=== PATIENT | female | born 1990 | race Caucasian/White ===

== ENCOUNTER 2020-05-28 15:25 | Outpatient (REF) | payer OTHER, SELFPAY | END 2020-05-28 15:26 | disposition home or self-care (01) | LOC: HO.LAB 15:25 | PROVIDERS: Visit Provider Internal Medicine | DX: Z20.828 Contact with and (suspected) exposure to other viral communicable diseases (principal) | CPT/HCPCS: C9803; U0003 ==

== ENCOUNTER 2020-06-25 13:08 | Outpatient (REF) | payer OTHER, SELFPAY | END 2020-06-25 13:09 | disposition home or self-care (01) | LOC: HO.LAB 13:08 | PROVIDERS: Visit Provider Internal Medicine | DX: Z20.822 Contact with and (suspected) exposure to COVID-19 (principal) | CPT/HCPCS: 36415; C9803; U0003 ==

== ENCOUNTER 2020-07-29 14:27 | Outpatient (REF) | payer OTHER, SELFPAY ==
--- NOTE | ~2020-07-29 | XR_ITS ---
EXAMINATION: XR THORACIC SPINE XR LUMBAR SPINE CLINICAL INFORMATION: Lower abdominal pain. COMPARISON: None TECHNIQUE: AP and lateral views of the thoracic spine. AP, lateral, and coned-down views of the lumbar spine. FINDINGS: THORACIC SPINE: Normal vertebral body alignment. The thoracic kyphosis is maintained. No acute fracture or subluxation. No loss of vertebral body or intervertebral disc height. No lytic or blastic osseous lesion. The visualized lungs are clear. LUMBAR SPINE: Normal vertebral body alignment. The lumbar lordosis is maintained. No acute fracture or subluxation. No loss of vertebral body or intervertebral disc height. No lytic or blastic osseous lesion. No abnormal soft tissue calcification. XR/XR thoracic spine 2V IMPRESSION: Thoracic spine: Unremarkable examination. Lumbar spine: Unremarkable examination.
--- NOTE | ~2020-07-29 | XR_ITS ---
EXAMINATION: XR ABDOMEN WITH DECUBITUS VIEWS CLINICAL INDICATION: Lower abdominal pain. COMPARISON: Abdominal ultrasound dated 06/17/2018 and abdominal radiograph dated 05/28/2018. TECHNIQUE: AP upright and supine views of the abdomen. FINDINGS: Nonobstructive bowel gas pattern. Minimal stool burden. No intra-abdominal free air. No abnormal soft tissue calcification. No acute osseous abnormality. XR/XR abdomen w decubitus IMPRESSION: Unremarkable examination.
--- NOTE | ~2020-07-29 | XR_ITS ---
EXAMINATION: XR THORACIC SPINE XR LUMBAR SPINE CLINICAL INFORMATION: Lower abdominal pain. COMPARISON: None TECHNIQUE: AP and lateral views of the thoracic spine. AP, lateral, and coned-down views of the lumbar spine. FINDINGS: THORACIC SPINE: Normal vertebral body alignment. The thoracic kyphosis is maintained. No acute fracture or subluxation. No loss of vertebral body or intervertebral disc height. No lytic or blastic osseous lesion. The visualized lungs are clear. LUMBAR SPINE: Normal vertebral body alignment. The lumbar lordosis is maintained. No acute fracture or subluxation. No loss of vertebral body or intervertebral disc height. No lytic or blastic osseous lesion. No abnormal soft tissue calcification. XR/XR lumbar spine 2-3V IMPRESSION: Thoracic spine: Unremarkable examination. Lumbar spine: Unremarkable examination.
== END 2020-07-29 14:28 | disposition home or self-care (01) ==
LOC: HO.XRAY 14:27
PROVIDERS: PCP Physician Assistant; Visit Provider Nurse Practitioner
DX: R10.30 Lower abdominal pain, unspecified (principal); K59.04 Chronic idiopathic constipation; K75.81 Nonalcoholic steatohepatitis (NASH); K64.9 Unspecified hemorrhoids; E66.01 Morbid (severe) obesity due to excess calories; Z88.8 Allergy status to other drugs, medicaments and biological substances
CPT/HCPCS: 72070; 72100; 74021

== ENCOUNTER → 2020-08-11 09:11 | Outpatient (BNVA) | payer OTHER, SELFPAY | PROVIDERS: PCP Physician Assistant; Visit Provider Nurse Practitioner ==

== ENCOUNTER 2020-08-23 15:12 | Outpatient (REF) | payer OTHER, SELFPAY ==
[2020-08-23 15:42] LABS: Hemoglobin 12.8 g/dl (12.0-16.0); Mean Corpuscular Hemoglobin 29.1 pg (27.0-33.0); Mean Corpuscular Volume 90.9 fL (80-98); Mean Platelet Volume 10.8 fL (9.4-12.3); Platelet Count 247 X10*3/uL (160-400); Red Cell Distribution Width 13.3 % (11.0-16.0); White Blood Count 6.2 X10*3/uL (4.8-10.8)
[2020-08-23 16:19] LABS: Alanine Aminotransferase 41 U/L (0-31); Albumin Level 4.2 g/dL (3.5-5.0); Alkaline Phosphatase 86 U/L (39-117); Anion Gap 12 (12-20); Aspartate Amino Transferase 35 U/L (5-31); Bilirubin Total 0.5 mg/dL (0.0-1.0); Blood Urea Nitrogen 16 mg/dL (9-16); Calcium 8.8 mg/dL (8.4-10.2); Carbon Dioxide 28 mmol/L (22-29); Chloride 105 mmol/L (96-108); Cholesterol 162 mg/dL; Estimated Glomerular Filt Rate > 60; Glucose Fasting 80 mg/dL (60-99); HDL Cholesterol 41 mg/dL; LDL Cholesterol Calculated 102 mg/dl; Potassium 4.3 mmol/L (3.3-5.1); Sodium 141 mmol/L (135-145); Total Protein 7.8 g/dL (6.5-8.0); Triglycerides 97 mg/dL
[2020-08-23 16:39] LABS: TSH reflex Free T4 1.33 uIU/mL (0.32-4.0)
[2020-08-23 18:31] LABS: Glucose Urine UA NEG (NEG); Leukocyte Esterase Urine NEG (NEG); Nitrite Urine NEG (NEG); PH 6.5 (5.0-8.0); Specific Gravity - Urine 1.025 (1.005-1.025); Urine Blood NEG (NEG); Urine Ketones NEG (NEG); Urine Protein NEG (NEG-TRACE)
[2020-08-23 18:35] LABS: Appearance Urine CLEAR; Color Urine YELLOW
== END 2020-08-23 15:13 | disposition home or self-care (01) ==
LOC: HO.LAB 15:12
PROVIDERS: Absent Provider Nurse Practitioner; PCP Physician Assistant; Visit Provider Physician Assistant
DX: I10 Essential (primary) hypertension (principal); B36.9 Superficial mycosis, unspecified; R10.30 Lower abdominal pain, unspecified; Z13.1 Encounter for screening for diabetes mellitus; Z13.220 Encounter for screening for lipoid disorders; Z13.29 Encounter for screening for other suspected endocrine disorder
CPT/HCPCS: 36415; 80053; 80061; 81003; 84443; 85027

== ENCOUNTER 2020-08-26 09:06 | Outpatient (REF) | payer OTHER, SELFPAY ==
--- NOTE | ~2020-08-26 | CT_ITS ---
EXAMINATION: CT ABDOMEN AND PELVIS WITH CONTRAST CLINICAL INFORMATION: Lower abdominal pain, unspecified COMPARISON: Prior CTs of the abdomen and pelvis, most recently 08/21/2017 TECHNIQUE: Multidetector volumetric images were obtained from the superior aspect of the liver through the pubic symphysis following administration 85 mL of Omnipaque 350 intravenous contrast. Sagittal and coronal reformatted images were obtained on the technologist's workstation. Oral contrast: Yes This CT examination was performed using dose optimization techniques as appropriate, variously including the following: *Automated exposure control *Adjustment of mA and/or kV according to patient size (this includes techniques or standardized protocols for targeted exams where dose is matched to indication/reason for exam; i.e. extremities or head) *Use of iterative reconstruction technique DLP: 686 mGy-cm FINDINGS: LUNG BASES: The visualized lung bases are unremarkable. LIVER, GALLBLADDER, AND BILIARY TREE: The liver is normal in size, shape, and attenuation. No focal hepatic lesion or biliary ductal dilatation is present. The gallbladder is unremarkable with no evidence of radiopaque gallstones, gallbladder wall thickening, or obvious pericholecystic inflammatory changes. PANCREAS: Unremarkable. SPLEEN: At the upper limits of normal for size, 13.7 cm in the coronal plane. Just inferior to the tip of the spleen there is a homogeneously attenuating 1.6 cm structure most compatible with a splenule. ADRENAL GLANDS: Unremarkable. KIDNEYS AND URETERS: The kidneys are normal in size, shape, and attenuation. No hydronephrosis, hydroureter, or calculi seen. No perinephric stranding. BLADDER: Normal partially distended bladder contour. GASTROINTESTINAL TRACT: The small and large bowel are unremarkable. The appendix is unremarkable. ABDOMINAL WALL: No significant hernia is appreciated. LYMPH NODES: Normal. VASCULAR: Unremarkable. PELVIC VISCERA: The uterus and adnexa are unremarkable. Incidental note of a tampon within the vagina. OSSEOUS STRUCTURES: Unremarkable. CT/CT abdomen pelvis w con IMPRESSION: The spleen is at the upper limits of normal for size, otherwise essentially no abnormality of the abdomen or pelvis is identified.
[2020-08-26] MEDS: Barium Sulfate Oral (Mocha) 450 ML ORAL.SUSP 900 ML PO (12:10)
== END 2020-08-26 09:07 | disposition home or self-care (01) ==
LOC: HO.CT 09:06
PROVIDERS: PCP Physician Assistant; Visit Provider Nurse Practitioner
DX: R10.30 Lower abdominal pain, unspecified (principal)
CPT/HCPCS: 74177; Q9967

== ENCOUNTER 2020-08-31 21:48 | Emergency (ER) | payer OTHER, SELFPAY ==
--- NOTE | ~2020-08-31 | XR_ITS ---
EXAMINATION: LUMBOSACRAL SPINE 3 VIEWS CLINICAL INFORMATION: Low back pain. COMPARISON: 07/29/2020. TECHNIQUE: AP, lateral, spot lateral views of the lumbosacral spine are provided. FINDINGS: There are no fractures. The lumbar vertebrae are in normal alignment. Disc heights and vertebral body heights are well-preserved. XR/XR lumbar spine 2-3V IMPRESSION: Unremarkable lumbosacral spine series.
[2020-08-31 21:56] VITALS: BP 144/92; PULSE 92; RESP 15; TEMP 36.8; O2SAT 97; BMI 45.7
--- NOTE | 2020-08-31 23:32 | ED_ITS ---
HPI - General Adult General Chief complaint: Back Pain/Injury Stated complaint: BACK PAIN Time Seen by Provider: 08/31/20 23:18 Source: patient Mode of arrival: ambulatory Limitations: no limitations History of Present Illness HPI narrative: Patient presents to ED for left-sided back pain radiating down left leg with tingling in the left lower extremity. Patient denies any recent trauma. Patient states no flank pain, chills fever, chills, nausea, dysuria, hematuria, or vomiting Related Data Home Medications Medication Instructions Recorded Confirmed ibuprofen 600 mg tablet 600 mg PO Q6H PRN 07/29/20 methocarbamol 750 mg tablet mg PO 07/29/20 prednisone 20 mg tablet 20 mg PO BID 07/29/20 tramadol 50 mg tablet mg PO 07/29/20 verapamil 40 mg tablet 40 mg PO BID 07/29/20 Previous Rx's Medication Instructions Recorded amoxicillin 500 mg capsule 500 mg PO Q8H 5 Days #15 cap 07/12/20 clotrimazole-betamethasone 1 1 appl TOPICAL BID 15 Days #45 g 07/12/20 %-0.05 % topical cream prednisone 10 mg tablet 10 mg PO DAILY 5 Days #5 tab 07/12/20 cyclobenzaprine 10 mg PO TID PRN #15 tab 09/01/20 naproxen 500 mg PO BID PRN #20 tab 09/01/20 Allergies Allergy/AdvReac Type Severity Reaction Status Date / Time dexamethasone [DEXAMETHASONE] Allergy Unknown ANXIETY Verified 08/11/20 09:12 Unkonwn steroid shot Allergy Unknown Unknown Uncoded 07/14/20 07:20 Review of Systems Review of Systems: Yes all other systems are reviewed and are negative Constitutional: Constitutional: Reports as per HPI and Reports no additional constitutional complaints Eyes: Eyes: Reports as per HPI and Reports no additional eye complaints ENT: Reports system reviewed and no additional complaints, except as docume nted Cardiovascular: Cardiovascular: Reports as per HPI and Reports no additional cardiovascular complaints Respiratory: Respiratory: Reports as per HPI and Reports no additional respiratory complaints Gastrointestinal: Gastrointestinal: Reports as per HPI and Reports no additional gastrointestinal complaints Genitourinary: Genitourinary: Reports no additional female genitourinary complaints and Reports as per HPI Musculoskeletal: Musculoskeletal: Reports no additional musculoskeletal complaints, Reports as per HPI and Reports back pain Neurologic: Reports system reviewed and no additional complaints, except as documented and Reports as per HPI Psychiatric: Psychiatric: Reports no additional psychiatric complaints and Reports as per HPI [facility] Past Medical History Surgical History History of carpal tunnel surgery (~04/2020) Hx of section Family History Family History Father Unknown family medical history Maternal Uncle Blocked artery Family/Other Colon cancer Social History Social History (Updated 08/31/20 @ 21:59 by Jeaneth Chin) Alcohol intake: never Smoking Status: Never smoker Smoked in Last 30 Days: No Use of substances other than those prescribed or required for medical reasons: No Any prior treatment program specific to substance use: No Advance Directives: No Advance Directives Information Provided: No Physical Exam Vital Signs: Vital Signs: Last Vital Signs Temp 98.3 F 08/31/20 21:56 Pulse 92 08/31/20 21:56 Resp 15 08/31/20 21:56 BP 144/92 H 08/31/20 21:56 Pulse Ox 97 08/31/20 21:56 Body Mass Index 45.7 Const: General: cooperative, healthy appearing, comfortable, no acute distress, well developed, alert, awake and Physically active; No lethargic Orientation/consciousness: No lethargic HENMT: Head: Yes normal to inspection, Yes No palpable skull fracture present, Yes normocephalic, Yes atraumatic, No Layne's sign, No contusion, No cranial bruits, No hematoma, No laceration, No occipital foramen tenderness, No palpable skull fracture, No raccoon eyes, No scalp lesion, No scalp tenderness, No Tempo ral artery tenderness present and No periorbital ecchymosis Eyes: General: appearance normal, both eyes and all related structures Neck: Neck: Yes normal visual inspection, Yes full ROM, Yes no ly mphadenopathy, Yes no meningeal signs, Yes trachea midline, Yes supple and No tender Chest: Chest palpation & inspection: normal inspection of the chest and normal palpation of entire chest wall Resp: Effort & Inspection: normal respiratory effort and able to speak in complete sentences Auscultation: clear to auscultation bilaterally Cardio: Jugular venous distension: no JVD Heart sounds: S1 normal heart sound present and S2 normal heart sound present GI: Inspection: Yes normal to inspection and No abdominal wall ecchymosis Palpation (GI): Soft to palpation, not firm, nontender, no guarding and not rigid : General: No CVA tenderness and Yes no CVA tenderness Back/Spine/Pelvis: Back: no CVA tenderness, No CVA tenderness and back tenderness (Left lumbar spine and muscular tenderness) Skin: General skin exam: no rashes or lesions noted and elasticity normal Neuro: General: patient oriented x3, no meningeal signs and CN's II-XI intact bilaterally Cranial nerves: Yes CN's II-XII intact bilaterally Extrem: General: Yes normal to inspection and Yes full ROM Psych: Appearance: grossly normal, well kempt and not disheveled Course Course Course Narrative: History physical exam indicates sciatica. Review lumbar x-ray and give patient pain meds Reevaluation(s) Reevaluation #1: X-ray negative for any fractures. Diagnosis sciatica. Medical Decision Making MDM Narrative Medical decision making narrative: Sciatica Discharge Plan Discharge Clinical Impression: Sciatica Patient Disposition: Home, Self-Care Instructions: Sciatica (ED) Additional Instructions: Return to the ED immediately for worsening back pain, nausea, vomiting, fever, chills, dysuria, hematuria, flank pain, or any other concerning symptoms. Prescriptions: New naproxen 500 mg tablet 500 mg PO BID PRN (Reason: pain) Qty: 20 RF: 0 cyclobenzaprine 10 mg tablet 10 mg PO TID PRN (Reason: pain) Qty: 15 RF: 0 No Action clotrimazole-betamethasone 1-0.05 % cream 1 appl topical BID 15 Days Qty: 45 RF: 0 amoxicillin 500 mg capsule 500 mg PO Q8H 5 Days Qty: 15 RF: 0 prednisone 10 mg tablet 10 mg PO DAILY 5 Days Qty: 5 RF: 0 Referrals: Abdifatah Whitt PA-C [Primary Care Provider] - 2 days (Sciatica) Stand Alone Forms: Work/School Release Interventions: ED Discharge Assessment Last Done: 09/01/20 00:41 Discharge Date/Time: 09/01/20 00:43 Print Language: [place]ian
[2020-08-31] MEDS: Ketorolac Tromethamine 30 MG/ML VIAL IM (23:53)
== END 2020-09-01 00:43 | disposition home or self-care (01) ==
PROVIDERS: Emergency Provider Internal Medicine; PCP Physician Assistant
DX: M54.42 Lumbago with sciatica, left side (principal)
CPT/HCPCS: 72100; 96372; 99284; J1885

== ENCOUNTER → 2020-09-10 08:11 | Outpatient (BNVA) | payer OTHER, SELFPAY | PROVIDERS: PCP Physician Assistant; Visit Provider Nurse Practitioner ==

== ENCOUNTER 2020-09-20 00:11 | Emergency (ER) | payer OTHER, SELFPAY ==
[2020-09-20 00:41] VITALS: BP 136/77; PULSE 88; RESP 16; TEMP 37.1; O2SAT 100; BMI 47.5
[2020-09-20 01:19] LABS: Glucose Urine UA NEG (NEG); Leukocyte Esterase Urine NEG (NEG); Nitrite Urine NEG (NEG); Specific Gravity - Urine >= 1.030 (1.005-1.025); Urine Blood TRACE (NEG); Urine Ketones NEG (NEG); Urine Protein NEG (NEG-TRACE)
[2020-09-20 01:20] LABS: Appearance Urine CLEAR; Color Urine YELLOW
[2020-09-20 01:21] LABS: UPreg QC Valid YES; Urine Pregnancy NEGATIVE (NEGATIVE)
[2020-09-20 01:26] LABS: Bacteria Urine TRACE /LPF; Mucus Urine 2+ /LPF; RBC Urine 0-2 /HPF (0); Squamous Epithelial Cell Urine 3+ /LPF
--- NOTE | 2020-09-20 01:51 | ED.BACK ---
HPI - Back Pain/Injury General Chief Complaint: Back Pain/Injury Stated Complaint: Sciatica pain Time Seen by Provider: 09/20/20 01:49 Source: patient Mode of arrival: ambulatory History of Present Illness HPI Narrative: 29F p/w back and b/l lower extremity pain and swelling but denies fevers, chills, perineal numbness, bowel/bladder dysfunction, or history of IVDA. Patient states she has back pain at baseline, but says it has become much worse. Related Data Home Medications Medication Instructions Recorded Confirmed ibuprofen 600 mg tablet 600 mg PO Q6H PRN 07/29/20 methocarbamol 750 mg tablet mg PO 07/29/20 Previous Rx's Medication Instructions Recorded cyclobenzaprine 10 mg PO TID PRN #15 tab 09/01/20 Allergies Allergy/AdvReac Type Severity Reaction Status Date / Time dexamethasone [DEXAMETHASONE] Allergy Unknown ANXIETY Verified 09/21/20 14:12 Review of Systems Review of Systems: Pertinent positives and negatives as per HPI and 10 point ROS is otherwise negative. [facility] Past Medical History Source: nursing notes reviewed Surgical History History of carpal tunnel surgery (~04/2020) Hx of section Family History Family History Father Unknown family medical history Maternal Uncle Blocked artery Family/Other Colon cancer Maternal Uncle Blocked artery Mother No problems noted. Maternal Grandmother Stroke S/P triple vessel bypass Social History Social History (Updated 09/21/20 @ 14:14 by Julianna Calvo) Household Members: Children Alcohol intake: current Alcohol intake frequency: holidays/special occasions only Smoking Status: Never smoker Physical Exam Vital Signs: Vital Signs: Last Vital Signs Temp 98.7 F 09/20/20 00:41 Pulse 88 09/20/20 00:41 Resp 16 09/20/20 00:41 BP 136/77 09/20/20 00:41 Pulse Ox 100 09/20/20 00:41 Body Mass Index 47.5 VITAL SIGNS: Reviewed. GENERAL: Well developed, well nourished, in no acute distress. HEAD: Normocephalic/atraumatic, EYES: PERRLA, EOMI NOSE: Nares patent bilateral OROPHARYNX: no oral lesions noted, posterior pharynx clear NECK: Supple, no adenopathy LUNGS: Normal breath sounds. No adventitious sounds or accessory muscle use. SpO2<100> CARDIOVASCULAR: Regular rate and rhythm without noted murmurs ABDOMEN: Soft, non-tender, non-distended with bowel sounds. BACK: Paraspinal back spasm, straight leg test negative NEUROLOGIC: Alert and oriented x 4. Strength and sensation to light touch were grossly intact x 4. Course Course Course Narrative: 29-year-old female with history and clinical presentation consistent with chronic back pain and review of investigations negative for UTI. Patient was provided with combination analgesics with good resolution of pain on re-evaluation. She was discharged in stable condition with instructions to follow up with primary care provider. MDM - Back Pain/Injury Lab Data Labs: Lab Results 09/20/20 09/20/20 Range/Units 01:09 01:09 Urine Color YELLOW Urine Appearance CLEAR Urine pH 6.0 (5.0-8.0) Ur Specific [place] >= 1.030 H (1.005-1.025) Urine Protein NEG (NEG-TRACE) MG/DL Urine Glucose (UA) NEG (NEG) MG/DL Urine Ketones NEG (NEG) MG/DL Urine Blood TRACE (NEG) Urine Nitrite NEG (NEG) Ur Leukocyte Esterase NEG (NEG) Urine RBC 0-2 (0) /HPF Urine WBC 1-4 (0-4) /HPF Ur Squamous Epith Cells 3+ /LPF Urine Bacteria TRACE /LPF Urine Mucus 2+ /LPF Urine Test NEGATIVE (NEGATIVE) Discharge Plan Discharge Clinical Impression: Low back pain Patient Disposition: Home, Self-Care Instructions: Sciatica (ED), Back Pain (ED), Lower Back Exercises (ED) Additional Instructions: 1. Tylenol 1000 mg, orally, every 6 hours as needed for pain control. Do not exceed 4000 mg within 24 hours.(this is a brief course that should not adversely affect your underlying fatty liver) 2. Recommend lidocaine patch, you have a prescription currently, apply to area of maximal tenderness as directed on the prescription. 3. Follow up with the Sports Medicine referral that you were provided by [facility]. Do not hesitate to return to the emergency department for any acute worsening of your symptoms. Prescriptions: No Action cyclobenzaprine 10 mg tablet 10 mg PO TID PRN (Reason: pain) Qty: 15 RF: 0 methocarbamol 750 mg tablet PO RF: 0 ibuprofen 600 mg tablet 600 mg PO Q6H PRN (Reason: moderate pain) RF: 0 Referrals: Abdifatah Whitt PA-C [Primary Care Provider] - 2 days (Re-evaluation left lower back pain with sciatica) Interventions: ED Discharge Assessment Last Done: 09/20/20 03:35 Discharge Date/Time: 09/20/20 03:37
[2020-09-20] MEDS: Lidocaine 4 % Patch ADH..PATCH 1 PATCH TRANSDERMA (02:13)
[2020-09-20] MEDS: Acetaminophen 325 MG TABLET 975 MG PO (02:14)
--- NOTE | 2020-09-20 02:33 | PC.NURSE ---
Pt medicated with tylenol and lidocaine patch per AUG. Pt refusing toradol at this time.
== END 2020-09-20 03:37 | disposition home or self-care (01) ==
PROVIDERS: Emergency Provider Student in an Organized Health Care Education/Training Program; PCP Physician Assistant
DX: M54.42 Lumbago with sciatica, left side (principal); M54.41 Lumbago with sciatica, right side
CPT/HCPCS: 81001; 81025; 96372; 99284

== ENCOUNTER 2020-10-26 08:59 | Outpatient (REF) | payer OTHER, SELFPAY ==
[2020-10-26 10:55] LABS: INTERNATIONAL NORM RATIO 1.1 (0.9-1.1); Prothrombin Time 12.9 SEC (10.8-13.0)
[2020-10-26 10:59] LABS: D Dimer < 200 NG/ML
[2020-10-26 11:42] LABS: HCG Quantitative < 2 mIU/mL; Thyroid Stimulating Hormone 2.51 uIU/mL (0.32-4.0)
[2020-10-27 11:24] LABS: BV Int Neg Control Negative (Negative); BV Int Pos Control Positive (Positive)
[2020-10-27 12:06] LABS: CT PCR NOT DETECTED (Not Detect.); NG PCR NOT DETECTED (Not Detect.)
== END 2020-10-26 09:00 | disposition home or self-care (01) ==
LOC: HO.LAB 08:59
PROVIDERS: Nurse Practitioner; PCP Physician Assistant; Visit Provider Advanced Practice Midwife
DX: Z01.419 Encounter for gynecological examination (general) (routine) without abnormal findings (principal); R10.2 Pelvic and perineal pain; N89.8 Other specified noninflammatory disorders of vagina; N92.6 Irregular menstruation, unspecified; R60.0 Localized edema; R20.0 Anesthesia of skin; Z88.8 Allergy status to other drugs, medicaments and biological substances; Z20.2 Contact with and (suspected) exposure to infections with a predominantly sexual mode of transmission
CPT/HCPCS: 36415; 81025; 84443; 84702; 85379; 85610; 87480; 87491; 87510; 87591; 87660; 88142

== ENCOUNTER 2020-10-27 09:28 | Outpatient (REF) | payer OTHER, SELFPAY | END 2020-10-27 09:29 | disposition home or self-care (01) | LOC: HO.US 09:28 | PROVIDERS: Visit Provider Advanced Practice Midwife | DX: Z13.89 Encounter for screening for other disorder (principal) ==

== ENCOUNTER 2020-11-14 17:54 | Emergency (ER) | payer OTHER, SELFPAY ==
--- NOTE | ~2020-11-14 | US_ITS ---
EXAMINATION: US PELVIC AND TRANSVAGINAL CLINICAL INFORMATION: Bilateral pain. History of cysts. COMPARISON: Abdomen CT 08/26/2020. Pelvic ultrasound 03/28/2018. TECHNIQUE: Transabdominal and transvaginal evaluation. FINDINGS: LMP: 3 months ago. Retroverted uterus measuring 12.1 x 4.9 x 5.9 cm. No focal uterine lesions. Endometrial thickness 0.7 cm. Right ovary measures 2.9 x 1.6 x 1.9 cm, volume 4.6 mL. Right ovary appears unremarkable. Normal vascular flow to the right ovary. Left ovary measures 5.6 x 3.5 x 4.7 cm, volume 48.2 mL. There is a 3.8 x 2.5 x 3.9 cm mildly complex cyst, with low-grade internal echoes, and possible septation. Normal vascular flow. No significant free fluid. US/US pelvic and transvaginal IMPRESSION: Mildly complex left ovarian 3.9 cm cyst. Recommend follow up ultrasound in 6-8 weeks.
[2020-11-14 20:29] VITALS: BP 134/98; PULSE 78; RESP 16; TEMP 36.6; O2SAT 100; BMI 44.2
[2020-11-14 21:15] LABS: MANUAL DIFF FLAG NO
[2020-11-14 21:17] LABS: Basophils Percent Auto 0.5 % (0-2); Eosinophils Absolute Auto 0.1 X10*3/uL (0.0-0.4); Eosinophils Percent Auto 1.4 % (0-4); Hematocrit 40.7 % (37-47); Hemoglobin 13.1 g/dl (12.0-16.0); Imm Gran Abs Auto 0.02 X10*3/uL (0.00-0.03); Imm Gran Pct Auto 0.2 % (0.0-0.4); Lymphocytes Absolute Auto 2.7 X10*3/uL (1.2-4.9); Lymphocytes Percent Auto 30.2 % (20-40); Mean Corpuscular HGB Conc 32.2 g/dl (31.0-35.0); Mean Corpuscular Hemoglobin 29.4 pg (27.0-33.0); Mean Corpuscular Volume 91.3 fL (80-98); Mean Platelet Volume 10.4 fL (9.4-12.3); Monocytes Absolute Auto 0.5 X10*3/uL (0.1-1.2); Monocytes Percent Auto 6.1 % (2-11); Neutrophils Absolute Auto 5.4 X10*3/uL (2.0-8.3); Neutrophils Percent Auto 61.6 % (45-73); Platelet Count 234 X10*3/uL (160-400); Red Blood Count 4.46 X10*6/uL (4.20-5.50); Red Cell Distribution Width 13.4 % (11.0-16.0); White Blood Count 8.8 X10*3/uL (4.8-10.8)
[2020-11-14 21:23] LABS: Glucose Urine UA NEG (NEG); Leukocyte Esterase Urine NEG (NEG); Nitrite Urine NEG (NEG); Specific Gravity - Urine >= 1.030 (1.005-1.025); Urine Blood NEG (NEG); Urine Ketones NEG (NEG); Urine Protein NEG (NEG-TRACE)
[2020-11-14 21:25] LABS: Appearance Urine CLEAR; Color Urine YELLOW
[2020-11-14 21:33] VITALS: BP 136/98; PULSE 83; RESP 18; O2SAT 99
[2020-11-14 21:42] LABS: Anion Gap 11 (12-20); Blood Urea Nitrogen 19 mg/dL (9-16); Calcium 9.4 mg/dL (8.4-10.2); Carbon Dioxide 30 mmol/L (22-29); Chloride 103 mmol/L (96-108); Creatinine Clr Calc Pharmacy 111.8; Estimated Glomerular Filt Rate > 60; Glucose Random 98 mg/dL (60-115); Potassium 4.1 mmol/L (3.3-5.1); Sodium 140 mmol/L (135-145)
[2020-11-14 21:50] LABS: HCG Quantitative < 2 mIU/mL
[2020-11-14 22:00] VITALS: BP 136/88; PULSE 72; RESP 16; TEMP 37.1; O2SAT 99
--- NOTE | 2020-11-14 22:08 | ED.ABDPAIN ---
HPI - Abdominal Pain General Chief Complaint: Abdominal Pain Stated Complaint: lower left side pain Time Seen by Provider: 11/14/20 21:25 Source: patient Mode of arrival: ambulatory Limitations: no limitations History of Present Illness HPI narrative: Patient comes emergency room complaining of bilateral lower quadrant pain for a week. Patient states it is constant, nonradiating. Patient states that she has not had her menstrual period for 3 months, she is usually regular. Patient states she has been previously diagnosed with polycystic ovarian syndrome. Patient denies vaginal discharge, no dysuria, no fever chills, no flank pain. Related Data Home Medications Medication Instructions Recorded Confirmed ibuprofen 600 mg tablet 600 mg PO Q6H PRN 07/29/20 10/11/20 methocarbamol 750 mg tablet mg PO 07/29/20 10/11/20 Previous Rx's Medication Instructions Recorded cyclobenzaprine 10 mg PO TID PRN #15 tab 09/01/20 Allergies Allergy/AdvReac Type Severity Reaction Status Date / Time dexamethasone [DEXAMETHASONE] Allergy Unknown ANXIETY Verified 11/14/20 20:37 Review of Systems Review of Systems Constitutional : No Weight loss, No Fever, No Chills, No Night Sweats, No Fatigue, No Malaise ENT/Mouth : No Hearing loss, No Ear Pain, No Nasal Congestion, No Sinus Pain, No Hoarseness, No sore throat, No Rhinorrhea, No Swallowing Difficulty Eyes: No Eye Pain, No Swelling, No Redness, No Foreign Body, No Discharge, No Vision Changes Cardiovascular : No Chest Pain, No SOB, No Dyspnea on Exertion, No Orthopnea, No Edema, No Palpitations Respiratory : No Cough, No Sputum, No Wheezing, No Smoke Exposure, No Dyspnea Gastrointestinal : No Nausea, No Vomiting, No Diarrhea, No Constipation, bilateral lower quadrant pain and suprapubic discomfort, No Hematochezia, No Melena Genitourinary : no irregular bleeding, No Dysuria, No Urinary Frequency, No Hematuria, No Urinary Incontinence, No Urgency, No Flank Pain, No Urinary Flow Changes, No Hesitancy Musculoskeletal : No joint pain, No Myalgias, No Joint Swelling Skin : No Skin Lesions, No rash Neuro : No Weakness, No Numbness, No Paresthesias, No Loss of Consciousness, No Dizziness, No Headache Psych : No Anxiety/Panic, No Depression, No SI/HI/AH/VH, No Social Issues, Heme/Lymph: No Bruising, No Bleeding,No Lymphadenopathy Endocrine : No Polyuria, No Polydipsia, No Temperature Intolerance Physical Exam Vital Signs: Vital Signs: Last Vital Signs Temp 98.7 F 11/14/20 22:00 Pulse 79 11/14/20 23:33 Resp 18 11/14/20 23:33 BP 124/83 11/14/20 23:33 Pulse Ox 99 11/14/20 23:33 Body Mass Index 44.2 Appearance: Alert. Oriented X3. No acute distress. Eyes: Pupils equal, round and reactive to light. ENT: Pharynx normal. Neck: Normal inspection. Neck supple. No lymph nodes noted. No crepitus CVS: Normal heart rate and rhythm. Pulses normal. Normal S1 and S2 Respiratory: No respiratory distress. Breath sounds normal. No Wheezing. No rales Abdomen: Soft, mild tenderness to palpation over the bilateral lower quadrants. No rigidity. No distention. No guarding, no rebound. Skin: Skin warm and dry. Normal skin color. Normal skin turgor. Extremities: No lower extremity edema. No lower extremity edema. No Lacerations. No Rash Neuro: Oriented X 3. No motor deficit. No sensory deficit. Moving all extermities. No slurred speech. Course Course Course Narrative: I discussed the labs and ultrasound with the patient. Patient does have a 4 cm left ovarian cyst, discussed with the patient that she will need a follow-up ultrasound in 6-8 weeks, and is to be discussed with her OBGYN. At this time, patient declines pain medication, states that she is doing well, only hurts when she moves, states she has good pain relief with Tylenol. MDM - Abdominal Pain Lab Data Result diagrams: 11/14/20 21:07 11/14/20 21:07 Labs: Lab Results 11/14/20 11/14/20 11/14/20 Range/Units 21:07 21:07 21:07 WBC 8.8 (4.8-10.8) X10*3/uL RBC 4.46 (4.20-5.50) X10*6/uL Hgb 13.1 (12.0-16.0) g/dl Hct 40.7 (37-47) % MCV 91.3 (80-98) fL MCH 29.4 (27.0-33.0) pg MCHC 32.2 (31.0-35.0) g/dl RDW 13.4 (11.0-16.0) % Plt Count 234 (160-400) X10*3/uL MPV 10.4 (9.4-12.3) fL Immature Gran % (Auto) 0.2 (0.0-0.4) % Neut % (Auto) 61.6 (45-73) % Lymph % (Auto) 30.2 (20-40) % [place] % (Auto) 6.1 (2-11) % Eos % (Auto) 1.4 (0-4) % Baso % (Auto) 0.5 (0-2) % Lymph # (Auto) 2.7 (1.2-4.9) X10*3/uL [place] # (Auto) 0.5 (0.1-1.2) X10*3/uL Eos # (Auto) 0.1 (0.0-0.4) X10*3/uL Baso # (Auto) 0.0 (0.0-0.2) X10*3/uL Abs Immat Gran (auto) 0.02 (0.00-0.03) X10*3/uL Absolute Neuts (auto) 5.4 (2.0-8.3) X10*3/uL Absolute Nucleated RBC 0.000 (0.0-0.012) X10*3/uL Nucleated RBC % (auto) 0.0 (0.0-0.2) /100WBC Sodium 140 (135-145) mmol/L Potassium 4.1 (3.3-5.1) mmol/L Chloride 103 (96-108) mmol/L Carbon Dioxide 30 H (22-29) mmol/L Anion Gap 11 L (12-20) BUN 19 H (9-16) mg/dL Creatinine 0.90 (0.5-1.4) mg/dL Estim Creat Clear Calc 111.8 Estimated GFR > 60 Random Glucose 98 (60-115) mg/dL Calcium 9.4 D (8.4-10.2) mg/dL Beta HCG, Quant < 2 mIU/mL Urine Color YELLOW Urine Appearance CLEAR Urine pH 6.0 (5.0-8.0) Ur Specific [place] >= 1.030 H (1.005-1.025) Urine Protein NEG (NEG-TRACE) MG/DL Urine Glucose (UA) NEG (NEG) MG/DL Urine Ketones NEG (NEG) MG/DL Urine Blood NEG (NEG) Urine Nitrite NEG (NEG) Ur Leukocyte Esterase NEG (NEG) Imaging Data US - abdomen: Radiologist's impression: FINDINGS: LMP: 3 months ago. Retroverted uterus measuring 12.1 x 4.9 x 5.9 cm. No focal uterine lesions. Endometrial thickness 0.7 cm. Right ovary measures 2.9 x 1.6 x 1.9 cm, volume 4.6 mL. Right ovary appears unremarkable. Normal vascular flow to the right ovary. Left ovary measures 5.6 x 3.5 x 4.7 cm, volume 48.2 mL. There is a 3.8 x 2.5 x 3.9 cm mildly complex cyst, with low-grade internal echoes, and possible septation. Normal vascular flow. No significant free fluid. US/US pelvic and transvaginal IMPRESSION: Mildly complex left ovarian 3.9 cm cyst. Recommend follow up ultrasound in 6-8 weeks. Discharge Plan Discharge Clinical Impression: Ovarian cyst Qualifiers: Laterality: left Qualified Code(s): N83.202 - Unspecified ovarian cyst, left side Patient Disposition: Home, Self-Care Instructions: Ovarian Cyst (ED) Additional Instructions: Please follow-up with your primary care physician tomorrow. If you have any worsening or new symptoms, please return to the emergency room or call 911 Prescriptions: No Action cyclobenzaprine 10 mg tablet 10 mg PO TID PRN (Reason: pain) Qty: 15 RF: 0 methocarbamol 750 mg tablet PO RF: 0 ibuprofen 600 mg tablet 600 mg PO Q6H PRN (Reason: moderate pain) RF: 0 PMFSH Past Medical History Medical History Asthma PCOS (polycystic ovarian syndrome) Surgical History History of carpal tunnel surgery (~04/2020) Hx of section Family History Family History Father Unknown family medical history Maternal Uncle Blocked artery Family/Other Colon cancer Maternal Uncle Blocked artery Mother No problems noted. Maternal Grandmother Stroke S/P triple vessel bypass Social History Social History Household Members: Children Alcohol intake: current Alcohol intake frequency: holidays/special occasions only Advance Directives: No Advance Directives Information Provided: No Patient : No
[2020-11-14 23:33] VITALS: BP 124/83; PULSE 79; RESP 18; O2SAT 99
== END 2020-11-15 01:00 | disposition home or self-care (01) ==
PROVIDERS: Emergency Provider Emergency Medicine; PCP Physician Assistant
DX: N83.202 Unspecified ovarian cyst, left side (principal); R10.30 Lower abdominal pain, unspecified
CPT/HCPCS: 36415; 76830; 76856; 80048; 81003; 84702; 85025; 99284

== ENCOUNTER 2020-11-24 13:00 | Outpatient (RCR) | payer OTHER, SELFPAY ==
--- NOTE | 2020-10-27 09:10 | MHC.PT.EP ---
[facility] [place] Office [place] Office [place] Office [address] [place] [address] [phone] F: [phone] F: [phone] F: [phone] F: [phone] Physical Therapy Plan of Care Date of Evaluation: Date of Surgery: NA Diagnosis: low back pain Assessment: The patient arrived reporting low back pain that progressed to severe radiculopathy. She now has numbness in her left foot. Her symptoms are consistent with a lumbar disc derangement. At this time she is denying saddle paresthesia, or loss of bowel or bladder function. No drop foot reported. Pt had reduced normal reflexes at L3-4, and diminished on S1-2 on the left side. Decreased myotomal strength at L3-4 and S1-2. Pt has poor sitting and standing posture, poor body awareness. Pt will be educated on improving standing/sitting posture to find neutral spine. I will monitor distal neurological symptoms as we progress. No clear directional preference was noted with a Rosalie assessment. She reports new onset of pelvic pain and new onset WILDER. I will continue to monitor this symptoms, but the patient may benefit from an internal pelvic assessment to assess PFM function. She is a good candidate for skilled PT. Frequency and Duration: The patient will be seen 1x/week x 4 weeks Short Term Goals: 1.Pt to able to demonstrate proper sitting posture with the use of a lumbar roll to decrease aggravating factors. 2.Pt to be able to demonstrate proper posture for common leisure activities such as crocheting and phone/tablet use. 3.For the patient to demonstrate proper upright sitting posture with use of the lumbar roll to improve compliance and carryover. Usp Goals: 1.The patient to demonstrate proper lifting mechanics for household chore activities to show improved functional mobility. 2.The patient to report no leg or hip pain in order to show centralization of pain and reduction of lumbar derangement 3. Pt to be able to demonstrate self management of lumbar pain by demonstration of HEP. 2. Pt to reduce # of episodes of WILDER during the day by 50% to help improve quality of life and reduce pad usage. 3. Pt to be independent with her final HEP for PFM in order to help maintain gains made in therapy. Treatment Plan: Modalities to reduce pain, spasms and effusion. Manual therapy to restore motion and function. Therapeutic exercise to improve strength and flexibility. Neuromuscular re-education for posture and balance. Therapeutic activities to return to functional activities of daily living. Electronically signed by: Bryanna Rico PT DPT Please sign and return to therapist. Thank you for your referral.
== END 2020-12-27 10:00 | disposition home or self-care (01) ==
LOC: HO.PT 13:00
PROVIDERS: PCP Physician Assistant; Visit Provider Internal Medicine
DX: M54.5 Low back pain (principal)
CPT/HCPCS: 97110; 97112; 97162

== ENCOUNTER 2020-11-24 21:36 | Emergency (ER) | payer OTHER, SELFPAY ==
--- NOTE | ~2020-11-24 | US_ITS ---
EXAMINATION: US PELVIS CLINICAL INFORMATION: Left lower quadrant pain. COMPARISON: CT abdomen/pelvis dated 08/26/2020 TECHNIQUE: Ultrasound of the pelvis is performed using both transabdominal and transvaginal transducers along with Doppler. Transvaginal imaging is performed due to inadequate visualization transabdominally. FINDINGS: Uterus: The uterus is anteverted and measures 12.5 x 4.2 x 6.3 cm. Cervix is unremarkable. The double wall endometrial thickness is 12 mm. The uterus is smooth in contour and has normal myometrial echogenicity. No visible fibroid. Adnexa: Both ovaries are visualized. There is normal color flow to the adnexa. There is no ovarian torsion. There is no pelvic ascites or fluid collection. Right ovary measures 3.0 x 1.5 x 1.6 cm. Left ovary measures 4.9 x 3.1 x 3.6 cm. There is a 2.9 cm partially collapsed hemorrhagic cyst within the left ovary. US/US pelvic complete IMPRESSION: There is a 2.9 cm partially collapsed hemorrhagic cyst within the left ovary. Exam otherwise unremarkable.
--- NOTE | ~2020-11-24 | US_ITS ---
EXAMINATION: US PELVIS CLINICAL INFORMATION: Left lower quadrant pain. COMPARISON: CT abdomen/pelvis dated 08/26/2020 TECHNIQUE: Ultrasound of the pelvis is performed using both transabdominal and transvaginal transducers along with Doppler. Transvaginal imaging is performed due to inadequate visualization transabdominally. FINDINGS: Uterus: The uterus is anteverted and measures 12.5 x 4.2 x 6.3 cm. Cervix is unremarkable. The double wall endometrial thickness is 12 mm. The uterus is smooth in contour and has normal myometrial echogenicity. No visible fibroid. Adnexa: Both ovaries are visualized. There is normal color flow to the adnexa. There is no ovarian torsion. There is no pelvic ascites or fluid collection. Right ovary measures 3.0 x 1.5 x 1.6 cm. Left ovary measures 4.9 x 3.1 x 3.6 cm. There is a 2.9 cm partially collapsed hemorrhagic cyst within the left ovary. US/US pelvic ovarian doppler IMPRESSION: There is a 2.9 cm partially collapsed hemorrhagic cyst within the left ovary. Exam otherwise unremarkable.
[2020-11-24 21:53] VITALS: BP 127/80; PULSE 92; RESP 18; TEMP 36.2; O2SAT 98; BMI 44.2
[2020-11-24 22:14] LABS: Glucose Urine UA NEG (NEG); Leukocyte Esterase Urine NEG (NEG); Nitrite Urine NEG (NEG); Specific Gravity - Urine >= 1.030 (1.005-1.025); Urine Blood 1+ (NEG); Urine Ketones NEG (NEG); Urine Protein NEG (NEG-TRACE)
[2020-11-24 22:23] LABS: Appearance Urine CLEAR; Color Urine YELLOW
[2020-11-24 22:31] LABS: Bacteria Urine 1+ /LPF; Mucus Urine 1+ /LPF; Squamous Epithelial Cell Urine 1+ /LPF
--- NOTE | 2020-11-25 01:08 | PC.NURSE ---
Lab notified of pending test. Per lab, lab no longer has urine to add test onto.
--- NOTE | 2020-11-25 01:19 | PC.NURSE ---
at bedside for eval.
[2020-11-25 01:20] VITALS: BP 123/77; PULSE 77; RESP 16
[2020-11-25 01:25] LABS: MANUAL DIFF FLAG NO
[2020-11-25 01:26] LABS: Basophils Percent Auto 0.3 % (0-2); Eosinophils Absolute Auto 0.1 X10*3/uL (0.0-0.4); Eosinophils Percent Auto 1.3 % (0-4); Hematocrit 40.5 % (37-47); Hemoglobin 13.1 g/dl (12.0-16.0); Imm Gran Abs Auto 0.02 X10*3/uL (0.00-0.03); Imm Gran Pct Auto 0.2 % (0.0-0.4); Lymphocytes Absolute Auto 2.7 X10*3/uL (1.2-4.9); Lymphocytes Percent Auto 30.4 % (20-40); Mean Corpuscular HGB Conc 32.3 g/dl (31.0-35.0); Mean Corpuscular Hemoglobin 29.4 pg (27.0-33.0); Mean Platelet Volume 10.9 fL (9.4-12.3); Monocytes Absolute Auto 0.5 X10*3/uL (0.1-1.2); Monocytes Percent Auto 5.9 % (2-11); Neutrophils Absolute Auto 5.6 X10*3/uL (2.0-8.3); Neutrophils Percent Auto 61.9 % (45-73); Platelet Count 251 X10*3/uL (160-400); Red Blood Count 4.45 X10*6/uL (4.20-5.50); Red Cell Distribution Width 13.2 % (11.0-16.0)
--- NOTE | 2020-11-25 01:34 | ED.ABDPAIN ---
HPI - Abdominal Pain General Chief Complaint: Abdominal Pain Stated Complaint: pelvic pain Time Seen by Provider: 11/25/20 00:43 Source: patient Mode of arrival: ambulatory History of Present Illness HPI narrative: This is a 30-year-old female with history of 4 cm complex, left-sided, ovarian cyst who presents with complaints of not having a period for over 2 months but a known history of PCOS and then states that she has been having a couple of days diarrhea without associated fever, chills but notes some mild nausea. She denies any urinary pain/burning/frequency and states that today she had some spotting which prompted her to place a tampon but then on removal this evening patient states that she developed severe burning and noted ?a lot of clots?. Since the removal of the tampon patient states that she is having intense pain on the left lower abdomen which radiates into the back in the ribs. Related Data Home Medications Medication Instructions Recorded Confirmed ibuprofen 600 mg tablet 600 mg PO Q6H PRN 07/29/20 10/11/20 methocarbamol 750 mg tablet mg PO 07/29/20 10/11/20 Previous Rx's Medication Instructions Recorded cyclobenzaprine 10 mg PO TID PRN #15 tab 09/01/20 Allergies Allergy/AdvReac Type Severity Reaction Status Date / Time dexamethasone [DEXAMETHASONE] Allergy Unknown ANXIETY Verified 11/24/20 21:53 Review of Systems Review of Systems Pertinent positives and negatives as stated in HPI and 10 point review of systems is otherwise negative. Physical Exam Vital Signs: Vital Signs: Last Vital Signs Temp 97.1 F 11/24/20 21:53 Pulse 75 11/25/20 02:42 Resp 16 11/25/20 02:42 BP 137/92 H 11/25/20 02:42 Pulse Ox 98 11/24/20 21:53 Body Mass Index 44.2 VITAL SIGNS: Reviewed. GENERAL: Well developed, well nourished, in no acute distress. HEAD: Normocephalic/atraumatic EYES: PERRLA, EOMI OROPHARYNX: no oral lesions noted, posterior pharynx clear NECK: Supple, no adenopathy LUNGS: Normal breath sounds. No adventitious sounds or accessory muscle use. SpO2<98> CARDIOVASCULAR: Regular rate and rhythm without noted murmurs ABDOMEN: Obese, Soft, tenderness noted throughout but maximal at left lower quadrant without rebound, non-distended with bowel sounds. SKIN: Inspection of the skin reveals no rashes NEUROLOGIC: Alert and oriented x 4. Course Course Course Narrative: 30-year-old female with history and clinical presentation consistent with onset of menses with associated pain and menstrual associated symptoms, but will rule out ectopic/torsion. Will also evaluate for possible, but less likely, diverticulitis/renal colic. Review of all investigations negative for acute findings. Patient provided with combination analgesics and discharged home in stable condition with instructions to follow-up with her primary care provider. MDM - Abdominal Pain Lab Data Result diagrams: 11/25/20 01:18 11/25/20 01:18 Labs: Lab Results 11/24/20 11/25/20 11/25/20 Range/Units 22:03 01:18 01:18 WBC 9.0 (4.8-10.8) X10*3/uL RBC 4.45 (4.20-5.50) X10*6/uL Hgb 13.1 (12.0-16.0) g/dl Hct 40.5 (37-47) % MCV 91.0 (80-98) fL MCH 29.4 (27.0-33.0) pg MCHC 32.3 (31.0-35.0) g/dl RDW 13.2 (11.0-16.0) % Plt Count 251 (160-400) X10*3/uL MPV 10.9 (9.4-12.3) fL Immature Gran % (Auto) 0.2 (0.0-0.4) % Neut % (Auto) 61.9 (45-73) % Lymph % (Auto) 30.4 (20-40) % [place] % (Auto) 5.9 (2-11) % Eos % (Auto) 1.3 (0-4) % Baso % (Auto) 0.3 (0-2) % Lymph # (Auto) 2.7 (1.2-4.9) X10*3/uL [place] # (Auto) 0.5 (0.1-1.2) X10*3/uL Eos # (Auto) 0.1 (0.0-0.4) X10*3/uL Baso # (Auto) 0.0 (0.0-0.2) X10*3/uL Abs Immat Gran (auto) 0.02 (0.00-0.03) X10*3/uL Absolute Neuts (auto) 5.6 (2.0-8.3) X10*3/uL Absolute Nucleated RBC 0.000 (0.0-0.012) X10*3/uL Nucleated RBC % (auto) 0.0 (0.0-0.2) /100WBC Sodium 140 (135-145) mmol/L Potassium 4.0 (3.3-5.1) mmol/L Chloride 103 (96-108) mmol/L Carbon Dioxide 29 (22-29) mmol/L Anion Gap 12 (12-20) BUN 17 H (9-16) mg/dL Creatinine 0.87 (0.5-1.4) mg/dL Estim Creat Clear Calc 115.6 Estimated GFR > 60 Random Glucose 98 (60-115) mg/dL Calcium 9.0 (8.4-10.2) mg/dL Total Bilirubin 0.2 (0.0-1.0) mg/dL AST 45 H (5-31) U/L ALT 55 H (0-31) U/L Alkaline Phosphatase 102 (39-117) U/L Total Protein 7.9 (6.5-8.0) g/dL Albumin 4.3 (3.5-5.0) g/dL Beta HCG, Quant < 2 mIU/mL Urine Color YELLOW Urine Appearance CLEAR Urine pH 6.0 (5.0-8.0) Ur Specific [place] >= 1.030 H (1.005-1.025) Urine Protein NEG (NEG-TRACE) MG/DL Urine Glucose (UA) NEG (NEG) MG/DL Urine Ketones NEG (NEG) MG/DL Urine Blood 1+ H (NEG) Urine Nitrite NEG (NEG) Ur Leukocyte Esterase NEG (NEG) Urine RBC 1-4 (0) /HPF Urine WBC 1-4 (0-4) /HPF Ur Squamous Epith Cells 1+ /LPF Urine Bacteria 1+ /LPF Urine Mucus 1+ /LPF Discharge Plan Discharge Clinical Impression: Painful menstrual periods Patient Disposition: Home, Self-Care Instructions: Premenstrual Syndrome (ED) Additional Instructions: 1. Tylenol 1000 mg, orally, every 6 hours as needed for pain control. Do not exceed 4000 mg within 24 hours. 2. Ibuprofen 400 mg, orally with milk or food, every 6 hours as needed for pain control. Recommend taking this together with the Tylenol for added symptom relief. 3. Consider using at heating pad for additional symptom relief. 4. Follow-up with your primary care provider in the next 2-3 days for re-evaluation. Return to the ER for worsening symptoms. Prescriptions: No Action cyclobenzaprine 10 mg tablet 10 mg PO TID PRN (Reason: pain) Qty: 15 RF: 0 methocarbamol 750 mg tablet PO RF: 0 ibuprofen 600 mg tablet 600 mg PO Q6H PRN (Reason: moderate pain) RF: 0 Referrals: Abdifatah Whitt PA-C [Primary Care Provider] - 2 days PMF Past Medical History Source: nursing notes reviewed Medical History Asthma PCOS (polycystic ovarian syndrome) Surgical History History of carpal tunnel surgery (~04/2020) Hx of section Family History Family History Father Unknown family medical history Maternal Uncle Blocked artery Family/Other Colon cancer Maternal Uncle Blocked artery Mother No problems noted. Maternal Grandmother Stroke S/P triple vessel bypass Social History Social History Household Members: Children Alcohol intake: current Alcohol intake frequency: holidays/special occasions only Advance Directives: No Patient : No
--- NOTE | 2020-11-25 01:35 | PC.NURSE ---
IV established, labs obtained. Pt aware of plan to await labs and possibly U/S due to hx of ovarian cyst. Continue to monitor.
[2020-11-25 01:56] LABS: Alanine Aminotransferase 55 U/L (0-31); Albumin Level 4.3 g/dL (3.5-5.0); Alkaline Phosphatase 102 U/L (39-117); Anion Gap 12 (12-20); Aspartate Amino Transferase 45 U/L (5-31); Bilirubin Total 0.2 mg/dL (0.0-1.0); Blood Urea Nitrogen 17 mg/dL (9-16); Carbon Dioxide 29 mmol/L (22-29); Chloride 103 mmol/L (96-108); Creatinine Clr Calc Pharmacy 115.6; Estimated Glomerular Filt Rate > 60; Glucose Random 98 mg/dL (60-115); Sodium 140 mmol/L (135-145); Total Protein 7.9 g/dL (6.5-8.0)
[2020-11-25 02:02] LABS: HCG Quantitative < 2 mIU/mL
[2020-11-25] MEDS: Ketorolac Tromethamine 15 MG/ML VIAL IVPUSH (02:41)
[2020-11-25 02:42] VITALS: BP 137/92; PULSE 75; RESP 16
[2020-11-25] MEDS: Acetaminophen 325 MG TABLET 975 MG PO (02:42)
--- NOTE | 2020-11-25 02:44 | PC.NURSE ---
Medicated per MAR. VSS. Continue to monitor.
== END 2020-11-25 03:08 | disposition home or self-care (01) ==
PROVIDERS: Emergency Provider Student in an Organized Health Care Education/Training Program; PCP Physician Assistant
DX: N94.6 Dysmenorrhea, unspecified (principal); E28.2 Polycystic ovarian syndrome
CPT/HCPCS: 36415; 76856; 80053; 81001; 84702; 85025; 93975; 96374; 99284; J1885

== ENCOUNTER → 2020-11-29 15:29 | Outpatient (BNVA) | payer OTHER, SELFPAY | PROVIDERS: PCP Physician Assistant; Visit Provider Advanced Practice Midwife ==

== ENCOUNTER 2020-12-24 15:42 | Emergency (ER) | payer OTHER, SELFPAY ==
--- NOTE | ~2020-12-24 | MR_ITS ---
EXAMINATION: MR LUMBAR SPINE WITHOUT CONTRAST CLINICAL INFORMATION: Urinary incontinence of back pain. Question cauda equina. COMPARISON: None TECHNIQUE: MRI of the lumbar spine was obtained using routine sequences without contrast. FINDINGS: The lumbar vertebral bodies maintain normal heights. There is mild retrolisthesis of L4 on L5. Mild to moderate disc height loss is seen at L5-S1. No marrow edema is seen. The distal spinal cord appears normal. The conus medullaris terminates normally at the L1 level. The visualized paraspinal muscles and intra-abdominal and pelvic contents are within normal limits. SPINAL LEVELS: L1-L2: No posterior disc abnormality. No spinal canal or neural foraminal stenosis. L2-L3: No posterior disc abnormality. No spinal canal or neural foraminal stenosis. L3-L4: No posterior disc abnormality. Mild facet arthropathy. No spinal canal or neural foraminal stenosis. L4-L5: Disc bulging with broad-based central protrusion causing asymmetric narrowing of the left subarticular zone with mild compression of the traversing left L5 nerve root. Mild spinal canal stenosis. Mild facet arthropathy. Left-sided posteriorly directed synovial facet cyst is present. No foraminal nerve root compression. L5-S1: Disc bulging with central protrusion and annular fissuring causing narrowing of the subarticular zones without definite traversing nerve root compression. Mild facet arthropathy. Mild narrowing of the left neural foramen. MR/MR lumbar spine wo con IMPRESSION: At L4-L5 there is central protrusion causing narrowing of the left subarticular zone with mild compression of the traversing left L5 nerve root. At L5-S1 there is central protrusion with narrowing of the subarticular zones without traversing nerve root compression. No spinal canal stenosis is seen.
[2020-12-24 16:13] VITALS: BP 108/72; PULSE 91; RESP 18; TEMP 36.8; O2SAT 98; BMI 46.0
--- NOTE | 2020-12-24 17:45 | ED.BACK ---
HPI - Back Pain/Injury General Chief Complaint: Back Pain/Injury Stated Complaint: back pain Time Seen by Provider: 12/24/20 16:51 Source: patient Mode of arrival: ambulatory Limitations: no limitations History of Present Illness HPI Narrative: Patient with chronic back pain been told she has sciatica getting worse lately head CT scan the past which was negative today she woke up and noticed that she wet her bed without aware of it since then she has been holding her urine no incontinence no incontinence of stool no increased pain no leg weakness. Related Data Home Medications Medication Instructions Recorded Confirmed ibuprofen 600 mg tablet 600 mg PO Q6H PRN 07/29/20 12/24/20 Allergies Allergy/AdvReac Type Severity Reaction Status Date / Time dexamethasone [DEXAMETHASONE] Allergy Unknown ANXIETY Verified 12/24/20 16:13 Review of Systems Review of Systems: Yes all other systems are reviewed and are negative PMF Past Medical History Medical History Asthma PCOS (polycystic ovarian syndrome) Surgical History History of carpal tunnel surgery (~04/2020) Hx of section Family History Family History Father Unknown family medical history Maternal Uncle Blocked artery Family/Other Colon cancer Maternal Uncle Blocked artery Mother No problems noted. Maternal Grandmother Stroke S/P triple vessel bypass Social History Social History Household Members: Children Housing: House Alcohol intake: never Patient Tobacco Use Status: Never used Tobacco Use of substances other than those prescribed or required for medical reasons: No Advance Directives: No Advance Directives Information Provided: No Patient : No service: No Current occupational status: employed Physical Exam Vital Signs: Vital Signs: Last Vital Signs Temp 98.3 F 12/24/20 16:13 Pulse 91 12/24/20 16:13 Resp 18 12/24/20 16:13 BP 108/72 12/24/20 16:13 Pulse Ox 98 12/24/20 16:13 Body Mass Index 46.0 Appearance: Alert. Oriented X3. No acute distress. Eyes: PERRLA, No Nystagmus ENT: Pharynx normal. Oral Mucosa moist Neck: Normal inspection. Neck supple. CVS: Normal heart rate and rhythm. Pulses normal. Respiratory: No respiratory distress. Equal air entry bilateral, Abdomen: Soft and nontender. Bowel sounds are present, no mass palpable, no CVA tenderness Skin: Skin warm and dry. Normal skin color. Normal skin turgor. Extremities: No lower extremity edema. No calf tenderness SLR bilaterally negative Back: No focal vertebral tenderness sector sensations intact rectal tone normal Neuro: Oriented X 3. No motor deficit. No sensory deficit. Normal reflexes MDM - Back Pain/Injury MDM Narrative Medical decision making narrative: Patient with back pain with episode of incontinence sacral sensations intact, no other signs of cauda equina syndrome etiology not clear why she had incontinence will get MRI to rule out cauda equina MRI negative for cardiac and a syndrome showed impingement of L5 on the left side. Patient advised to follow with Neurosurgery Differential Diagnosis Differential diagnosis: Likely lumbar radiculopathy Imaging Data MRI l spine: Radiologist's impression: [address] [id number] Resonance ReportSigned Patient: Rufina RodriguezMR#: [id number]: 1990Acct:[id number]/Sex: 30 / FADM Date: 12/24/20Loc: [email or web address] Dr: Ordering Physician: Manny Randolph MD Date of Service: 12/24/20 Procedure(s): MR lumbar spine wo con Accession Number(s): [id number] cc: Manny Randolph MD~ EXAMINATION: MR LUMBAR SPINE WITHOUT CONTRAST CLINICAL INFORMATION: Urinary incontinence of back pain. Question cauda equina. COMPARISON: None TECHNIQUE: MRI of the lumbar spine was obtained using routine sequences without contrast. FINDINGS: The lumbar vertebral bodies maintain normal heights. There is mild retrolisthesis of L4 on L5. Mild to moderate disc height loss is seen at L5-S1. No marrow edema is seen. The distal spinal cord appears normal. The conus medullaris terminates normally at the L1 level. The visualized paraspinal muscles and intra-abdominal and pelvic contents are within normal limits. SPINAL LEVELS: L1-L2: No posterior disc abnormality. No spinal canal or neural foraminal stenosis. L2-L3: No posterior disc abnormality. No spinal canal or neural foraminal stenosis. L3-L4: No posterior disc abnormality. Mild facet arthropathy. No spinal canal or neural foraminal stenosis. L4-L5: Disc bulging with broad-based central protrusion causing asymmetric narrowing of the left subarticular zone with mild compression of the traversing left L5 nerve root. Mild spinal canal stenosis. Mild facet arthropathy. Left-sided posteriorly directed synovial facet cyst is present. No foraminal nerve root compression. L5-S1: Disc bulging with central protrusion and annular fissuring causing narrowing of the subarticular zones without definite traversing nerve root compression. Mild facet arthropathy. Mild narrowing of the left neural foramen. MR/MR lumbar spine wo con IMPRESSION: At L4-L5 there is central protrusion causing narrowing of the left subarticular zone with mild compression of the traversing left L5 nerve root. At L5-S1 there is central protrusion with narrowing of the subarticular zones without traversing nerve root compression. No spinal canal stenosis is seen. Dictated By:JANES MCCRACKEN MDSigned By:<Electronically signed by JANES MCCRACKEN MD in [place]> Discharge Plan Discharge Clinical Impression: Lumbar radiculopathy Patient Disposition: Home, Self-Care Instructions: Lumbar Disc Herniation (ED), Low Back Strain (ED) Additional Instructions: Follow-up with neurosurgery you has small left-sided L4-L5 disc herniation follow up with Neurosurgeon Prescriptions: No Action ibuprofen 600 mg tablet 600 mg PO Q6H PRN (Reason: moderate pain) RF: 0 Referrals: Rodrigo Dugan MD [Physician] - 2 weeks Interventions: ED Discharge Assessment Last Done: 12/24/20 19:31 Discharge Date/Time: 12/24/20 19:31
== END 2020-12-24 19:31 | disposition home or self-care (01) ==
PROVIDERS: Emergency Provider Internal Medicine; PCP Physician Assistant
DX: M54.16 Radiculopathy, lumbar region (principal)
CPT/HCPCS: 72148; 99284

== ENCOUNTER 2021-01-09 18:43 | Emergency (ER) | payer OTHER, SELFPAY ==
--- NOTE | ~2021-01-09 | US_ITS ---
EXAMINATION: US PELVIS CLINICAL INFORMATION: Pelvic pain COMPARISON: 11/25/2020 TECHNIQUE: Transabdominal ultrasound of the pelvis is performed utilizing grayscale and color Doppler technique with spectral analysis. FINDINGS: Uterus: The uterus is anteverted and measures 14.0 x 4.4 x 6.6 cm. The double wall endometrial thickness is 8 mm. The uterus is smooth in contour and has normal myometrial echogenicity. No visible fibroid. Adnexa: Both ovaries are visualized. There is normal color flow to the adnexa. There is no ovarian torsion. There is no pelvic ascites or fluid collection. Right ovary measures 4.4 x 2.4 x 2.8 cm. There is a 2.4 cm follicle within the right ovary. Left ovary measures 3.4 x 1.6 x 2.3 cm. Small pelvic free fluid is normal in a female of reproductive age. US/US pelvic complete IMPRESSION: Unremarkable pelvic ultrasound.
--- NOTE | ~2021-01-09 | XR_ITS ---
EXAMINATION: XR FOOT, LEFT CLINICAL INFORMATION: MTP of great toe, injury 1.5 weeks ago COMPARISON: 11/29/2018 TECHNIQUE: AP, lateral, and oblique views of the left foot. FINDINGS: Soft tissue swelling at the foot. No acute fracture or malalignment. Bipartite medial hallux sesamoid. Bone mineralization is normal. No erosions. Small enthesopathic spur is present at the Achilles tendon insertion on the calcaneus. XR/XR foot LT min 3V IMPRESSION: No acute osseous abnormalities at the left foot.
[2021-01-09 18:49] VITALS: BP 135/87; PULSE 91; RESP 18; TEMP 36.9; O2SAT 98; BMI 44.2
[2021-01-09 22:01] VITALS: BP 121/58; PULSE 69; RESP 18; O2SAT 100
[2021-01-09 22:09] LABS: MANUAL DIFF FLAG NO
[2021-01-09 22:10] LABS: Basophils Percent Auto 0.4 % (0-2); Eosinophils Absolute Auto 0.1 X10*3/uL (0.0-0.4); Eosinophils Percent Auto 1.1 % (0-4); Hematocrit 39.3 % (37-47); Hemoglobin 12.6 g/dl (12.0-16.0); Imm Gran Abs Auto 0.02 X10*3/uL (0.00-0.03); Imm Gran Pct Auto 0.3 % (0.0-0.4); Lymphocytes Absolute Auto 2.5 X10*3/uL (1.2-4.9); Lymphocytes Percent Auto 35.8 % (20-40); Mean Corpuscular HGB Conc 32.1 g/dl (31.0-35.0); Mean Corpuscular Volume 90.6 fL (80-98); Mean Platelet Volume 10.8 fL (9.4-12.3); Monocytes Absolute Auto 0.4 X10*3/uL (0.1-1.2); Monocytes Percent Auto 6.3 % (2-11); Neutrophils Absolute Auto 3.9 X10*3/uL (2.0-8.3); Neutrophils Percent Auto 56.1 % (45-73); Platelet Count 221 X10*3/uL (160-400); Red Blood Count 4.34 X10*6/uL (4.20-5.50); Red Cell Distribution Width 13.2 % (11.0-16.0)
[2021-01-09 22:11] LABS: Glucose Urine UA NEG (NEG); Leukocyte Esterase Urine NEG (NEG); Nitrite Urine NEG (NEG); PH 5.5 (5.0-8.0); Specific Gravity - Urine >= 1.030 (1.005-1.025); Urine Blood NEG (NEG); Urine Ketones NEG (NEG); Urine Protein NEG (NEG-TRACE)
--- NOTE | 2021-01-09 22:19 | ED.GENADULT ---
HPI - General Adult General Chief complaint: General Medical Stated complaint: foot injury - cyst on ovaries Time Seen by Provider: 01/09/21 22:13 Source: patient Mode of arrival: ambulatory History of Present Illness HPI narrative: 30-year-old female with history of PCOS and herniated disc presents with complaints of injury to the left great toe 1.5 weeks ago and states she is still having pain with noted swelling at the joint and states that she is also having lower abdominal/suprapubic pain that is been ongoing for a couple of days. She denies any associated fever, chills, nausea, vomiting, inability to pass gas or have bowel movement. Related Data Home Medications Medication Instructions Recorded Confirmed ibuprofen 600 mg tablet 600 mg PO Q6H PRN 07/29/20 12/24/20 Allergies Allergy/AdvReac Type Severity Reaction Status Date / Time dexamethasone [DEXAMETHASONE] AdvReac Unknown ANXIETY Verified 01/09/21 18:53 Review of Systems Review of Systems: Pertinent positives and negatives as stated in HPI and 10 point review of systems is otherwise negative. [facility] Past Medical History Source: nursing notes reviewed Medical History Asthma PCOS (polycystic ovarian syndrome) Surgical History History of carpal tunnel surgery (~04/2020) Hx of section Family History Family History Father Unknown family medical history Maternal Uncle Blocked artery Family/Other Colon cancer Maternal Uncle Blocked artery Mother No problems noted. Maternal Grandmother Stroke S/P triple vessel bypass Social History Social History Household Members: Children Housing: House Alcohol intake: never Patient Tobacco Use Status: Never used Tobacco Advance Directives: No Advance Directives Information Provided: No Patient : Yes (Unknown) service: No Current occupational status: employed Physical Exam Vital Signs: Vital Signs: Last Vital Signs Temp 98.5 F 01/09/21 18:49 Pulse 69 01/09/21 22:01 Resp 18 01/09/21 22:01 BP 121/58 L 01/09/21 22:01 Pulse Ox 100 01/09/21 22:01 Body Mass Index 44.2 VITAL SIGNS: Reviewed. GENERAL: Well developed, well nourished, in no acute distress. HEAD: Normocephalic/atraumatic EYES: PERRLA, EOMI OROPHARYNX: no oral lesions noted, posterior pharynx clear LUNGS: Normal breath sounds. No adventitious sounds or accessory muscle use. SpO2<100> CARDIOVASCULAR: Regular rate and rhythm without noted murmurs, no JVD or lower extremity edema. ABDOMEN: Soft, tenderness set lower abdomen/pelvis/suprapubic without rebound non-distended with bowel sounds. LEFT FOOT: Good capillary refill at the great toe, sensation present, palpable DP/PT, mild erythema noted over MTP without induration SKIN: Inspection of the skin reveals no rashes NEUROLOGIC: Alert and oriented x 4. Course Course Course Narrative: 30-year-old female with history and clinical presentation suggestive of possible UTI, renal colic, ovarian cyst. Review of all investigations without acute findings, patient informed of all investigative results and instructed to follow up with the primary care provider. Patient has presumptive ?hammertoe?. Medical Decision Making Lab Data Result diagrams: 01/09/21 22:00 01/09/21 22:00 Labs: Lab Results 01/09/21 01/09/21 01/09/21 Range/Units 22:00 22:00 22:00 WBC 7.0 (4.8-10.8) X10*3/uL RBC 4.34 (4.20-5.50) X10*6/uL Hgb 12.6 (12.0-16.0) g/dl Hct 39.3 (37-47) % MCV 90.6 (80-98) fL MCH 29.0 (27.0-33.0) pg MCHC 32.1 (31.0-35.0) g/dl RDW 13.2 (11.0-16.0) % Plt Count 221 (160-400) X10*3/uL MPV 10.8 (9.4-12.3) fL Immature Gran % (Auto) 0.3 (0.0-0.4) % Neut % (Auto) 56.1 (45-73) % Lymph % (Auto) 35.8 (20-40) % [place] % (Auto) 6.3 (2-11) % Eos % (Auto) 1.1 (0-4) % Baso % (Auto) 0.4 (0-2) % Lymph # (Auto) 2.5 (1.2-4.9) X10*3/uL [place] # (Auto) 0.4 (0.1-1.2) X10*3/uL Eos # (Auto) 0.1 (0.0-0.4) X10*3/uL Baso # (Auto) 0.0 (0.0-0.2) X10*3/uL Abs Immat Gran (auto) 0.02 (0.00-0.03) X10*3/uL Absolute Neuts (auto) 3.9 (2.0-8.3) X10*3/uL Absolute Nucleated RBC 0.000 (0.0-0.012) X10*3/uL Nucleated RBC % (auto) 0.0 (0.0-0.2) /100WBC Sodium 141 (135-145) mmol/L Potassium 3.9 (3.3-5.1) mmol/L Chloride 105 (96-108) mmol/L Carbon Dioxide 25 (22-29) mmol/L Anion Gap 15 (12-20) BUN 13 (9-16) mg/dL Creatinine 0.86 (0.5-1.4) mg/dL Estim Creat Clear Calc 117.0 Estimated GFR > 60 Random Glucose 88 (60-115) mg/dL Calcium 9.1 (8.4-10.2) mg/dL Total Bilirubin 0.5 (0.0-1.0) mg/dL AST 41 H (5-31) U/L ALT 57 H (0-31) U/L Alkaline Phosphatase 84 (39-117) U/L Total Protein 7.7 (6.5-8.0) g/dL Albumin 4.2 (3.5-5.0) g/dL Urine Color YELLOW Urine Appearance CLEAR Urine pH 5.5 (5.0-8.0) Ur Specific [place] >= 1.030 H (1.005-1.025) Urine Protein NEG (NEG-TRACE) MG/DL Urine Glucose (UA) NEG (NEG) MG/DL Urine Ketones NEG (NEG) MG/DL Urine Blood NEG (NEG) Urine Nitrite NEG (NEG) Ur Leukocyte Esterase NEG (NEG) Urine Test (NEGATIVE) 01/09/21 Range/Units 22:00 WBC (4.8-10.8) X10*3/uL RBC (4.20-5.50) X10*6/uL Hgb (12.0-16.0) g/dl Hct (37-47) % MCV (80-98) fL MCH (27.0-33.0) pg MCHC (31.0-35.0) g/dl RDW (11.0-16.0) % Plt Count (160-400) X10*3/uL MPV (9.4-12.3) fL Immature Gran % (Auto) (0.0-0.4) % Neut % (Auto) (45-73) % Lymph % (Auto) (20-40) % [place] % (Auto) (2-11) % Eos % (Auto) (0-4) % Baso % (Auto) (0-2) % Lymph # (Auto) (1.2-4.9) X10*3/uL [place] # (Auto) (0.1-1.2) X10*3/uL Eos # (Auto) (0.0-0.4) X10*3/uL Baso # (Auto) (0.0-0.2) X10*3/uL Abs Immat Gran (auto) (0.00-0.03) X10*3/uL Absolute Neuts (auto) (2.0-8.3) X10*3/uL Absolute Nucleated RBC (0.0-0.012) X10*3/uL Nucleated RBC % (auto) (0.0-0.2) /100WBC Sodium (135-145) mmol/L Potassium (3.3-5.1) mmol/L Chloride (96-108) mmol/L Carbon Dioxide (22-29) mmol/L Anion Gap (12-20) BUN (9-16) mg/dL Creatinine (0.5-1.4) mg/dL Estim Creat Clear Calc Estimated GFR Random Glucose (60-115) mg/dL Calcium (8.4-10.2) mg/dL Total Bilirubin (0.0-1.0) mg/dL AST (5-31) U/L ALT (0-31) U/L Alkaline Phosphatase (39-117) U/L Total Protein (6.5-8.0) g/dL Albumin (3.5-5.0) g/dL Urine Color Urine Appearance Urine pH (5.0-8.0) Ur Specific [place] (1.005-1.025) Urine Protein (NEG-TRACE) MG/DL Urine Glucose (UA) (NEG) MG/DL Urine Ketones (NEG) MG/DL Urine Blood (NEG) Urine Nitrite (NEG) Ur Leukocyte Esterase (NEG) Urine Test NEGATIVE (NEGATIVE) Discharge Plan Discharge Clinical Impression: Ovarian cyst, Bunion of great toe of left foot Patient Disposition: Home, Self-Care Instructions: Ovarian Cyst (ED), Bunion (ED) Additional Instructions: 1. Resume all home medications as prescribed. 2. Recommend [id number] Tylenol/ibuprofen as needed for discomfort follow-up with your primary care provider in the next 2-3 days for re-evaluation and further outpatient management. 3. Recommend using shoes with sufficient room in the ?toe box area? to allow the left great toe joint to recover. Return to the ER for acute worsening of symptoms. Prescriptions: No Action ibuprofen 600 mg tablet 600 mg PO Q6H PRN (Reason: moderate pain) RF: 0 Referrals: Abdifatah Whitt PA-C [Primary Care Provider] - 2 days (Re-evaluation for patient of ovarian cyst and left great toe bunion)
[2021-01-09 22:21] LABS: Appearance Urine CLEAR; Color Urine YELLOW; UPreg QC Valid YES; Urine Pregnancy NEGATIVE (NEGATIVE)
[2021-01-09 22:39] LABS: Alanine Aminotransferase 57 U/L (0-31); Albumin Level 4.2 g/dL (3.5-5.0); Alkaline Phosphatase 84 U/L (39-117); Anion Gap 15 (12-20); Aspartate Amino Transferase 41 U/L (5-31); Bilirubin Total 0.5 mg/dL (0.0-1.0); Blood Urea Nitrogen 13 mg/dL (9-16); Calcium 9.1 mg/dL (8.4-10.2); Carbon Dioxide 25 mmol/L (22-29); Chloride 105 mmol/L (96-108); Estimated Glomerular Filt Rate > 60; Glucose Random 88 mg/dL (60-115); Potassium 3.9 mmol/L (3.3-5.1); Sodium 141 mmol/L (135-145); Total Protein 7.7 g/dL (6.5-8.0)
== END 2021-01-10 00:28 | disposition home or self-care (01) ==
PROVIDERS: Emergency Provider Student in an Organized Health Care Education/Training Program; PCP Physician Assistant
DX: M79.675 Pain in left toe(s) (principal); N83.202 Unspecified ovarian cyst, left side; N83.201 Unspecified ovarian cyst, right side; M21.612 Bunion of left foot; Z79.899 Other long term (current) drug therapy
CPT/HCPCS: 36415; 73630; 76856; 80053; 81003; 81025; 85025; 99284

== ENCOUNTER 2021-01-19 08:33 | Outpatient (REF) | payer OTHER, SELFPAY ==
[2021-01-19 14:28] LABS: CT PCR NOT DETECTED (Not Detect.); NG PCR NOT DETECTED (Not Detect.)
[2021-01-20 09:26] LABS: BV Int Neg Control Negative (Negative); BV Int Pos Control Positive (Positive)
== END 2021-01-19 08:34 | disposition home or self-care (01) ==
LOC: HO.LAB 08:33
PROVIDERS: PCP Physician Assistant; Visit Provider Advanced Practice Midwife
DX: R10.2 Pelvic and perineal pain (principal); N83.201 Unspecified ovarian cyst, right side; N94.10 Unspecified dyspareunia; Z20.2 Contact with and (suspected) exposure to infections with a predominantly sexual mode of transmission
CPT/HCPCS: 81003; 81025; 87480; 87491; 87510; 87591; 87660; 99212

== ENCOUNTER 2021-03-05 10:25 | Outpatient (REF) | payer OTHER, SELFPAY ==
[2021-03-05 11:25] LABS: Appearance Urine CLEAR; Color Urine YELLOW; Glucose Urine UA NEG (NEG); Leukocyte Esterase Urine NEG (NEG); Nitrite Urine NEG (NEG); Specific Gravity - Urine 1.025 (1.005-1.025); Urine Blood NEG (NEG); Urine Ketones NEG (NEG); Urine Protein NEG (NEG-TRACE)
[2021-03-05 11:26] LABS: Hematocrit 40.6 % (37-47); Hemoglobin 13.1 g/dl (12.0-16.0); Mean Corpuscular HGB Conc 32.3 g/dl (31.0-35.0); Mean Corpuscular Hemoglobin 29.4 pg (27.0-33.0); Mean Corpuscular Volume 91.2 fL (80-98); Mean Platelet Volume 11.7 fL (9.4-12.3); Platelet Count 249 X10*3/uL (160-400); Red Blood Count 4.45 X10*6/uL (4.20-5.50); Red Cell Distribution Width 13.6 % (11.0-16.0); White Blood Count 8.2 X10*3/uL (4.8-10.8)
[2021-03-05 11:33] LABS: INTERNATIONAL NORM RATIO 1.1 (0.9-1.1); Prothrombin Time 12.5 SEC (9.9-13.0)
[2021-03-05 11:49] LABS: Anion Gap 12 (12-20); Blood Urea Nitrogen 15 mg/dL (9-16); Calcium 9.2 mg/dL (8.4-10.2); Carbon Dioxide 24 mmol/L (22-29); Chloride 106 mmol/L (96-108); Estimated Glomerular Filt Rate > 60; Glucose Random 98 mg/dL (60-115); Potassium 4.3 mmol/L (3.3-5.1); Sodium 138 mmol/L (135-145)
[2021-03-05 11:56] LABS: HCG Quantitative < 2 mIU/mL
== END 2021-03-05 10:26 | disposition home or self-care (01) ==
LOC: HO.LAB 10:25
PROVIDERS: PCP Physician Assistant; Visit Provider Nurse Practitioner Family
DX: Z01.818 Encounter for other preprocedural examination (principal); I10 Essential (primary) hypertension
CPT/HCPCS: 36415; 80048; 81003; 84702; 85027; 85610

== ENCOUNTER 2021-05-04 23:35 | Emergency (ER) | payer OTHER, SELFPAY ==
--- NOTE | ~2021-05-04 | US_ITS ---
EXAMINATION: US OBSTETRICAL ULTRASOUND CLINICAL INFORMATION: Left pelvic pain, , history of ovarian cysts COMPARISON: None from this . LMP: 03/11/2021. Gestational age by maternal dates is 7 weeks 6 days. Estimated date of delivery by maternal dates is 12/16/2021. TECHNIQUE: Sonographic evaluation of the pelvis was performed transabdominally. FINDINGS: There is a single intrauterine gestational sac with visible yolk sac, embryo/fetus, and cardiac activity. There is no significant subchorionic hemorrhage or hematoma. HR: 106 beats per minute. CRL (crown rump length): 0.4 cm (6 weeks 1 day +/- 4 days). DAVID (estimated date of delivery): 12/28/2021 +/- 4 days. The uterus measures 14.9 x 5.0 x 7.5 cm. MATERNAL ADNEXA: The right maternal ovary measures 2.9 x 1.5 x 1.9 cm and appears unremarkable. The left maternal ovary measures 4.3 x 2.1 x 2.6 cm. There is a left ovarian cyst measuring up to 2.3 cm, favored to represent a corpus luteal cyst. There is no significant maternal adnexal mass. No maternal pelvic ascites. US/US OB <= 14 weeks fetus IMPRESSION: 1. Single intrauterine gestation with ultrasound gestational age of 6 weeks 1 day +/- 4 days. 2. Estimated date of delivery is 12/28/2021 +/- 4 days. 3. No maternal adnexal mass or pelvic ascites.
[2021-05-04 23:44] VITALS: BP 135/86; PULSE 98; RESP 18; TEMP 36.9; O2SAT 100; BMI 41.4
--- NOTE | 2021-05-05 00:09 | ED_ITS ---
HPI - Abdominal Pain General Chief Complaint: Abdominal Pain Stated Complaint: lower side pain Time Seen by Provider: 05/04/21 23:59 Source: patient Mode of arrival: ambulatory History of Present Illness HPI narrative: 30-year-old female LMP 03/17 presents with left lower pelvic pain that started yesterday not associated with fever, chills, nausea, vomiting, diarrhea and denies any urinary pain/burning set frequency. Patient is concerned because she is noted to have ovarian cyst as well as she has large amount a concern for possible ectopic Related Data Home Medications Medication Instructions Recorded Confirmed ibuprofen 600 mg tablet 600 mg PO Q6H PRN 07/29/20 03/04/21 Allergies Allergy/AdvReac Type Severity Reaction Status Date / Time dexamethasone [DEXAMETHASONE] AdvReac Unknown ANXIETY Verified 05/04/21 23:43 Review of Systems Review of Systems Pertinent positives and negatives as stated in HPI 10 point review of systems otherwise negative. Physical Exam Vital Signs: Vital Signs: Last Vital Signs Temp 98.4 F 05/04/21 23:44 Pulse 83 05/05/21 00:18 Resp 16 05/05/21 00:18 BP 116/72 05/05/21 00:18 Pulse Ox 100 05/05/21 00:18 Body Mass Index 41.4 VITAL SIGNS: Reviewed. GENERAL: Well developed, well nourished, in no acute distress. HEAD: Normocephalic/atraumatic EYES: PERRLA, EOMI OROPHARYNX: no oral lesions noted, posterior pharynx clear NECK: Supple, no adenopathy LUNGS: Normal breath sounds. No adventitious sounds or accessory muscle use. SpO2<100> CARDIOVASCULAR: Regular rate and rhythm without noted murmurs ABDOMEN: Soft, non-tender, non-distended with bowel sounds. SKIN: Inspection of the skin reveals no rashes NEUROLOGIC: Alert and oriented x 4. Course Course Course Narrative: 30-year-old female with history and clinical presentation of likely will rule out torsion, ectopic, ruptured cyst. On review of all evaluation there is no evidence to suggest torsion, ectopic, IUP at 6.1 weeks. All results and findings discussed with patient at bedside she was discharged home in stable condition with instructions to use Tylenol. MDM - Abdominal Pain Lab Data Result diagrams: 05/05/21 00:17 05/05/21 00:17 Labs: Lab Results 1105/05/21 05/05/21 Range/Units 00:17 00:17 00:17 WBC 10.9 H (4.8-10.8) X10*3/uL RBC 4.26 (4.20-5.50) X10*6/uL Hgb 12.6 (12.0-16.0) g/dl Hct 39.3 (37.0-47.0) % MCV 92.3 (80.0-98.0) fL MCH 29.6 (27.0-33.0) pg MCHC 32.1 (31.0-35.0) g/dl RDW 14.0 (11.0-16.0) % Plt Count 227 (160-400) X10*3/uL MPV 10.9 (9.4-12.3) fL Immature Gran % (Auto) 0.4 (0.0-0.4) % Neut % (Auto) 67.4 (45-73) % Lymph % (Auto) 25.0 (20-40) % [place] % (Auto) 5.3 (2-11) % Eos % (Auto) 1.4 (0-4) % Baso % (Auto) 0.5 (0-2) % Lymph # (Auto) 2.7 (1.2-4.9) X10*3/uL [place] # (Auto) 0.6 (0.1-1.2) X10*3/uL Eos # (Auto) 0.2 (0.0-0.4) X10*3/uL Baso # (Auto) 0.1 (0.0-0.2) X10*3/uL Abs Immat Gran (auto) 0.04 H (0.00-0.03) X10*3/uL Absolute Neuts (auto) 7.4 (2.0-8.3) x10*3/uL Absolute Nucleated RBC 0.000 (0.0-0.012) X10*3/uL Nucleated RBC % (auto) 0.0 (0.0-0.2) /100WBC Sodium 138 (135-145) mmol/L Potassium 3.9 (3.3-5.1) mmol/L Chloride 104 (96-108) mmol/L Carbon Dioxide 25 (22-29) mmol/L Anion Gap 13 (12-20) BUN 14 (9-16) mg/dL Creatinine 0.81 (0.5-1.4) mg/dL Estim Creat Clear Calc 128.4 Estimated GFR > 60 Random Glucose 92 (60-115) mg/dL Calcium 8.9 (8.4-10.2) mg/dL Beta HCG, Quant 67424 mIU/mL Urine Color YELLOW Urine Appearance HAZY Urine pH 6.0 (5.0-8.0) Ur Specific [place] >= 1.030 H (1.005-1.025) Urine Protein NEG (NEG-TRACE) MG/DL Urine Glucose (UA) NEG (NEG) MG/DL Urine Ketones NEG (NEG) MG/DL Urine Blood NEG (NEG) Urine Nitrite NEG (NEG) Ur Leukocyte Esterase NEG (NEG) Urine RBC 0-2 (0) /HPF Urine WBC 0 (0-4) /HPF Ur Squamous Epith Cells 3+ /LPF Urine Bacteria NONE /LPF Urine Mucus 2+ /LPF Discharge Plan Discharge Clinical Impression: Pelvic pain, Patient Disposition: Home, Self-Care Instructions: (ED) Additional Instructions: 1. Tylenol 1000 mg, orally, every 6 hours as needed for pain control. Do not exceed 4000 mg within 24 hours. 2. Establish care within [facility] at your earliest convenience. 3. Increase her fluid hydration especially with water. And consider using a stool softener. Return to the ER for acute worsening of symptoms. Prescriptions: No Action ibuprofen 600 mg tablet 600 mg PO Q6H PRN (Reason: moderate pain) RF: 0 Referrals: Abdifatah Whitt PA-C [Primary Care Provider] - 2 days [facility] Past Medical History Source: nursing notes reviewed Medical History Asthma Bunion of great toe of left foot PCOS (polycystic ovarian syndrome) Pre-op evaluation Surgical History History of carpal tunnel surgery (~04/2020) Hx of section Family History Family History Father Unknown family medical history Maternal Uncle Blocked artery Family/Other Colon cancer Maternal Uncle Blocked artery Mother No problems noted. Maternal Grandmother Stroke S/P triple vessel bypass Social History Social History Household Members: Children Housing: House Alcohol intake: current Alcohol intake frequency: holidays/special occasions only Patient Tobacco Use Status: Never used Tobacco e-Cigarette/Vaping Use: Never Used Second Hand Smoke Exposure: No Use of substances other than those prescribed or required for medical reasons: No Any prior treatment program specific to substance use: No Advance Directives: No Advance Directives Information Provided: Yes Patient : Yes service: No Current occupational status: employed
[2021-05-05 00:18] VITALS: BP 116/72; PULSE 83; RESP 16; O2SAT 100
[2021-05-05 00:23] LABS: MANUAL DIFF FLAG NO
[2021-05-05 00:28] LABS: Basophils Absolute Auto 0.1 X10*3/uL (0.0-0.2); Basophils Percent Auto 0.5 % (0-2); Eosinophils Absolute Auto 0.2 X10*3/uL (0.0-0.4); Eosinophils Percent Auto 1.4 % (0-4); Hematocrit 39.3 % (37.0-47.0); Hemoglobin 12.6 g/dl (12.0-16.0); Imm Gran Abs Auto 0.04 X10*3/uL (0.00-0.03); Imm Gran Pct Auto 0.4 % (0.0-0.4); Lymphocytes Absolute Auto 2.7 X10*3/uL (1.2-4.9); Mean Corpuscular HGB Conc 32.1 g/dl (31.0-35.0); Mean Corpuscular Hemoglobin 29.6 pg (27.0-33.0); Mean Corpuscular Volume 92.3 fL (80.0-98.0); Mean Platelet Volume 10.9 fL (9.4-12.3); Monocytes Absolute Auto 0.6 X10*3/uL (0.1-1.2); Monocytes Percent Auto 5.3 % (2-11); Neutrophils Absolute Auto 7.4 x10*3/uL (2.0-8.3); Neutrophils Percent Auto 67.4 % (45-73); Platelet Count 227 X10*3/uL (160-400); Red Blood Count 4.26 X10*6/uL (4.20-5.50); White Blood Count 10.9 X10*3/uL (4.8-10.8)
[2021-05-05 00:30] LABS: Appearance Urine HAZY; Color Urine YELLOW; Glucose Urine UA NEG (NEG); Leukocyte Esterase Urine NEG (NEG); Nitrite Urine NEG (NEG); Specific Gravity - Urine >= 1.030 (1.005-1.025); Urine Blood NEG (NEG); Urine Ketones NEG (NEG); Urine Protein NEG (NEG-TRACE)
[2021-05-05 00:36] LABS: Mucus Urine 2+ /LPF; RBC Urine 0-2 /HPF (0); Squamous Epithelial Cell Urine 3+ /LPF; WBC Urine 0 /HPF (0-4)
[2021-05-05 00:42] LABS: Anion Gap 13 (12-20); Blood Urea Nitrogen 14 mg/dL (9-16); Calcium 8.9 mg/dL (8.4-10.2); Carbon Dioxide 25 mmol/L (22-29); Chloride 104 mmol/L (96-108); Creatinine Clr Calc Pharmacy 128.4; Estimated Glomerular Filt Rate > 60; Glucose Random 92 mg/dL (60-115); Potassium 3.9 mmol/L (3.3-5.1); Sodium 138 mmol/L (135-145)
[2021-05-05 01:18] LABS: HCG Quantitative 26645 mIU/mL
== END 2021-05-05 02:56 | disposition home or self-care (01) ==
PROVIDERS: Emergency Provider Student in an Organized Health Care Education/Training Program; PCP Physician Assistant
DX: O26.91 Pregnancy related conditions, unspecified, first trimester (principal); R10.32 Left lower quadrant pain; Z3A.01 Less than 8 weeks gestation of pregnancy; Z79.899 Other long term (current) drug therapy
CPT/HCPCS: 36415; 76801; 80048; 81001; 84702; 85025; 99284

== ENCOUNTER → 2021-05-19 11:55 | Outpatient (BNVA) | payer OTHER, SELFPAY | PROVIDERS: PCP Physician Assistant; Visit Provider Advanced Practice Midwife | DX: Z34.91 Encounter for supervision of normal pregnancy, unspecified, first trimester (principal); Z3A.01 Less than 8 weeks gestation of pregnancy | CPT/HCPCS: 99212 ==

== ENCOUNTER 2021-08-31 11:42 | Outpatient (REF) | payer OTHER, SELFPAY ==
[2021-08-31 12:29] LABS: Influenza A PCR POSITIVE (Negative); Influenza B PCR NEGATIVE (Negative); Resp Syncy Virus RNA Qual PCR NEGATIVE (Negative); SARS COV2 PCR INHOUSE NEGATIVE (Negative)
== END 2021-08-31 11:43 | disposition home or self-care (01) ==
LOC: HO.LAB 11:42
PROVIDERS: PCP Physician Assistant; Visit Provider Nurse Practitioner Family
DX: Z20.822 Contact with and (suspected) exposure to COVID-19 (principal); R52 Pain, unspecified
CPT/HCPCS: 0241U

== ENCOUNTER 2022-06-06 09:23 | Outpatient (REF) | payer OTHER, SELFPAY ==
--- NOTE | ~2022-06-06 | XR_ITS ---
EXAMINATION: XR SHOULDER, RIGHT CLINICAL INFORMATION: Pain COMPARISON: Previous x-ray from 2019 TECHNIQUE: Three views of the right shoulder. FINDINGS: The bones and soft tissues are normal. No fracture. Glenohumeral and acromioclavicular alignment is anatomic with normal joint space. No abnormal soft tissue calcifications. XR/XR shoulder RT 1V IMPRESSION: Normal right shoulder.
--- NOTE | ~2022-06-06 | XR_ITS ---
EXAMINATION: XR CERVICAL SPINE CLINICAL INFORMATION: Radiculopathy COMPARISON: None TECHNIQUE: 3 views of the cervical spine were obtained. FINDINGS: There are no prevertebral soft tissue or bony abnormalities demonstrated. No compression fractures or subluxations are identified. Alignment is maintained at the atlanto-axial articulation. The disc spaces are preserved. No endplate changes are seen. The prevertebral soft tissues are normal. The foramina are patent. XR/XR cervical spine 3V IMPRESSION: Unremarkable examination.
[2022-06-06 10:22] LABS: Hematocrit 38.8 % (37.0-47.0); Hemoglobin 11.6 g/dl (12.0-16.0); Mean Corpuscular HGB Conc 29.9 g/dl (31.0-35.0); Mean Corpuscular Hemoglobin 23.9 pg (27.0-33.0); Mean Corpuscular Volume 79.8 fL (80.0-98.0); Mean Platelet Volume 10.9 fL (9.4-12.3); Platelet Count 275 X10*3/uL (160-400); Red Blood Count 4.86 X10*6/uL (4.20-5.50); Red Cell Distribution Width 18.2 % (11.0-16.0); White Blood Count 6.6 X10*3/uL (4.8-10.8)
[2022-06-06 11:05] LABS: Creatinine Urine 227.84 mg/dL; Microalbum/Creatinine Ratio Ur 7.4 ug/mg cr
[2022-06-06 11:31] LABS: Alanine Aminotransferase 59 U/L (0-31); Albumin Level 4.2 g/dL (3.5-5.0); Alkaline Phosphatase 112 U/L (39-117); Anion Gap 11 (12-20); Aspartate Amino Transferase 42 U/L (5-31); Bilirubin Total 0.3 mg/dL (0.0-1.0); Blood Urea Nitrogen 11 mg/dL (9-16); Calcium 8.8 mg/dL (8.4-10.2); Carbon Dioxide 27 mmol/L (22-29); Chloride 107 mmol/L (96-108); Cholesterol 144 mg/dL; Estimated Glomerular Filt Rate > 60; Glucose Fasting 97 mg/dL (60-99); HDL Cholesterol 40 mg/dL; LDL Cholesterol Calculated 86 mg/dl; Potassium 4.3 mmol/L (3.3-5.1); Sodium 141 mmol/L (135-145); TSH reflex Free T4 1.45 uIU/mL (0.32-4.0); Total Protein 7.7 g/dL (6.5-8.0); Triglycerides 90 mg/dL
== END 2022-06-06 09:24 | disposition home or self-care (01) ==
LOC: HO.LAB 09:23
PROVIDERS: PCP Physician Assistant; Visit Provider Physician Assistant
DX: M54.12 Radiculopathy, cervical region (principal); G89.29 Other chronic pain; M25.511 Pain in right shoulder
CPT/HCPCS: 36415; 72040; 73020; 80053; 80061; 82043; 84443; 85027

== ENCOUNTER 2022-08-16 09:44 | Outpatient (REF) | payer OTHER, SELFPAY ==
--- NOTE | ~2022-08-16 | MR_ITS ---
EXAMINATION: MR CERVICAL SPINE WITHOUT CONTRAST CLINICAL INFORMATION: Radiculopathy, cervical region. COMPARISON: None available. TECHNIQUE: MRI of the cervical spine was performed using routine sequences without contrast. FINDINGS: The cervical vertebral bodies maintain normal heights and alignment. Disc heights are preserved. No bone marrow edema is seen. The cervical cord signal appears normal. The imaged intracranial contents and extraspinal soft tissues appear normal. SPINAL LEVELS: C2-C3: No posterior disc abnormality. No spinal canal or neural foraminal stenosis. C3-C4: No posterior disc abnormality. Mild uncovertebral hypertrophy. No spinal canal or neural foraminal stenosis. C4-C5: Small central protrusion with mild uncovertebral hypertrophy. No spinal canal or neural foraminal stenosis. C5-C6: Disc bulging with uncovertebral hypertrophy. No spinal canal or neural foraminal stenosis. C6-C7: No posterior disc abnormality. No spinal canal or neural foraminal stenosis. C7-T1: No posterior disc abnormality. No spinal canal or neural foraminal stenosis. MR/MR cervical spine wo con IMPRESSION: Mild spondylotic changes without significant narrowing of the spinal canal or neural foramina. No bone marrow edema or cord signal abnormality.
--- NOTE | ~2022-08-16 | MR_ITS ---
EXAMINATION: MR LUMBAR SPINE WITHOUT AND WITH CONTRAST CLINICAL INFORMATION: Right-sided low back pain and hip pain. Groin pain. History of prior disc surgery. COMPARISON: MRI dated 12/24/2020. TECHNIQUE: Multiplanar, multisequence imaging was obtained. Intravenous contrast: Gadavist 10 mL. FINDINGS: VERTEBRAL BODIES AND PARASPINAL STRUCTURES: The marrow signal is homogeneous. Mildly reduced intradiscal signal evident at the L4-L5 and L5-S1 levels. There is a stable mild retrosubluxation at L4-L5 with post laminectomy changes on the left side. No compression fractures identified. The paraspinal soft tissues are unremarkable. CONUS MEDULLARIS AND CAUDA EQUINE: The distal cord, conus tip, and cauda equina nerve roots are normal. No pathologic intradural enhancement identified. SPINAL LEVELS: L1-L2, L2-L3, and L3-L4: No disc pathology, central canal stenosis, or foraminal narrowing. L4-L5: Retrosubluxation and residual mild disc bulge with left-sided post laminectomy changes. Enhancing annular scar present with diffuse enhancement in the left lateral epidural space around the left L5 nerve root, indicative for epidural scar and fibrosis. Postoperative disc contacts the left L5 nerve root in the subarticular zone. No significant central canal stenosis. Stable hypertrophic facet arthropathy encroaching upon the right subarticular zone, as on prior imaging. Patent foramina. L5-S1: Disc degeneration and shallow right paracentral disc protrusion, slightly decreased in size compared to prior imaging with an annular tear. [id number] facet arthropathy without central canal stenosis. Mild right foraminal narrowing. MR/MR lumbar spine wo/w con IMPRESSION: 1. Postoperative changes at the L4-L5 level with enhancing epidural fibrosis laterally on the left side within the spinal canal around the left L5 nerve root. Residual mild disc bulge contacting the left L5 nerve root with a mild retrosubluxation. Stable facet arthropathy encroaching upon the right subarticular zone. 2. Slight decrease in size of a shallow right paracentral disc protrusion at the L5-S1 level with an underlying annular tear. [id number] facet arthropathy.
== END 2022-08-16 09:45 | disposition home or self-care (01) ==
LOC: HO.MRI 09:44
PROVIDERS: PCP Physician Assistant; Visit Provider Nurse Practitioner Family
DX: M51.27 Other intervertebral disc displacement, lumbosacral region (principal); G89.29 Other chronic pain; M54.12 Radiculopathy, cervical region; M25.511 Pain in right shoulder
CPT/HCPCS: 72141; 72158; A9585

== ENCOUNTER 2022-10-27 09:22 | Outpatient (REF) | payer OTHER, SELFPAY ==
--- NOTE | ~2022-10-27 | XR_ITS ---
EXAMINATION: XR WRIST, RIGHT CLINICAL INFORMATION: Right anterior wrist pain. No known injury. COMPARISON: None available. TECHNIQUE: PA, lateral, and oblique views of the right wrist. FINDINGS: Alignment is anatomic with normal joint spaces. No displaced fracture or dislocation. No erosions or abnormal soft tissue calcifications. XR/XR wrist RT 2V IMPRESSION: No acute abnormality.
[2022-10-27 10:31] LABS: Hematocrit 42.3 % (37.0-47.0); Mean Corpuscular HGB Conc 30.7 g/dl (31.0-35.0); Mean Corpuscular Hemoglobin 26.3 pg (27.0-33.0); Mean Corpuscular Volume 85.5 fL (80.0-98.0); Mean Platelet Volume 11.4 fL (9.4-12.3); Platelet Count 287 X10*3/uL (160-400); Red Blood Count 4.95 X10*6/uL (4.20-5.50); White Blood Count 8.4 X10*3/uL (4.8-10.8)
[2022-10-27 11:14] LABS: Creatinine Urine 224.55 mg/dL; Microalbum/Creatinine Ratio Ur 4.4 ug/mg cr
[2022-10-27 11:19] LABS: Alanine Aminotransferase 91 U/L (0-31); Albumin Level 4.4 g/dL (3.5-5.0); Alkaline Phosphatase 134 U/L (39-117); Anion Gap 13 (12-20); Aspartate Amino Transferase 51 U/L (5-31); Bilirubin Total 0.4 mg/dL (0.0-1.0); Blood Urea Nitrogen 13 mg/dL (9-16); Calcium 9.6 mg/dL (8.4-10.2); Carbon Dioxide 28 mmol/L (22-29); Chloride 105 mmol/L (96-108); Estimated Glomerular Filt Rate > 60; Glucose Fasting 107 mg/dL (60-99); Iron 42 mcg/dL (30-160); Percent Iron Saturation 12 % (15-50); Potassium 4.6 mmol/L (3.3-5.1); Sodium 141 mmol/L (135-145); Total Iron Binding Capacity 357 mcg/dL (228-428); Total Protein 8.1 g/dL (6.5-8.0); Unsaturated Iron Binding 315 ug/dL
== END 2022-10-27 09:23 | disposition home or self-care (01) ==
LOC: HO.LAB 09:22
PROVIDERS: PCP Physician Assistant; Visit Provider Physician Assistant
DX: M25.531 Pain in right wrist (principal); I10 Essential (primary) hypertension; D50.9 Iron deficiency anemia, unspecified; R71.8 Other abnormality of red blood cells
CPT/HCPCS: 36415; 73100; 80053; 82043; 83540; 85027

== ENCOUNTER 2022-10-30 09:01 | Outpatient (REF) | payer OTHER, SELFPAY ==
--- NOTE | ~2022-10-30 | XR_ITS ---
EXAMINATION: XR SACROILIAC JOINTS CLINICAL INFORMATION: Pain in the right hip COMPARISON: None available. TECHNIQUE: 3 views of the sacroiliac joints FINDINGS: Bones and soft tissues are normal. No fracture. Alignment is anatomic. Sacroiliac joint spaces are well-maintained without erosions or surrounding sclerosis. XR/XR sacroiliac joint min 3V IMPRESSION: Normal sacroiliac joints.
--- NOTE | ~2022-10-30 | XR_ITS ---
EXAMINATION: XR HIP, RIGHT CLINICAL INFORMATION: Pain in the right hip COMPARISON: None available. TECHNIQUE: Two views of the right hip. FINDINGS: Bones and soft tissues are normal. No fracture. Alignment is anatomic. Hip joint space is maintained. XR/XR hip RT min 2V IMPRESSION: Normal right hip.
== END 2022-10-30 09:02 | disposition home or self-care (01) ==
LOC: HO.XRAY 09:01
PROVIDERS: PCP Physician Assistant; Visit Provider Nurse Practitioner Family
DX: M25.551 Pain in right hip (principal); M79.604 Pain in right leg; M46.1 Sacroiliitis, not elsewhere classified; M53.3 Sacrococcygeal disorders, not elsewhere classified; M54.16 Radiculopathy, lumbar region; M96.1 Postlaminectomy syndrome, not elsewhere classified; M54.50 Low back pain, unspecified; M62.830 Muscle spasm of back
CPT/HCPCS: 72202; 73502; 99202

== ENCOUNTER 2022-11-17 09:21 | Outpatient (REF) | payer OTHER, SELFPAY ==
--- NOTE | ~2022-11-17 | US_ITS ---
EXAMINATION: US ABDOMEN LIMITED CLINICAL INFORMATION: Abnormal levels of other serum enzymes. COMPARISON: CT abdomen and pelvis 08/26/2020. TECHNIQUE: Real-time imaging of the right upper quadrant abdominal viscera. FINDINGS: PANCREAS: Normal. LIVER: Liver is mildly enlarged measuring 18.7 cm in span. The liver contour is normal. There is diffuse increased liver parenchymal echogenicity, consistent with infiltrative hepatocellular disease. No focal hepatic lesion. There is no intrahepatic biliary duct dilatation seen. GALLBLADDER: Surgically absent. COMMON BILE DUCT: Normal in caliber measuring 0.4 cm in diameter. RIGHT KIDNEY: Normal. No hydronephrosis. No renal calculi or focal parenchymal lesions. The kidney measures 10.1 cm in maximum dimension. FREE FLUID: None. US/US abdomen limited IMPRESSION: Hepatomegaly. Increased hepatic echogenicity which can be seen in the setting of hepatic steatosis or underlying liver disease.
== END 2022-11-17 09:22 | disposition home or self-care (01) ==
LOC: HO.US 09:21
PROVIDERS: PCP Physician Assistant; Visit Provider Physician Assistant
DX: R74.8 Abnormal levels of other serum enzymes (principal)
CPT/HCPCS: 76705

== ENCOUNTER 2022-11-29 08:45 | Outpatient (REF) | payer OTHER, SELFPAY ==
--- NOTE | 2022-11-29 08:47 | EMG_ITS ---
Please see scanned EMG / Nerve Conduction Report. MTDD
== END 2022-11-29 08:46 | disposition home or self-care (01) ==
LOC: HO.NEURO 08:45
PROVIDERS: PCP Physician Assistant; Visit Provider Physician Assistant
DX: R20.2 Paresthesia of skin (principal)
CPT/HCPCS: 95885; 95910

== ENCOUNTER 2022-12-15 14:54 | Outpatient (REF) | payer OTHER, SELFPAY ==
[2022-12-18 13:14] LABS: Alpha Fetoprotein 3.3 ng/mL
[2022-12-18 19:03] LABS: Ceruloplasmin 28 mg/dL (18-53)
[2022-12-19 11:08] LABS: Mitochondrial Antibodies NEGATIVE (NEGATIVE)
[2022-12-19 15:43] LABS: Anti Nuclear Antibody Screen NEGATIVE (NEGATIVE)
[2022-12-20 22:39] LABS: Smooth Muscle Antibody <20 U (<20)
== END 2022-12-15 14:55 | disposition home or self-care (01) ==
LOC: HO.LAB 14:54
PROVIDERS: PCP Physician Assistant; Visit Provider Nurse Practitioner
DX: Z11.4 Encounter for screening for human immunodeficiency virus [HIV] (principal); R74.01 Elevation of levels of liver transaminase levels
CPT/HCPCS: 36415; 82105; 82390; 82728; 82977; 84443; 86015; 86038; 86255; 86256; 86704; 86706; 86709; 86803; 87340; 87389; 99212

== ENCOUNTER 2022-12-15 14:54 | Outpatient (AMB) | payer OTHER, SELFPAY ==
--- NOTE | 2022-12-15 14:58 | MHC.OFFVIS ---
Intake Vital Signs 12/15/22 15:00 Height 5 ft 3 in Weight 114 lb 6 oz BMI 20.3 BP 123/62 Blood Pressure Location Lt brachial Position Sitting Pulse 89 Intake Visit Reasons: Fatty Liver / Follow Up Rachael Intake Note: Rufina presents today for a follow up appointment. CC: Pt complains of worsening pain in the upper abdomen. 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 She continues to have severe back pain that is quite debilitating she can not even lift her child which is unusual.? She has presented to the ER several times and had a CT scan, lab work, an x-ray she that have been unrevealing for the source of her pain. She been able to get in to see her primary care provider despite her urgent problems the soonest appointment was from October.? The ER as provided pain medications but no resolution despite trying to give her prednisone and Toradol. She also has new symptom of leg swelling and her toes turning blue frequently.? Given her young age I think it would be smart to rule out some sort of a DVT although this could also be nerve root compression not seen on traditional imaging studies that really would need to be uncovered by MRI.? Differential diagnosis is also very wide in terms of soft tissue disorders.? She has a long family history of severe back problems genetically in her mother and her aunt that were not uncovered until we had MRIs so this is a concern in her mind. I will try help her since she is having some which trouble accessing by at least ordered a D-dimer PT INR in ultrasound of her extremities.? I feel comfortable stepping somewhat outside the GI round because I have asked experience in primary care and orthopedic medicine.? However, I really can not direct myself enough to order the MRI as it would take quite a lot to get approved given the circumstances.? She I have also advised her to get COVID test since blue toes can be an atypical sign of COVID-19.? She is agreeable to these things. She has continues to try to access care through her primary and other specialists and we agree on a 3 month follow-up for her GI problems.? Surprisingly, her GI problems are resolved and she has been moving her bowels well since this other problem has manifested.? I will call her if there is any abnormality in the tests I have ordered in I continue to encourage her the be persistent in accessing care.? I did corrections counselor her that is been tops with COVID as we are all very busy and overwhelmed and certainly has slow down the process for most folks. He is agreeable to this and will call me if she has any worsening symptoms she thinks I can help with. ? ? ? Orders:?Orders: ? D Dimer Today ? ? ? Prothrombin Time I NR Today ? ? ? US arterial duplex LE BI Today ? ? (2) Bilateral leg numbness: ?Code(s): R20.0 - Anesthesia of skin ?Category:?Medical ? ? ? Orders:?Orders: ? D Dimer Today ? ? ? Prothrombin Time I NR Today ? ? ? US arterial duplex LE BI Today ? ? LABS: Laboratory Tests 10/26/20 03/05/21 10:05 10:40 PT 12.5 INR 1.1 D-Dimer < 200 ULTRASOUND OF THE BILATERAL LOWER EXTREMITIES TODAY'S VISIT PATIENT HAS BEEN LOST TO FOLLOW-UP SINCE 2020. She tells me that when her PCP did her labs she had elevated liver function tests, and he did an US and told me that my liver was inflamed, so she was sent to me. She has had a cholecystectomy since I last saw her. This has resolved her CIC and she does not have diarrhea. She denies any significant wt gain, she is not diabetic and she does not drink frequent ETOH. The only other health problem is neck and back problems. I will get a new liver work up, and a CT to better see the liver since US can be unreliable/flex o writer operator dependent. Return office visit after the ultrasound [facility] Medical History Asthma Bunion of great toe of left foot PCOS (polycystic ovarian syndrome) Pre-op evaluation Surgical History History of back surgery History of carpal tunnel surgery (~04/2020) History of tubal ligation Hx of section Hx of cholecystectomy Family History Father Unknown family medical history Maternal Uncle Blocked artery Family/Other Colon cancer Maternal Uncle Blocked artery Mother No problems noted. Maternal Grandmother Stroke S/P triple vessel bypass Social History Household Members: Children Housing: House Alcohol intake: former Patient Tobacco Use Status: Never used Tobacco e-Cigarette/Vaping Use: Never Used Second Hand Smoke Exposure: No service: No Current occupational status: unemployed Cognitive needs: No Hearing needs: No Vision needs: Yes Review of Systems Const Denies fatigue, Denies fever(s), Denies night sweats, Denies poor appetite and Denies weight loss Eyes Details: glasses Reports requires corrective lenses ENT Reports Normal hearing present, Denies dental pain, Denies dysphagia, Denies hearing loss, Denies mouth pain, Denies odynophagia, Denies throat swelling, Denies tongue swelling and Reports other (Dentition adequate) Card Reports no additional complaints Resp Reports no additional complaints GI Denies abdominal pain, Denies melena, Denies bloating, Denies hematochezia, Denies constipation, Denies GI cramping, Denies dysphagia, Denies excessive flatus, Denies early satiety, Denies heartburn, Denies diarrhea, Denies nausea, Denies odynophagia, Denies vomiting and Denies hematemesis Skin/Breast Denies pruritus, Denies lesions, Denies rash and Denies jaundice Neuro Reports Normal hearing present and Denies Abnormal speech present Endo Denies fatigue Aller/Immun Denies throat swelling and Denies tongue swelling Physical Exam Vital Signs: Last Vital Signs Pulse 89 12/15/22 15:00 BP 123/62 12/15/22 15:00 BMI result Body Mass Index 20.3 Const General: cooperative, no acute distress, well developed and well groomed Nutritional Appearance: average body habitus and well nourished Orientation/consciousness: oriented to person, oriented to place and oriented to time Limitations: No language barrier HEENT Head: Yes normocephalic and Yes atraumatic Eyes General: appearance normal, both eyes and all related structures Pupils: Equal, round and reactive pupils present Neck Neck: Yes normal visual inspection and Yes no lymphadenopathy Thyroid: Thyroid normal Resp Effort & Inspection: normal respiratory effort and able to speak in complete sentences Auscultation: clear to auscultation bilaterally Cardio Rate: regular rate Rhythm: regular rhythm Heart sounds: Normal, physiologic split S2 sound present Peripheral pulses: radial pulses present and posterior tibial pulses present GI Inspection: No distended, Yes Abdominal panniculus present, Yes obesity and Yes striae Palpation (GI): Soft to palpation, nontender, no guarding, not rigid and No hepatosplenomegaly present Percussion: Yes normal to percussion Auscultation: normal bowel sounds Rectal Exam - Female: deferred Abdomen image: 1. surgical scars 2. 3. 4. Skin General skin exam: no rashes or lesions noted, turgor normal, skin not dry, no jaundice, No spider nevi and no striae Rashes: no rashes Nails: normal Neuro General: oriented to person, oriented to place and oriented to time Cranial nerves: Yes Equal, round and reactive pupils present and Yes Normal hearing present Speech: No Abnormal speech present Extrem General: Yes normal to inspection, No clubbing, No cyanosis and No edema Psych Appearance: grossly normal and well kempt Mental Status: mental status grossly normal Speech and movement: Normal speech and movement present Affect: normal affect Attitude: cooperative Thought process: Normal thought process present and not confabulating Thought content: Normal thought content present Insight: Limited insight present (Psych) Judgement: Limited judgement present (Psych) Assessment & Plan Assessment & Plan (1) Transaminitis: Code(s): R74.01 - Elevation of levels of liver transaminase levels Plan: PATIENT HAS BEEN LOST TO FOLLOW-UP SINCE 2020. She tells me that when her PCP did her labs she had elevated liver function tests, and he did an US and told me that my liver was inflamed, so she was sent to me. She has had a cholecystectomy since I last saw her. This has resolved her CIC and she does not have diarrhea. She denies any significant wt gain, she is not diabetic and she does not drink frequent ETOH. The only other health problem is neck and back problems. I will get a new liver work up, and a CT to better see the liver since US can be unreliable/flex o writer operator dependent. Return office visit after the ultrasound. Orders: Orders Alpha Fetoprotein 12/15/22 R74.01 - Elevation of levels of liver transaminase levels Ceruloplasmin 12/15/22 R74.01 - Elevation of levels of liver transaminase levels Ferritin 12/15/22 R74.01 - Elevation of levels of liver transaminase levels Gamma Glutamyl Transpeptidase 12/15/22 R74.01 - Elevation of levels of liver transaminase levels TSH reflex Free T4 12/15/22 R74.01 - Elevation of levels of liver transaminase levels CT abdomen wo/w IV con 12/15/22 R74.01 - Elevation of levels of liver transaminase levels MARSHAL Reflex Titer and Pattern 12/15/22 R74.01 - Elevation of levels of liver transaminase levels Mitochondrial Antibody 12/15/22 R74.01 - Elevation of levels of liver transaminase levels Smooth Muscle Antibody 12/15/22 R74.01 - Elevation of levels of liver transaminase levels Hepatitis A,B,C Profile 12/15/22 R74.01 - Elevation of levels of liver transaminase levels HIV Ab/Ag 12/15/22 R74.01 - Elevation of levels of liver transaminase levels Medications: New famotidine (Pepcid) 40 mg PO BEDTIME 30 tabs 6RF R10.13 - Epigastric pain Coding Level of Care Code Est Pt Level 3 (02095) Diagnoses Transaminitis R74.01
[2022-12-15 15:00] VITALS: BP 123/62; PULSE 89; BMI 20.3
== END 2022-12-15 15:56 | disposition home or self-care (01) ==
PROVIDERS: PCP Physician Assistant; Visit Provider Nurse Practitioner
DX: R74.01 Elevation of levels of liver transaminase levels (principal)
CPT/HCPCS: 99213; 99214

== ENCOUNTER 2023-01-10 12:54 | Outpatient (AMB) | payer OTHER, SELFPAY ==
--- NOTE | 2023-01-10 13:29 | A.SPINEOV_ITS ---
Intake Intake Visit Reasons: second opinion Intake Note: Miss Rodriguez is here today for a second opinion. MRI done @ [facility] [place] and [facility]. Allergies dexamethasone [DEXAMETHASONE] Adverse Reaction (Unknown, Verified 12/15/22 15:02) ANXIETY Assessment & Plan Assessment & Plan (1) Sacroiliac joint pain: Code(s): M53.3 - Sacrococcygeal disorders, not elsewhere classified (2) Cervical radiculitis: Code(s): M54.12 - Radiculopathy, cervical region Plan Dear colleague Today I saw for a 2nd opinion your patient Elza Delgado HPI: This 32-year-old female had a previous left L4-5 diskectomy done for left lumbar radiculopathy from which he recovered well. Approximately 3 years ago she developed severe right pain around the SI joint after of her daughter. A repeat MRI of the lumbar spine showed no significant abnormalities of the lumbar spine. She visited pain management who diagnosed her would right SI joint pathology. She is waiting for a follow-up with them. Second complaint is right-sided neck pain with numbness down her arm and shoulder blade. These symptoms particular come when she is lifting an object. PMH: Hypertension, asthma, 3 C sections, cholecystectomy, tubal ligation, carpal tunnel release Social history: Nonsmoker Medications: From upper male, cyclobenzaprine, Tylenol and ibuprofen Allergies: Decadron Physical Exam: Pleasant female. This pain on palpation over the right SI joint. Beto and Pineda are positive. Straight leg raise negative. Radiological Studies: MRI done at [facility] in August 2022 and a more recent MRI done at [facility] showed mild disc bulges at L4-5 and L5-S1 without nerve compression. There is no central canal stenosis. An MRI of the cervical spine is basically normal. Impression/Plan: The patient persistent right sided back/hip symptoms are most likely related to sacroiliitis. There is no lumbar pathology on the MRI. I have no explanation for her new her right arm symptoms. The MRI of the cervical spine shows no surgical pathology. I advised her to contact pain management for further treatment of the SI joint. Thank you for allowing me to participate in your patients care. total time spent was 30 minutes in counseling ,coordination of plan, personal review of imaging, surgical decision making and subsequent plan Jose Alfredo Youssef MD, PhD Spine Fellowship Trained Neurosurgeon Director, [facility] Coding Level of Care Code New Pt Level 3 (13771) Diagnoses Sacroiliac joint pain M53.3 Cervical radiculitis M54.12
== END 2023-01-10 14:35 | disposition home or self-care (01) ==
PROVIDERS: PCP Physician Assistant; Visit Provider Neurological Surgery
DX: M53.3 Sacrococcygeal disorders, not elsewhere classified (principal); M54.12 Radiculopathy, cervical region
CPT/HCPCS: 99203

== ENCOUNTER → 2023-01-10 12:54 | Outpatient (BNVA) | payer OTHER, SELFPAY | PROVIDERS: PCP Physician Assistant; Visit Provider Neurological Surgery | DX: M53.3 Sacrococcygeal disorders, not elsewhere classified (principal); M54.12 Radiculopathy, cervical region | CPT/HCPCS: 99202 ==

== ENCOUNTER 2023-01-15 11:14 | Outpatient (AMB) | payer OTHER, SELFPAY ==
--- NOTE | 2023-01-15 11:20 | MHC.OFFVIS ---
Intake Vital Signs 01/15/23 11:24 Height 5 ft 3 in Weight 254 lb 6 oz BMI 45.1 BP 144/88 H Blood Pressure Location Lt brachial Position Sitting Pulse 78 Pulse Source Pulse Oximeter Pulse Oximetry (%) 98 Oxygen Delivery Method Room Air Intake Visit Reasons: (SIJ & Hip) Xray Results from 10/30/22 / Follow Up Intake Note: Pain today 11/18 Rn Dialysis Required: No Accompanied by: Self / Same As Patient Allergies dexamethasone [DEXAMETHASONE] Adverse Reaction (Unknown, Verified 01/15/23 11:24) ANXIETY HPI HPI Comments History of Present Illness Details Patient presents today for follow up and review hip and SIJ xray results. She was seen [place] [facility] with review of August and more recent lumbar spine MRI results and was deemed non surgical. Update MRI and hip/SIJ xrays are noted below. Patient endorses bilateral buttocks pain radiating into her lateral hips and at times into right groin. Right side is worse than left. She is intersted to proceed with diagnostic right sacroiliac joint injections for potential correction interventional treatments. Denies any recent cough, cold, infection, fever or other significant changes in medical history since last office visit. Patient denies any bladder or bowel incontinence or saddle anesthesia. PRIOR: Patient is a pleasant 31-year-old female is a history of herniated disc, spinal stenosis, left L4/L5 partial lumbar decompression and chronic low back pain presents today for initial consultation for back pain with radiation to right lower extremity and right hip pain. Patient reports pain started in 2020, 1 month after delivering her 3rd child through and since then it has been progressively getting worse and being constant. Pain is described as constant throbbing, shooting, stabbing, sharp, pinching, tugging, pulling, hot burning, tingling, sore, tiring, killing, radiating, piercing, and tight. She notes that left lumbar decompression completely alleviated her severe left leg pain in 2020. More recently, she is experiencing a right-sided radiculopathy with significant right leg pain and right hip pain. She has difficulty raising her right leg due to weakness and pain with associated numbness and tingling. Patient also has localized tenderness in the projection of the right sacroiliac joint. Patient reports numbness in her RLE while sitting with her legs crossed. Reports back pain has been refractory to physical therapy in the past and due to significant pain at this time, she is not able to pursue PT walking or prolonged standing increases her pain and back pain will radiate to the lateral right buttock and into right groin. She is unable to take steroids as she has a poor reaction to them, reports significant anxiety and psychosis his dexamethasone. Patient has asthma and has been tolerating Advair Diskus well. Patient is willing to trial therapeutic cortisone injections to relieve her right lower leg pain with pre-medication. Pain has been affecting her daily functioning, activities, sleep, mood, and social interactions. Tylenol and cyclobenzaprine have been minimally effective. Lumbar spine MRI 08/16/22 reviewed and is noted below. Right hip xray is pending. Denies fever, abdominal pain, bladder or bowel incontinence or saddle anesthesia. [facility] Medical History Asthma Bunion of great toe of left foot PCOS (polycystic ovarian syndrome) Pre-op evaluation Surgical History History of back surgery History of carpal tunnel surgery (~04/2020) History of tubal ligation Hx of section Hx of cholecystectomy Family History Father Unknown family medical history Maternal Uncle Blocked artery Family/Other Colon cancer Maternal Uncle Blocked artery Mother No problems noted. Maternal Grandmother Stroke S/P triple vessel bypass Social History Household Members: Children Housing: House Alcohol intake: former Patient Tobacco Use Status: Never used Tobacco e-Cigarette/Vaping Use: Never Used Second Hand Smoke Exposure: No service: No Current occupational status: unemployed Cognitive needs: No Hearing needs: No Vision needs: Yes Review of Systems Const All systems reviewed & are unremarkable except as noted in HPI and below Physical Exam General: Appears afebrile. Alert and oriented. Mood and affect appropriate. Follows and participates in conversation appropriately. Respiratory effort is unlabored. Able to transition from sit to stand unassisted. Ambulates with bilaterally normal heel strike and toe off. Back/Spine/Pelvis Other: Lumbar extension and flexion reproduce lower back pain. Can flex forward to 70-80 degrees and extend to 5-10 degrees before experiencing lumbar pain. Demonstrates 5/5 strength of quadriceps bilaterally as well as flexion/dorsiflexion of bilateral feet against resistance. 2+ pedal pulses bilaterally. Seated straight leg rise with dorsiflexion negative bilaterally. +1 right +2 left patellar and +1 achilles reflexes bilaterally. Facet loading test positive bilaterally. Stanton sign positive bilaterally. Duy?s, Ga[place]len, Pelvic compression and Stinchfield tests are positive bilaterally, right>left. No groin pain with I/E hip rotations. Valsalva maneuver negative. Cervical Spine: normal cervical lordosis, cervical ROM normal and No Cervical spine tenderness Thoracic/Lumbar Spine: thoracic and lumbar spine normal to inspection, Thoracic/lumbar spine scar(s), pain with thoraco-lumbar ROM, paraspinal muscle tenderness, No thoracic spinal tenderness and lumbar spinal tenderness Sacroiliac joints: bilaterally tender to palpation Results Reviewed Results Reviewed: MR LUMBAR SPINE WITHOUT AND WITH CONTRAST 08/16/22 IMPRESSION: 1. Postoperative changes at the L4-L5 level with enhancing epidural fibrosis laterally on the left side within the spinal canal around the left L5 nerve root. Residual mild disc bulge contacting the left L5 nerve root with a mild retrosubluxation. Stable facet arthropathy encroaching upon the right subarticular zone. 2. Slight decrease in size of a shallow right paracentral disc protrusion at the L5-S1 level with an underlying annular tear. [id number] facet arthropathy. [facility] Lumbar spine MRI 12/02/22 XR SACROILIAC JOINTS 10/30/22 FINDINGS: Bones and soft tissues are normal. No fracture. Alignment is anatomic. Sacroiliac joint spaces are well-maintained without erosions or surrounding sclerosis. IMPRESSION: Normal sacroiliac joints. XR HIP, RIGHT 10/30/22 FINDINGS: Bones and soft tissues are normal. No fracture. Alignment is anatomic. Hip joint space is maintained. IMPRESSION: Normal right hip. Assessment & Plan Assessment & Plan (1) Muscle spasm of back: Code(s): M62.830 - Muscle spasm of back (2) Sacroiliac joint pain: Code(s): M53.3 - Sacrococcygeal disorders, not elsewhere classified (3) Sacroiliitis: Code(s): M46.1 - Sacroiliitis, not elsewhere classified (4) Low back pain: Code(s): M54.5 - Low back pain Qualifiers: Chronicity: unspecified Back pain laterality: unspecified Sciatica presence: without sciatica Qualified Code(s): M54.5 - Low back pain Plan Hip and SIJ xray imaging results reviewed with patient. She continues to present with sacoiliitis pathology, right side worse than left. We will proceed with Diagnostic Right SIJ injection with local and fluoroscopy. If positive response, patient will have options for therapeutic SIJ injections, SIJ fusion or neuromodulation with Curonix PNS trial if interested. Expectations, risks and benefits were reviewed. Patient is aware she will be contacted to schedule this procedure. All questions were answered and patient is in agreement of plan. Follow-up after injection and sooner as needed. Coding Level of Care Code Est Pt Level 4 (15075) Diagnoses Muscle spasm of back M62.830 Sacroiliac joint pain M53.3 Sacroiliitis M46.1 Low back pain M54.5 Chronicity: unspecified Back pain laterality: unspecified Sciatica presence: without sciatica
[2023-01-15 11:24] VITALS: BP 144/88; PULSE 78; O2SAT 98; BMI 45.1
== END 2023-01-15 11:38 | disposition home or self-care (01) ==
PROVIDERS: PCP Physician Assistant; Visit Provider Nurse Practitioner Family
DX: M62.830 Muscle spasm of back (principal); M53.3 Sacrococcygeal disorders, not elsewhere classified; M46.1 Sacroiliitis, not elsewhere classified; M54.50 Low back pain, unspecified
CPT/HCPCS: 99214

== ENCOUNTER → 2023-01-15 11:14 | Outpatient (BNVA) | payer OTHER, SELFPAY | PROVIDERS: PCP Physician Assistant; Visit Provider Nurse Practitioner Family | DX: M62.830 Muscle spasm of back (principal); M53.3 Sacrococcygeal disorders, not elsewhere classified; M46.1 Sacroiliitis, not elsewhere classified; M54.50 Low back pain, unspecified | CPT/HCPCS: 99212 ==

== ENCOUNTER 2023-01-17 08:17 | Outpatient (REF) | payer OTHER, SELFPAY ==
--- NOTE | ~2023-01-17 | CT_ITS ---
EXAMINATION: CT ABDOMEN WITHOUT AND WITH CONTRAST CLINICAL INFORMATION: Elevation of liver transaminases COMPARISON: Ultrasound from the same day earlier and CT scan from August 2020 TECHNIQUE: Contiguous axial thin section helical images of the abdomen were performed before and after the administration of 85 mL of Omnipaque 350 intravenous contrast. The data set was reformatted in the coronal and sagittal planes and reviewed on an independent workstation. This CT examination was performed using dose optimization techniques as appropriate, variously including the following: *Automated exposure control *Adjustment of mA and/or kV according to patient size (this includes techniques or standardized protocols for targeted exams where dose is matched to indication/reason for exam; i.e. extremities or head) *Use of iterative reconstruction technique DLP: 1221 mGy-cm FINDINGS: LUNG BASES: Unremarkable LIVER, GALLBLADDER, AND BILIARY TREE: Liver is of low attenuation due to hepatic steatosis and enlarged. There is no intrahepatic masses or ductal dilatation seen. Gallbladder is surgically absent. PANCREAS: Unremarkable SPLEEN: Enlarged, measured 14.3 cm. There is 2.8 cm splenules are present ADRENAL GLANDS AND KIDNEYS: Adrenal glands are normal. Kidneys revealed normal attenuation no evidence of hydroureteronephrosis, masses, nephrolithiasis. BOWEL LOOPS: Unremarkable. Normal appendix present. LYMPH NODES: There is no mesenteric lymphadenopathy. VASCULAR: Unremarkable. BONES: Normal CT/CT abdomen wo/w IV con IMPRESSION: Hepatosplenomegaly. Hepatic steatosis. Fleischner guidelines were followed.
[2023-01-17] MEDS: iohexoL 350 MG/ML 100 ML INFUS..BTL IV (09:01)
== END 2023-01-17 08:18 | disposition home or self-care (01) ==
LOC: HO.CT 08:17
PROVIDERS: PCP Physician Assistant; Visit Provider Nurse Practitioner
DX: R74.01 Elevation of levels of liver transaminase levels (principal)
CPT/HCPCS: 74170; Q9967

== ENCOUNTER 2023-01-22 09:49 | Outpatient (AMB) | payer OTHER, SELFPAY ==
[2023-01-22 09:53] VITALS: BP 128/76; PULSE 89; O2SAT 97; BMI 44.9
--- NOTE | 2023-01-22 09:53 | MHC.PC.OV ---
Vital Signs 01/22/23 09:53 Height 5 ft 3 in Weight 253 lb 6 oz BMI 44.9 BP 128/76 Blood Pressure Location Lt brachial Position Sitting Pulse 89 Pulse Source Pulse Oximeter Pulse Oximetry (%) 97 Oxygen Delivery Method Room Air Intake Visit Reasons: 6 month follow up Allergies dexamethasone [DEXAMETHASONE] Adverse Reaction (Unknown, Verified 01/22/23 10:04) ANXIETY Medication List - Last Reconciled 01/22/23 by Abdifatah Whitt PA-C acetaminophen mg PO cyclobenzaprine 5 mg PO BID 30 days famotidine (Pepcid) 40 mg PO BEDTIME fluticasone propion-salmeterol 500-50 mcg/dose (Advair Diskus) 1 ea inhalation BID ibuprofen 600 mg PO QID verapamil 40 mg PO BID 30 days Tobacco use date assessed: 12/06/22 HPI 6 month follow up HPI Details Patient is a 32-year-old female here today for follow-up visit.? Patient has a past medical history significant for post laminectomy syndrome chronic low back pain, hypertension(gestational), asthma, obesity .. Hypertension:? Continues on verapmail 40 mg with good effect.? Blood pressure at home and today in office stable.? She otherwise denies any chest discomfort, headaches, vision issues. . Chronic pain complaints--> has right upper extremity pain namely in the wrist and hand.? Does report neuropathic type sensations and pain in her upper right extremity.? Of note cervical spine MRI does show C4-C5 disc issue. Has done physical therapy which she reports is helpful for reducing her upper extremity pain. ? Did have EMG of the right upper extremity without any carpal or cubital tunnel neuropathy. She has seen neurosurgeon though does not surgical candidate at this time. She has followed up with [facility] and will be getting an SI joint injection ? Would likely benefit from formal physical therapy. Also has a chronic history of lower back pain.? She has been having worsening right hip pain radiating into the right groin.? Most recent MRI done at [facility] showing spinal stenosis at the level L4-L5.? X-rays of right hip and sacroiliac joints without any abnormal findings.? Again has seen [facility] and will be getting a diagnostic SI ingestion Currently using cyclobenzaprine and Tylenol for her pain relief. ? [facility] Medical History Asthma Bunion of great toe of left foot PCOS (polycystic ovarian syndrome) Pre-op evaluation Surgical History History of back surgery History of carpal tunnel surgery (~04/2020) History of tubal ligation Hx of section Hx of cholecystectomy Family History Father Unknown family medical history Maternal Uncle Blocked artery Family/Other Colon cancer Maternal Uncle Blocked artery Mother No problems noted. Maternal Grandmother Stroke S/P triple vessel bypass Social History Household Members: Children Housing: House Alcohol intake: former Patient Tobacco Use Status: Never used Tobacco e-Cigarette/Vaping Use: Never Used Second Hand Smoke Exposure: No service: No Current occupational status: unemployed Cognitive needs: No Hearing needs: No Vision needs: Yes Questionnaire PHQ-9 Over the last 2 weeks, how often have you been bothered by any of the following problems? 1. Little interest or pleasure in doing things: not at all 2. Feeling down, depressed, or hopeless: not at all 3. Trouble falling or staying asleep, or sleeping too much: not at all 4. Feeling tired or having little energy: not at all 5. Poor appetite or overeating: not at all 6. Feeling bad about yourself - or that you are a failure or have let yourself or your family down: not at all 7. Trouble concentrating on things, such as reading the newspaper or watching television: not at all 8. Moving or speaking so slowly that other people could have noticed. Or the opposite - being so fidgety or restless that you have been moving around a lot more than usual: not at all 9. Thoughts that you would be better off or of hurting yourself in some way: not at all Total score: 0 Depression Screening Interpretation: Negative 92269 - PHQ-9 Billing: Yes Source: Developed by Drs. Mike Gu, Adry Bansal, Bret Phipps and colleagues, with an educational kana from [employer]. Thrive Questionnaire Date Thrive assessed: 07/24/22 I am a: Patient What is your living situation today?: I have a steady place to live Within the past 12 months, did the food you bought not last and you didn't have the money to get more?: Never true Within the past 12 months, did you worry whether your food would run out before you got money to buy more?: Never true Currently or been in a relationship where the following occur: no concerns reported AUDIT C Alcohol Use Questionnaire (AUDIT-C) 1. How often do you have a drink containing alcohol?: Never 3. How often do you have six or more drinks on one occasion?: Never Total Score: 0 LAURA-7 AMB Questionnaire LAURA-7 Date LAURA - 7 assessed: 07/24/22 Feeling nervous, anxious, or on edge: 0 = Not at all Not being able to stop or control worryin = Not at all Worrying too much about different things: 0 = Not at all Trouble relaxin = Not at all Being so restless that it is hard to sit still: 0 = Not at all Becoming easily annoyed or irritable: 0 = Not at all Feeling afraid as if something awful might happen: 0 = Not at all Total LAURA-7 score (0-4 normal; 5-9 mild; 10-14 moderate; 15-21 severe): 0 Source: Developed by Drs. Mike Gu, Adry Bansal, Bret Phipps and colleagues, with an educational kana from [employer]. LAURA-7 Assessment Billing LAURA-7 Assessment Tool: LAURA-7 Assessment 95612 Review of Systems Const Denies headache(s) Eyes Denies loss of vision ENT Denies vertigo, Denies dizziness, Denies headache(s) and Denies sore throat Card Denies chest pain, Denies leg edema and Denies lightheadedness Resp Denies cough, Denies hemoptysis and Denies wheezing GI Denies abdominal pain, Denies melena, Denies constipation, Denies diarrhea and Denies vomiting Denies urinary frequency, Denies dysuria and Denies urinary urgency Musc Reports back pain, Denies arthralgias, Denies joint swelling, Denies numbness and Reports tingling Neuro Denies Abnormal speech present, Denies behavioral changes, Denies vertigo, Denies dizziness, Denies headache(s), Denies loss of vision, Denies memory loss, Denies numbness and Reports tingling Psych Denies anxiety, Denies behavioral changes, Denies depression, Denies memory loss and Denies panic attacks Nick/Lymph Denies easy bleeding and Denies easy bruising Aller/Immun Denies wheezing Physical exam (Primary Care) Vital Signs: Last Vital Signs Pulse 89 01/22/23 09:53 BP 128/76 01/22/23 09:53 Pulse Ox 97 01/22/23 09:53 Oxygen Delivery Method Room Air 01/22/23 09:53 BMI result Body Mass Index 44.9 BMI Assessment/Plan discussion: High Tobacco/Smoking Status: Tobacco use Status Tobacco use date assessed 12/06/22 01/22/23 10:00 Patient Tobacco Use Status Never used Tobacco 01/22/23 10:00 e-Cigarette/Vaping Use Never Used 01/22/23 10:00 PHQ-9: PHQ-9 Score PHQ-9: Total score 0 01/22/23 10:08 Depression Screening Interpretation: Negative Thrive Assessment: Date of Thrive Assessment Date Thrive assessed 07/24/22 01/22/23 10:00 Currently or been in a relationship where the following occur: no concerns reported Const General: healthy appearing, no acute distress, alert and awake Nutritional Appearance: well nourished Orientation/consciousness: oriented to person, oriented to place and oriented to time HENMT Ears: TM's normal bilaterally General nose exam: Normal nasal mucous membranes and turbinates present Eyes Conjunctivae: conjunctivae normal Sclerae: sclerae normal Pupils: Equal, round and reactive pupils present Neck Neck: Yes no lymphadenopathy and Yes no JVD Thyroid: Thyroid normal Carotids: no bruits Resp Effort & Inspection: normal respiratory effort and not tachypneic Auscultation: no crackles, no rales, no rhonchi and no wheezes Cardio Rate: regular rate Rhythm: regular rhythm Heart sounds: no murmurs and normal S1 and S2 GI Palpation (GI): Soft to palpation, nontender, no hepatomegaly and no splenomegaly Auscultation: normal bowel sounds Skin General skin exam: no rashes or lesions noted and dry skin Neuro General: oriented to person, oriented to place and oriented to time Cranial nerves: Yes Equal, round and reactive pupils present Speech: No Abnormal speech present Gait exam (Neuro): Normal gait present Motor exam (neuro): no tremor noted Extrem Right upper extremity: full ROM Left upper extremity: full ROM Right lower extremity: full ROM; no edema Left lower extremity: full ROM; no edema Psych Mental Status: mental status grossly normal Speech and movement: Normal speech and movement present Affect: normal affect Attitude: cooperative Thought process: Normal thought process present Assessment and Plan Assessment & Plan (1) Sacroiliitis: Code(s): M46.1 - Sacroiliitis, not elsewhere classified Plan: Patient now followed by [facility]. She will be getting a diagnostic SI injection as she has signs symptoms consistent with SI joint dysfunction. Continues with use of cyclobenzaprine and Tylenol for pain. (2) HTN (hypertension): Code(s): I10 - Essential (primary) hypertension Qualifiers: Hypertension type: primary hypertension Qualified Code(s): I10 - Essential (primary) hypertension Plan: Physical therapy as well patient's blood pressure acceptable today in office. Will continue her current dose of her abdomen. Goal blood pressures to remain below 140/90 (3) Obese: Code(s): E66.9 - Obesity, unspecified Qualifiers: Body mass index: BMI 40.0-44.9 Obesity classification: adult class 3 (BMI >= 40) Obesity type: due to excess calories Serious obesity comorbidity presence: with serious comorbidity Qualified Code(s): E66.01 - Morbid (severe) obesity due to excess calories; Z68.41 - Body mass index [BMI] 40.0-44.9, adult; Z68.41 - Body mass index [BMI] 40.0-44.9, adult Plan: Patient does understand her BMI is over 40 will work on being more physically active to reduce her weight Coding Level of Care Code Est Pt Level 4 (16295) Diagnoses Sacroiliitis M46.1 HTN (hypertension) I10 Hypertension type: primary hypertension Obese E66.01; Z68.41; Z68.41 Body mass index: BMI 40.0-44.9 Obesity classification: adult class 3 (BMI >= 40) Obesity type: due to excess calories Serious obesity comorbidity presence: with serious comorbidity Additional Codes LAURA-7 Assessment Billing - LAURA-7 Assessment Tool: LAURA-7 Assessment [id number] ([id number])
== END 2023-01-22 10:25 | disposition home or self-care (01) ==
PROVIDERS: PCP Physician Assistant; Visit Provider Physician Assistant
DX: M46.1 Sacroiliitis, not elsewhere classified (principal); I10 Essential (primary) hypertension; E66.01 Morbid (severe) obesity due to excess calories; Z68.41 Body mass index [BMI] 40.0-44.9, adult
CPT/HCPCS: 99214

== ENCOUNTER 2023-02-13 06:12 | Outpatient (REF) | payer OTHER, SELFPAY ==
--- NOTE | ~2023-02-13 | FL_ITS ---
EXAMINATION: XR FLUOROSCOPY WITH IMAGES CLINICAL INFORMATION: Sacroiliitis COMPARISON: None available. TECHNIQUE: Fluoroscopy Supervised By: Dr. Nain Lopez. Fluoroscopy Time: 0.1 minutes. Cumulative Dose: 8.06 mGy. DAP: 0.140 mGycm2. Images: 1. FINDINGS: Single image demonstrating contrast injection in the region of the left sacroiliac joint. FL/FL guidance in treatment room IMPRESSION: Fluoroscopy for SI joint injection.
== END 2023-02-13 06:13 | disposition home or self-care (01) ==
LOC: CF 06:12
PROVIDERS: Visit Provider Anesthesiology
DX: M46.1 Sacroiliitis, not elsewhere classified (principal); M53.3 Sacrococcygeal disorders, not elsewhere classified
CPT/HCPCS: 27096

== ENCOUNTER 2023-02-13 14:52 | Outpatient (AMB) | payer OTHER, SELFPAY ==
--- NOTE | 2023-02-13 15:00 | A.OFFVIS_ITS ---
Intake Vital Signs 02/13/23 15:01 02/13/23 15:31 Height 5 ft 3 in Weight 253 lb BMI 44.8 BP 128/88 122/64 Blood Pressure Location Rt brachial Rt brachial Position Sitting Sitting Respiration 18 18 Pulse 85 80 Pulse Source Pulse Oximeter Pulse Oximeter Pulse Oximetry (%) 96 97 Oxygen Delivery Method Room Air Room Air Comment pre-op post-op Intake Visit Reasons: R DX SIJ INJ/LOCAL Allergies dexamethasone [DEXAMETHASONE] Adverse Reaction (Unknown, Verified 02/13/23 15:00) ANXIETY PFSH Medical History Asthma Bunion of great toe of left foot PCOS (polycystic ovarian syndrome) Pre-op evaluation Surgical History History of back surgery History of carpal tunnel surgery (~04/2020) History of tubal ligation Hx of section Hx of cholecystectomy Family History Father Unknown family medical history Maternal Uncle Blocked artery Family/Other Colon cancer Maternal Uncle Blocked artery Mother No problems noted. Maternal Grandmother Stroke S/P triple vessel bypass Social History Household Members: Children Housing: House Alcohol intake: former Patient Tobacco Use Status: Never used Tobacco e-Cigarette/Vaping Use: Never Used Second Hand Smoke Exposure: No service: No Current occupational status: unemployed Cognitive needs: No Hearing needs: No Vision needs: Yes Physical Exam Vital Signs: Last Vital Signs Pulse 80 02/13/23 15:31 Resp 18 02/13/23 15:31 BP 122/64 02/13/23 15:31 Pulse Ox 97 02/13/23 15:31 Oxygen Delivery Method Room Air 02/13/23 15:31 BMI result Body Mass Index 44.8 Results Reviewed Results Reviewed: 02/13/23 15:01 Lidocaine HCl 2 % MPF [Xylocaine 2 % MPF] 5 ml .ROUTE .STK-MED ONE Assessment & Plan Assessment & Plan (1) Sacroiliitis: Code(s): M46.1 - Sacroiliitis, not elsewhere classified (2) Sacroiliac joint pain: Code(s): M53.3 - Sacrococcygeal disorders, not elsewhere classified Plan Right sacroiliac joint injection Informed consent was explained thoroughly to the patient.? All questions about benefits and risks for the procedure were answered. Patient came to the operating room and was positioned prone on the operating table with the pillow under her pelvis. ?[employer] [place] [employer] monitors were applied and patient was sedated. ? Time out was performed delineating name and of the patient, site and side of the procedure, nature of the procedure and potential patient?s risks. The lower back of the patient and upper buttocks was prepped with ChloraPrep prepped and draped with sterile utility drapes.? C-arm was brought over the operating field and square picture of patient's pelvis was demonstrated on the screen.? For the right joint tilting C-arm contralateral to the site of the joint the posterior joint silhouette was delineated on the screen. Skin projection of the joint was chosen as a target of the injection and it was injected ?slightly medial to the location of the joint with 25 gauge needle using local lidocaine 2% without epinephrine. After that 22 gauge 3 and 1/2 inch needle was driven to the joint silhouette in tunnel vision fashion.? When needle entered the joint capsule injection of the contrast was performed demonstrating intra-articular spread of the contrast.? After that 4 cc. of ropivacaine 0.5% was injected into the joint. Upon completion of the injections the needle was removed and sterile dressing was applied.? Upon completion of the injection patient was awaken taken outside of the operating room to the recovery room where recovered uneventfully.? Orders: Orders FL guidance in treatment room 02/13/23 M46.1 - Sacroiliitis, not elsewhere classified Coding Level of Care Code Procedure Only Diagnoses Sacroiliitis M46.1 Sacroiliac joint pain M53.3
[2023-02-13 15:01] VITALS: BP 128/88; PULSE 85; RESP 18; O2SAT 96; BMI 44.8
[2023-02-13 15:31] VITALS: BP 122/64; PULSE 80; RESP 18; O2SAT 97
== END 2023-02-13 15:26 | disposition home or self-care (01) ==
LOC: HO.PMCPRC 14:52
PROVIDERS: PCP Physician Assistant; Visit Provider Anesthesiology
DX: M46.1 Sacroiliitis, not elsewhere classified (principal); M53.3 Sacrococcygeal disorders, not elsewhere classified
CPT/HCPCS: 27096

== ENCOUNTER 2023-02-15 10:27 | Outpatient (AMB) | payer OTHER, SELFPAY ==
--- NOTE | 2023-02-15 10:33 | MHC.OFFVIS ---
Intake Vital Signs 02/15/23 10:50 Height 5 ft 3 in Weight 253 lb BMI 44.8 BP 163/95 H Blood Pressure Location Rt radial Position Sitting Pulse 93 Pulse Source Pulse Oximeter Pulse Oximetry (%) 98 Oxygen Delivery Method Room Air Intake Visit Reasons: R DX SIJ INJ/LOCAL Intake Note: Pain today 12/18. Court Abstractor Required: No Allergies dexamethasone [DEXAMETHASONE] Adverse Reaction (Unknown, Verified 02/15/23 10:50) ANXIETY HPI HPI Comments History of Present Illness Details Patient presents to assess response to diagnostic right sacroiliac joint injection on 02/13/[address] Lopez. Patient reports 70% pain relief for 4-5 hours after procedure during which time she noted significant improvement in her mobility, movements, walking, functioning and caring for children. Patient reports she had itching in the projection of injections for about 3 hours reviewed she to Benadryl is good relief. Patient allergic to dexamethasone and is not interested in therapeutic injection as next step. She would like to undergo sacroiliac joint RFA procedure for longer-term pain relief. We also discussed neuromodulation with Curonix PNS trial which patient also declined.Denies any recent cough, cold, infection, fever or other significant changes in medical history since last office visit. Patient denies any bladder or bowel incontinence or saddle anesthesia. Past Procedures: 02/13/23: Diagnostic Right SIJ injection -70% pain relief for 4-5 hours PRIOR: Patient presents today for follow up and review hip and SIJ xray results. She was seen by [facility] with review of August and more recent lumbar spine MRI results and was deemed non surgical. Update MRI and hip/SIJ xrays are noted below. Patient endorses bilateral buttocks pain radiating into her lateral hips and at times into right groin. Right side is worse than left. She is intersted to proceed with diagnostic right sacroiliac joint injections for potential group home interventional treatments. Denies any recent cough, cold, infection, fever or other significant changes in medical history since last office visit. Patient denies any bladder or bowel incontinence or saddle anesthesia. PRIOR: Patient is a pleasant 31-year-old female is a history of herniated disc, spinal stenosis, left L4/L5 partial lumbar decompression and chronic low back pain presents today for initial consultation for back pain with radiation to right lower extremity and right hip pain. Patient reports pain started in 2020, 1 month after delivering her 3rd child through and since then it has been progressively getting worse and being constant. Pain is described as constant throbbing, shooting, stabbing, sharp, pinching, tugging, pulling, hot burning, tingling, sore, tiring, killing, radiating, piercing, and tight. She notes that left lumbar decompression completely alleviated her severe left leg pain in 2020. More recently, she is experiencing a right-sided radiculopathy with significant right leg pain and right hip pain. She has difficulty raising her right leg due to weakness and pain with associated numbness and tingling. Patient also has localized tenderness in the projection of the right sacroiliac joint. Patient reports numbness in her RLE while sitting with her legs crossed. Reports back pain has been refractory to physical therapy in the past and due to significant pain at this time, she is not able to pursue PT walking or prolonged standing increases her pain and back pain will radiate to the lateral right buttock and into right groin. She is unable to take steroids as she has a poor reaction to them, reports significant anxiety and psychosis his dexamethasone. Patient has asthma and has been tolerating Advair Diskus well. Patient is willing to trial therapeutic cortisone injections to relieve her right lower leg pain with pre-medication. Pain has been affecting her daily functioning, activities, sleep, mood, and social interactions. Tylenol and cyclobenzaprine have been minimally effective. Lumbar spine MRI 08/16/22 reviewed and is noted below. Right hip xray is pending. Denies fever, abdominal pain, bladder or bowel incontinence or saddle anesthesia. [facility] Medical History Pre-op evaluation Bunion of great toe of left foot Asthma PCOS (polycystic ovarian syndrome) Surgical History Hx of cholecystectomy History of tubal ligation History of back surgery History of carpal tunnel surgery (~04/2020) Hx of section Family History Father Unknown family medical history Maternal Uncle Blocked artery Family/Other Colon cancer Maternal Uncle Blocked artery Mother No problems noted. Maternal Grandmother Stroke S/P triple vessel bypass Social History Household Members: Children Housing: House Alcohol intake: former Patient Tobacco Use Status: Never used Tobacco e-Cigarette/Vaping Use: Never Used Second Hand Smoke Exposure: No service: No Current occupational status: unemployed Cognitive needs: No Hearing needs: No Vision needs: Yes Review of Systems Const All systems reviewed & are unremarkable except as noted in HPI and below Physical Exam Vital Signs: Last Vital Signs Pulse 93 02/15/23 10:50 BP 163/95 H 02/15/23 10:50 Pulse Ox 98 02/15/23 10:50 Oxygen Delivery Method Room Air 02/15/23 10:50 BMI result Body Mass Index 44.8 General: Appears afebrile. Alert and oriented. Mood and affect appropriate. Follows and participates in conversation appropriately. Respiratory effort is unlabored. Able to transition from sit to stand unassisted. Ambulates with bilaterally normal heel strike and toe off. Back/Spine/Pelvis Other: Lumbar extension and flexion reproduce mild lower back pain. Cervical Spine: cervical ROM normal and No Cervical spine tenderness Thoracic/Lumbar Spine: thoracic and lumbar spine normal to inspection, pain with thoraco-lumbar ROM, paraspinal muscle tenderness, No thoracic spinal tenderness and lumbar spinal tenderness Pelvis: buttock tenderness on the right Sacroiliac joints: bilaterally tender to palpation Results Reviewed Results Reviewed: MR LUMBAR SPINE WITHOUT AND WITH CONTRAST 08/16/22 IMPRESSION: 1. Postoperative changes at the L4-L5 level with enhancing epidural fibrosis laterally on the left side within the spinal canal around the left L5 nerve root. Residual mild disc bulge contacting the left L5 nerve root with a mild retrosubluxation. Stable facet arthropathy encroaching upon the right subarticular zone. 2. Slight decrease in size of a shallow right paracentral disc protrusion at the L5-S1 level with an underlying annular tear. [id number] facet arthropathy. [facility] Lumbar spine MRI 12/02/22 XR SACROILIAC JOINTS 10/30/22 FINDINGS: Bones and soft tissues are normal. No fracture. Alignment is anatomic. Sacroiliac joint spaces are well-maintained without erosions or surrounding sclerosis. IMPRESSION: Normal sacroiliac joints. XR HIP, RIGHT 10/30/22 FINDINGS: Bones and soft tissues are normal. No fracture. Alignment is anatomic. Hip joint space is maintained. IMPRESSION: Normal right hip. Assessment & Plan Assessment & Plan (1) Muscle spasm of back: Code(s): M62.830 - Muscle spasm of back (2) Sacroiliac joint pain: Code(s): M53.3 - Sacrococcygeal disorders, not elsewhere classified (3) Sacroiliitis: Code(s): M46.1 - Sacroiliitis, not elsewhere classified (4) Lumbar degenerative disc disease: Code(s): M51.36 - Other intervertebral disc degeneration, lumbar region Plan Patient is status post diagnostic right sacroiliac joint injection with 70% pain relief for up to 5 hours with improvement in her general daily activities, functioning, movements and mobility. Patient will be scheduled for a repeat diagnostic right SIJ injection with local and fluoroscopy in order to establish a reproducible response to the treatment for potential right sided SIJ RFA procedure. Patient is not interested in Curonix PNS trial and is not a candidate for therapeutic injection due to dexamethasone allergy. Expectations, risks and benefits were reviewed. Patient is aware she will be contacted to schedule this procedure. All questions were answered and patient is in agreement of plan. Follow-up after injection and sooner as needed. Coding Level of Care Code Est Pt Level 4 (03333) Diagnoses Muscle spasm of back M62.830 Sacroiliac joint pain M53.3 Sacroiliitis M46.1 Lumbar degenerative disc disease M51.36
[2023-02-15 10:50] VITALS: BP 163/95; PULSE 93; O2SAT 98; BMI 44.8
== END 2023-02-15 11:51 | disposition home or self-care (01) ==
PROVIDERS: PCP Physician Assistant; Visit Provider Nurse Practitioner Family
DX: M62.830 Muscle spasm of back (principal); M53.3 Sacrococcygeal disorders, not elsewhere classified; M46.1 Sacroiliitis, not elsewhere classified; M51.36 Other intervertebral disc degeneration, lumbar region
CPT/HCPCS: 99214

== ENCOUNTER → 2023-02-15 10:27 | Outpatient (BNVA) | payer OTHER, SELFPAY | PROVIDERS: PCP Physician Assistant; Visit Provider Nurse Practitioner Family | DX: M51.36 Other intervertebral disc degeneration, lumbar region (principal); M46.1 Sacroiliitis, not elsewhere classified; M53.3 Sacrococcygeal disorders, not elsewhere classified; M62.830 Muscle spasm of back | CPT/HCPCS: 99212 ==

== ENCOUNTER 2023-03-01 13:06 | Outpatient (AMB) | payer OTHER, SELFPAY ==
--- NOTE | 2023-03-01 13:07 | MHC.OFFVIS ---
Intake Vital Signs 03/01/23 13:25 Height 5 ft 3 in Weight 253 lb BMI 44.8 Intake Visit Reasons: Locking Ankle/Hip Pain Intake Note: Rufina is a 32 year old female who presents today with complaints of left ankle locking and pain. This has been ongoing since about october. She reports that she had taken a fall on the hip and has had problems with the ankle ever since. She was seeing pain mgmt for her right hip and SI joint, she was given a diagnostic injection with them. This injection didnt help and she is booked for another injection on sunday. She was told to see an ortho doc as they think that she may have artritic changes. Allergies dexamethasone [DEXAMETHASONE] Adverse Reaction (Unknown, Verified 03/06/23 13:57) ANXIETY HPI Locking Ankle/Hip Pain HPI Details Rufina is a 32 year old woman who presents with complaints of left ankle pain & locking, onset ~4 months ago. She complains of painful locking of her left ankle with activity, which started after a fall onto her hip in October. She follows with Pain Management for right hip pain & SI joint pain, and has received multiple injections with varying relief. She was referred here with concerns that she may have some hip OA. Her hip pain is posterior and lateral. Occasional groin pain. This is a 32 yo with multiple pain complaints. She describes left ankle pain that is intermittant and no associated with trauma. It is mostly laterally and she feels a popping sensation when she is in an awkward plantarflexed position. [facility] Medical History Pre-op evaluation Bunion of great toe of left foot Asthma PCOS (polycystic ovarian syndrome) Surgical History Hx of cholecystectomy History of tubal ligation History of back surgery History of carpal tunnel surgery (~04/2020) Hx of section Family History Father Unknown family medical history Maternal Uncle Blocked artery Family/Other Colon cancer Maternal Uncle Blocked artery Mother No problems noted. Maternal Grandmother Stroke S/P triple vessel bypass Social History Household Members: Children Housing: House Alcohol intake: former Patient Tobacco Use Status: Never used Tobacco e-Cigarette/Vaping Use: Never Used Second Hand Smoke Exposure: No service: No Current occupational status: unemployed Cognitive needs: No Hearing needs: No Vision needs: Yes Physical Exam Vital Signs: BMI result Body Mass Index 44.8 Extrem Other: Greater trochanteric hip TTP R>L. No groin pain with ROM Left ankle with no appreciable abnormality. No pain with resisted eversion. No TTP. No STS Results Reviewed Results Reviewed: I personally reviewed relevant radiographs. nl right hip Assessment & Plan Assessment & Plan (1) Low back pain: Code(s): M54.5 - Low back pain Qualifiers: Chronicity: unspecified Back pain laterality: unspecified Sciatica presence: without sciatica Qualified Code(s): M54.5 - Low back pain (2) Left ankle pain: Code(s): M25.572 - Pain in left ankle and joints of left foot Plan: Recommend PT and a compression sleeve. She will contact me if she wants to proceed forward with PT. (3) Lumbar degenerative disc disease: Code(s): M51.36 - Other intervertebral disc degeneration, lumbar region Plan: Is seeing pain management and I recommend she discuss her hip and back with them. Coding Level of Care Code Est Pt Level 4 (79484) Diagnoses Low back pain without sciatica, unspecified back pain laterality, unspecified chronicity M54.5 Chronicity: unspecified Back pain laterality: unspecified Sciatica presence: without sciatica Left ankle pain M25.572 Lumbar degenerative disc disease M51.36
[2023-03-01 13:25] VITALS: BMI 44.8
== END 2023-03-01 13:51 | disposition home or self-care (01) ==
PROVIDERS: PCP Physician Assistant; Visit Provider Orthopaedic Surgery
DX: M54.50 Low back pain, unspecified (principal); M25.572 Pain in left ankle and joints of left foot; M51.36 Other intervertebral disc degeneration, lumbar region
CPT/HCPCS: 99203

== ENCOUNTER → 2023-03-01 13:06 | Outpatient (BNVA) | payer OTHER, SELFPAY | PROVIDERS: PCP Physician Assistant; Visit Provider Orthopaedic Surgery ==

== ENCOUNTER 2023-03-06 06:09 | Outpatient (REF) | payer OTHER, SELFPAY ==
--- NOTE | ~2023-03-06 | FL_ITS ---
EXAMINATION: XR FLUOROSCOPY WITH IMAGES CLINICAL INFORMATION: Pain in right hip. COMPARISON: None available. TECHNIQUE: Fluoroscopy Supervised By: Dr. Nain Lopez. Fluoroscopy Time: 0.2 minutes. Cumulative Dose: 10.2 mGy. DAP: 2.51 Gycm2. Images: 2. FINDINGS: Images demonstrate needle placement and contrast injection of the right hip joint FL/FL guidance in treatment room IMPRESSION: Fluoroscopy guidance for pain management procedure
== END 2023-03-06 06:10 | disposition home or self-care (01) ==
LOC: CF 06:09
PROVIDERS: Visit Provider Anesthesiology
DX: M25.551 Pain in right hip (principal)
CPT/HCPCS: 20610

== ENCOUNTER 2023-03-06 13:45 | Outpatient (AMB) | payer OTHER, SELFPAY ==
[2023-03-06 13:56] VITALS: BP 140/98; PULSE 91; RESP 19; O2SAT 97; BMI 44.8
--- NOTE | 2023-03-06 13:56 | MHC.OFFVIS ---
Intake Vital Signs 03/06/23 13:56 03/06/23 14:55 Height 5 ft 3 in 5 ft 3 in Weight 253 lb 253 lb BMI 44.8 44.8 BP 140/98 H 130/70 Blood Pressure Location Lt brachial Lt brachial Position Sitting Sitting Respiration 19 19 Pulse 91 87 Pulse Source Pulse Oximeter Pulse Oximeter Pulse Oximetry (%) 97 97 Oxygen Delivery Method Room Air Room Air Comment pre-op post-op Intake Visit Reasons: R DX INTRA-ARTIC HIP INJ *ATIVAN PRE Allergies dexamethasone [DEXAMETHASONE] Adverse Reaction (Unknown, Verified 03/06/23 13:57) ANXIETY [facility] Medical History (Updated 03/06/23 @ 15:13 by Nain Lopez MD) Right hip pain Pre-op evaluation Bunion of great toe of left foot Asthma PCOS (polycystic ovarian syndrome) Surgical History Hx of cholecystectomy History of tubal ligation History of back surgery History of carpal tunnel surgery (~04/2020) Hx of section Family History Father Unknown family medical history Maternal Uncle Blocked artery Family/Other Colon cancer Maternal Uncle Blocked artery Mother No problems noted. Maternal Grandmother Stroke S/P triple vessel bypass Social History Household Members: Children Housing: House Alcohol intake: former Patient Tobacco Use Status: Never used Tobacco e-Cigarette/Vaping Use: Never Used Second Hand Smoke Exposure: No service: No Current occupational status: unemployed Cognitive needs: No Hearing needs: No Vision needs: Yes Physical Exam Vital Signs: Last Vital Signs Pulse 87 03/06/23 14:55 Resp 19 03/06/23 14:55 BP 130/70 03/06/23 14:55 Pulse Ox 97 03/06/23 14:55 Oxygen Delivery Method Room Air 03/06/23 14:55 BMI result Body Mass Index 44.8 Results Reviewed Results Reviewed: 03/06/23 13:53 LORazepam [Ativan] 1 mg .ROUTE .STK-MED ONE Assessment & Plan Assessment & Plan (1) Right hip pain: Code(s): M25.551 - Pain in right hip (2) Right hip pain: Code(s): M25.551 - Pain in right hip Plan: Right hip diagnostic injection Informed consent was explained to the patient. All questions were explained and answered. The patient was taken inside of the operating room where she was positioned left lateral decubitus on operating table.. Time-out was performed delineating patient's name and date of , correct site, side, the nature of the procedure, patient's allergy, preoperative antibiotic if needed, need for VT prophylaxis.. All operating room staff was participating in OR time-out procedure. Right hip area of the patient was prepped with ChloraPrep and draped with sterile towels. C-arm was brought over the operating field and picture of left and right lateral views of the bilateral hip joints were delineated on the screen. The smaller joint silhouette was chosen as the target. Projection of the right trochanter to the skin was chosen as the initial needle insertion point. After that the skin and subcutaneous tissues was anesthetized with 2% lidocaine 2.5 mL. 22 gauge 5 in long needle was inserted through the skin and started to advance to the joint space under intermittent lateral and anterior posterior views. When needle entered the capsule of the joint small amount of the contrast was injected delineating intra-articular space. After that treatment solution containing 5 cc of ropivacaine 0.5% injected into the joint. After that the needle was removed and sterile dressing was applied. The patient tolerated procedure well. Coding Level of Care Code Procedure Only Diagnoses Right hip pain M25.551
[2023-03-06 14:55] VITALS: BP 130/70; PULSE 87; RESP 19; O2SAT 97; BMI 44.8
== END 2023-03-06 14:37 | disposition home or self-care (01) ==
LOC: HO.PMCPRC 13:46
PROVIDERS: PCP Physician Assistant; Visit Provider Anesthesiology
DX: M25.551 Pain in right hip (principal)
CPT/HCPCS: 20610; 77002

== ENCOUNTER 2023-03-08 09:48 | Outpatient (REF) | payer OTHER, SELFPAY ==
[2023-03-08 14:14] LABS: Appearance Urine Clear; Color Urine Yellow; Glucose Urine UA Negative (Negative); Leukocyte Esterase Urine Trace (Negative); Nitrite Urine Negative (Negative); PH 5.5 (5.0-9.0); Specific Gravity - Urine 1.025 (1.005-1.025); UMIC TRIGGER UACC YES; Urine Blood Negative (Negative); Urine Ketones Negative (Negative); Urine Protein Negative (Neg-Trace)
[2023-03-08 14:20] LABS: Bacteria Urine None Seen (None Seen); Hyaline Casts Urine 0-2 /LPF (0-2); RBC Urine 0-2 /HPF (0-2); WBC Urine 0-5 /HPF (0-5)
== END 2023-03-08 09:49 | disposition home or self-care (01) ==
LOC: HO.LAB 09:48
PROVIDERS: PCP Physician Assistant; Visit Provider Nurse Practitioner
DX: M25.551 Pain in right hip (principal); M51.36 Other intervertebral disc degeneration, lumbar region; M53.3 Sacrococcygeal disorders, not elsewhere classified; R74.01 Elevation of levels of liver transaminase levels; K75.81 Nonalcoholic steatohepatitis (NASH); R10.9 Unspecified abdominal pain; E66.01 Morbid (severe) obesity due to excess calories
CPT/HCPCS: 81001; 99212

== ENCOUNTER 2023-03-08 09:48 | Outpatient (AMB) | payer OTHER, SELFPAY ==
--- NOTE | 2023-03-08 10:00 | MHC.OFFVIS ---
Intake Vital Signs 03/08/23 10:16 Height 5 ft 3 in Weight 257 lb 15.053 oz BMI 45.7 BP 136/76 Blood Pressure Location Rt brachial Position Sitting Pulse 87 Intake Visit Reasons: results from CT scan Intake Note: Rufina presents today for a follow up of CT scan. CC: Pt complains of constant right flank. She states she went to [facility] about 3 weeks ago d/t waking up with right flank pain and vomiting. She describes pain as sharp and with radiation to her back. She also c/o nausea and acid reflux. Senior Wealth Advisor Required: No Allergies dexamethasone [DEXAMETHASONE] Adverse Reaction (Unknown, Verified 03/08/23 13:43) ANXIETY HPI results from CT scan HPI Details Assessment & Plan (1) Transaminitis: Code(s): R74.01 - Elevation of levels of liver transaminase levels Plan: PATIENT HAS BEEN LOST TO FOLLOW-UP SINCE 2020. She tells me that when her PCP did her labs she had elevated liver function tests, and he did an US and told me that my liver was inflamed, so she was sent to me. She has had a cholecystectomy since I last saw her. This has resolved her CIC and she does not have diarrhea. She denies any significant wt gain, she is not diabetic and she does not drink frequent ETOH. The only other health problem is neck and back problems. I will get a new liver work up, and a CT to better see the liver since US can be unreliable/silk screen operator dependent. Return office visit after the ultrasound. Orders: Orders Alpha Fetoprotein 12/15/22 R74.01 - Elevation of levels of live r transaminase lev els Ceruloplasmin 12/15/22 R74.01 - Elevation of levels of live r transaminase lev els Ferritin 12/15/22 R74.01 - Elevation of levels of live r transaminase lev els Gamma Glutamyl Tra nspeptidase 12/15/22 R74.01 - Elevation of levels of live r transaminase lev els TSH reflex Free T4 12/15/22 R74.01 - Elevation of levels of live r transaminase lev els CT abdomen wo/w IV con 12/15/22 R74.01 - Elevation of levels of live r transaminase lev els MARSHAL Reflex Titer a nd Pattern 12/15/22 R74.01 - Elevation of levels of live r transaminase lev els Mitochondrial Anti body 12/15/22 R74.01 - Elevation of levels of live r transaminase lev els Smooth Muscle Anti body 12/15/22 R74.01 - Elevation of levels of live r transaminase lev els Hepatitis A,B,C Pr ofile 12/15/22 R74.01 - Elevation of levels of live r transaminase lev els HIV Ab/Ag 12/15/22 R74.01 - Elevation of levels of live r transaminase lev els Medications: New famotidine (Pepcid ) 40 mg PO BEDTIME 3 0 tabs 6RF R10.13 - Epigastri c pain LABS Laboratory Tests 10/27/22 10/27/22 12/15/22 09:39 09:39 15:47 Estimated GFR > 60 Ferritin Total Bilirubin 0.4 GGT 86 H AST 51 H ALT 91 H Alkaline Phosphata se 134 H Ceruloplasmin Alpha Fetoprotein TSH MARSHAL Screen Anti-Mitochondrial Ab Anti-Smooth Muscle Ab Hepatitis A IgM Ab Hep Bs Antigen Hep Bs Antibody Hep B Core Total A b Hepatitis C Ab (EI A) HIV 1&2 Ab/P24 Ag 4thGn 12/15/22 15:47 Estimated GFR Ferritin 23 Total Bilirubin GGT AST ALT Alkaline Phosphata se Ceruloplasmin 28 Alpha Fetoprotein 3.3 TSH 2.08 MARSHAL Screen NEGATIVE Anti-Mitochondrial Ab NEGATIVE Anti-Smooth Muscle Ab <20 Hepatitis A IgM Ab Nonreactive Hep Bs Antigen Negative Hep Bs Antibody NONREACTIVE Hep B Core Total A b Nonreactive Hepatitis C Ab (EI A) Nonreactive HIV 1&2 Ab/P24 Ag 4thGn Nonreactive rf CT ABD AND PELVIS 01/18/23 FINDINGS: LUNG BASES: Unremarkable LIVER, GALLBLADDER, AND BILIARY TREE: Liver is of low attenuation due to hepatic steatosis and enlarged. There is no intrahepatic masses or ductal dilatation seen. Gallbladder is surgically absent. PANCREAS: Unremarkable SPLEEN: Enlarged, measured 14.3 cm. There is 2.8 cm splenules are present ADRENAL GLANDS AND KIDNEYS: Adrenal glands are normal. Kidneys revealed normal attenuation no evidence of hydroureteronephrosis, masses, nephrolithiasis. BOWEL LOOPS: Unremarkable. Normal appendix present. LYMPH NODES: There is no mesenteric lymphadenopathy. VASCULAR: Unremarkable. BONES: Normal CT/CT abdomen wo/w IV con IMPRESSION: Hepatosplenomegaly. Hepatic steatosis. TODAY'S VISIT We review the results and discuss the tx for WATTS. She says I am waiting to get my pain controlled before I try to get into wt mgmt. She was seen at [facility] for right flank pain. They said it was a pulled muscle. The pain persists at a lower level now, worse with laying on the right side and throbbing. She is worried about renal stones. No r/t eating or moving her bowels. She agrees with me that this does not sound like a GI problem but I will do an initial workup out a courtesy because she says she has difficulty getting appointments with her primary care provider. I will get a repeat UA since there were some red blood cells in the urine and a renal ultrasound other than that if the pain persists she will need to follow-up with her primary care provider. I will call her if there are any abnormalities in these 2 tests. ROV 6 mos. PFSH Medical History Right hip pain Pre-op evaluation Bunion of great toe of left foot Asthma PCOS (polycystic ovarian syndrome) Surgical History Hx of cholecystectomy History of tubal ligation History of back surgery History of carpal tunnel surgery (~04/2020) Hx of section Family History Father Unknown family medical history Maternal Uncle Blocked artery Family/Other Colon cancer Maternal Uncle Blocked artery Mother No problems noted. Maternal Grandmother Stroke S/P triple vessel bypass Social History Household Members: Children Housing: House Alcohol intake: former Patient Tobacco Use Status: Never used Tobacco e-Cigarette/Vaping Use: Never Used Second Hand Smoke Exposure: No service: No Current occupational status: unemployed Cognitive needs: No Hearing needs: No Vision needs: Yes Review of Systems Const Denies fatigue, Denies fever(s), Denies night sweats, Denies poor appetite and Denies weight loss ENT Reports Normal hearing present, Denies dental pain, Denies dysphagia, Denies hearing loss, Denies mouth pain, Denies odynophagia, Denies throat swelling, Denies tongue swelling and Reports other (Dentition adequate) Card Reports no additional complaints Resp Reports no additional complaints GI Denies abdominal pain, Denies melena, Denies bloating, Denies hematochezia, Denies constipation, Denies GI cramping, Denies dysphagia, Denies excessive flatus, Denies early satiety, Denies heartburn, Denies diarrhea, Denies nausea, Denies odynophagia, Denies vomiting and Denies hematemesis Reports flank pain Musc Reports back pain Skin/Breast Denies pruritus, Denies lesions, Denies rash and Denies jaundice Neuro Reports Normal hearing present and Denies Abnormal speech present Endo Denies fatigue Aller/Immun Denies throat swelling and Denies tongue swelling Physical Exam Vital Signs: Last Vital Signs Pulse 87 03/08/23 10:16 BP 136/76 03/08/23 10:16 BMI result Body Mass Index 45.7 Const General: cooperative, no acute distress, well developed and well groomed Nutritional Appearance: well nourished and obese morbidly obese Orientation/consciousness: oriented to person, oriented to place and oriented to time Limitations: No language barrier HEENT Head: Yes normocephalic and Yes atraumatic Eyes General: appearance normal, both eyes and all related structures Pupils: Equal, round and reactive pupils present Neck Neck: Yes normal visual inspection and Yes no lymphadenopathy Thyroid: Thyroid normal Resp Effort & Inspection: normal respiratory effort and able to speak in complete sentences Auscultation: clear to auscultation bilaterally Cardio Rate: regular rate Rhythm: regular rhythm Heart sounds: Normal, physiologic split S2 sound present Peripheral pulses: radial pulses present and posterior tibial pulses present GI Inspection: No distended, Yes Abdominal panniculus present and Yes obesity Palpation (GI): Soft to palpation, nontender, no guarding, not rigid and No hepatosplenomegaly present Percussion: Yes normal to percussion Auscultation: normal bowel sounds Rectal Exam - Female: deferred Skin General skin exam: no rashes or lesions noted, turgor normal, skin not dry, no jaundice, No spider nevi and no striae Rashes: no rashes Nails: normal Neuro General: oriented to person, oriented to place and oriented to time Cranial nerves: Yes Equal, round and reactive pupils present and Yes Normal hearing present Speech: No Abnormal speech present Extrem General: Yes normal to inspection, No clubbing, No cyanosis and No edema Psych Appearance: grossly normal and well kempt Mental Status: mental status grossly normal Speech and movement: Normal speech and movement present Affect: normal affect Attitude: cooperative Thought process: Normal thought process present and not confabulating Thought content: Normal thought content present Insight: Limited insight present (Psych) Judgement: Limited judgement present (Psych) Assessment & Plan Assessment & Plan (1) WATTS (nonalcoholic steatohepatitis): Comment: BASELINE LABS 10/27/22 0 Estimated GFR > 60 Total Bilirubin 0.4 GGT 86 H AST 51 H ALT 91 H Alkaline Phosphatase 134 H Ferritin 23 Ceruloplasmin 28 Alpha Fetoprotein 3.3 TSH 2.08 MARSHAL Screen NEGATIVE Anti-Mitochondrial Ab NEGATIVE Anti-Smooth Muscle Ab <20 Hepatitis A IgM Ab Nonreactive Hep Bs Antigen Negative Hep Bs Antibody NONREACTIVE Hep B Core Total Ab Nonreactive Hepatitis C Ab (EIA) Nonreactive HIV 1&2 Ab/P24 Ag 4thGn Nonreactive CURRENT LABS CT ABD AND PELVIS 01/18/23 LIVER, GALLBLADDER, AND BILIARY TREE: Liver is of low attenuation due to hepatic steatosis and enlarged. There is no intrahepatic masses or ductal dilatation seen. Gallbladder is surgically absent. PANCREAS: Unremarkable SPLEEN: Enlarged, measured 14.3 cm. There is 2.8 cm splenules are present CT/CT abdomen wo/w IV con IMPRESSION: Hepatosplenomegaly. Hepatic steatosis Code(s): K75.81 - Nonalcoholic steatohepatitis (WATTS) Plan: We review the results and discuss the tx for WATTS. She says I am waiting to get my pain controlled before I try to get into wt mgmt. She was seen at [facility] for right flank pain. They said it was a pulled muscle. The pain persists at a lower level now, worse with laying on the right side and throbbing. She is worried about renal stones. No r/t eating or moving her bowels. She agrees with me that this does not sound like a GI problem but I will do an initial workup out a courtesy because she says she has difficulty getting appointments with her primary care provider. I will get a repeat UA since there were some red blood cells in the urine and a renal ultrasound other than that if the pain persists she will need to follow-up with her primary care provider. I will call her if there are any abnormalities in these 2 tests. ROV 6 mos. (2) Morbid obesity: Code(s): E66.01 - Morbid (severe) obesity due to excess calories (3) Right flank pain: Code(s): R10.9 - Unspecified abdominal pain Orders: Orders UA CC w/rflx Micro + Cult Today R10.9 - Unspecified abdominal pain US renal BI Today R10.9 - Unspecified abdominal pain Coding Level of Care Code Est Pt Level 4 (39417) Diagnoses WATTS (nonalcoholic steatohepatitis) K75.81 Morbid obesity E66.01 Right flank pain R10.9
[2023-03-08 10:16] VITALS: BP 136/76; PULSE 87; BMI 45.7
== END 2023-03-08 10:45 | disposition home or self-care (01) ==
PROVIDERS: PCP Physician Assistant; Visit Provider Nurse Practitioner
DX: K75.81 Nonalcoholic steatohepatitis (NASH) (principal); E66.01 Morbid (severe) obesity due to excess calories; R10.9 Unspecified abdominal pain
CPT/HCPCS: 99214

== ENCOUNTER 2023-03-08 13:36 | Outpatient (AMB) | payer OTHER, SELFPAY ==
--- NOTE | 2023-03-08 13:37 | A.OFFVIS_ITS ---
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 Lopez. Patient reports 100% pain relief for 36 hours after procedure during which time she noted significant improvement in her mobility, movements, walking, functioning, and sleep. She has residual pain in her inferior right buttocks but still ongoing right hip pain relief. Patient allergic to dexamethasone and is not interested in therapeutic injection as next step. She is interested to undergo course of formal physical therapy prior to considering sacroiliac joint RFA vs Curonix PNS trial. Denies any recent cough, cold, infection, fever or other significant changes in medical history since last office visit. Patient denies any bladder or bowel incontinence or saddle anesthesia. Past Procedures: 03/06/23: Diagnostic Right Hip Intra-Art icular Injection-100% pain relief for 1.5 days 02/13/23: Diagnostic Right SIJ injection -70% pain relief for 4-5 hours PRIOR: Patient presents today for follow up and review hip and SIJ xray results. She was seen by [facility] with review of August and more recent lumbar spine MRI results and was deemed non surgical. Update MRI and hip/SIJ xrays are noted below. Patient endorses bilateral buttocks pain radiating into her lateral hips and at times into right groin. Right side is worse than left. 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 Denies any recent cough, cold, infection, fever or other significant changes in medical history since last office visit. Patient denies any bladder or bowel incontinence or saddle anesthesia. PRIOR: Patient is a pleasant 31-year-old female is a history of herniated disc, spinal stenosis, left L4/L5 partial lumbar decompression and chronic low back pain presents today for initial consultation for back pain with radiation to right lower extremity and right hip pain. Patient reports pain started in 2020, 1 month after delivering her 3rd child through and since then it has been progressively getting worse and being constant. Pain is described as constant throbbing, shooting, stabbing, sharp, pinching, tugging, pulling, hot burning, tingling, sore, tiring, killing, radiating, piercing, and tight. She notes that left lumbar decompression completely alleviated her severe left leg pain in 2020. More recently, she is experiencing a right-sided radiculopathy with significant right leg pain and right hip pain. She has difficulty raising her right leg due to weakness and pain with associated numbness and tingling. Patient also has localized tenderness in the projection of the right sacroiliac joint. Patient reports numbness in her RLE while sitting with her legs crossed. Reports back pain has been refractory to physical therapy in the past and due to significant pain at this time, she is not able to pursue PT walking or prolonged standing increases her pain and back pain will radiate to the lateral right buttock and into right groin. She is unable to take steroids as she has a poor reaction to them, reports significant anxiety and psychosis his dexamethasone. Patient has asthma and has been tolerating Advair Diskus well. Patient is willing to trial therapeutic cortisone injections to relieve her right lower leg pain with pre-medication. Pain has been affecting her daily functioning, activities, sleep, mood, and social interactions. Tylenol and cyclobenzaprine have been minimally effective. Lumbar spine MRI 08/16/22 reviewed and is noted below. Right hip xray is pending. Denies fever, abdominal pain, bladder or bowel incontinence or saddle anesthesia. [facility] Medical History Right hip pain Pre-op evaluation Bunion of great toe of left foot Asthma PCOS (polycystic ovarian syndrome) Surgical History Hx of cholecystectomy History of tubal ligation History of back surgery History of carpal tunnel surgery (~04/2020) Hx of section Family History Father Unknown family medical history Maternal Uncle Blocked artery Family/Other Colon cancer Maternal Uncle Blocked artery Mother No problems noted. Maternal Grandmother Stroke S/P triple vessel bypass Social History Household Members: Children Housing: House Alcohol intake: former Patient Tobacco Use Status: Never used Tobacco e-Cigarette/Vaping Use: Never Used Second Hand Smoke Exposure: No service: No Current occupational status: unemployed Cognitive needs: No Hearing needs: No Vision needs: Yes Review of Systems Const All systems reviewed & are unremarkable except as noted in HPI and below Physical Exam Vital Signs: Last Vital Signs Pulse 93 03/08/23 13:45 BP 139/84 03/08/23 13:45 Pulse Ox 98 03/08/23 13:45 Oxygen Delivery Method Room Air 03/08/23 13:45 BMI result Body Mass Index 45.7 General: Appears afebrile. Alert and oriented. Mood and affect appropriate. Follows and participates in conversation appropriately. Respiratory effort is unlabored. Able to transition from sit to stand unassisted. Ambulates with bilaterally normal heel strike and toe off. Back/Spine/Pelvis Other: Lumbar extension and flexion reproduce mild lower back pain. No groin pain with I/E hip rotations. Mild TTP in projections of GTB, right>left. Cervical Spine: cervical ROM normal and No Cervical spine tenderness Thoracic/Lumbar Spine: thoracic and lumbar spine normal to inspection, Lasegue's sign negative, straight leg raise negative bilaterally, pain with thoraco- lumbar ROM, paraspinal muscle tenderness, No thoracic spinal tenderness and lumbar spinal tenderness Pelvis: buttock tenderness on the right Sacroiliac joints: bilaterally (+Patricks's test reproduces low back and lateral hip pain) tender to palpation Results Reviewed Results Reviewed: MR LUMBAR SPINE WITHOUT AND WITH CONTRAST 08/16/22 IMPRESSION: 1. Postoperative changes at the L4-L5 level with enhancing epidural fibrosis laterally on the left side within the spinal canal around the left L5 nerve root. Residual mild disc bulge contacting the left L5 nerve root with a mild retrosubluxation. Stable facet arthropathy encroaching upon the right subarticular zone. 2. Slight decrease in size of a shallow right paracentral disc protrusion at the L5-S1 level with an underlying annular tear. [id number] facet arthropathy. [facility] Lumbar spine MRI 12/02/22 XR SACROILIAC JOINTS 10/30/22 FINDINGS: Bones and soft tissues are normal. No fracture. Alignment is anatomic. Sacroiliac joint spaces are well-maintained without erosions or surrounding sclerosis. IMPRESSION: Normal sacroiliac joints. XR HIP, RIGHT 10/30/22 FINDINGS: Bones and soft tissues are normal. No fracture. Alignment is anatomic. Hip joint space is maintained. IMPRESSION: Normal right hip. Assessment & Plan Assessment & Plan (1) Right hip pain: Code(s): M25.551 - Pain in right hip (2) Lumbar degenerative disc disease: Code(s): M51.36 - Other intervertebral disc degeneration, lumbar region (3) Sacroiliac joint pain: Code(s): M53.3 - Sacrococcygeal disorders, not elsewhere classified Plan Patient will proceed with course of formal physical therapy for right hip, SIJ and low back pain for stabilization, stretching, strengthening and progressing to a home program. Script provided today. Follow-up in 2-3 months to see response to physical therapy, if no response to physical therapy will consider further interventional strategy. Orders: Orders 2 PT Evaluation and Treatment 03/08/23 M25.551 - Pain in right hip, M51.36 - Other intervertebral disc degeneration, lumbar region, M53.3 - Sacrococcygeal disorders, not elsewhere classified Coding Level of Care Code Est Pt Level 3 (19358) Diagnoses Right hip pain M25.551 Lumbar degenerative disc disease M51.36 Sacroiliac joint pain M53.3
[2023-03-08 13:45] VITALS: BP 139/84; PULSE 93; O2SAT 98; BMI 45.7
== END 2023-03-08 14:38 | disposition home or self-care (01) ==
PROVIDERS: PCP Physician Assistant; Visit Provider Nurse Practitioner Family
DX: M25.551 Pain in right hip (principal); M51.36 Other intervertebral disc degeneration, lumbar region; M53.3 Sacrococcygeal disorders, not elsewhere classified
CPT/HCPCS: 99213

== ENCOUNTER 2023-03-16 14:24 | Outpatient (REF) | payer OTHER, SELFPAY | END 2023-03-16 14:25 | disposition home or self-care (01) | LOC: HO.US 14:24 | PROVIDERS: PCP Physician Assistant; Visit Provider Nurse Practitioner | DX: R10.9 Unspecified abdominal pain (principal) | CPT/HCPCS: 76775 ==

== ENCOUNTER 2023-03-22 15:00 | Outpatient (RCR) | payer OTHER, SELFPAY ==
--- NOTE | 2023-01-04 12:01 | MHC.PT.EP ---
[facility] [place] Office [place] Office [place] [facility] [address] [place] [address] [phone] F: [phone] F: [phone] F: [phone] F: [phone] Physical Therapy Plan of Care Date of Evaluation: Date of Surgery: N/A Diagnosis: Radiculopathy, cervical Assessment: Pt is a pleasant 32yo F who presents to PT with cervical radiculopathy. She presents to PT with current impairments in pain, radicular symptoms, soft tissue restrictions, decreased UE strength, and impaired posture. She is limited functionally by lifting objects, turning her head, lifting/playing with children, writing, R arm movements, and prolonged sitting. She is an excellent candidate for skilled PT in order to address current impairments to maximize function and manage symptoms. She is recommended to be seen 2x/week for 4 weeks and will be reassessed at that time. Frequency and Duration: The patient will be seen 2x/week for 4 weeks Short Term Goals: Pt will be I with HEP to promote self management of symptoms Pt will demonstrate improvements in postural awareness noted throughout the day Fdc Goals: Pt will demonstrate full ROM all planes throughout cervical spine Pt will perform overhead ADLs with minimal to no compensation Pt will demonstrate improvements in function as evidenced by statistically significant improvement in Neck Pain Disability Index Questionnaire Treatment Plan: Modalities to reduce pain, spasms and effusion. Manual therapy to restore motion and function. Therapeutic exercise to improve strength and flexibility. Neuromuscular re-education for posture and balance. Therapeutic activities to return to functional activities of daily living. Electronically signed by: Suzette Wong, PT, DPT Please sign and return to therapist. Thank you for your referral.
--- NOTE | 2023-03-23 14:05 | MHC.PT.DC ---
[facility] [place] Office [place] Office [place] Office [address] [place] [address] [phone] F: [phone] F: [phone] F: [phone] F: [phone] Physical Therapy Discharge Report Diagnosis: Radiculopathy, cervical Date of Surgery: N/A Date of Evaluation: 01/04/23 Date of Discharge: 03/23/23 Treatments to Date: 14 Cancellations to Date: No Shows to Date: Discharge Status: Achieved Goals Improved Function Independent with HEP Discharge Summary: Pt has made excellent progress since SOC. She has improved her ROM noted throughout mobility. She has minimal to no discomfort and consistently has had no radicular symptoms. She is I with HEP. She is being D/C from skilled PT at this time. Provided pt with printed, updated copy of HEP. Pt reports no further questions or concerns for PT at time of D/C Electronically signed by: Suzette Wong, PT, DPT Please sign and return to therapist. Thank you for your referral.
== END 2023-03-23 14:05 | disposition home or self-care (01) ==
LOC: HO.PT 15:00
PROVIDERS: PCP Physician Assistant; Visit Provider Physician Assistant
DX: M54.12 Radiculopathy, cervical region (principal)
CPT/HCPCS: 97012; 97112; 97140; 97162; 97164; 97530

== ENCOUNTER 2023-04-04 11:35 | Outpatient (AMB) | payer OTHER, SELFPAY ==
[2023-04-04 11:57] VITALS: BP 116/70; PULSE 71; TEMP 36.6; O2SAT 96; BMI 46.4
--- NOTE | 2023-04-04 11:57 | MHC.OFFWIV ---
Intake Vital Signs 04/04/23 11:57 Height 5 ft 3 in Weight 262 lb BMI 46.4 BP 116/70 Blood Pressure Location Lt brachial Position Sitting Pulse 71 Pulse Source Pulse Oximeter Temp 97.9 F Temp Source Temporal Artery Scan Pulse Oximetry (%) 96 Oxygen Delivery Method Room Air Intake Visit Reasons: EP, right knuckle pain Intake Note: pt is here for c/o right knuckle pain since yesterday morning Patient Tobacco Use Status: Never used Tobacco Allergies dexamethasone [DEXAMETHASONE] Adverse Reaction (Unknown, Verified 04/04/23 12:45) ANXIETY Medication List - Last Reconciled 04/04/23 by Jazz Mcfarland, APPRENTICE INSTRUMENT TECHNICIAN-BC acetaminophen mg PO cyclobenzaprine 5 mg PO BID 30 days famotidine (Pepcid) 40 mg PO BEDTIME fluticasone propion-salmeterol 500-50 mcg/dose (Advair Diskus) 1 ea inhalation BID ibuprofen 600 mg PO QID verapamil 40 mg PO BID 30 days Do you need a note to return to daycare/school/sports/work: Yes HPI HPI Comments History of Present Illness Details HERE TODAY W CO PAIN IN RIGHT HAND STARTED YESTERDAY. SINCE ONSET THE PAIN IS WORSE ASSOC W SOME SWELLING. PAIN IS LOCATED ON PALMAR SURFACE AND 3RD KNUCKLE OF RIGHT HAND. HAS BEEN ICING AND TAKING TYLENOL TO HELP W PAIN. REPORTS HX OF CYSTS IN HER HANDS IN THE PAST. DENIES FEVER, CHILLS, REDNESS, TRAUMA. ADMITS PAINFUL ROM. [facility] Medical History Right hip pain Pre-op evaluation Bunion of great toe of left foot Asthma PCOS (polycystic ovarian syndrome) Surgical History Hx of cholecystectomy History of tubal ligation History of back surgery History of carpal tunnel surgery (~04/2020) Hx of section Family History Father Unknown family medical history Maternal Uncle Blocked artery Family/Other Colon cancer Maternal Uncle Blocked artery Mother No problems noted. Maternal Grandmother Stroke S/P triple vessel bypass Social History Household Members: Children Housing: House Alcohol intake: former Patient Tobacco Use Status: Never used Tobacco e-Cigarette/Vaping Use: Never Used Second Hand Smoke Exposure: No service: No Current occupational status: unemployed Cognitive needs: No Hearing needs: No Vision needs: Yes Review of Systems Const All systems reviewed & are unremarkable except as noted in HPI and below Physical Exam Vital Signs: Last Vital Signs Temp 97.9 F 04/04/23 11:57 Pulse 71 04/04/23 11:57 BP 116/70 04/04/23 11:57 Pulse Ox 96 04/04/23 11:57 Oxygen Delivery Method Room Air 04/04/23 11:57 BMI result Body Mass Index 46.4 Const Other: AWAKE ALERT NAD SPEAKING IN FULL SENTENCES + RADIAL AND ULNAR PULSE ON RIGHT + CMS Extrem Hand/finger images: 1. PALPABLE CYST, TENDER TO PALP Assessment & Plan Assessment & Plan (1) Ganglion of flexor tendon sheath of right index finger: Code(s): M67.441 - Ganglion, right hand Orders: Orders XR hand RT min 3V Today M67.441 - Ganglion, right hand Referrals Orthopedics Referral M67.441 - Ganglion, right hand Patient Instructions: EXAM CW ABOVE, SHE REQUESTS XRAY TO CONFIRM. WILL BE DONE TODAY. ORTHO REFERRAL PLACED FOR FURTHER TX. SHE CAN USE OTC NSAIDS, EPSOM SALT SOAKS ALONG W HEAT/ICE TO HELP ALLEVIATE PAIN. Coding Level of Care Code Est Pt Level 3 (14647) Diagnoses Ganglion of flexor tendon sheath of right index finger M67.441
== END 2023-04-04 12:56 | disposition home or self-care (01) ==
PROVIDERS: PCP Physician Assistant; Visit Provider Nurse Practitioner Family
DX: M67.441 Ganglion, right hand (principal)
CPT/HCPCS: 99213

== ENCOUNTER 2023-04-04 12:47 | Outpatient (REF) | payer OTHER, SELFPAY ==
--- NOTE | ~2023-04-04 | XR_ITS ---
EXAMINATION: XR HAND, RIGHT CLINICAL INFORMATION: Ganglion COMPARISON: None available. TECHNIQUE: PA, lateral, and oblique views of the right hand. FINDINGS: The bones and soft tissues are normal. No fracture. Alignment is anatomic. Joint spaces are maintained. No erosions or soft tissue calcifications. XR/XR hand RT min 3V IMPRESSION: Unremarkable right hand.
== END 2023-04-04 12:48 | disposition home or self-care (01) ==
LOC: HO.HMGCX 12:47
PROVIDERS: Visit Provider Nurse Practitioner Family
DX: M67.441 Ganglion, right hand (principal)
CPT/HCPCS: 73130

== ENCOUNTER 2023-05-25 10:22 | Outpatient (AMB) | payer OTHER, SELFPAY ==
--- NOTE | 2023-05-25 10:26 | A.OFFVIS_ITS ---
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 She had 100% pain relief with diagnostic right hip intra-articular injection on 03/06/[address] Lopez and noted significant improvement in her mobility, movements, walking, functioning, and sleep. Patient has completed 8 sessions of physical therapy and continues with home exercise program with minimal improvement in her flexibility but no pain reduction. Pain increases with walking, weight bearing, range of motion or changing positions. She avoids sexual activity with her due to significant right groin pain. Denies any recent cough, cold, infection, fever or other significant changes in medical history since last office visit. Patient denies any bladder or bowel incontinence or saddle anesthesia. Past Procedures: 03/06/23: Diagnostic Right Hip Intra-Art icular Injection-100% pain relief for 1.5 days 02/13/23: Diagnostic Right SIJ injection -70% pain relief for 4-5 hours PRIOR: Patient presents today for follow up and review hip and SIJ xray results. She was seen by [facility] with review of August and more recent lumbar spine M RI results and was deemed non surgical. Update MRI and hip/SIJ xrays are noted below. Patient endorses bilateral buttocks pain radiating into her lateral hips and at times into right groin. Right side is worse than left. 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 Denies any recent cough, cold, infection, fever or other significant changes in medical history since last office visit. Patient denies any bladder or bowel incontinence or saddle anesthesia. PRIOR: Patient is a pleasant 31-year-old female is a history of herniated disc, spinal stenosis, left L4/L5 partial lumbar decompression and chronic low back pain presents today for initial consultation for back pain with radiation to right lower extremity and right hip pain. Patient reports pain started in 2020, 1 month after delivering her 3rd child through and since then it has been progressively getting worse and being constant. Pain is described as constant throbbing, shooting, stabbing, sharp, pinching, tugging, pulling, hot burning, tingling, sore, tiring, killing, radiating, piercing, and tight. She notes that left lumbar decompression completely alleviated her severe left leg pain in 2020. More recently, she is experiencing a right-sided radiculopathy with significant right leg pain and right hip pain. She has difficulty raising her right leg due to weakness and pain with associated numbness and tingling. Patient also has localized tenderness in the projection of the right sacroiliac joint. Patient reports numbness in her RLE while sitting with her legs crossed. Reports back pain has been refractory to physical therapy in the past and due to significant pain at this time, she is not able to pursue PT walking or pro longed standing increases her pain and back pain will radiate to the lateral right buttock and into right groin. She is unable to take steroids as she has a poor reaction to them, reports significant anxiety and psychosis his dexamethasone. Patient has asthma and has been tolerating Advair Diskus well. Patient is willing to trial therapeutic cortisone injections to relieve her right lower leg pain with pre-medication. Pain has been affecting her daily functioning, activities, sleep, mood, and social interactions. Tylenol and cyclobenzaprine have been minimally effective. Lumbar spine MRI 08/16/22 reviewed and is noted below. Right hip xray is pending. Denies fever, abdominal pain, bladder or bowel incontinence or saddle anesthesia. [facility] Medical History Right hip pain Pre-op evaluation Bunion of great toe of left foot Asthma PCOS (polycystic ovarian syndrome) Surgical History Hx of cholecystectomy History of tubal ligation History of back surgery History of carpal tunnel surgery (~04/2020) Hx of section Family History Father Unknown family medical history Maternal Uncle Blocked artery Family/Other Colon cancer Maternal Uncle Blocked artery Mother No problems noted. Maternal Grandmother Stroke S/P triple vessel bypass Social History Household Members: Children Housing: House Alcohol intake: former Patient Tobacco Use Status: Never used Tobacco e-Cigarette/Vaping Use: Never Used Second Hand Smoke Exposure: No service: No Current occupational status: unemployed Cognitive needs: No Hearing needs: No Vision needs: Yes Review of Systems Const All systems reviewed & are unremarkable except as noted in HPI and below Physical Exam Vital Signs: Last Vital Signs Pulse 78 05/25/23 10:30 BP 127/84 05/25/23 10:30 Pulse Ox 99 05/25/23 10:30 Oxygen Delivery Method Room Air 05/25/23 10:30 BMI result Body Mass Index 46.3 General: Appears afebrile. Alert and oriented. Mood and affect appropriate. Follows and participates in conversation appropriately. Respiratory effort is unlabored. Able to transition from sit to stand unassisted. Ambulates with bilaterally normal heel strike and toe off. Back/Spine/Pelvis Other: Lumbar extension and flexion reproduce mild to moderate lower back pain. painful facet loading. Moderate right groin pain with I/E hip rotations, worse with internal rotation. +FADIR on the right. Mild TTP in projections of GTB. Cervical Spine: cervical ROM normal and No Cervical spine tenderness Thoracic/Lumbar Spine: thoracic and lumbar spine normal to inspection, thoraco- lumbar ROM normal, straight leg raise negative bilaterally, paraspinal muscle tenderness, No thoracic spinal tenderness and lumbar spinal tenderness Pelvis: buttock tenderness on the right Sacroiliac joints: bilaterally (+Patricks's test, R>L) tender to palpation Assessment & Plan Assessment & Plan (1) Right hip pain: Code(s): M25.551 - Pain in right hip (2) Right groin pain: Code(s): R10.31 - Right lower quadrant pain (3) Lumbar degenerative disc disease: Code(s): M51.36 - Other intervertebral disc degeneration, lumbar region (4) Sacroiliac joint pain: Code(s): M53.3 - Sacrococcygeal disorders, not elsewhere classified Plan Patient gained no function improvement with physical therapy for right hip, SIJ and low back pain. She continues to endorse significant right hip and groin pain. She had 100% pain relief with diagnostic right hip injection. We will proceed with right hip MRI to assess labral and articular cartilage assessment. All questions and concerns have been answered and patient agreed with the plan. Follow up for MRI results and sooner as needed. Orders: Orders MR hip RT wo con 05/25/23 M25.551 - Pain in right hip, R10.31 - Right lower quadrant pain Coding Level of Care Code Est Pt Level 4 (76832) Diagnoses Right hip pain M25.551 Right groin pain R10.31 Lumbar degenerative disc disease M51.36 Sacroiliac joint pain M53.3
[2023-05-25 10:30] VITALS: BP 127/84; PULSE 78; O2SAT 99; BMI 46.3
== END 2023-05-25 10:43 | disposition home or self-care (01) ==
PROVIDERS: PCP Physician Assistant; Visit Provider Nurse Practitioner Family
DX: M25.551 Pain in right hip (principal); R10.31 Right lower quadrant pain; M51.36 Other intervertebral disc degeneration, lumbar region; M53.3 Sacrococcygeal disorders, not elsewhere classified
CPT/HCPCS: 99214

== ENCOUNTER → 2023-05-25 10:22 | Outpatient (BNVA) | payer OTHER, SELFPAY | PROVIDERS: PCP Physician Assistant; Visit Provider Nurse Practitioner Family | DX: M25.551 Pain in right hip (principal); M51.36 Other intervertebral disc degeneration, lumbar region; M53.3 Sacrococcygeal disorders, not elsewhere classified; R10.31 Right lower quadrant pain | CPT/HCPCS: 99212 ==

== ENCOUNTER 2023-06-09 13:45 | Emergency (ER) | payer OTHER, SELFPAY ==
[2023-06-09 15:18] VITALS: BP 146/93; PULSE 80; RESP 16; TEMP 36.3; O2SAT 99; BMI 44.3
--- NOTE | 2023-06-09 15:25 | ED_ITS ---
HPI - General Adult General Chief complaint: Back Pain/Injury Stated complaint: lower back pain Time Seen by Provider: 06/09/23 17:25 Source: patient Mode of arrival: ambulatory Limitations: no limitations History of Present Illness HPI narrative: Patient is a 32-year-old female who presents emergency department for evaluation of acute on chronic lower back pain. It is described as a sharp stabbing pain diffusely across the lower back that is made worse with movement. Onset of symptoms was 3 days ago without any obvious precipitating injury and has progressively worsened. She has trialed her Flexeril which she has at home which has not provided her with any relief. She denies fevers, chills, bladder bowel dysfunction, saddle paresthesias, nausea, vomiting, urinary frequency/urgency / hesitancy, denies possibility for . She states that she has been followed by Neurosurgery here and has a history of diskectomy. States she had an MRI of the lumbar spine at [facility] [place] this year which did reveal some bulging of the discs. Related Data Home Medications Medication Instructions Recorded Confirmed acetaminophen 325 mg tablet mg PO 01/20/22 04/04/23 fluticasone 500 mcg-salmeterol 50 1 ea inhalation BID 07/24/22 04/04/23 mcg/dose blistr powdr for inhalation (Advair Diskus) ibuprofen 600 mg tablet 600 mg PO QID 12/15/22 04/04/23 Previous Rx's Medication Instructions Recorded famotidine 40 mg tablet (Pepcid) 40 mg PO BEDTIME #30 tabs 12/15/22 cyclobenzaprine 5 mg tablet 5 mg PO BID 30 days #60 tabs 03/05/23 verapamil 40 mg tablet 40 mg PO BID #180 tabs 05/06/23 oxycodone 5 mg tablet 5 mg PO Q8H PRN pain #7 tabs 06/09/23 Allergies Allergy/AdvReac Type Severity Reaction Status Date / Time dexamethasone [DEXAMETHASONE] AdvReac Unknown ANXIETY Verified 06/09/23 15:18 [facility] Past Medical History Attestation statement: The following information was validated with the patient. Source: old records reviewed Medical History Right hip pain Pre-op evaluation Bunion of great toe of left foot Asthma PCOS (polycystic ovarian syndrome) Surgical History Hx of cholecystectomy History of tubal ligation History of back surgery History of carpal tunnel surgery (~04/2020) Hx of section Family History Family History Father Unknown family medical history Maternal Uncle Blocked artery Family/Other Colon cancer Maternal Uncle Blocked artery Mother No problems noted. Maternal Grandmother Stroke S/P triple vessel bypass Social History Social History Household Members: Children Housing: House Alcohol intake: former Patient Tobacco Use Status: Never used Tobacco e-Cigarette/Vaping Use: Never Used Second Hand Smoke Exposure: No Advance Directives: No Advance Directives Information Provided: No service: No Current occupational status: unemployed Cognitive needs: No Hearing needs: No Vision needs: Yes Physical Exam ED Vital Signs: Vital Signs - 24 hr 06/09/23 15:18 Temperature 97.4 F Pulse Rate 80 Respiratory Rate 16 Blood Pressure 146/93 H Pulse Oximetry 99 Oxygen Delivery Method Room Air BMI result Body Mass Index 44.3 Appearance: Alert.?Oriented to person, place and time. No acute distress.?Normal affect. Eyes: Pupils equal, round and reactive to light.? ENT: Pharynx normal.?? Neck: Normal inspection.? Neck supple.?? CVS: Heart sounds normal. Normal heart rate and rhythm.? Pulses normal.?? Respiratory: No respiratory distress.? Lung sounds clear to auscultation bilaterally?? Abdomen: Soft and non-tender. Normoactive bowel sounds. ? Skin: Skin warm and dry.? Normal skin color.??? Extremities: No lower extremity edema. Neuro: Moves all extremities spontaneously. Sensation intact bilaterally. No focal neuro deficits. Ambulates with normal steady gait. Course Course Course Narrative: RME- 32-year-old female presents for evaluation lower back pain. She reports worsening symptoms over the last 3 days with associated numbness. Denies any new injury. She is doing physical therapy for chronic back pain. She is ambulatory without any difficulty denies any bladder or bowel automatic blocker Reevaluation(s) Reevaluation #1: reports minimal relief with medication Toradol. In the past she states she has had relief with morphine but she does not like to take stronger medications if she can avoid it. She is requesting stronger pain medication at this time to have available to take at bedtime a to she can follow up with her specialist when their office opens on Sunday which I think is reasonable. Will send a short course of oxycodone to pharmacy, and reviewed worrisome signs and symptoms that would warrant re-evaluation in the emergency department. Otherwise she is to follow-up with her specialists and/or pain management. Medications Administered Discontinued Medications Generic Name Dose Route Start Last Admin Trade Name Oliverio PRN Reason Stop Dose Admin Ketorolac Tromethamine 30 mg 06/09/23 18:27 06/09/23 18:57 Ketorolac Tromethamine 30 Mg/Ml Vial IM 06/09/23 18:28 30 mg ONCE ONE Administration Lidocaine 1 patch 06/09/23 18:27 06/09/23 18:57 Lidocaine 4 % Patch Adh..Patch TRANSDERMA 06/09/23 18:28 1 patch ONCE ONE Administration Protocol Medical Decision Making Medical Decision Making MDM Narrative: Patient is a 32-year-old female presenting to emergency department for evaluation of lower back pain as per HPI. She does have history of L4-L5 diskectomy for left lumbar radiculopathy in the past with significant improvement in symptoms. She has been seen by Neurosurgery in January of 2023 for SI joint pain, she had an MRI in August of 2022 here at [facility] followed by another a [facility] [place] which reveals mild disc bulges of L4-L5 and L5-S1 without compression or evidence of central canal stenosis. She was referred from our neurosurgery team to pain management for further treatment. She was last seen by pain management 05/25/2023, for which they are managing her right hip pain she is pending an outpatient MRI after recent 100% relief a diagnostic right hip injection. Regarding her lower back pain, she does have diffuse paraspinal muscle tenderness upon palpation, no palpable midline tenderness, step-offs, deformities. Straight leg test is positive bilaterally. Rashes lesions or fluctuance, no high-risk past medical history to suggest spinal or epidural abscess. No genitourinary symptoms but plan to obtain urinalysis for further evaluation. A low suspicion for syndrome indication for emergent MRI at this time. She has not had relief with cyclobenzaprine at home, and declines interested in taking stronger pain medications. She did have some mild tenderness upon palpation of the suprapubic region, urinalysis is pending. For now will attempt management with l Lidocaine patch and Toradol IM Differential Diagnosis Differential Diagnoses: The differential diagnosis associated with the presentation includes Admission/Observation Consideration of admission/observation: Escalation of care including admiss ion/observation considered Lab Data MDM Lab Attestation statement: I reviewed the patient's lab results. Urinalysis is without evidence of infection. Labs: Lab Results 06/09/23 Range/Units 18:37 Urine Color Yellow Urine Appearance Clear Urine pH 5.5 (5.0-9.0) Ur Specific [place] 1.025 (1.005-1.025) Urine Protein Negative (Neg-Trace) mg/dL Urine Glucose (UA) Negative (Negative) mg/dL Urine Ketones Negative (Negative) mg/dL Urine Blood Negative (Negative) Urine Nitrite Negative (Negative) Ur Leukocyte Esterase Negative (Negative) Urine Test NEGATIVE (NEGATIVE) External Record Review External record reviewed: Outpatient record ( as per narrative above), [facility] Discharge Plan Discharge Clinical Impression: Sacroiliac joint pain, Lumbar radiculopathy Patient Disposition: Home, Self-Care Instructions: Lumbar Radiculopathy (ED), Sacroiliitis (ED) Prescriptions: New oxycodone 5 mg tablet 5 mg PO Q8H PRN (Reason: pain) Qty: 7 0RF Rx Instructions: Partial Fill upon patient request. No Action cyclobenzaprine 5 mg tablet 5 mg PO BID 30 Days Qty: 60 3RF verapamil 40 mg tablet 40 mg PO BID Qty: 180 0RF acetaminophen 325 mg tablet PO fluticasone propion-salmeterol [Advair Diskus] 500-50 mcg/dose blister with device 1 ea inhalation BID ibuprofen 600 mg tablet 600 mg PO QID famotidine [Pepcid] 40 mg tablet 40 mg PO BEDTIME Qty: 30 6RF Referrals: Abdifatah Whitt PA-C [Primary Care Provider] - Jose Alfredo Youssef MD, PhD [Physician] -
[2023-06-09 18:43] LABS: Appearance Urine Clear; Color Urine Yellow; Glucose Urine UA Negative (Negative); Leukocyte Esterase Urine Negative (Negative); Nitrite Urine Negative (Negative); PH 5.5 (5.0-9.0); Specific Gravity - Urine 1.025 (1.005-1.025); Urine Blood Negative (Negative); Urine Ketones Negative (Negative); Urine Protein Negative (Neg-Trace)
[2023-06-09 18:45] LABS: UPreg QC Valid YES; Urine Pregnancy NEGATIVE (NEGATIVE)
[2023-06-09] MEDS: Ketorolac Tromethamine 30 MG/ML VIAL IM (18:57)
[2023-06-09] MEDS: Lidocaine 4 % Patch ADH..PATCH 1 PATCH TRANSDERMA (18:57)
== END 2023-06-09 19:21 | disposition home or self-care (01) ==
PROVIDERS: Nurse Practitioner Family; Emergency Provider Emergency Medicine; PCP Physician Assistant
DX: M54.50 Low back pain, unspecified (principal); Z79.899 Other long term (current) drug therapy
CPT/HCPCS: 81003; 81025; 96372; 99284; J1885

== ENCOUNTER 2023-06-12 09:44 | Outpatient (AMB) | payer OTHER, SELFPAY ==
--- NOTE | 2023-06-12 09:55 | A.OFFVIS_ITS ---
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 States she first noticed this about a year ago and is causing pain. States she was seen at the at the walk in clinic and was referred to Orthopedic. EMG done. 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 She is seen today with her 3 young children aged 12, 6 and 1 This has been present for ~1 year. She says this causes her pain with daily activities, particularly with grasping objects. She says this has perhaps tripled in size since she first noticed it. She denies problems with locking catching or any prior treatment options. [facility] Medical History Right hip pain Pre-op evaluation Bunion of great toe of left foot Asthma PCOS (polycystic ovarian syndrome) Surgical History Hx of cholecystectomy History of tubal ligation History of back surgery History of carpal tunnel surgery (~04/2020) Hx of section Family History Father Unknown family medical history Maternal Uncle Blocked artery Family/Other Colon cancer Maternal Uncle Blocked artery Mother No problems noted. Maternal Grandmother Stroke S/P triple vessel bypass Social History Household Members: Children Housing: House Alcohol intake: former Patient Tobacco Use Status: Never used Tobacco e-Cigarette/Vaping Use: Never Used Second Hand Smoke Exposure: No service: No Current occupational status: unemployed Cognitive needs: No Hearing needs: No Vision needs: Yes Review of Systems Const All systems reviewed & are unremarkable except as noted in HPI and below Physical Exam Const General: cooperative, healthy appearing and no acute distress Orientation/consciousness: patient oriented x3 HEENT Head: Yes normocephalic and Yes atraumatic Eyes EOM: EOMs intact bilaterally Resp Effort & Inspection: normal respiratory effort and able to speak in complete sentences Cardio Jugular venous distension: no JVD Skin General skin exam: turgor normal Rashes: no rashes Neuro General: patient oriented x3 Extrem Other: Evaluation of Right Upper Extremity: The patient is alert, oriented, and in no acute distress Neuro: Median, Ulnar, Radial nerves motor and sensory intact and sensation is normal to the tips of all digits Vascular: Cap refill brisk ROM: She can make a fist and extend all her digits Skin: No lacerations or abrasions. General: No Ecchymosis. No Erythema or evidence of infection. There is a mass over the A1 yash of the right index finger, measuring ~ 4-5 mm in diameter. It is most consistent with a volar retinacular ganglion cyst. She is tender directly over this area. No overlying skin changes and no locking or catching.. Radiographs: 3 views of the right hand from 04/04/23 were reviewed by me today in clinic. They show no fractures, dislocations, or significant arthritic changes. Psych Appearance: grossly normal Affect: normal affect Attitude: cooperative Office Procedures Fracture Care Details: No fracture, ganglion aspiration Fracture Billing Code: Fracture Billing Code Assessment & Plan Assessment & Plan (1) Ganglion of flexor tendon sheath of right index finger: Code(s): M67.441 - Ganglion, right hand Plan Assessment & Plan: 1. Right index finger volar retinacular ganglion I educated her about this condition I discussed operative and non-operative treatment options The patient would like to proceed with aspiration Aspiration #1: The risks and benefits of aspiration, including but not limited to risk of damage to blood vessels, nerves, tendons, infection, failure to improve symptoms, increased pain, and possible need for further aspirations or surgical intervention. After obtaining written consent, I sterilely prepped the area over the right index finger A1 yash.. I then injected subcutaneously with a small amount 1% lidocaine. I then perforated the volar retinacular ganglion over the A1 yash of the right index finger several times with the 27 gauge needle and aspirated some clear viscous fluid consistent with a ganglion. Some remaining viscous fluid was then pushed out of the ganglion. The patient and I both felt the area, and determined that the retinacular cyst was no longer palpable. The patient tolerated this well and with no complications. She understands if the cyst returns we can either attempt a repeat aspiration, or decide to possibly proceed with operative intervention. She is happy with the current plan and will follow up p.r.n. Scribed for Denia Zambrano MD by Nate Sampson, medical records analyst, on 06/12/23 at 10:40 AM, EST. Coding Level of Care Code New Pt Level 3 (06748) Diagnoses Ganglion of flexor tendon sheath of right index finger M67.441 CPT Codes Fracture Care - Fracture Billing Code: Fracture Billing Code ([id number])
== END 2023-06-12 11:01 | disposition home or self-care (01) ==
PROVIDERS: PCP Physician Assistant; Visit Provider Orthopaedic Surgery
DX: M67.441 Ganglion, right hand (principal)
CPT/HCPCS: 20612; 99214

== ENCOUNTER → 2023-06-12 09:44 | Outpatient (BNVA) | payer OTHER, SELFPAY | PROVIDERS: PCP Physician Assistant; Visit Provider Orthopaedic Surgery | DX: M67.441 Ganglion, right hand (principal) | CPT/HCPCS: 20612; 99212 ==

== ENCOUNTER 2023-07-03 20:03 | Outpatient (REF) | payer OTHER, SELFPAY ==
--- NOTE | ~2023-07-03 | MR_ITS ---
EXAMINATION: MR HIP WITHOUT CONTRAST, RIGHT CLINICAL INFORMATION: Right hip pain COMPARISON: X-ray 10/30/2022 TECHNIQUE: MRI of the right hip was obtained using routine sequences on a high-field strength magnet. FINDINGS: BONE/JOINTS: Right hip alignment is anatomic. Joint space is maintained. No significant cartilage loss. No evidence of acute fracture, avascular necrosis or stress injury. No aggressive marrow replacing lesion. Symphysis pubis is intact. Visualized right SI joint appears unremarkable. LABRUM:Shallow, smooth fluid signal/cleft along the undersurface of the posterosuperior labrum, favoring a normal variant sublabral sulcus. Less likely this could indicate a nondisplaced undersurface labral tear, however, normal variant sublabral sulci are often seen in this region. Remainder of the labrum appears intact. MUSCLES/TENDONS: Mild T2 signal of the distal gluteus medius tendon suggesting mild tendinosis. Mild edema in the subjacent soft tissues.. Remainder the tendons appear intact.. No muscle tear is seen. JOINT FLUID/BURSA: No significant hip joint effusion. No greater trochanteric or iliopsoas bursitis is seen. INTRAPELVIS STRUCTURES: Subcentimeter lymph nodes in the pelvis and groin. Urinary bladder appears unremarkable. No acute findings in the pelvis. On the coronal T1 sequence of the pelvis, there is anatomic left hip alignment. SI joints and symphysis pubis are intact.. MR/MR hip RT wo con IMPRESSION: 1. No evidence of acute osseous abnormality. No evidence of acute fracture, avascular necrosis or stress injury. 2. Mild distal gluteus medius tendinosis. 3. Shallow, smooth fluid signal along the undersurface of the posterosuperior labrum, favoring a normal variant sublabral sulcus. Less likely this could indicate a nondisplaced undersurface labral tear, however, normal variant sublabral sulci are often seen in this region.
== END 2023-07-03 20:04 | disposition home or self-care (01) ==
LOC: HO.MRI 20:03
PROVIDERS: PCP Physician Assistant; Visit Provider Nurse Practitioner Family
DX: M25.551 Pain in right hip (principal); R10.31 Right lower quadrant pain
CPT/HCPCS: 73721

== ENCOUNTER 2023-07-10 09:18 | Outpatient (AMB) | payer OTHER, SELFPAY ==
--- NOTE | 2023-07-10 09:25 | MHC.OFFVIS ---
Intake Vital Signs 07/10/23 09:29 Height 5 ft 3 in Weight 262 lb 4 oz BMI 46.5 BP 137/92 H Blood Pressure Location Lt brachial Position Sitting Pulse 106 H Pulse Source Pulse Oximeter Pulse Oximetry (%) 100 Oxygen Delivery Method Room Air Intake Visit Reasons: MRI FOLLOW/ RESULTS Intake Note: Pain today 10/18 Wire Inspector Required: No Accompanied by: Child Allergies dexamethasone [DEXAMETHASONE] Adverse Reaction (Unknown, Verified 07/10/23 09:30) ANXIETY HPI HPI Comments History of Present Illness Details Patient presents today for follow up to discuss recent right hip MRI results. She is currently in PT for low back and right hip/groin pain which she had to pause due to exacerbation of pain and awaiting MRI test. MRI results reviewed with patient and are noted below. Patient continues to endorse daily, constant right hip dull and sharp pain with radiation into her groin and lateral hip that worsens with activity, pivoting, walking, prolonged sitting and daily chores. She had 100% pain relief with diagnostic right hip intra-articular injection on 03/06/[address] Lopez and reported significant improvement in her mobility, movements, walking, functioning, social interactions, and sleep. Patient has been taking Tylenol and Ibuprofen daily and was prescribed short script in ER for oxycodone which has been more effective than Lidocaine patches, Flexeril and Toradol IM. Pain affects her daily functioning, mobility and sleep as well as caring for her family and young children who are toddler and preschool ages. Denies any recent cough, cold, infection, fever, skin rashes or swelling, or other significant changes in medical history since last office visit. Patient denies any bladder or bowel incontinence or saddle anesthesia. Past Procedures: 03/06/23: Diagnostic Right Hip Intra-Articular Injection-100% pain relief for 1.5 days 02/13/23: Diagnostic Right SIJ injection -70% pain relief for 4-5 hours PRIOR: Patient presents today for follow up and review hip and SIJ xray results. She was seen by [facility] with review of August and more recent lumbar spine MRI results and was deemed non surgical. Update MRI and hip/SIJ xrays are noted below. Patient endorses bilateral buttocks pain radiating into her lateral hips and at times into right groin. Right side is worse than left. She is intersted to proceed with diagnostic right sacroiliac joint injections for potential penitentiary interventional treatments. Denies any recent cough, cold, infection, fever or other significant changes in medical history since last office visit. Patient denies any bladder or bowel incontinence or saddle anesthesia. PRIOR: Patient is a pleasant 31-year-old female is a history of herniated disc, spinal stenosis, left L4/L5 partial lumbar decompression and chronic low back pain presents today for initial consultation for back pain with radiation to right lower extremity and right hip pain. Patient reports pain started in 2020, 1 month after delivering her 3rd child through and since then it has been progressively getting worse and being constant. Pain is described as constant throbbing, shooting, stabbing, sharp, pinching, tugging, pulling, hot burning, tingling, sore, tiring, killing, radiating, piercing, and tight. She notes that left lumbar decompression completely alleviated her severe left leg pain in 2020. More recently, she is experiencing a right-sided radiculopathy with significant right leg pain and right hip pain. She has difficulty raising her right leg due to weakness and pain with associated numbness and tingling. Patient also has localized tenderness in the projection of the right sacroiliac joint. Patient reports numbness in her RLE while sitting with her legs crossed. Reports back pain has been refractory to physical therapy in the past and due to significant pain at this time, she is not able to pursue PT walking or prolonged standing increases her pain and back pain will radiate to the lateral right buttock and into right groin. She is unable to take steroids as she has a poor reaction to them, reports significant anxiety and psychosis his dexamethasone. Patient has asthma and has been tolerating Advair Diskus well. Patient is willing to trial therapeutic cortisone injections to relieve her right lower leg pain with pre-medication. Pain has been affecting her daily functioning, activities, sleep, mood, and social interactions. Tylenol and cyclobenzaprine have been minimally effective. Lumbar spine MRI 08/16/22 reviewed and is noted below. Right hip xray is pending. Denies fever, abdominal pain, bladder or bowel incontinence or saddle anesthesia. [facility] Medical History Right hip pain Pre-op evaluation Bunion of great toe of left foot Asthma PCOS (polycystic ovarian syndrome) Surgical History Hx of cholecystectomy History of tubal ligation History of back surgery History of carpal tunnel surgery (~04/2020) Hx of section Family History Father Unknown family medical history Maternal Uncle Blocked artery Family/Other Colon cancer Maternal Uncle Blocked artery Mother No problems noted. Maternal Grandmother Stroke S/P triple vessel bypass Social History Household Members: Children Housing: House Alcohol intake: former Patient Tobacco Use Status: Never used Tobacco e-Cigarette/Vaping Use: Never Used Second Hand Smoke Exposure: No service: No Current occupational status: unemployed Cognitive needs: No Hearing needs: No Vision needs: Yes Review of Systems Const All systems reviewed & are unremarkable except as noted in HPI and below Physical Exam Vital Signs: Last Vital Signs Pulse 106 H 07/10/23 09:29 BP 137/92 H 07/10/23 09:29 Pulse Ox 100 07/10/23 09:29 Oxygen Delivery Method Room Air 07/10/23 09:29 BMI result Body Mass Index 46.5 General: Appears afebrile. Alert and oriented. Mood and affect appropriate. Follows and participates in conversation appropriately. Respiratory effort is unlabored. No cough. Able to transition from sit to stand unassisted. Ambulates with bilaterally normal heel strike and toe off, reports unsteadiness on the right. Back/Spine/Pelvis Other: Lumbar extension and flexion reproduce mild to moderate lower back pain. Positive bilateral facet loading. Moderate right groin pain with internal and external right hip rotation. No groin or hip pain on the left. +FADIR on the right. Moderate TTP in projections of GTB. Cervical Spine: cervical ROM normal and No Cervical spine tenderness Thoracic/Lumbar Spine: thoracic and lumbar spine normal to inspection, Thoracic/lumbar spine scar(s), Lasegue's sign negative, straight leg raise negative bilaterally, paraspinal muscle tenderness, thoraco-lumbar ROM limited, No thoracic spinal tenderness and lumbar spinal tenderness Pelvis: buttock tenderness on the right Sacroiliac joints: bilaterally (+Patricks's test, R>L) tender to palpation Results Reviewed Results Reviewed: MR HIP WITHOUT CONTRAST, RIGHT 07/03/23 CLINICAL INFORMATION: Right hip pain COMPARISON: X-ray 10/30/2022 TECHNIQUE: MRI of the right hip was obtained using routine sequences on a high-field strength magnet. FINDINGS: BONE/JOINTS: Right hip alignment is anatomic. Joint space is maintained. No significant cartilage loss. No evidence of acute fracture, avascular necrosis or stress injury. No aggressive marrow replacing lesion. Symphysis pubis is intact. Visualized right SI joint appears unremarkable. LABRUM:Shallow, smooth fluid signal/cleft along the undersurface of the posterosuperior labrum, favoring a normal variant sublabral sulcus. Less likely this could indicate a nondisplaced undersurface labral tear, however, normal variant sublabral sulci are often seen in this region. Remainder of the labrum appears intact. MUSCLES/TENDONS: Mild T2 signal of the distal gluteus medius tendon suggesting mild tendinosis. Mild edema in the subjacent soft tissues.. Remainder the tendons appear intact.. No muscle tear is seen. JOINT FLUID/BURSA: No significant hip joint effusion. No greater trochanteric or iliopsoas bursitis is seen. INTRAPELVIS STRUCTURES: Subcentimeter lymph nodes in the pelvis and groin. Urinary bladder appears unremarkable. No acute findings in the pelvis. On the coronal T1 sequence of the pelvis, there is anatomic left hip alignment. SI joints and symphysis pubis are intact.. IMPRESSION: 1. No evidence of acute osseous abnormality. No evidence of acute fracture, avascular necrosis or stress injury. 2. Mild distal gluteus medius tendinosis. 3. Shallow, smooth fluid signal along the undersurface of the posterosuperior labrum, favoring a normal variant sublabral sulcus. Less likely this could indicate a nondisplaced undersurface labral tear, however, normal variant sublabral sulci are often seen in this region. Assessment & Plan Assessment & Plan (1) Right groin pain: Code(s): R10.31 - Right lower quadrant pain (2) Right hip pain: Code(s): M25.551 - Pain in right hip (3) Tendinopathy of right gluteus medius: Code(s): M67.951 - Unspecified disorder of synovium and tendon, right thigh (4) Lumbar degenerative disc disease: Code(s): M51.36 - Other intervertebral disc degeneration, lumbar region (5) Sacroiliac joint pain: Code(s): M53.3 - Sacrococcygeal disorders, not elsewhere classified Plan Right hip MRI results reviewed with patient today. She will restart PT to continue addressing her current symptoms and strengthen and rehab her low back and right hip areas. Patient will be also referred to Orthopedic provider to further evaluate for recent MRI findings. She had 100% pain relief with diagnostic right hip intra-articular injection on 03/06/[address] Lopez. Unfortunately, she is not candidate for therapeutic injection due to allergy to steroids which causes her significant psychosis and anxiety. Script sent for celecoxib. Patient will hold Ibuprofen. Side effects and precautions were discussed with patient. Discussed activity modifications, ice/heat therapy, NSAIDs, Tylenol, muscle relaxant. All questions and concerns have been answered and patient agreed with the plan. Follow up as needed. Orders: Referrals Orthopedics Referral M25.551 - Pain in right hip, R10.31 - Right lower quadrant pain Medications: New celecoxib Take it with food and full glass of water 200 mg PO BID PRN 60 caps 0RF pain M25.551 - Pain in right hip, R10.31 - Right lower quadrant pain Coding Level of Care Code Est Pt Level 4 (13009) Diagnoses Right groin pain R10.31 Right hip pain M25.551 Tendinopathy of right gluteus medius M67.951 Lumbar degenerative disc disease M51.36 Sacroiliac joint pain M53.3
[2023-07-10 09:29] VITALS: BP 137/92; PULSE 106; O2SAT 100; BMI 46.5
== END 2023-07-10 09:41 | disposition home or self-care (01) ==
PROVIDERS: PCP Physician Assistant; Visit Provider Nurse Practitioner Family
DX: R10.31 Right lower quadrant pain (principal); M25.551 Pain in right hip; M67.951 Unspecified disorder of synovium and tendon, right thigh; M51.36 Other intervertebral disc degeneration, lumbar region; M53.3 Sacrococcygeal disorders, not elsewhere classified
CPT/HCPCS: 99214

== ENCOUNTER → 2023-07-10 09:18 | Outpatient (BNVA) | payer OTHER, SELFPAY | PROVIDERS: PCP Physician Assistant; Visit Provider Nurse Practitioner Family | DX: M51.36 Other intervertebral disc degeneration, lumbar region (principal); M53.3 Sacrococcygeal disorders, not elsewhere classified; M67.951 Unspecified disorder of synovium and tendon, right thigh; M25.551 Pain in right hip; R10.31 Right lower quadrant pain | CPT/HCPCS: 99212 ==

== ENCOUNTER 2023-07-12 12:58 | Outpatient (AMB) | payer OTHER, SELFPAY ==
--- NOTE | 2023-07-12 13:05 | A.OFFVIS_ITS ---
Intake Vital Signs 07/12/23 13:07 Height 5 ft 3 in Weight 262 lb BMI 46.4 Intake Visit Reasons: OV -Pain in right hip Intake Note: Monie is a 32 year old female who presents today for a follow up of her right hip pain. She was seen with pain mgmt who preformed a diagnostic right hip intra articular injection on 03/06/23 which gave 100% relief however patient is not a candidate for steroid injection due to allergy. Pain mgmt has referred her to ortho to further review MRI of the right hip on 07/03/23. Allergies dexamethasone [DEXAMETHASONE] Adverse Reaction (Unknown, Verified 07/12/23 13:06) ANXIETY HPI OV -Pain in right hip HPI Details Rufina is a 32 year old woman who returns to discuss her right hip pain. She complains of pain in her right hip, which radiates into her groin and lateral hip, worse with activity. She has a Hx of lumbar disc disease and LBP, and found complete relief from her hip pain following a hip arthrogram injection on 03/06/23, done by Pain Management. She is here for an MRI review of her right hip. She reports having a negative reaction to steroid injections. [facility] Medical History Right hip pain Pre-op evaluation Bunion of great toe of left foot Asthma PCOS (polycystic ovarian syndrome) Surgical History Hx of cholecystectomy History of tubal ligation History of back surgery History of carpal tunnel surgery (~04/2020) Hx of section Family History Father Unknown family medical history Maternal Uncle Blocked artery Family/Other Colon cancer Maternal Uncle Blocked artery Mother No problems noted. Maternal Grandmother Stroke S/P triple vessel bypass Social History Household Members: Children Housing: House Alcohol intake: former Patient Tobacco Use Status: Never used Tobacco e-Cigarette/Vaping Use: Never Used Second Hand Smoke Exposure: No service: No Current occupational status: unemployed Cognitive needs: No Hearing needs: No Vision needs: Yes Review of Systems Const All systems reviewed & are unremarkable except as noted in HPI and below Physical Exam Vital Signs: BMI result Body Mass Index 46.4 Const General: no acute distress, alert and awake Orientation/consciousness: patient oriented x3 HEENT Head: Yes normocephalic and Yes atraumatic Eyes EOM: EOMs intact bilaterally Resp Effort & Inspection: normal respiratory effort and able to speak in complete sentences Cardio Jugular venous distension: no JVD Skin General skin exam: turgor normal Rashes: no rashes Neuro General: patient oriented x3 Extrem Other: Right hip with mild pain on FADIR Nl gait No pain with resisted hip flexion/add/abd Neg SUKUMAR Psych Appearance: grossly normal Affect: normal affect Attitude: cooperative Results Reviewed Results Reviewed: I personally reviewed relevant radiographs. 1)No evidence of acute osseous abnormality. No evidence of acute fracture, avascular necrosis or stress injury. 2. Mild distal gluteus medius tendinosis. 3. Shallow, smooth fluid signal along the undersurface of the posterosuperior labrum, favoring a normal variant sublabral sulcus. Less likely this could indicate a nondisplaced undersurface labral tear, however, normal variant sublabral sulci are often seen in this region. Assessment & Plan Assessment & Plan (1) Right hip pain: Code(s): M25.551 - Pain in right hip Plan: Right hip pain. MRI is normal. There is a question of a small non displaced labral tear. This is not an appropriate study to adequately assess the labraum ( no contrast) and the treatment for a labral tear in a 32 yo F with polyarthralgia and morbid obesity is PT and weight loss. I discussed this with her. Plan Prepared for Kevin Sandoval MD by Nate Sampson, medical assistant, on 07/12/23 at 1:17 PM, EST. Coding Level of Care Code Est Pt Level 4 (49096) Diagnoses Right hip pain M25.551
[2023-07-12 13:07] VITALS: BMI 46.4
== END 2023-07-12 14:08 | disposition home or self-care (01) ==
PROVIDERS: PCP Physician Assistant; Visit Provider Orthopaedic Surgery
DX: M25.551 Pain in right hip (principal)
CPT/HCPCS: 99213

== ENCOUNTER → 2023-07-12 12:58 | Outpatient (BNVA) | payer OTHER, SELFPAY | PROVIDERS: PCP Physician Assistant; Visit Provider Orthopaedic Surgery | DX: M25.551 Pain in right hip (principal) | CPT/HCPCS: 99212 ==

== ENCOUNTER 2023-07-17 10:22 | Outpatient (AMB) | payer OTHER, SELFPAY ==
--- NOTE | 2023-07-17 10:25 | A.OFFVIS_ITS ---
Intake Vital Signs 07/17/23 10:28 Height 5 ft 3 in Weight 260 lb 6 oz BMI 46.1 BP 135/98 H Blood Pressure Location Rt brachial Position Sitting Pulse 85 Pulse Source Pulse Oximeter Pulse Oximetry (%) 99 Oxygen Delivery Method Room Air Intake Visit Reasons: S/p Orthopedics Appt 07/12/23 (Follow Up)/confirmed Intake Note: Pain today 12/18 Insert Cutter Required: No Accompanied by: Self / Same As Patient Allergies dexamethasone [DEXAMETHASONE] Adverse Reaction (Unknown, Verified 07/17/23 10:28) ANXIETY HPI HPI Comments History of Present Illness Details Patient presents today for follow up after recent Orthopedic evaluation with Dr. Sandoval for chronic right hip pain. Patient reports she is not surgical candidate and has continued with PT and home exercise program. Patient considering therapeutic right hip injection to address pain as she had good results with diagnostic right hip injections which provided her 100% pain relief for 1.5 days. Patient reports she developed significant anxiety with previous dexamethasone injection. She would like to undergo therapeutic injection under sedation. Denies any recent cough, cold, infection, fever, skin rashes or swelling, or other significant changes in medical history since last office visit. Patient is also interested in Weight Management Referral as her methods to loose weight through dieting and eliminating certain food choices have not been effective. Morbid obesity has been worsening her lower back and hip pain. PRIOR: Patient presents today for follow up to discuss recent right hip MRI results. She is currently in PT for low back and right hip/groin pain which she had to pause due to exacerbation of pain and awaiting MRI test. MRI results reviewed with patient and are noted below. Patient continues to endorse daily, constant right hip dull and sharp pain with radiation into her groin and lateral hip that worsens with activity, pivoting, walking, prolonged sitting and daily chores. She had 100% pain relief with diagnostic right hip intra-articular injection on 03/06/[address] Lopez and reported significant improvement in her mobility, movements, walking, functioning, social interactions, and sleep. Patient has been taking Tylenol and Ibuprofen daily and was prescribed short script in ER for oxycodone which has been more effective than Lidocaine patches, Flexeril and Toradol IM. Pain affects her daily functioning, mobility and sleep as well as caring for her family and young children who are toddler and preschool ages. Denies any recent cough, cold, infection, fever, skin rashes or swelling, or other significant changes in medical history since last office visit. Patient denies any bladder or bowel incontinence or saddle anesthesia. Past Procedures: 03/06/23: Diagnostic Right Hip Intra-Art icular Injection-100% pain relief for 1.5 days 02/13/23: Diagnostic Right SIJ injection -70% pain relief for 4-5 hours PRIOR: Patient presents today for follow up and review hip and SIJ xray results. She was seen by [facility] [place] [facility] with review of August and more recent lumbar spine MRI results and was deemed non surgical. Update MRI and hip/SIJ xrays are noted below. Patient endorses bilateral buttocks pain radiating into her lateral hips and at times into right groin. Right side is worse than left. She is intersted to proceed with diagnostic right sacroiliac joint injections for potential prison interventional treatments. Denies any recent cough, cold, infection, fever or other significant changes in medical history since last office visit. Patient denies any bladder or bowel incontinence or saddle anesthesia. PRIOR: Patient is a pleasant 31-year-old female is a history of herniated disc, spinal stenosis, left L4/L5 partial lumbar decompression and chronic low back pain presents today for initial consultation for back pain with radiation to right lower extremity and right hip pain. Patient reports pain started in 2020, 1 month after delivering her 3rd child through and since then it has been progressively getting worse and being constant. Pain is described as constant throbbing, shooting, stabbing, sharp, pinching, tugging, pulling, hot burning, tingling, sore, tiring, killing, radiating, piercing, and tight. She notes that left lumbar decompression completely alleviated her severe left leg pain in 2020. More recently, she is experiencing a right-sided radiculopathy with significant right leg pain and right hip pain. She has difficulty raising her right leg due to weakness and pain with associated numbness and tingling. Patient also has localized tenderness in the projection of the right sacroiliac joint. Patient reports numbness in her RLE while sitting with her legs crossed. Reports back pain has been refractory to physical therapy in the past and due to significant pain at this time, she is not able to pursue PT walking or prolonged standing increases her pain and back pain will radiate to the lateral right buttock and into right groin. She is unable to take steroids as she has a poor reaction to them, reports significant anxiety and psychosis his d examethasone. Patient has asthma and has been tolerating Advair Diskus well. Patient is willing to trial therapeutic cortisone injections to relieve her right lower leg pain with pre-medication. Pain has been affecting her daily functioning, activities, sleep, mood, and social interactions. Tylenol and cyclobenzaprine have been minimally effective. Lumbar spine MRI 08/16/22 reviewed and is noted below. Right hip xray is pending. Denies fever, abdominal pain, bladder or bowel incontinence or saddle anesthesia. [facility] Medical History Right hip pain Pre-op evaluation Bunion of great toe of left foot Asthma PCOS (polycystic ovarian syndrome) Surgical History Hx of cholecystectomy History of tubal ligation History of back surgery History of carpal tunnel surgery (~04/2020) Hx of section Family History Father Unknown family medical history Maternal Uncle Blocked artery Family/Other Colon cancer Maternal Uncle Blocked artery Mother No problems noted. Maternal Grandmother Stroke S/P triple vessel bypass Social History Household Members: Children Housing: House Alcohol intake: former Patient Tobacco Use Status: Never used Tobacco e-Cigarette/Vaping Use: Never Used Second Hand Smoke Exposure: No service: No Current occupational status: unemployed Cognitive needs: No Hearing needs: No Vision needs: Yes Review of Systems Const All systems reviewed & are unremarkable except as noted in HPI and below Physical Exam Vital Signs: Last Vital Signs Pulse 85 07/17/23 10:28 BP 135/98 H 07/17/23 10:28 Pulse Ox 99 07/17/23 10:28 Oxygen Delivery Method Room Air 07/17/23 10:28 BMI result Body Mass Index 46.1 General: Appears afebrile. Morbidly obese. Alert and oriented. Mood and affect appropriate. Follows and participates in conversation appropriately. Respiratory effort is unlabored. No cough. Able to transition from sit to stand unassisted. Ambulates with bilaterally normal heel strike and toe off, reports pain increase on the right. Back/Spine/Pelvis Other: Lumbar extension and flexion reproduce mild to moderate lower back pain. Positive bilateral facet loading. Moderate right groin pain with internal and external right hip rotation. No groin or hip pain on the left. +FADIR on the right. Moderate TTP in projections of GTB, worse on the right. Cervical Spine: cervical ROM normal and No Cervical spine tenderness Thoracic/Lumbar Spine: thoracic and lumbar spine normal to inspection, Thoracic/lumbar spine scar(s), Lasegue's sign negative, straight leg raise negative bilaterally, paraspinal muscle tenderness, thoraco-lumbar ROM limited, No thoracic spinal tenderness and lumbar spinal tenderness Pelvis: buttock tenderness on the right Sacroiliac joints: bilaterally (+Patricks's test, R>L) tender to palpation Results Reviewed Results Reviewed: MR HIP WITHOUT CONTRAST, RIGHT 07/03/23 CLINICAL INFORMATION: Right hip pain COMPARISON: X-ray 10/30/2022 TECHNIQUE: MRI of the right hip was obtained using routine sequences on a high-field strength magnet. FINDINGS: BONE/JOINTS: Right hip alignment is anatomic. Joint space is maintained. No significant cartilage loss. No evidence of acute fracture, avascular necrosis or stress injury. No aggressive marrow replacing lesion. Symphysis pubis is intact. Visualized right SI joint appears unremarkable. LABRUM:Shallow, smooth fluid signal/cleft along the undersurface of the posterosuperior labrum, favoring a normal variant sublabral sulcus. Less likely this could indicate a nondisplaced undersurface labral tear, however, normal variant sublabral sulci are often seen in this region. Remainder of the labrum appears intact. MUSCLES/TENDONS: Mild T2 signal of the distal gluteus medius tendon suggesting mild tendinosis. Mild edema in the subjacent soft tissues.. Remainder the tendons appear intact.. No muscle tear is seen. JOINT FLUID/BURSA: No significant hip joint effusion. No greater trochanteric or iliopsoas bursitis is seen. INTRAPELVIS STRUCTURES: Subcentimeter lymph nodes in the pelvis and groin. Urinary bladder appears unremarkable. No acute findings in the pelvis. On the coronal T1 sequence of the pelvis, there is anatomic left hip alignment. SI joints and symphysis pubis are intact.. IMPRESSION: 1. No evidence of acute osseous abnormality. No evidence of acute fracture, avascular necrosis or stress injury. 2. Mild distal gluteus medius tendinosis. 3. Shallow, smooth fluid signal along the undersurface of the posterosuperior labrum, favoring a normal variant sublabral sulcus. Less likely this could indicate a nondisplaced undersurface labral tear, however, normal variant sublabral sulci are often seen in this region. Assessment & Plan Assessment & Plan (1) Lumbar degenerative disc disease: Code(s): M51.36 - Other intervertebral disc degeneration, lumbar region (2) Post laminectomy syndrome: Code(s): M96.1 - Postlaminectomy syndrome, not elsewhere classified (3) Morbid obesity with BMI of 45.0-49.9, adult: Code(s): E66.01 - Morbid (severe) obesity due to excess calories; Z68.42 - Body mass index [BMI] 45.0-49.9, adult (4) Right hip pain: Code(s): M25.551 - Pain in right hip (5) Tendinopathy of right gluteus medius: Code(s): M67.951 - Unspecified disorder of synovium and tendon, right thigh (6) Sacroiliac joint pain: Code(s): M53.3 - Sacrococcygeal disorders, not elsewhere classified Plan Continue PT to continue for current symptoms and strengthen and rehab low back and right hip areas. Tentatively plan for Right hip steroid (kenolog) intra-articular injection with sedation and fluoroscopy. Patient had 100% pain relief with diagnostic right hip intra-articular injection on 03/06/[address] Lopez. Patient reported significant anxiety with dexamethasone in the past but willing to undergo therapeutic injection in a monitored environment. Weight Management Referral for morbid obesity, BMI 46.1 which affects her chronic low back and hip pain. All questions and concerns have been answered and patient agreed with the plan. Follow up after injection and sooner as needed. Orders: Referrals Medical Weight Management Referral E66.01 - Morbid (severe) obesity due to excess calories, M25.551 - Pain in right hip, M51.36 - Other intervertebral disc degeneration, lumbar region, M54.50 - Low back pain, unspecified, M79.604 - Pain in right leg, M96.1 - Postlaminectomy syndrome, not elsewhere classified, Z68.42 - Body mass index [BMI] 45.0-49.9, adult Coding Level of Care Code Est Pt Level 3 (26286) Diagnoses Lumbar degenerative disc disease M51.36 Post laminectomy syndrome M96.1 Morbid obesity with BMI of 45.0-49.9, adult E66.01; Z68.42 Right hip pain M25.551 Tendinopathy of right gluteus medius M67.951 Sacroiliac joint pain M53.3
[2023-07-17 10:28] VITALS: BP 135/98; PULSE 85; O2SAT 99; BMI 46.1
== END 2023-07-17 11:17 | disposition home or self-care (01) ==
PROVIDERS: PCP Physician Assistant; Visit Provider Nurse Practitioner Family
DX: M51.36 Other intervertebral disc degeneration, lumbar region (principal); M96.1 Postlaminectomy syndrome, not elsewhere classified; E66.01 Morbid (severe) obesity due to excess calories; Z68.42 Body mass index [BMI] 45.0-49.9, adult; M25.551 Pain in right hip; M67.951 Unspecified disorder of synovium and tendon, right thigh; M53.3 Sacrococcygeal disorders, not elsewhere classified
CPT/HCPCS: 99213

== ENCOUNTER → 2023-07-17 10:22 | Outpatient (BNVA) | payer OTHER, SELFPAY | PROVIDERS: PCP Physician Assistant; Visit Provider Nurse Practitioner Family | DX: M51.36 Other intervertebral disc degeneration, lumbar region (principal); M96.1 Postlaminectomy syndrome, not elsewhere classified; M25.551 Pain in right hip; M67.951 Unspecified disorder of synovium and tendon, right thigh; M53.3 Sacrococcygeal disorders, not elsewhere classified; E66.01 Morbid (severe) obesity due to excess calories; Z68.42 Body mass index [BMI] 45.0-49.9, adult | CPT/HCPCS: 99212 ==

== ENCOUNTER 2023-07-30 09:54 | Outpatient (AMB) | payer OTHER, SELFPAY ==
[2023-07-30 10:26] VITALS: BP 108/82; PULSE 88; O2SAT 98; BMI 46.6
--- NOTE | 2023-07-30 10:26 | A.OFFPC_ITS ---
Vital Signs 07/30/23 10:26 Height 5 ft 3 in Weight 263 lb BMI 46.6 BP 108/82 Blood Pressure Location Lt brachial Position Sitting Pulse 88 Pulse Source Pulse Oximeter Pulse Oximetry (%) 98 Oxygen Delivery Method Room Air Intake Visit Reasons: pe Intake Note: Patient is here today for a physical. 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: No Accompanied by: Self / Same As Patient Is last menstrual period known: Yes Last menstrual period: 05/14/23 Allergies dexamethasone [DEXAMETHASONE] Adverse Reaction (Unknown, Verified 07/30/23 10:57) ANXIETY Medication List - Last Reconciled 07/30/23 by Abdifatah Whitt PA-C acetaminophen mg PO celecoxib 200 mg PO BID PRN cyclobenzaprine 5 mg PO BID 30 days famotidine 40 mg PO DAILY fluticasone propion-salmeterol 500-50 mcg/dose (Advair Diskus) 1 ea inhalation BID ibuprofen 600 mg PO QID Tobacco use date assessed: 07/30/23 Dental Screening Dental Screen Date: 07/30/23 Did you have a dental visit in the last 12 months?: Yes Did you have a dental problem in the last 6 months where you did not have access to dental care?: No Was dental information given to patient?: Patient has dentist HPI pe HPI Details Patient is a 32-year-old female here today for annual physical. ? Patient has a past medical history significant for post laminectomy syndrome chronic low back pain, hypertension(gestational), asthma, obesity .. Gestational Hypertension:? Has self-discontinued verapamil 40 mg and has been monitoring her blood pressure. Blood pressure today in office stable . She otherwise denies any chest discomfort, headaches, vision issues. . Chronic pain complaints--> continues to complain of right hip pain, has gotten MRI with concerns for right labral tear. Has follow-up with orthopedics though no intervention needed besides physical therapy. Has been using NSAIDs and muscle relaxers old with only minimal relief. She has been using cyclobenzaprine though reports it has lost its effectiveness. Left ankle/foot issue: She also reports having left and foot numbness and tingling in certain positions. When trying to clip her toenails she does get a temporary episode of complete numbness in her left foot. She would like to see an orthopedic for 2nd opinion on this. 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 Maternal Grandmother Stroke S/P triple vessel bypass Social History Household Members: Children Housing: House Alcohol intake: former Patient Tobacco Use Status: Never used Tobacco e-Cigarette/Vaping Use: Never Used Second Hand Smoke Exposure: No service: No Current occupational status: unemployed Cognitive needs: No Hearing needs: No Vision needs: Yes Female Reproductive History Menstrual Date of last menstrual period: 05/14/23 Questionnaire PHQ-9 Over the last 2 weeks, how often have you been bothered by any of the following problems? 1. Little interest or pleasure in doing things: not at all 2. Feeling down, depressed, or hopeless: not at all 3. Trouble falling or staying asleep, or sleeping too much: not at all 4. Feeling tired or having little energy: not at all 5. Poor appetite or overeating: not at all 6. Feeling bad about yourself - or that you are a failure or have let yourself or your family down: not at all 7. Trouble concentrating on things, such as reading the newspaper or watching television: not at all 8. Moving or speaking so slowly that other people could have noticed. Or the opposite - being so fidgety or restless that you have been moving around a lot more than usual: not at all 9. Thoughts that you would be better off or of hurting yourself in some way: not at all Total score: 0 Depression Screening Interpretation: Negative Depression Screening Done: Yes 27186 - PHQ-9 Billing: Yes Source: Developed by Drs. Mike Gu, Adry Bnasal, Bret Phipps and colleagues, with an educational kana from [employer]. Thrive Questionnaire Date Thrive assessed: 07/30/23 I am a: Patient What is your living situation today?: I have a steady place to live Within the past 12 months, did the food you bought not last and you didn't have the money to get more?: Never true Within the past 12 months, did you worry whether your food would run out before you got money to buy more?: Never true Do you have trouble paying for medicines?: No Do you have trouble getting transportation to medical appointments?: No Do you have trouble paying your heating and electricity bill?: No Do you have trouble taking care of your child, family member or friend?: No Do you have trouble with day-to-day activities such as bathing, preparing meals, shopping, managing finances, etc.?: No Are you currently unemployed and looking for a job?: No Are you interested in more education?: No Please select the resources that you would like help with: None Currently or been in a relationship where the following occur: no concerns reported THRIVE Score: 0 AUDIT C Alcohol Use Questionnaire (AUDIT-C) 1. How often do you have a drink containing alcohol?: Never 3. How often do you have six or more drinks on one occasion?: Never Total Score: 0 LAURA-7 AMB Questionnaire LAURA-7 Date LAURA - 7 assessed: 07/30/23 Feeling nervous, anxious, or on edge: 0 = Not at all Not being able to stop or control worryin = Not at all Worrying too much about different things: 0 = Not at all Trouble relaxin = Not at all Being so restless that it is hard to sit still: 0 = Not at all Becoming easily annoyed or irritable: 0 = Not at all Feeling afraid as if something awful might happen: 0 = Not at all Total LAURA-7 score (0-4 normal; 5-9 mild; 10-14 moderate; 15-21 severe): 0 Source: Developed by Drs. Mike Gu, Bret Escobar and colleagues, with an educational kana from [employer]. LAURA-7 Assessment Billing LAURA-7 Assessment Tool: LAURA-7 Assessment 93586 Review of Systems Const Denies body aches, Denies chills, Denies excessive sweating, Denies fatigue, De nies fever(s) and Denies headache(s) Eyes Denies blurry vision ENT Denies dysphagia, Denies vertigo, Denies dizziness, Denies headache(s), Denies hearing loss and Denies tinnitus Card Denies chest pain, Denies chest pain with activity, Denies syncope, Denies irregular heart rhythm and Denies dyspnea Resp Denies chest congestion, Denies cough, Denies hemoptysis, Denies dyspnea and Denies wheezing GI Denies abdominal pain, Denies melena, Denies hematochezia, Denies coffee ground emesis, Denies dysphagia, Denies diarrhea, Denies nausea and Denies vomiting Denies urinary frequency, Denies dysuria, Denies urinary hesitancy and Denies urinary urgency Musc Denies arthralgias, Denies limited range of motion, Denies muscle cramps and Denies muscle weakness Skin/Breast Denies rash and Denies skin ulcer Neuro Denies Abnormal speech present, Denies confusion, Denies vertigo, Denies dizziness, Denies syncope, Denies headache(s), Denies memory loss and Denies seizure-like activity Psych Denies anxiety, Denies confusion, Denies depression, Denies memory loss, Denies panic attacks and Denies paranoia Endo Denies excessive sweating, Denies fatigue, Denies flushing, Denies polydipsia and Denies polyuria Aller/Immun Denies wheezing Physical exam (Primary Care) Vital Signs: Last Vital Signs Pulse 88 07/30/23 10:26 BP 108/82 07/30/23 10:26 Pulse Ox 98 07/30/23 10:26 Oxygen Delivery Method Room Air 07/30/23 10:26 BMI result Body Mass Index 46.6 BMI Assessment/Plan discussion: High Tobacco/Smoking Status: Tobacco use Status Tobacco use date assessed 07/30/23 07/30/23 10:42 Patient Tobacco Use Status Never used Tobacco 07/30/23 10:27 e-Cigarette/Vaping Use Never Used 07/30/23 10:27 PHQ-9: PHQ-9 Score PHQ-9: Total score 0 07/30/23 10:42 Depression Screening Interpretation: Negative Thrive Assessment: Date of Thrive Assessment Date Thrive assessed 07/30/23 07/30/23 10:42 Currently or been in a relationship where the following occur: no concerns reported Const Other: Obese General: cooperative, comfortable, no acute distress, alert and awake; No confusion Orientation/consciousness: oriented to person, oriented to place, patient oriented x3 and No confusion HENMT Head: Yes normocephalic Ears: external ears normal and TM's normal bilaterally Face and sinus: No sinus tenderness Mouth: Normal oral and palatal mucosa present and tongue normal Teeth and gingiva: dentition normal and gingiva normal Throat: Yes posterior oropharynx normal, Yes tonsils normal and Yes uvula midline Eyes Conjunctivae: conjunctivae normal Sclerae: sclerae normal Pupils: Equal, round and reactive pupils present EOM: EOMs intact bilaterally Direct Ophthalmoscopy: No no photophobia Neck Neck: Yes no lymphadenopathy, No tender and Yes no JVD Thyroid: Thyroid normal Carotids: no bruits Chest Chest palpation & inspection: no tenderness Resp Effort & Inspection: normal respiratory effort, no audible wheezes, not labored and no stridor Auscultation: no crackles, no rales, no rhonchi and no wheezes Cardio Jugular venous distension: no JVD Rate: regular rate, not bradycardic and not tachycardic Rhythm: regular rhythm Bruits: no carotid bruits Peripheral pulses: Peripheral pulses 2+ throughout GI Inspection: Yes normal to inspection, No abdominal wall ecchymosis and No visible herniation Palpation (GI): Soft to palpation, nontender, no guarding, not rigid and No hepatosplenomegaly present Auscultation: normoactive bowel sounds General: Yes no CVA tenderness Back/Spine/Pelvis Back: no CVA tenderness and No back tenderness Cervical Spine: cervical ROM normal Thoracic/Lumbar Spine: thoracic and lumbar spine normal to inspection, straight leg raise negative bilaterally, No thoraco-lumbar ROM limited and No lumbar spinal tenderness Skin Lesions: no lesions Rashes: no rashes Wounds: no wounds Neuro General: oriented to person, oriented to place, patient oriented x3, CN's II-XI intact bilaterally and No confusion Cranial nerves: Yes Equal, round and reactive pupils present and Yes Normal accommodation reflex present Cognition (Neuro): normal cognition Speech: No Abnormal speech present Gait exam (Neuro): Normal gait present Motor exam (neuro): 5/5 motor strength present throughout Extrem Right upper extremity: full ROM; no cyanosis Left upper extremity: full ROM; no cyanosis Right lower extremity: no edema Left lower extremity: no edema Psych Appearance: grossly normal Mental Status: mental status grossly normal Affect: normal affect Attitude: cooperative Thought process: Normal thought process present Assessment and Plan Assessment & Plan (1) Annual physical exam: Code(s): Z00.00 - Encounter for general adult medical examination without abnormal findings (2) HTN (hypertension): Code(s): I10 - Essential (primary) hypertension Qualifiers: Hypertension type: primary hypertension Qualified Code(s): I10 - Essential (primary) hypertension Plan: Patient's blood pressure stable today in office. Was on verapamil in the past though has self discontinued and blood pressures have been stable.. Will continue current dose of her optimal with goal blood pressure remain below 140/90 (3) Morbid obesity: Code(s): E66.01 - Morbid (severe) obesity due to excess calories Plan: Patient does understand her BMI is well over 30 and has found it difficult to be more physically active due to her continued pelvic pain/lower back. (4) Right hip pain: Code(s): M25.551 - Pain in right hip Plan: Has MRI that is suggestive of a labral tear though this is unclear. She continues to have right hip pain even with the use of Tylenol and muscle relaxers. Is followed by [facility] and has gotten an injection though has not been effective. She plans on doing another injection in near future in hopes this will help reduce her pain. (5) Obese: Code(s): E66.9 - Obesity, unspecified Qualifiers: Obesity type: due to excess calories Obesity classification: adult class 3 (BMI >= 40) Serious obesity comorbidity presence: with serious comorbidity Body mass index: BMI 45.0-49.9 Qualified Code(s): E66.01 - Morbid (severe) obesity due to excess calories; Z68.42 - Body mass index [BMI] 45.0- 49.9, adult Plan: Patient does understand her BMI is over 40 will work on being more physically active and adapting to better eating habits to reduce her weight. She will be following up with her OBGYN about hormone treatment. (6) Left ankle instability: Code(s): M25.372 - Other instability, left ankle (7) Peroneal nerve injury: Code(s): S84.10XA - Injury of peroneal nerve at lower leg level, unspecified leg, initial encounter Qualifiers: Encounter type: subsequent encounter Laterality: left Qualified Code(s): S84.12XD - Injury of peroneal nerve at lower leg level, left leg, sub sequent encounter Plan: Continues to left ankle foot numbness and pain in certain positions. This has been evident over the last several years. She would like a 2nd opinion with foot and ankle specialist. Orders: Orders Comprehensive [place]. Panel Fast Today Z13.1 - Encounter for screening for diabetes mellitus Complete Blood Count no Diff Today R71.8 - Other abnormality of red blood cells Medications: New baclofen 10 mg PO BID 30 days 60 tabs 3RF M25.551 - Pain in right hip On Hold cyclobenzaprine Hold Comment: Doctor's Order 5 mg PO BID 30 days 60 tabs 3RF M51.27 - Other intervertebral disc displacement, lumbosacral region Coding Level of Care Code Est Pt Prev Care 18-39y(32421) Diagnoses Annual physical exam Z00.00 Primary hypertension I10 Hypertension type: primary hypertension Morbid obesity E66.01 Right hip pain M25.551 Class 3 severe obesity due to excess calories with serious comorbidity and body mass index (BMI) of 45.0 to 49.9 in adult E66.01; Z68.42 Obesity type: due to excess calories Obesity classification: adult class 3 (BMI >= 40) Serious obesity comorbidity presence: with serious comorbidity Body mass index: BMI 45.0-49.9 Left ankle instability M25.372 Injury of left peroneal nerve, subsequent encounter S84.12XD Encounter type: subsequent encounter Laterality: left Additional Codes LAURA-7 Assessment Billing - LAURA-7 Assessment Tool: LAURA-7 Assessment [id number] ([id number])
== END 2023-07-30 11:18 | disposition home or self-care (01) ==
PROVIDERS: Visit Provider Physician Assistant
DX: Z00.00 Encounter for general adult medical examination without abnormal findings (principal); E66.01 Morbid (severe) obesity due to excess calories; Z68.42 Body mass index [BMI] 45.0-49.9, adult; I10 Essential (primary) hypertension; M25.551 Pain in right hip; M25.372 Other instability, left ankle; S84.12XD Injury of peroneal nerve at lower leg level, left leg, subsequent encounter
CPT/HCPCS: 99395

== ENCOUNTER 2023-07-31 10:07 | Outpatient (AMB) | payer OTHER, SELFPAY ==
[2023-07-31 10:43] VITALS: BMI 46.6
--- NOTE | 2023-07-31 10:43 | MHC.OFFVIS ---
Intake Vital Signs 07/31/23 10:43 Height 5 ft 3 in Weight 263 lb BMI 46.6 Intake Visit Reasons: OV-right hand cyst-came back Intake Note: Rufina 32 yr old female presents for a follow up visit for her right hand index finger ganglion cyst s/p aspiration from 06/12/23. States her cyst grown back and would like to discuss surgical intervention. Allergies dexamethasone [DEXAMETHASONE] Adverse Reaction (Unknown, Verified 07/31/23 10:50) ANXIETY HPI OV-right hand cyst-came back HPI Details Rufina is a 32 year old right hand dominant woman who returns to discuss her right index finger volar retinacular ganglion. She is seen today with her young children, age 6 & 1. 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 This was aspirated on 06/12/23, and she says this mass returned ~1 week later. She says this causes her pain with daily activities, particularly with grasping objects. She says if she overuses her hand she feels a painful throbbing in her finger, and in the space between the 2nd and 3rd metacarpal hands.. She denies any locking or catching. [facility] Medical History Right hip pain Pre-op evaluation Bunion of great toe of left foot Asthma PCOS (polycystic ovarian syndrome) Surgical History Hx of cholecystectomy History of tubal ligation History of back surgery History of carpal tunnel surgery (~04/2020) Hx of section Family History Father Unknown family medical history Maternal Uncle Blocked artery Family/Other Colon cancer Maternal Uncle Blocked artery Mother No problems noted. Maternal Grandmother Stroke S/P triple vessel bypass Social History Household Members: Children Housing: House Alcohol intake: former Patient Tobacco Use Status: Never used Tobacco e-Cigarette/Vaping Use: Never Used Second Hand Smoke Exposure: No service: No Current occupational status: unemployed Cognitive needs: No Hearing needs: No Vision needs: Yes Physical Exam Vital Signs: BMI result Body Mass Index 46.6 Extrem Other: Evaluation of Right Upper Extremity: The patient is alert, oriented, and in no acute distress Neuro: Median, Ulnar, Radial nerves motor and sensory intact and sensation is normal to the tips of all digits Vascular: Cap refill brisk ROM: She can make a fist and extend all her digits No locking or catching She is tender over the inner-space between 2nd and 3rd metacarpal heads She demonstrates pain on both the volar and dorsal aspects of the inner space between the 2nd and 3rd metacarpal heads. no masses felt here Most tender over a1 yash & ulnar aspect of a1 yash There is a more subtle feeling volar retinacular ganglion cyst over or just ulnar to a1 yash. Assessment & Plan Assessment & Plan (1) Ganglion of flexor tendon sheath of right index finger: Code(s): M67.441 - Ganglion, right hand (2) Stenosing tenosynovitis of finger of right hand: Code(s): M65.841 - Other synovitis and tenosynovitis, right hand Plan Assessment & Plan: 1. Right index finger volar retinacular ganglion, recurrence S/P aspiration on 06/12/23 2. Right index finger pre-trigger Tenosynovitis I educated her about this condition I discussed operative and non-operative treatment options The patient would like to proceed with surgery. I explained that I am unsure if surgery will help with the pain in the innerspace between the 2nd and 3rd metacarpals. The risks and benefits of operative treatment were discussed with the patient and the patient wishes to proceed with surgery. These risks include, but are not limited to risk of damage to blood vessels, nerves, tendons, infection, recurrence, incomplete relief of preoperative symptoms, persistent pain, possible need for further surgery and the risks associated with regional blocks and anesthesia. The plan is to take the patient to the operating room sometime in the next few weeks for the following procedures: 1. Right index finger excision of retinacular cyst, under local 2. Right index finger a1 yash release, under local All of the preoperative paperwork including the consent was reviewed today. All the patient's questions were answered. The patient understands that they will be contacted by our home care scheduler soon to schedule this procedure She denies Diabetes, blood thinners, asthma, heart, lung, kidney issues Scribed for Denia Zambrano MD by Nate Sampson, medical clinic manager, on 07/31/23 at 11:00 AM, EST. Coding Level of Care Code Est Pt Level 4 (63963) Diagnoses Ganglion of flexor tendon sheath of right index finger M67.441 Stenosing tenosynovitis of finger of right hand M65.841
== END 2023-07-31 11:07 | disposition home or self-care (01) ==
PROVIDERS: PCP Physician Assistant; Visit Provider Orthopaedic Surgery
DX: M67.441 Ganglion, right hand (principal); M65.841 Other synovitis and tenosynovitis, right hand
CPT/HCPCS: 99214

== ENCOUNTER → 2023-07-31 10:07 | Outpatient (BNVA) | payer OTHER, SELFPAY | PROVIDERS: PCP Physician Assistant; Visit Provider Orthopaedic Surgery | DX: M67.441 Ganglion, right hand (principal); M65.841 Other synovitis and tenosynovitis, right hand | CPT/HCPCS: 99212 ==

== ENCOUNTER 2023-07-31 12:00 | Outpatient (RCR) | payer OTHER, SELFPAY ==
--- NOTE | 2023-04-12 16:15 | MHC.PT.EP ---
[facility] [place] [facility] [place] [facility] [place] [facility] [address] [place] [address] [phone] F: [phone] F: [phone] F: [phone] F: [phone] Physical Therapy Plan of Care Date of Evaluation: 04/12/23 Date of Surgery: Diagnosis: pain in right hip; other intervertebral disc degeneration lumbar region (RL) Assessment: pt is a 32 y/o female presenting to physical therapy w/ referring diagnosis of right hip pain; intervertebral disc degeneration of lumbar region. pt's signs and symptoms are consistent w/ SI joint dysfunction, R hip impingement, and lumbar radiculopathy. Impairments include pain, decreased range of motion, decreased strength, impaired functional mobility, impaired postural awareness, and altered ambulation mechanics. pt is a good candidate for skilled PT due to age, potential remediation of impairments, typical disease/condition progression and prognosis, comorbidities, and motivation. pt would benefit from skilled PT intervention to provide a tailored strengthening and stretching exercise program, functional training, gait training, postural re-training, neuromuscular re-education, modalities as needed for pain, equipment safety demonstration. Frequency and Duration: The patient will be seen 2x/wk for 4 wks Short Term Goals: pt will be I w/ HEP to promote self-management of condition. pt will demo proper sitting posture w/ lumbar roll to promote neutral spine w/ seated ADLs. Detention Goals: pt will report a statistically significant improvement in self-reported outcome measure, LEFI, to promote return to PLOF. pt will improve lumbar flexion AROM to at least 75% to promote ease in lower body dressing. Treatment Plan: Modalities to reduce pain, spasms and effusion. Manual therapy to restore motion and function. Therapeutic exercise to improve strength and flexibility. Neuromuscular re-education for posture and balance. Therapeutic activities to return to functional activities of daily living. Electronically signed by: Naila Perez PT, DPT Please sign and return to therapist. Thank you for your referral.
--- NOTE | 2023-08-24 08:37 | MHC.PT.DC ---
[facility] [place] [facility] [place] [facility] [place] [facility] [address] [place] [address] [phone] F: [phone] F: [phone] F: [phone] F: [phone] Physical Therapy Discharge Report Diagnosis: pain in right hip; other intervertebral disc degeneration lumbar region (RL) Date of Surgery: Date of Evaluation: 04/12/23 Date of Discharge: 08/24/23 Treatments to Date: 18 Cancellations to Date: 8 No Shows to Date: 3 Discharge Status: Improved Function Independent with HEP Discharge Summary: Per last treatment note on 07/31/23: pt reported little to no hip pain over the weekend but did admit to not being very active. She has been compliant w/ HEP. As her pain is improving and she is nearly I w/ her HEP we will anticipate D/C to HEP in 2 visits. She has not followed-up with any additional appointments since that time. Electronically signed by: Naila Perez PT, DPT Please sign and return to therapist. Thank you for your referral.
== END 2023-08-24 08:37 | disposition home or self-care (01) ==
LOC: HO.PT 12:00
PROVIDERS: PCP Physician Assistant; Visit Provider Nurse Practitioner Family
DX: M25.561 Pain in right knee (principal); M51.36 Other intervertebral disc degeneration, lumbar region
CPT/HCPCS: 97012; 97110; 97112; 97140; 97162; 97164

== ENCOUNTER → 2023-09-14 11:33 | Outpatient (BNVA) | payer OTHER, SELFPAY | PROVIDERS: PCP Physician Assistant; Visit Provider Physician Assistant Surgical ==

== ENCOUNTER 2023-09-19 14:05 | Outpatient (AMB) | payer OTHER, SELFPAY ==
--- NOTE | 2023-09-19 14:11 | MHC.OFFVIS ---
Intake Vital Signs 09/19/23 14:13 Height 5 ft 4 in Weight 253 lb BMI 43.4 Handedness Right Intake Visit Reasons: O/V Rt hand IF Cyst new bump Intake Note: Rufina 32 yr old right hand dominant female presents today for a follow up visit for her right hand index finger Cyst. States she has a new cyst. Patient is right index finger volar retinacular ganglion S/P aspiration on 06/12/23. She was also set up for surgery to have cyst surgically removed and right index trigger release, however she states that a new one grew on top of the old cyst she had. Patient informed me that it is causing her a lot of pain. Allergies dexamethasone [DEXAMETHASONE] Adverse Reaction (Unknown, Verified 09/19/23 14:13) ANXIETY HPI O/V Rt hand IF Cyst new bump HPI Details Rufina is a 32 year old right hand dominant woman who returns to discuss her right index finger volar retinacular ganglion. This was aspirated on 06/12/23, and she says this mass returned ~1 week later. She says she has a new mass develop on her finger, alongside her old cyst, and this is causing her increased pain. She is scheduled for surgery on 10/01/23. She says this causes her pain with daily activities, particularly with grasping objects. She denies any locking or catching. She is seen today with her young children, ages 6 & 1. 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 [facility] Medical History Right hip pain Pre-op evaluation Bunion of great toe of left foot Asthma PCOS (polycystic ovarian syndrome) Surgical History Hx of cholecystectomy History of tubal ligation History of back surgery History of carpal tunnel surgery (~04/2020) Hx of section Family History Father Unknown family medical history Maternal Uncle Blocked artery Family/Other Colon cancer Maternal Uncle Blocked artery Mother No problems noted. Maternal Grandmother Stroke S/P triple vessel bypass Social History Household Members: Children Housing: House Alcohol intake: former Patient Tobacco Use Status: Never used Tobacco e-Cigarette/Vaping Use: Never Used Second Hand Smoke Exposure: No service: No Current occupational status: unemployed Cognitive needs: No Hearing needs: No Vision needs: Yes Physical Exam Vital Signs: BMI result Body Mass Index 43.4 Extrem Other: Evaluation of Right Upper Extremity: The patient is alert, oriented, and in no acute distress Neuro: Median, Ulnar, Radial nerves motor and sensory intact and sensation is normal to the tips of all digits Vascular: Cap refill brisk ROM: She can make a fist and extend all her digits No locking or catching Today she is not particularly tender over the inner-space between 2nd and 3rd metacarpal heads, and no masses felt in that area. Most tender over a1 yash and over a small spherical shaped bump on the A1 yash of the index finger which she says is new. Assessment & Plan Assessment & Plan (1) Ganglion of flexor tendon sheath of right index finger: Code(s): M67.441 - Ganglion, right hand (2) Stenosing tenosynovitis of finger of right hand: Code(s): M65.841 - Other synovitis and tenosynovitis, right hand Plan Assessment & Plan: 1. Right index finger volar retinacular ganglion, recurrence S/P aspiration on 06/12/23 2. Right index finger pre-trigger Tenosynovitis I educated her about this condition I discussed operative and non-operative treatment options The patient would like to proceed with surgery. I explained that I am unsure if surgery will help with the pain in the innerspace between the 2nd and 3rd metacarpals. The risks and benefits of operative treatment were discussed with the patient and the patient wishes to proceed with surgery. These risks include, but are not limited to risk of damage to blood vessels, nerves, tendons, infection, recurrence, incomplete relief of preoperative symptoms, persistent pain, possible need for further surgery and the risks associated with regional blocks and anesthesia. The plan is to take the patient to the operating room sometime on 10/01/23 for the following procedures: 1. Right index finger excision of retinacular cyst, under local 2. Right index finger a1 yash release, under local All of the preoperative paperwork including the consent was reviewed today. All the patient's questions were answered. She denies Diabetes, blood thinners, asthma, heart, lung, kidney issues Scribed for Denia Zambrano MD by Nate Sampson, medical biller coder, on 09/19/23 at 2:40 PM, EST. Coding Level of Care Code Est Pt Level 4 (86378) Diagnoses Ganglion of flexor tendon sheath of right index finger M67.441 Stenosing tenosynovitis of finger of right hand M65.841
[2023-09-19 14:13] VITALS: BMI 43.4
== END 2023-09-19 14:46 | disposition home or self-care (01) ==
PROVIDERS: PCP Physician Assistant; Visit Provider Orthopaedic Surgery
DX: M67.441 Ganglion, right hand (principal); M65.841 Other synovitis and tenosynovitis, right hand
CPT/HCPCS: 99214

== ENCOUNTER → 2023-09-19 14:05 | Outpatient (BNVA) | payer OTHER, SELFPAY | PROVIDERS: PCP Physician Assistant; Visit Provider Orthopaedic Surgery | DX: M67.441 Ganglion, right hand (principal); M65.841 Other synovitis and tenosynovitis, right hand | CPT/HCPCS: 99212 ==

== ENCOUNTER 2023-10-01 09:31 | Day surgery (SDC) | payer OTHER, SELFPAY ==
[2023-10-01 09:41] VITALS: BMI 28.3
[2023-10-01 09:52] VITALS: BP 125/73; PULSE 82; RESP 18; TEMP 36.3; O2SAT 98
--- NOTE | 2023-10-01 10:27 | P.OP_ITS ---
Operative Note Operative Note Date of Service: 10/01/23 Narrative: Operative Note Preop diagnosis: 1. Right index finger Trigger finger 2. Right index finger retinacular cyst Postop diagnosis: Same Procedure: 1. Right index finger A1 yash release 2. Right index finger retinacular cyst Surgeon: Denia Zambrano MD Anesthesia: local block using 1% lidocaine with epinephrine Findings: No locking or catching after A1 yash release, a multi lobular retinacular cyst was found a top the A1 yash filled with clear viscous fluid consistent with a ganglion EBL: Less than 5 mL Tourniquet time: None Specimens: Right index finger retinacular cyst sent for pathology Complications: None Disposition: Brought to recovery room in stable condition Plan: Follow-up for 10-14 days for wound check and suture removal Indications: The patient is 32 years old, with a right index finger trigger finger and a volar retinacular cyst that have been unresponsive to nonoperative management. The risks and benefits of operative treatment including but not limited to risk of damage to blood vessels, nerves, tendons, infection, persistent pain, persistent symptoms, recurrence or possible need for additional surgery were discussed with the patient and the patient wishes to proceed with surgery. Procedure: Once consent was obtained a local block was performed in the preop area using a combination of 1% lidocaine with epinephrine. The patient was then brought back to the operating suite and placed on the operative table in supine position. The right upper extremity was prepped and draped in a standard surgical fashion. Once assured that we had a good block, a 1.5 cm oblique incision was made centered over the A1 yash of the right index finger . The incision was made through the skin to the subcutaneous tissues using a #15 blade. Careful dis section was made down to the level of the A1 yash using tenotomy scissors, with care being taken to protect the nearby neurovascular structures. A multi lobular volar retinacular cyst was found a top the A1 yash and measured more as 2 adjacent cystic masses each measuring perhaps 3-4 mm in diameter. It was filled with clear viscous fluid consistent with a ganglion. This was carefully excised from the A1 yash, and the tissue placed on the back table to be sent for histopathology.. A longitudinal incision was made in the A1 yash 1st using a #15 blade, then using tenotomy scissors under direct visualization. The A1 yash was noted to be thickened. Following our A1 yash release, we no longer saw any locking or catching of the digit with flexion and extension. Once satisfied with our A1 yash release the wound was copiously irrigated with normal saline and hemostasis was obtained with a brief period of local pressure. The skin edges were reapproximated with some 5.0 nylon suture material and a sterile dressing was applied. The patient appears to have tolerated the procedure well and with no complications. All digits were well vascularized at the conclusion of the case.
--- NOTE | 2023-10-01 10:27 | MHC.SHP ---
Pre-Procedural Eval Section A - 24 Hr Update-Section A only Date of Service: 10/01/23 The patient is an INPATIENT: No Changes since office visit: No Cold of Flu in the past 2 weeks, No New Medical Problems, No Changes in Medication and No Patient answered all questions The patient has been examined within 24 hours of the surgical procedure. The History & Physical has been completed within 30 days and I have reviewed it.: Yes Section B - Complete if H&P > 30 days Chief Complaint: ganglion,Other synovitis and tenosynovitis, right Allergies: Allergies Allergy/AdvReac Type Severity Reaction Status Date / Time dexamethasone [DEXAMETHASONE] AdvReac Unknown ANXIETY Verified 09/19/23 14:13 Exam Exam Comment: Right index finger trigger finger and retinacular cyst Plan Diagnosis/Plan: Unchanged I have reviewed the history and physical and performed a pertinent physical examination on my patient. No changes have occurred unless specified. Time Spent With Patient Time: Total time managing care of this patient today ____ minutes.
[2023-10-01 12:02] VITALS: BP 132/79; PULSE 60; RESP 16; O2SAT 99
== END 2023-10-01 12:05 | disposition home or self-care (01) ==
PROVIDERS: PCP Physician Assistant; Visit Provider Orthopaedic Surgery
PROC: (CPT 26160; principal; 2023-10-01 11:10)
DX: M67.441 Ganglion, right hand (principal); M65.321 Trigger finger, right index finger; M65.841 Other synovitis and tenosynovitis, right hand; J45.909 Unspecified asthma, uncomplicated; E28.2 Polycystic ovarian syndrome; Z98.890 Other specified postprocedural states; Z56.0 Unemployment, unspecified
CPT/HCPCS: 26160; 26055; 88304; J0171

== ENCOUNTER → 2023-10-01 09:31 | Outpatient (BNV) | payer OTHER, SELFPAY | PROVIDERS: PCP Physician Assistant; Visit Provider Orthopaedic Surgery | DX: M67.441 Ganglion, right hand (principal); M65.321 Trigger finger, right index finger | CPT/HCPCS: 26160 ==

== ENCOUNTER 2023-10-16 10:37 | Outpatient (AMB) | payer OTHER, SELFPAY ==
--- NOTE | 2023-10-16 10:39 | MHC.OFFVIS ---
Vital Signs 10/16/23 10:49 Height 5 ft 3 in Weight 254 lb BMI 45.0 Handedness Right Intake Visit Reasons: PO-Rt IF A-1 Release, Cyst Removal 10/01/23 Intake Note: Rufina is a 32 year old right hand dominate female presents today for her PO visit for her Rt Index Finger A-1 Release & Cyst Removal 10/01/[address] Zambrano. Patient states she removed her sutures herself on 10/10/23 and 10/11/23 because they were causing her pain and getting stuck to her clothes and hair. She expresses she is having occasional tingling in her hand if closed too long with sharp pain in her index finger and constant swelling. She is unable to do a complete closed fist due to limited ROM in index finger and feels her index finger is still tight. Allergies dexamethasone [DEXAMETHASONE] Adverse Reaction (Unknown, Verified 10/16/23 10:48) ANXIETY HPI HPI PO-Rt IF A-1 Release, Cyst Removal 10/01/23: Details: Rufina is a 32 year old right hand dominant woman who returns S/P right index finger volar retinacular ganglion excision & index finger trigger release, DOS: 10/01/23 She says she removed her sutures herself at home on 10/10/23 & 10/11/23 as they were catching on her clothes & hair. She reports that she still has some mild swelling and tightness that she feels in her index finger when she tries to make a fist. She denies any numbness in her fingers. She is seen today with her young children, ages 7 & 2. 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 [facility] Medical History Right hip pain Pre-op evaluation Bunion of great toe of left foot Asthma PCOS (polycystic ovarian syndrome) Surgical History Hx of cholecystectomy History of tubal ligation History of back surgery History of carpal tunnel surgery (~04/2020) Hx of section Family History Father Unknown family medical history Maternal Uncle Blocked artery Family/Other Colon cancer Maternal Uncle Blocked artery Mother No problems noted. Maternal Grandmother Stroke S/P triple vessel bypass Social History Household Members: Children Housing: House Alcohol intake: former Comment: counts correct Patient Tobacco Use Status: Never used Tobacco e-Cigarette/Vaping Use: Never Used Second Hand Smoke Exposure: No service: No Current occupational status: unemployed Cognitive needs: No Hearing needs: No Vision needs: Yes Review of Systems Const All systems reviewed & are unremarkable except as noted in HPI and below Physical Exam Vital Signs: BMI result Body Mass Index 45.0 Const General: no acute distress and alert Orientation/consciousness: patient oriented x3 Neuro General: patient oriented x3 Extrem Other: The patient was alert oriented and in no acute distress The incision is healing well with no erythema drainage or evidence of infection. Sutures removed and Steri-Strips applied She can bring her fingers closed to a fist and back into full extension. She had some mild tightness at the MCP joint of the index finger. This improve with some [id number] exercises in clinic. No locking or catching. Sensation is intact to the tips of all digits Cap refill is brisk Pathology report From 10/01/23 Diagnosis Soft tissue, right index finger, excision: Benign fibrous tissue with myxoid change consistent with ganglion Psych Appearance: grossly normal Affect: normal affect Attitude: cooperative Assessment & Plan Assessment & Plan (1) Ganglion of flexor tendon sheath of right index finger: Code(s): M67.441 - Ganglion, right hand Category: Medical (2) Stenosing tenosynovitis of finger of right hand: Code(s): M65.841 - Other synovitis and tenosynovitis, right hand Category: Medical Plan Assessment & Plan: 1. Right index finger volar retinacular ganglion, S/P excision DOS: 10/01/23 2. Right index finger pre-trigger Tenosynovitis, S/P release DOS: 10/01/23 The patient appears to be doing well post-operatively I educated her about the post-operative course I explained the signs and symptoms of infection I discussed activity modifications, she is to lift nothing heavier than a cellphone for the next two weeks She will perform gentle ROM exercises at home She should avoid any underwater activities for the next 5 days She should gently massage about the incision site to reduce the risk of hypersensitivity She can follow up prn Scribed for Denia Zambrano MD by Nate Lubanszky, ophthalmic medical assistant, on 10/16/23 at 11:10 AM, EST. Coding Level of Care Code Global (08927) Diagnoses Ganglion of flexor tendon sheath of right index finger M67.441 Stenosing tenosynovitis of finger of right hand M65.841
[2023-10-16 10:49] VITALS: BMI 45.0
== END 2023-10-16 11:24 | disposition home or self-care (01) ==
PROVIDERS: PCP Physician Assistant; Visit Provider Orthopaedic Surgery
DX: M67.441 Ganglion, right hand (principal); M65.841 Other synovitis and tenosynovitis, right hand
CPT/HCPCS: 99024

== ENCOUNTER → 2023-10-16 10:37 | Outpatient (BNVA) | payer OTHER, SELFPAY | PROVIDERS: PCP Physician Assistant; Visit Provider Orthopaedic Surgery | DX: Z09 Encounter for follow-up examination after completed treatment for conditions other than malignant neoplasm (principal) | CPT/HCPCS: 99212 ==

== ENCOUNTER 2023-12-05 15:46 | Outpatient (AMB) | payer OTHER, SELFPAY ==
--- NOTE | 2023-12-05 15:52 | A.OFFPC_ITS ---
Intake Visit Reasons: right hip is extremely painful Tools And Parts Attendant Required: No Information Interpreted: non-clinical & clinical Senior Technical Recruiter: Not Required per policy Allergies dexamethasone [DEXAMETHASONE] Adverse Reaction (Unknown, Verified 12/05/23 16:02) ANXIETY Medication List - Last Reconciled 12/05/23 by Abdifatah Whitt PA-C baclofen 10 mg PO BID 30 days celecoxib 200 mg PO BID PRN cyclobenzaprine 5 mg PO BID 30 days famotidine 40 mg PO DAILY fluticasone propion-salmeterol 500-50 mcg/dose (Advair Diskus) 1 ea inhalation BID Tobacco use date assessed: 07/30/23 Dental Screening Dental Screen Date: 07/30/23 HPI right hip is extremely painful HPI Details Patient is a 33-year-old female being evaluated today via telephone only. She has been suffering with right hip pain for many months now. She continues to have decreased range of motion, difficulty with ambulation and continued pain. She has been using NSAIDs and muscle relaxers without much relief. Has done several months of physical therapy though has not made much progress. Has seen 2 different orthopedic surgeons in followed by [facility]. There was some thought to do a Kenalog injection under general anesthesia for her right hip though this has not been scheduled. She did get MRI which there were some concerns for possible labral tear. [facility] Medical History Right hip pain Pre-op evaluation Bunion of great toe of left foot Asthma PCOS (polycystic ovarian syndrome) Surgical History Hx of cholecystectomy History of tubal ligation History of back surgery History of carpal tunnel surgery (~04/2020) Hx of section Family History Father Unknown family medical history Maternal Uncle Blocked artery Family/Other Colon cancer Maternal Uncle Blocked artery Mother No problems noted. Maternal Grandmother Stroke S/P triple vessel bypass Social History Household Members: Children Housing: House Alcohol intake: former Comment: counts correct Patient Tobacco Use Status: Never used Tobacco e-Cigarette/Vaping Use: Never Used Second Hand Smoke Exposure: No service: No Current occupational status: unemployed Cognitive needs: No Hearing needs: No Vision needs: Yes Questionnaire Thrive Questionnaire Date Thrive assessed: 07/30/23 LAURA-7 AMB Questionnaire LAURA-7 Date LAURA - 7 assessed: 07/30/23 Source: Developed by Drs. Mike Gu, Adry Bansal, Bret Phipps and colleagues, with an educational kana from [employer] Review of Systems Const Denies headache(s) Eyes Denies loss of vision ENT Denies vertigo, Denies dizziness, Denies headache(s) and Denies sore throat Card Denies chest pain, Denies leg edema and Denies lightheadedness Resp Denies cough, Denies hemoptysis and Denies wheezing GI Denies abdominal pain, Denies melena, Denies constipation, Denies diarrhea and Denies vomiting Denies urinary frequency, Denies dysuria and Denies urinary urgency Musc Details: + RIGHT HIP PAIN Denies arthralgias, Denies joint swelling, Denies numbness and Denies tingling Neuro Denies behavioral changes, Denies vertigo, Denies dizziness, Denies headache(s), Denies loss of vision, Denies memory loss, Denies numbness and Denies tingling Psych Denies anxiety, Denies behavioral changes, Denies depression, Denies memory loss and Denies panic attacks Nick/Lymph Denies easy bleeding and Denies easy bruising Aller/Immun Denies wheezing Physical exam (Primary Care) Tobacco/Smoking Status: Tobacco use Status Tobacco use date assessed 07/30/23 12/05/23 15:54 Patient Tobacco Use Status Never used Tobacco 12/05/23 15:54 e-Cigarette/Vaping Use Never Used 12/05/23 15:54 Thrive Assessment: Date of Thrive Assessment Date Thrive assessed 07/30/23 12/05/23 15:54 Telehealth Telehealth Telehealth Platform: Telephone Location of provider rendering services: practice address Location of patient: other Patient Identification confirmed using: Name, : Yes Telehealth method: voice only Patient verbally consented to treatment: Yes Patient verbally consented to billing insurance company: Yes Patient informed of any privacy concerns related to visit: Yes Minutes spent on Phone/Video with Pt.: 11 Assessment and Plan Assessment & Plan (1) Right hip pain: Code(s): M25.551 - Pain in right hip Plan: Has MRI that is suggestive of a labral tear though this is unclear. She continues to have right hip pain even with the use of Tylenol, NSAIDs and muscle relaxers. Is followed by [facility] and has gotten an injection though has not been effective. She plans on doing another injection in near future in hopes this will help reduce her pain. (2) Labral tear of right hip joint: Code(s): S73.191A - Other sprain of right hip, initial encounter Qualifiers: Encounter type: subsequent encounter Qualified Code(s): S73.191D - Other sprain of right hip, subsequent encounter Plan: Patient continues to have right hip pain decreased range of motion, did have an MRI of right hip which there was concern for labral tear. MRI was done without contrast. She has done 6 months of physical therapy though has not gotten much relief of her right hip pain. She is followed by pain management whom were considering injection of Kenalog under general anesthesia. Will try for MRI with contrast to appropriately evaluate the right hip labrum. Will consider orthopedic 2nd opinion Orders: Orders MR hip RT w con 12/05/23 S73.191A - Other sprain of right hip, initial encounter Medications: New tramadol 50 mg PO BID 14 tabs 0RF pain 7 days S73.192D - Other sprain of left hip, subsequent encounter Coding Level of Care Code Tele Est Pt Level 4 (67639) Diagnoses Right hip pain M25.551 Tear of right acetabular labrum, subsequent encounter S73.191D Encounter type: subsequent encounter
== END 2023-12-05 16:29 | disposition home or self-care (01) ==
LOC: HO.HMGH 15:46
PROVIDERS: PCP Physician Assistant; Visit Provider Physician Assistant
DX: M25.551 Pain in right hip (principal); S73.191D Other sprain of right hip, subsequent encounter
CPT/HCPCS: 99214

== ENCOUNTER 2024-01-11 13:12 | Outpatient (REF) | payer OTHER, SELFPAY ==
--- NOTE | ~2024-01-11 | FL_ITS ---
FLUOROSCOPIC RIGHT HIP ARTHROGRAM Indications: Right hip pain. Intra-articular gadolinium injection is needed prior to MRI. Procedure: Risks and benefits and possible complications were discussed with the patient and the consent form was signed. The patient was placed hip on the fluoroscopy table. The right hip was prepped and draped in normal sterile fashion. 1% buffered lidocaine was used for anesthesia. A 22-gauge spinal needle was used to access the hip joint. Intra-articular position of the needle within the hip joint was verified using 3 cc of Omnipaque 300. A total of 10 mL of gadolinium/saline (1:200) contrast mixture was then injected into the hip joint. The needle was then removed and a Band-Aid was applied to the injection site. The patient tolerated the procedure well and was sent for to MRI. There were no immediate complications. FL/FL arthrogram hip RT Impression: Successful instillation of dilute intra-articular gadolinium into the right hip joint prior to MRI. The procedure was performed by Carlos Romero PA-C, and directly supervised by Dr. Miller.
--- NOTE | ~2024-01-11 | MR_ITS ---
EXAMINATION: MR HIP WITH CONTRAST, RIGHT CLINICAL INFORMATION: Right hip pain x2 years, constant. Swelling. Numbness. Sprain of the right hip. Evaluate for labral tear. COMPARISON: MRI dated 07/03/2023. TECHNIQUE: MRI of the right hip was performed after the intra-articular administration of a dilute gadolinium-containing solution on a high-field scanner. FINDINGS: LABRUM/CAPSULE: Again seen is a smoothly marginated, shallow cleft between the acetabular rim and labrum at the chondrolabral junction posterosuperiorly between the 12 o'clock position and posterosuperior 1 o'clock position over a distance of 1 cm. This is unchanged and most consistent with a normal variant sulcus. A focal labral tear is less likely. No new tears are identified. ALPHA ANGLE (at the anterior 3 o'clock position): 49 degrees ACETABULAR DEPTH: Normal. BONES AND ARTICULAR CARTILAGE: Bone marrow signal is normal. No fracture or malalignment at the right hip including the proximal femur and imaged portion of the right innominate bone. 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 MUSCLES AND TENDONS: Muscles are normal in signal intensity aside from the injection-related edema signal. Tendons are intact. No tears or tendinosis. JOINT FLUID AND BURSAE: No bursitis. No apparent loose bodies within the joint. LIGAMENTUM TERES: Intact. INTRAPELVIC SOFT TISSUES: Mild colonic diverticulosis. No acute diverticulitis. Micrometallic susceptibility artifact is evident around the uterus, suggesting prior . MR/MR hip RT w con IMPRESSION: 1. No appreciable labral tears. A shallow cleft at the chondrolabral junction posterosuperiorly is unchanged and most consistent with a normal variant sulcus. 2. 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
[2024-01-11] MEDS: gadobutroL 10 ML VIAL IVPUSH (14:05)
== END 2024-01-11 13:13 | disposition home or self-care (01) ==
LOC: HO.XRAY 13:12
PROVIDERS: PCP Physician Assistant; Visit Provider Physician Assistant
DX: S73.191A Other sprain of right hip, initial encounter (principal)
CPT/HCPCS: 27093; 73525; 73722; A9585

== ENCOUNTER → 2024-01-11 14:00 | Outpatient (BNV) | payer OTHER, SELFPAY | PROVIDERS: PCP Physician Assistant; Visit Provider Physician Assistant Surgical | DX: M25.551 Pain in right hip (principal) | CPT/HCPCS: 27093; 73525 ==

== ENCOUNTER 2024-03-25 09:47 | Outpatient (AMB) | payer OTHER, SELFPAY ==
--- NOTE | 2024-03-25 09:50 | MHC.OFFVIS ---
Vital Signs 03/25/24 09:54 Height 5 ft 3 in Weight 250 lb 4 oz BMI 44.3 BP 150/67 H Blood Pressure Location Lt brachial Position Sitting Pulse 73 Pulse Source Pulse Oximeter Pulse Oximetry (%) 98 Oxygen Delivery Method Room Air Intake Visit Reasons: follow up on new mri Intake Note: Pain today 01/18 Sticker On Required: No Accompanied by: Daughter Allergies dexamethasone [DEXAMETHASONE] Adverse Reaction (Unknown, Verified 03/25/24 09:54) ANXIETY HPI Comments Details: Patient presents today for follow up for persistent right sided low back and hip pain. She was evaluated by Orthopedics earlier this year and was told she is not surgical candidate. She was recommended weight loss and PT. She completed 18 sessions of PT and continued HEP with partial improvement in her symptoms. Patient underwent right hip MRI with contrast in January. Results were reviewed with patient and are noted below. Patient reports most of her pain is localized to right side of lower back that extends into her right sacral area and down into her right leg. She interested in right SIJ therapeutic injection under sedation. Denies any recent cough, cold, infection, fever, skin rashes or swelling, or other significant changes in medical history since last office visit. Patient reports she has been on waiting list for 6 months for [facility] [place] Weight Management Referral as her methods to loose weight through dieting and eliminating certain food choices have not been effective. Morbid obesity has been worsening her lower back and hip pain. She request referral to [facility] for weight management evaluation. Past Procedures: 03/06/23: Diagnostic Right Hip Intra-Articular Injection-100% pain relief for 1.5 days 02/13/23: Diagnostic Right SIJ injection -70% pain relief for 4-5 hours PRIOR: Patient is a pleasant 31-year-old female is a history of herniated disc, spinal stenosis, left L4/L5 partial lumbar decompression and chronic low back pain presents today for initial consultation for back pain with radiation to right lower extremity and right hip pain. Patient reports pain started in 2020, 1 month after delivering her 3rd child through and since then it has been progressively getting worse and being constant. Pain is described as constant throbbing, shooting, stabbing, sharp, pinching, tugging, pulling, hot burning, tingling, sore, tiring, killing, radiating, piercing, and tight. She notes that left lumbar decompression completely alleviated her severe left leg pain in 2020. More recently, she is experiencing a right-sided radiculopathy with significant right leg pain and right hip pain. She has difficulty raising her right leg due to weakness and pain with associated numbness and tingling. Patient also has localized tenderness in the projection of the right sacroiliac joint. Patient reports numbness in her RLE while sitting with her legs crossed. Reports back pain has been refractory to physical therapy in the past and due to significant pain at this time, she is not able to pursue PT walking or prolonged standing increases her pain and back pain will radiate to the lateral right buttock and into right groin. She is unable to take steroids as she has a poor reaction to them, reports significant anxiety and psychosis his dexamethasone. Patient has asthma and has been tolerating Advair Diskus well. Patient is willing to trial therapeutic cortisone injections to relieve her right lower leg pain with pre-medication. Pain has been affecting her daily functioning, activities, sleep, mood, and social interactions. Tylenol and cyclobenzaprine have been minimally effective. Lumbar spine MRI 08/16/22 reviewed and is noted below. Right hip xray is pending. Denies fever, abdominal pain, bladder or bowel incontinence or saddle anesthesia. [facility] Medical History Right hip pain Pre-op evaluation Bunion of great toe of left foot Asthma PCOS (polycystic ovarian syndrome) Surgical History Hx of cholecystectomy History of tubal ligation History of back surgery History of carpal tunnel surgery (~04/2020) Hx of section Family History Father Unknown family medical history Maternal Uncle Blocked artery Family/Other Colon cancer Maternal Uncle Blocked artery Mother No problems noted. Maternal Grandmother Stroke S/P triple vessel bypass Social History Household Members: Children Housing: House Alcohol intake: former Comment: counts correct Patient Tobacco Use Status: Never used Tobacco e-Cigarette/Vaping Use: Never Used Second Hand Smoke Exposure: No service: No Current occupational status: unemployed Cognitive needs: No Hearing needs: No Vision needs: Yes Review of Systems Const All systems reviewed & are unremarkable except as noted in HPI and below Physical Exam Vital Signs: Last Vital Signs Pulse 73 03/25/24 09:54 BP 150/67 H 03/25/24 09:54 Pulse Ox 98 03/25/24 09:54 Oxygen Delivery Method Room Air 03/25/24 09:54 BMI result Body Mass Index 44.3 General: Appears afebrile. No acute distress. Morbidly obese. Alert and oriented. Mood and affect appropriate. Follows and participates in conversation appropriately. Respiratory effort is unlabored. No cough. Able to transition from sit to stand unassisted. Ambulates with bilaterally normal heel strike and toe off. General: Yes no CVA tenderness Back/Spine/Pelvis Other: Patient is able to walk and stand on heels and tip toes with mild difficulty on the right due to pain, otherwise demonstrates good motor tone. No limping. Can flex forward to 70-75 degrees and extend to 5-10 degrees before experiencing lumbar pain. Demonstrates 5/5 left and 4/5 right strength of quadriceps bilaterally as well as flexion/dorsiflexion of bilateral feet against resistance. 2+ pedal pulses bilaterally. Seated straight leg rise with dorsiflexion negative bilaterally. +1 right +2 left patellar and +1 achilles reflexes bilaterally. Facet loading test positive bilaterally. Stanton sign positive bilaterally, right>left. Duy?s, Gaenslen, Pelvic compression and Stinchfield tests are positive on the right. No groin pain with I/E hip rotations. Valsalva maneuver negative. Back: no CVA tenderness Cervical Spine: normal cervical lordosis, cervical ROM normal, cervical muscular tenderness and No Cervical spine tenderness Thoracic/Lumbar Spine: thoracic and lumbar spine normal to inspection, Thoracic/lumbar spine scar(s), Lasegue's sign negative, straight leg raise negative bilaterally, pain with thoraco-lumbar ROM, paraspinal muscle tenderness, thoraco-lumbar ROM limited, No thoracic spinal tenderness and lumbar spinal tenderness Pelvis: buttock tenderness on the right and no sciatic notch tenderness Sacroiliac joints: bilaterally tender to palpation Results Reviewed Results Reviewed: MR HIP WITH CONTRAST, RIGHT 01/11/24 CLINICAL INFORMATION: Right hip pain x2 years, constant. Swelling. Numbness. Sprain of the right hip. Evaluate for labral tear. COMPARISON: MRI dated 07/03/2023. FINDINGS: LABRUM/CAPSULE: Again seen is a smoothly marginated, shallow cleft between the acetabular rim and labrum at the chondrolabral junction posterosuperiorly between the 12 o'clock position and posterosuperior 1 o'clock position over a distance of 1 cm. This is unchanged and most consistent with a normal variant sulcus. A focal labral tear is less likely. No new tears are identified. ALPHA ANGLE (at the anterior 3 o'clock position): 49 degrees ACETABULAR DEPTH: Normal. BONES AND ARTICULAR CARTILAGE: Bone marrow signal is normal. No fracture or malalignment at the right hip including the proximal femur and imaged portion of the right innominate bone. 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 MUSCLES AND TENDONS: Muscles are normal in signal intensity aside from the injection-related edema signal. Tendons are intact. No tears or tendinosis. JOINT FLUID AND BURSAE: No bursitis. No apparent loose bodies within the joint. LIGAMENTUM TERES: Intact. INTRAPELVIC SOFT TISSUES: Mild colonic diverticulosis. No acute diverticulitis. Micrometallic susceptibility artifact is evident around the uterus, suggesting prior . IMPRESSION: 1. No appreciable labral tears. A shallow cleft at the chondrolabral junction posterosuperiorly is unchanged and most consistent with a normal variant sulcus. 2. 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 Assessment & Plan Assessment & Plan (1) Lumbar degenerative disc disease: Code(s): M51.36 - Other intervertebral disc degeneration, lumbar region Category: Medical (2) Post laminectomy syndrome: Code(s): M96.1 - Postlaminectomy syndrome, not elsewhere classified Category: Medical (3) Morbid obesity with BMI of 45.0-49.9, adult: Code(s): E66.01 - Morbid (severe) obesity due to excess calories; Z68.42 - Body mass index [BMI] 45.0-49.9, adult Category: Medical (4) Right hip pain: Code(s): M25.551 - Pain in right hip Category: Medical (5) Tendinopathy of right gluteus medius: Code(s): M67.951 - Unspecified disorder of synovium and tendon, right thigh Category: Medical (6) Sacroiliac joint pain: Code(s): M53.3 - Sacrococcygeal disorders, not elsewhere classified Category: Medical (7) Sacroiliitis: Code(s): M46.1 - Sacroiliitis, not elsewhere classified Category: Medical Plan Right hip MRI results were discussed with patient today. Today's exam is consistent with right SIJ and right sided low back pain. Continue home exercise program for current symptoms and strengthen and rehab low back, SIJ and hip pain. She completed PT in August with partial improvement requests another PT course for low back and SIJ pain. Schedule Right SIJ steroid (kenolog) intra-articular injection with sedation and fluoroscopy. Patient had 70% pain relief with diagnostic right SIJ [place] [address] Lopez. Patient reported significant anxiety with dexamethasone in the past but willing to undergo therapeutic injection in a monitored environment. Weight Management Referral for morbid obesity, BMI 44.3 which affects her chronic low back and hip pain. All questions and concerns have been answered and patient agreed with the plan. Follow up after injection and sooner as needed. Orders: Orders PT Evaluation and Treatment Today M46.1 - Sacroiliitis, not elsewhere classified, M53.3 - Sacrococcygeal disorders, not elsewhere classified, M96.1 - Postlaminectomy syndrome, not elsewhere classified Referrals Medical Weight Management Referral E66.01 - Morbid (severe) obesity due to excess calories, M51.36 - Other intervertebral disc degeneration, lumbar region, M53.3 - Sacrococcygeal disorders, not elsewhere classified, M96.1 - Postlaminectomy syndrome, not elsewhere classified, Z68.41 - Body mass index [BMI] 40.0-44.9, adult Coding Level of Care Code Est Pt Level 4 (48585) Complex EM visit Add On G2211 Diagnoses Lumbar degenerative disc disease M51.36 Post laminectomy syndrome M96.1 Morbid obesity with BMI of 45.0-49.9, adult E66.01; Z68.42 Right hip pain M25.551 Tendinopathy of right gluteus medius M67.951 Sacroiliac joint pain M53.3 Sacroiliitis M46.1
[2024-03-25 09:54] VITALS: BP 150/67; PULSE 73; O2SAT 98; BMI 44.3
== END 2024-03-25 10:12 | disposition home or self-care (01) ==
PROVIDERS: PCP Physician Assistant; Visit Provider Nurse Practitioner Family
DX: M51.369 Other intervertebral disc degeneration, lumbar region without mention of lumbar back pain or lower extremity pain (principal); M96.1 Postlaminectomy syndrome, not elsewhere classified; E66.01 Morbid (severe) obesity due to excess calories; Z68.42 Body mass index [BMI] 45.0-49.9, adult; M25.551 Pain in right hip; M67.951 Unspecified disorder of synovium and tendon, right thigh; M53.3 Sacrococcygeal disorders, not elsewhere classified; M46.1 Sacroiliitis, not elsewhere classified
CPT/HCPCS: 99214; G2211

== ENCOUNTER → 2024-03-25 09:47 | Outpatient (BNVA) | payer OTHER, SELFPAY | PROVIDERS: PCP Physician Assistant; Visit Provider Nurse Practitioner Family | DX: M96.1 Postlaminectomy syndrome, not elsewhere classified (principal); M25.551 Pain in right hip; M67.951 Unspecified disorder of synovium and tendon, right thigh; M53.3 Sacrococcygeal disorders, not elsewhere classified; M46.1 Sacroiliitis, not elsewhere classified; M51.360 Other intervertebral disc degeneration, lumbar region with discogenic back pain only; E66.01 Morbid (severe) obesity due to excess calories; Z68.42 Body mass index [BMI] 45.0-49.9, adult | CPT/HCPCS: 99212 ==

== ENCOUNTER 2024-04-17 09:49 | Outpatient (AMB) | payer OTHER, SELFPAY ==
--- NOTE | 2024-04-17 09:55 | MHC.PC.OV ---
Vital Signs 04/17/24 10:00 Height 5 ft 3 in Weight 249 lb 8 oz BMI 44.2 BP 114/70 Blood Pressure Location Lt brachial Position Sitting Pulse 89 Pulse Source Pulse Oximeter Pulse Oximetry (%) 97 Oxygen Delivery Method Room Air Intake Visit Reasons: [facility] 04/13 back pain/numbness knee Remote Broadcast Engineer Required: No Accompanied by: Self / Same As Patient Allergies dexamethasone [DEXAMETHASONE] Adverse Reaction (Unknown, Verified 04/17/24 10:11) ANXIETY Medication List - Last Reconciled 04/17/24 by Abdifatah Whitt PA-C baclofen 10 mg PO BID 30 days celecoxib 200 mg PO BID PRN cyclobenzaprine 5 mg PO BID 30 days famotidine 40 mg PO DAILY fluticasone propion-salmeterol 500-50 mcg/dose (Advair Diskus) 1 ea inhalation BID tramadol 50 mg PO BID 7 days Tobacco use date assessed: 07/30/23 Dental Screening Dental Screen Date: 07/30/23 HPI [facility] 04/13 back pain/numbness knee HPI Details Patient is a 33-year-old female here today for a ER follow-up visit. Patient's past medical history significant for lower lumbar disc disease, obesity and hypertension. She was seen at the [facility] ER for acute lower back pain after a fall secondary to buckling of her right knee. She did undergo x-ray of knee and MRI of her lower back which did not show any significant abnormalities, has a monitor effects showed improved lumbar spine stenosis. She was given lidocaine patches. She currently remains in a right knee immobilizer as she is having difficulty placing full weight on the knee and continues to have instability sensation in the right knee. PLAN: Will try for MRI of the right knee as she is reporting instability which has caused her falls. Concerns here for right knee meniscal tear. [facility] Medical History Right hip pain Pre-op evaluation Bunion of great toe of left foot Asthma PCOS (polycystic ovarian syndrome) Surgical History Hx of cholecystectomy History of tubal ligation History of back surgery History of carpal tunnel surgery (~04/2020) Hx of section Family History Father Unknown family medical history Maternal Uncle Blocked artery Family/Other Colon cancer Maternal Uncle Blocked artery Mother No problems noted. Maternal Grandmother Stroke S/P triple vessel bypass Social History Household Members: Children Housing: House Alcohol intake: former Comment: counts correct Patient Tobacco Use Status: Never used Tobacco e-Cigarette/Vaping Use: Never Used Second Hand Smoke Exposure: No service: No Current occupational status: unemployed Cognitive needs: No Hearing needs: No Vision needs: Yes Questionnaire Thrive Questionnaire Date Thrive assessed: 07/30/23 LAURA-7 AMB Questionnaire LAURA-7 Date LAURA - 7 assessed: 07/30/23 Source: Developed by Drs. Mike Gu, Adry Bansal, Bret Phipps and colleagues, with an educational kana from [employer]. Review of Systems Const Denies headache(s) Eyes Denies loss of vision ENT Denies vertigo, Denies dizziness, Denies headache(s) and Denies sore throat Card Denies chest pain, Denies leg edema and Denies lightheadedness Resp Denies cough, Denies hemoptysis and Denies wheezing GI Denies abdominal pain, Denies melena, Denies constipation, Denies diarrhea and Denies vomiting Denies urinary frequency, Denies dysuria and Denies urinary urgency Musc Reports back pain, Reports arthralgias, Denies joint swelling, Denies numbness and Denies tingling Neuro Denies Abnormal speech present, Denies behavioral changes, Denies vertigo, Denies dizziness, Denies headache(s), Denies loss of vision, Denies memory loss, Denies numbness and Denies tingling Psych Denies anxiety, Denies behavioral changes, Denies depression, Denies memory loss and Denies panic attacks Nick/Lymph Denies easy bleeding and Denies easy bruising Aller/Immun Denies wheezing Physical exam (Primary Care) Vital Signs: Last Vital Signs Pulse 89 04/17/24 10:00 BP 114/70 04/17/24 10:00 Pulse Ox 97 04/17/24 10:00 Oxygen Delivery Method Room Air 04/17/24 10:00 BMI result Body Mass Index 44.2 Tobacco/Smoking Status: Tobacco use Status Tobacco use date assessed 07/30/23 04/17/24 09:55 Patient Tobacco Use Status Never used Tobacco 04/17/24 09:55 e-Cigarette/Vaping Use Never Used 04/17/24 09:55 Thrive Assessment: Date of Thrive Assessment Date Thrive assessed 07/30/23 04/17/24 09:55 Const General: healthy appearing, no acute distress, alert and awake Nutritional Appearance: well nourished Orientation/consciousness: oriented to person, oriented to place and oriented to time HENMT Ears: TM's normal bilaterally General nose exam: Normal nasal mucous membranes and turbinates present Eyes Conjunctivae: conjunctivae normal Sclerae: sclerae normal Pupils: Equal, round and reactive pupils present Neck Neck: Yes no lymphadenopathy and Yes no JVD Thyroid: Thyroid normal Carotids: no bruits Resp Effort & Inspection: normal respiratory effort and not tachypneic Auscultation: no crackles, no rales, no rhonchi and no wheezes Cardio Rate: regular rate Rhythm: regular rhythm Heart sounds: no murmurs and normal S1 and S2 GI Palpation (GI): Soft to palpation, nontender, no hepatomegaly and no splenomegaly Auscultation: normal bowel sounds Skin General skin exam: no rashes or lesions noted and dry skin Neuro General: oriented to person, oriented to place and oriented to time Cranial nerves: Yes Equal, round and reactive pupils present Speech: No Abnormal speech present Gait exam (Neuro): Normal gait present Motor exam (neuro): no tremor noted Extrem Other: RIGHT KNEE: Currently in a knee immobilizer. Right upper extremity: full ROM Left upper extremity: full ROM Right lower extremity: full ROM; no edema Left lower extremity: full ROM; no edema Psych Mental Status: mental status grossly normal Speech and movement: Normal speech and movement present Affect: normal affect Attitude: cooperative Thought process: Normal thought process present Office Procedures Flu Questionnaire Does the patient have a severe egg allergy?: No Does the patient have severe life threatening allergies?: No Does the patient have a fever or illness today?: No Has the patient ever had Guillain-Bolton Syndrome?: No Has the patient ever had any past reaction to a flu shot?: No Immunizations Fluarix Triv [id number] (PF) 45 mcg (15 mcg x 3)/0.5 mL IM syringe Performing Provider: Abdifatah Whitt PA-C [facility] Administered by: KAROL Granger on 04/17/24 10:01 Dose Route Admin Location Dispensed Lot Number Expiration Date 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 0.5 mL IM Left Deltoid 0.5 mL [id number] 12/08/24 35403-680-35 [employer] VIS Given Date VIS Provided VIS Publication Date 04/17/24 Single Vaccine 21 Eligibility Eligibility Date Funding Source Not [facility] Eligible 04/17/24 Private Coding Level of Care Code Est Pt Level 4 (60551) Diagnoses Degeneration of intervertebral disc of lumbar region with discogenic back pain and lower extremity pain M51.362 Disc-related pain type: discogenic back pain and lower extremity pain Recurrent right knee instability M23.51 Tear of medial meniscus of right knee, current, unspecified tear type, subsequent encounter S83.241D Encounter type: subsequent encounter Meniscus of knee: medial Meniscus tear of knee type: unspecified type Tear current or old: current Contracture, left ankle M24.572 Assessment & Plan Assessment & Plan (1) Lumbar degenerative disc disease: Code(s): M51.36 - Other intervertebral disc degeneration, lumbar region Category: Medical Qualifiers: Disc-related pain type: discogenic back pain and lower extremity pain Qualified Code(s): M51.362 - Other intervertebral disc degeneration, lumbar region with discogenic back pain and lower extremity pain Plan: As per HPI patient continues to have lower lumbar spine and hip pain. She is following the [place] pain management in his awaiting injections. She has been using NSAID and muscle relaxer without any significant relief of her pain. Will use oxycodone 5 mg on a very limited p.r.n. basis for pain scales of 9-10 (2) Recurrent right knee instability: Code(s): M23.51 - Chronic instability of knee, right knee Category: Medical Plan: As per HPI patient has been experiencing right knee instability that has resulted in some falls. X-rays of her right knee were normal though concerns here for a soft tissue meniscal injury. Will try for MRI of the right knee (3) Right knee meniscal tear: Code(s): S83.206A - Unspecified tear of unspecified meniscus, current injury, right knee, initial encounter Category: Medical Qualifiers: Encounter type: subsequent encounter Meniscus of knee: medial Meniscus tear of knee type: unspecified type Tear current or old: current Qualified Code(s): S83.241D - Other tear of medial meniscus, current injury, right knee, subsequent encounter Plan: As above (4) Contracture, left ankle: Code(s): M24.572 - Contracture, left ankle Category: Medical Plan: Patient does report having her left ankle lock up on a daily basis. Unclear if this is related to her lower lumbar spine disease. She is interested in seeing a foot and ankle specialist for evaluation. Will send for EMG to evaluate for neuropathy in her lower extremity. Orders: Orders XR ankle LT 2V 04/17/24 M25.372 - Other instability, left ankle XR calcaneus LT min 2V 04/17/24 M25.372 - Other instability, left ankle Influenza [id number] Immunization 04/17/24 Z23 - Encounter for immunization MR knee RT wo con 04/17/24 S83.241D - Other tear of medial meniscus, current injury, right knee, subsequent encounter NE electromyogram (EMG) 04/17/24 M24.572 - Contracture, left ankle Referrals Orthopedics Referral S83.241D - Other tear of medial meniscus, current injury, right knee, subsequent encounter Podiatry Referral M24.572 - Contracture, left ankle Medications: New oxycodone Partial Fill upon patient request. 5 mg PO Q8H PRN 15 tabs 0RF pain 5 days M51.362 - Other intervertebral disc degeneration, lumbar region with discogenic back pain and lower extremity pain Discontinued tramadol Discontinued Reason: Doctor's Order 50 mg PO BID 7 days 14 tabs 0RF pain S73.192D - Other sprain of left hip, subsequent encounter
[2024-04-17 10:00] VITALS: BP 114/70; PULSE 89; O2SAT 97; BMI 44.2
== END 2024-04-17 10:26 | disposition home or self-care (01) ==
LOC: HO.HMCH 09:49
PROVIDERS: PCP Physician Assistant; Visit Provider Physician Assistant
DX: M51.362 Other intervertebral disc degeneration, lumbar region with discogenic back pain and lower extremity pain (principal); M23.51 Chronic instability of knee, right knee; S83.241D Other tear of medial meniscus, current injury, right knee, subsequent encounter; M24.572 Contracture, left ankle

== ENCOUNTER → 2024-04-17 09:49 | Outpatient (BNVA) | payer OTHER, SELFPAY | PROVIDERS: PCP Physician Assistant; Visit Provider Physician Assistant | DX: Z23 Encounter for immunization (principal); M61.362 Calcification and ossification of muscles associated with burns, left lower leg; M23.51 Chronic instability of knee, right knee; M24.572 Contracture, left ankle; S83.241D Other tear of medial meniscus, current injury, right knee, subsequent encounter | CPT/HCPCS: 90471; 90656; 99212 ==

== ENCOUNTER 2024-05-15 | Outpatient (REF) | payer OTHER, SELFPAY ==
--- OUTSIDE RECORDS SUMMARY | 2024-06-02 13:55 | XMS_ITS | Continuity of Care Document ---
Author Organization [facility] [employer] Address [address] [place] [address], [place] [address]- Care Team Providers Care Media Center Director School Name Role Phone Abdifatah Clifton Primary Care Physician [facility] [facility] [place]): 04/23/24 - 05/23/24 [facility] [address], [address] [place] [address] Encounter Type: Triage Allergies, Adverse Reactions, Alerts Substance Criticality Severity [...] Refills, Maintenance, 12/13/23 12:21:00 PM EDT, Tablet, [id number], Partial fill upon patient request if [...] 0 Refills, Maintenance, 04/13/24 2:53:00 PM EST, [id number], Partial fill upon patient request if [...] Refills, Maintenance, :01:00 AM EDT, REC Powder, [id number], Partial fill upon patient request if the prescription is for a schedule II opioid drug., 17 Gm By Mouth Daily,Instr:dissolve in water before taking, 160, cm, 12/11/21 0:15:00 EDT, Height, 117.2, kg, 12/07/21 23:30:00 EDT, Dry Weight Start Date: 12/11/21 Status: Ordered Quantity: 255.0 Unit: g Repeat number: 1 ProAir HFA 90 mcg/inh [...] Refills, Maintenance, 12/13/23 12:21:00 PM EDT, Tablet, [id number], Partial fill upon patient request if [...] 6:01:00 AM EDT, Route to Pharmacy Electronically, [id number], Partial fill upon patient request if [...] 6L4-L5. Recent surgery for herniated disc 03/17/21. Social History Social History Type Response Smoking Status Never (less than 100 in lifetime) entered on: 05/31/21 Sex Sex Representation Female (finding) Patient Care team information Care Team Personnel Name: Abdifatah Clifton Position: Reference Physician Member Role: PCP Address[address] [place] [address]- Telecom: Name: Cassidy Palma RN Position: S RN Member Role: Primary Care Nurse Name: Karena SNYDER, Olya Méndez Position: [facility] SUPERINTENDENT REFUSE DISPOSAL MD Member Role: [employer] SUPERINTENDENT REFUSE DISPOSAL Physician Address: [address] [place] [address] [place] [address]- Telecom: Care Team Related Persons Name: RENUKA ALSTON Name: SMITH LARA Name: RAMSES LARA Name: TIFFANI BECKFORD Insurance Providers Guarantor name: [facility] Information #: 1 Payer: [employer] Member Number: NA Policy Number: NA Group Number: NA
== END 2024-05-15 00:01 | disposition home or self-care (01) ==
LOC: CF
PROVIDERS: PCP Physician Assistant; Visit Provider Orthopaedic Surgery
DX: M25.561 Pain in right knee (principal)
CPT/HCPCS: 99212

== ENCOUNTER 2024-05-15 09:20 | Outpatient (REF) | payer OTHER, SELFPAY | END 2024-05-15 09:21 | disposition home or self-care (01) | LOC: HO.HOSX 09:20 | PROVIDERS: Visit Provider Orthopaedic Surgery | DX: M25.561 Pain in right knee (principal) | CPT/HCPCS: 73562 ==

== ENCOUNTER 2024-05-15 09:31 | Outpatient (AMB) | payer OTHER, SELFPAY ==
--- NOTE | 2024-05-15 09:36 | A.OFFVIS_ITS ---
Vital Signs 05/15/24 09:44 Height 5 ft 3 in Weight 249 lb BMI 44.1 Intake Visit Reasons: New Prob-R knee pain Intake Note: Rufina is a 33 year old female who presents with complaints of progressively worsening right knee pain and giving way. The patient states that when she was doing gymnastics several years ago she ?dislocated? her patella on 3 separate occasions. She states that it feels like her patella is going to dislocate at times now. She reports increased pain when going up and down stairs. She states that her knee will buckle several times per day. She is due to get an MRI of her right knee over the next few weeks. Allergies dexamethasone [DEXAMETHASONE] Adverse Reaction (Unknown, Verified 05/15/24 09:45) ANXIETY Medication List - Last Reconciled 05/15/24 by Lalo Padilla MD baclofen 10 mg PO BID 30 days cyclobenzaprine 5 mg PO BID 30 days famotidine 40 mg PO DAILY fluticasone propion-salmeterol 500-50 mcg/dose (Advair Diskus) 1 ea inhalation BID oxycodone 5 mg PO Q8H PRN 5 days PFSH Medical History Right hip pain Pre-op evaluation Bunion of great toe of left foot Asthma PCOS (polycystic ovarian syndrome) Surgical History Hx of cholecystectomy History of tubal ligation History of back surgery History of carpal tunnel surgery (~04/2020) Hx of section Family History Father Unknown family medical history Maternal Uncle Blocked artery Family/Other Colon cancer Maternal Uncle Blocked artery Mother No problems noted. Maternal Grandmother Stroke S/P triple vessel bypass Social History Household Members: Children Housing: House Alcohol intake: former Comment: counts correct Patient Tobacco Use Status: Never used Tobacco e-Cigarette/Vaping Use: Never Used Second Hand Smoke Exposure: No service: No Current occupational status: unemployed Cognitive needs: No Hearing needs: No Vision needs: Yes Physical Exam Vital Signs: BMI result Body Mass Index 44.1 Const Other: Well-nourished well-developed very friendly female awake alert and oriented x3 in no acute distress Extrem Other: Right knee examination shows a minimal effusion, minimal crepitus with range of motion, tenderness along her medial joint line and tenderness along her medial patellofemoral ligament, positive apprehension test Results Reviewed Results Reviewed: X-rays of the patient's right knee show no significant bony abnormalities Assessment & Plan Assessment & Plan (1) Right knee pain: Code(s): M25.561 - Pain in right knee Category: Medical Plan Ms. Rodriguez presents with recurrent right knee pain and symptoms of instabilit y most likely due to a medial meniscus tear versus possible recurrence lateral patellar instability. The patient is already scheduled for a right knee MRI. She will contact me by phone once the MRI is completed to discuss the findings and treatment options. She will continue with her activity modifications in the meantime. Thank you very much for asking me to see this very friendly patient. I spent 22 minutes in reviewing the patient's records and imaging studies, seeing the patient and documenting in the medical record. Orders: Orders XR knee RT 3V Today M25.561 - Pain in right knee Coding Level of Care Code Est Pt Level 3 (03621) Complex EM visit Add On G2211 Diagnoses Right knee pain M25.561
[2024-05-15 09:44] VITALS: BMI 44.1
--- OUTSIDE RECORDS SUMMARY | 2024-05-21 00:54 | XMS_ITS | Continuity of Care Document ---
Author Organization [facility] ter Address [address] [place] [address]- Care Team Providers Care Patient Attendant Name Role Phone Abdifatah Clifton Primary Care Physician En[place] [facility] [place] [facility] [place] [id number] Date(s): 04/23/24 - 04/23/24 [facility] [address] [place] [id number]- Discharge Disposition: A-D/C Home Attending Physician: Antony De La Rosa MD Admitting Physician: Antony De La Rosa MD Referring Physician: Not on Staff, Referring MD Encounter Type: Disch ES Allergies, Adverse Reactions, Alerts Substance Criticality Severity Reaction Reaction Severity Status Decadron Increase Heart Rate Headache, Hot Flash Active Immunizations Given and Recorded Vaccine Date Status Refusal Reason Measles/Mumps/Rubella Virus Vaccine 12/11/21 Given tetanus/diphtheria/pertussis, acel(Tdap) 10/10/21 Given Medications Advair Diskus 500 mcg-50 mcg inhalation powder 1, puffs, Inhalation, 2 times a day, # 180 each, Refills 0, Maintenance, 03/30/22 1:04:00 PM EDT, Powder Start Date: 03/30/22 Status: Ordered Quantity: 180.0 Unit: each Repeat number: 1 Baclofen By Mouth, 3 times a day, 0 Refills, Maintenance, 09/19/23 5:23:00 PM EDT, Partial fill upon patient request if the prescription is for a schedule II opioid drug. Start Date: 09/19/23 Status: Ordered Repeat number: 1 CeleBREX 200 mg oral capsule 1 capsule = 200 mg, By Mouth, 2 times a day, 0 Refills, Maintenance, 09/19/23 5:23:00 PM EDT, Capsule, Partial fill upon patient request if the prescription is for a schedule II opioid drug. Start Date: 09/19/23 Status: Ordered Repeat number: 1 drospirenone 4 mg oral tablet 1 tablet = 4 mg, By Mouth, Daily, # 84 tablet, 4 Refills, Maintenance, 12/13/23 12:21:00 PM EDT, Tablet, [facility]/pharmacy #[id number], Partial fill upon patient request if the prescription is for a schedule II opioid drug., 158, cm, 12/13/23 8:58:00 EDT, Height, 113.6, kg, 12/13/23 8:27:00 EDT, Dry Weight Start Date: 12/13/23 Status: Ordered Quantity: 84.0 Unit: tablet Repeat number: 5 famotidine 10 mg oral tablet 1 tablet = 10 mg, By Mouth, Once, 0 Refills, Maintenance, 09/19/23 5:23:00 PM EDT, Partial fill uponpatient request if the prescription is for a schedule II opioid drug. Start Date: 09/19/23 Status: Ordered Repeat number: 1 Flovent 110 mcg Inhaler HFA 2, puffs, Inhalation, PRN, Refills 0, Maintenance, 02/22/21 1:50:00 PM EDT Start Date: 02/22/21 Status: Ordered Repeat number: 1 Lidoderm 5% film 1 patch, Topically, Daily, remove patches after 12 hours, # 30 patch, 0 Refills, Maintenance, 04/13/24 2:53:00 PM EST, [facility]/pharmacy #[id number], Partial fill upon patient request if the prescription is for a schedule II opioid drug., 1 patch Topically Daily,Instr:remove patches after 12 hours, 160, cm, 04/13/24 11:41:00 EST, Height, 109, kg, 04/13/24 11:41:00 EST, Dry Weight Start Date: 04/13/24 Status: Ordered Quantity: 30.0 Unit: patch Repeat number: 1 MiraLax oral powder for reconstitution = 17 Gm, By Mouth, Daily, dissolve in water before taking, # 255 Gm, 0 Refills, Maintenance, :01:00 AM EDT, REC Powder, [facility]/pharmacy #[id number], Partial fill upon patient request if the prescription is for a schedule II opioid drug., 17 Gm By Mouth Daily,Instr:dissolve in water before taking, 160, cm, 12/11/21 0:15:00 EDT, Height, 117.2, kg, 12/07/21 23:30:00 EDT, Dry Weight Start Date: 12/11/21 Status: Ordered Quantity: 255.0 Unit: g Repeat number: 1 MorPHINE Inj 4 mg, Injection, IV Push Slowly, Every 5 minutes for 3 doses/times, PRN for Pain , Moderate, and SBP greater than 100, STAT, 04/23/24 11:43:00 AM EST Start Date: 04/23/24 Stop Date: 04/24/24 Status: Discontinued Repeat number: 1 ProAir HFA 90 mcg/inh inhalation aerosol 2 puffs, Inhalation, 4 times a day, PRN as needed for wheezing, # 6.7 Gm, 0 Refills, Maintenance, 02/22/21 1:50:00 PM EDT, Aerosol, Partial fill upon patient request if the prescription is for a schedule II opioid drug. Start Date: 02/22/21 Status: Ordered Quantity: 6.7 Unit: g Repeat number: 1 Tramadol By Mouth, 0 Refills, Maintenance, 12/13/23 8:41:00 AM EDT, Partial fill upon patient request if the prescription is for a schedule II opioid drug. Start Date: 12/13/23 Status: Ordered Repeat number: 1 tranexamic acid 650 mg oral tablet 2 tablet = 1,300 mg, By Mouth, 3 times a day, For heavy menses, # 30 tablet, 0 Refills, Maintenance, 12/13/23 12:21:00 PM EDT, Tablet, [facility]/pharmacy #[id number], Partial fill upon patient request if the prescription is for a schedule II opioid drug., 158, cm, 12/13/23 8:58:00 EDT, Height, 113.6, kg, 12/13/23 8:27:00 EDT, Dry Weight Start Date: 12/13/23 Stop Date: 12/18/23 Status: Ordered Quantity: 30.0 Unit: tablet Repeat number: 1 Tylenol 325 mg oral tablet 650 mg, 2, tablet, By Mouth, Every 4 hours, PRN, # 40 tablet, Refills 0, Tot. Refills 0, Maintenance, for pain, 12/11/21 6:01:00 AM EDT, Route to Pharmacy Electronically, [facility]/pharmacy #[id number], Partial fill upon patient request if the prescription is for a schedule II opioid drug., 160, cm, 12/11/21 0:15:00 EDT, Height, 117.2, kg, 12/07/21 23:30:00 EDT, Dry Weight Start Date: 12/11/21 Status: Ordered Quantity: 40.0 Unit: tablet Repeat number: 1 Problem List Condition Confirmation Course Effective Dates Status H ealth Status Informant Elevated glucose tolerance test Confirmed Active Abnormal uterine bleeding Confirmed Active Asthma 1 Confirmed Active BMI 45.0-49.9, adult Confirmed Active Constipation, chronic 2 Confirmed Active COVID Confirmed 06/2020 Active Depression Confirmed Active Epigastric pain Confirmed Active H/O microdiscectomy Confirmed Active History of Confirmed Active History of depression 3 Confirmed Active History of delivery Confirmed Active H/O goiter Confirmed Active History of pre-eclampsia Confirmed Active ??Chronic hypertension 4 Confirmed Active Irregular bleeding Confirmed Active Elevated antibody levels Confirmed Active Migraine 5 Confirmed Active Migraines Confirmed Active Non-alcoholic fatty liver disease Confirmed Active Pelvic pain Confirmed Active PCOS (polycystic ovarian syndrome) Confirmed Active Lumbar herniated disc 6 Confirmed Active Hx of Frequent UTIs Confirmed Active Rubella non-immune status, antepartum Confirmed Active Severe obesity Confirmed Active 1Has disc for once daily use and proair for prn use. 2Has a GI specialist that she sees for this. Colace prn. 3After 1st son, but states never dx'd with it. I just dealt with it at happen , very depressed, young, FOB not around. Fine after 2nd child. 4Was on medication, but got under control and has been ok since off of the medication ~1yr ago. 5Gets often, usually will take ibuprofen and go to sleep. Was supposed to be prescribed something inpast but never was so has just taken ibuprofen. 6L4-L5. Recent surgery for herniated disc 03/17/21. Results Radiology Reports * Exam Date Time Procedure Performing Provider Status 04/23/24 2:[address] Abd/Pelvis W/ IV Contrast Only Abby Barraza; Auth (Verified) Notes: (CT Abd/Pelvis W/ IV Contrast Only) Reason For Exam: RLQ abd pain;Other: RESULT: CT Abd/Pelvis W/ IV Contrast Only CT Abd/Pelvis W/ IV Contrast Only Hx of Present Illness: RLQ pain x 6 days + vomiting; Reason: Other:; RLQ abd pain; Clinical Question(s): Appendicitis; Order Comment: TECHNIQUE: Spiral CT through the abdomen and pelvis with IV contrast formatted in 3 planes. 100 cc of Isovue 300 was administered intravenously. This study was performed without oral contrast. Weight-based protocol using automatic tube modulation was used to optimize exposure parameters. COMPARISON: 11/28/23 FINDINGS: The heart is normal in size. There is no pericardial effusion. The visualized lung bases are unremarkable. The liver is unremarkable. The gallbladder is not visualized and may be surgically absent. The spleen, pancreas, and adrenal glands are unremarkable. Symmetric renal contrast enhancement is demonstrated bilaterally. There is a 0.5 cm hypodensity arising from the upper pole of the right kidney, too small to characterize but statistically likely to represent a cyst not requiring follow- up. No hydronephrosis is present. The bladder is minimally distended and grossly unremarkable. The uterus is opposed to the anterior abdominal wall, likely related to prior sections. The stomach, small bowel, and appendix are unremarkable. The colon is normal in course and caliber.There is no obstruction. There is no free air, free fluid, or lymphadenopathy The osseous structures are unremarkable. IMPRESSION: Unremarkable examination. WSN: [id number] Ordering Physician: Johanna Askew Dictated By: Rere Carter MD Dictated Date/Time: 04/23/24 2:53 pm Reviewed By: Rere Carter MD Signed By: Rere aCrter MD Signed Date/Time: 04/23/24 2:53 pm Transcribed By: LUIS E Transcribed Date/Time: 04/23/24 2:38 pm * Exam Date Time Procedure Performing Provider Status 04/23/24 12:54 PM US Pelvic Transvaginal Susy Crandall; Brian (Verified) Notes: (US Pelvic Transvaginal) Reason For Exam: Pelvic Pain;Other: RESULT: US Pelvic Transvaginal US Pelvic Transabdominal, US Pelvic Doppler Comp, US Pelvic Transvaginal Hx of Present Illness: RLQ pain x 6 days + vomiting; Reason: Pelvic Pain; Clinical Question(s): Torsion COMPARISON: Multiple priors, most recent pelvic ultrasound 11/28/2023 TECHNIQUE: Transabdominal and transvaginal pelvic ultrasound with grayscale, color Doppler, and spectral Doppler analysis. FINDINGS: UTERUS: Size: 14.6 x 4.9 x 6.9 cm, volume 258.7 cc. Endometrial thickness: 1.1 cm. Morphology: Normal configuration and echotexture. RIGHT OVARY: Size: 2.3 x 1.9 x 2.3 cm, volume 5.0 cc. Morphology: Normal echotexture. No pathologic cysts or mass. Normal arterial and venous waveforms. LEFT OVARY: Size: 4.0 x 1.6 x 2.9 cm, volume 9.4 cc. Morphology: Normal echotexture. No pathologic cysts or mass. Normal arterial and venous waveforms. ADNEXA: Normal. No adnexal masses or fluid collections. IMPRESSION: Normal flow to the bilateral ovaries. No findings to suggest ovarian torsion. Normal uterus. I have personally reviewed the images and I agree with this report. WSN: [id number] Ordering Physician: Johanna Askew Dictated By: Faith Blanca MD Dictated Date/Time: 04/23/24 2:19 pm Reviewed By: Baljit Nguyen MD Signed By: Baljit Nguyen MD Signed Date/Time: 04/23/24 2:24 pm Transcribed By: LUIS E Transcribed Date/Time: 04/23/24 1:13 pm * Exam Date Time Procedure Performing Provider Status 04/23/24 12:54 PM US Pelvic Doppler Comp Susy Crandall; Auth (Verified) Notes: (US Pelvic Doppler Comp) Reason For Exam: Pelvic Pain;Other: RESULT: US Pelvic Doppler Comp US Pelvic Transabdominal, US Pelvic Doppler Comp, US Pelvic Transvaginal Hx of Present Illness: RLQ pain x 6 days + vomiting; Reason: Pelvic Pain; Clinical Question(s): Torsion COMPARISON: Multiple priors, most recent pelvic ultrasound 11/28/2023 TECHNIQUE: Transabdominal and transvaginal pelvic ultrasound with grayscale, color Doppler, and spectral Doppler analysis. FINDINGS: UTERUS: Size: 14.6 x 4.9 x 6.9 cm, volume 258.7 cc. Endometrial thickness: 1.1 cm. Morphology: Normal configuration and echotexture. RIGHT OVARY: Size: 2.3 x 1.9 x 2.3 cm, volume 5.0 cc. Morphology: Normal echotexture. No pathologic cysts or mass. Normal arterial and venous waveforms. LEFT OVARY: Size: 4.0 x 1.6 x 2.9 cm, volume 9.4 cc. Morphology: Normal echotexture. No pathologic cysts or mass. Normal arterial and venous waveforms. ADNEXA: Normal. No adnexal masses or fluid collections. IMPRESSION: Normal flow to the bilateral ovaries. No findings to suggest ovarian torsion. Normal uterus. I have personally reviewed the images and I agree with this report. WSN: [id number] Ordering Physician: Johanna Askew Dictated By: Faith Blanca MD Dictated Date/Time: 04/23/24 2:19 pm Reviewed By: Baljit Nguyen MD Signed By: Baljit Nguyen MD Signed Date/Time: 04/23/24 2:24 pm Transcribed By: LUIS E Transcribed Date/Time: 04/23/24 1:13 pm * Exam Date Time Procedure Performing Provider Status 04/23/24 12:54 PM US Pelvic Transabdominal Lloyd Crandall; Auth (Verified) Notes: (US Pelvic Transabdominal) Reason For Exam: Pelvic Pain;Other: RESULT: US Pelvic Transabdominal US Pelvic Transabdominal, US Pelvic Doppler Comp, US Pelvic Transvaginal Hx of Present Illness: RLQ pain x 6 days + vomiting; Reason: Pelvic Pain; Clinical Question(s): Torsion COMPARISON: Multiple priors, most recent pelvic ultrasound 11/28/2023 TECHNIQUE: Transabdominal and transvaginal pelvic ultrasound with grayscale, color Doppler, and spectral Doppler analysis. FINDINGS: UTERUS: Size: 14.6 x 4.9 x 6.9 cm, volume 258.7 cc. Endometrial thickness: 1.1 cm. Morphology: Normal configuration and echotexture. RIGHT OVARY: Size: 2.3 x 1.9 x 2.3 cm, volume 5.0 cc. Morphology: Normal echotexture. No pathologic cysts or mass. Normal arterial and venous waveforms. LEFT OVARY: Size: 4.0 x 1.6 x 2.9 cm, volume 9.4 cc. Morphology: Normal echotexture. No pathologic cysts or mass. Normal arterial and venous waveforms. ADNEXA: Normal. No adnexal masses or fluid collections. IMPRESSION: Normal flow to the bilateral ovaries. No findings to suggest ovarian torsion. Normal uterus. I have personally reviewed the images and I agree with this report. WSN: [id number] Ordering Physician: Johanna Askew Dictated By: Faith Blanca MD Dictated Date/Time: 04/23/24 2:19 pm Reviewed By: Baljit Nguyen MD Signed By: Baljit Nguyen MD Signed Date/Time: 04/23/24 2:24 pm Transcribed By: LUIS E Transcribed Date/Time: 04/23/24 1:13 pm Vital Signs Most recent to oldest [Reference Range]: 1 2 3 Height 158 cm (04/23/24 10:20 AM) Weight 111 kg (04/23/24 10:20 AM) Oxygen Saturation [94-100 %] 100 % (04/23/24 3:35 PM) 99 % (04/23/24:13 PM) 100 % (04/23/24 11:04 AM) Pulse Rate [55-90 bpm] 76 bpm (04/23/24 3:35 PM) 71 bpm (04/23/24 1:13 PM) 79 bpm (04/23/24 11:04 AM) Body Mass Index [18.5-24.99 kg/m2] 44.46 kg/m2 *>HHI* (04/23/24 10:20 AM) Blood Pressure [90-138/55-84 mm Hg] 120/80mm Hg (04/23/24 3:35 PM) 119/79mm Hg (04/23/24:13 PM) 138/102mm Hg (04/23/24 11:04 AM) Respiratory Rate [16-30 br/min] 18 br/min (04/23/24 3:35 PM) 20 br/min (04/23/24 1:15 PM) 20 br/min (04/23/24 1:13 PM) Temperature [96.8-100.4 DegF] 98.6 DegF (04/23/24 11:04 AM) 98.5 DegF (04/23/24 10:20 AM) Mode of Delivery (Oxygen) Room air (04/23/24 3:35 PM) Room air (04/23/24 1:13 PM) Room air (04/23/24 11:04 AM) Temperature Route Oral (04/23/24 11:04 AM) Oral (04/23/24 10:20 AM) Dry Weight 111 kg (04/23/24 10:20 AM) Social History Social History Type Response Smoking Status Never (less than 100 in lifetime) entered on: 05/31/21 Sex Sex Representation Female (finding) Note * Johanna Wagner: PERFORM Event Display: Patient Education Leaflets Authored Date: [id number] Unknown Causes of Abdominal Pain (Adult) ?? [id number] Unknown Causes of Abdominal Pain (Adult) The exact cause of your belly (abdominal) pain is not clear. Your exam and tests don't suggest a dangerous cause at this time. This does not mean that this is something to worry about. Everyone likesto know the exact cause of the problem. But sometimes with belly pain, there is no clear-cut cause,and this could be a good thing. Your symptoms can be treated, and you should feel better.?? Your condition does not seem serious now. But sometimes the signs of a serious problem may take more time to appear. For this reason,??it's important for you to watch for any new symptoms, problems,??or if your condition gets worse. Over the next few days, the abdominal pain may come and go. Or it may be constant. Other common symptoms can include nausea and vomiting. Sometimes it can be difficult to tell if you feel nauseous. You may just feel bad and not connect that feeling to nausea. Constipation, diarrhea, and a fever maygo along with the pain. The pain may continue even if treated correctly over the following days. Depending on how things go, sometimes the cause can become clear and you may need more??or different treatment. You may also need other evaluations, medicines, or tests. Home care Your healthcare provider may prescribe medicine for pain, symptoms, or an infection. ??Follow the healthcare provider's instructions for taking these medicines. General care ??? Rest as much as you can until your next exam. No strenuous activities. ??? Try to not do anything that may have caused your symptoms. This might be not taking any medicines unless otherwise directed by your healthcare provider. It might be not eating certain foods or doing certain activities. ??? Find positions that ease discomfort. A small pillow placed on your belly may help relieve pain. ??? Something warm on your belly, such as a heating pad, may help, but be careful not to burn yourself. Diet ??? Don???t??force yourself to eat, especially if having cramps, vomiting, or diarrhea. ??? Water is important so you don't get dehydrated. Soup may also be good. Sports drinks may also help, especially if they are not too acidic. Don't drink sugary drinks as this can make things worse. Take liquids in small amounts. Don???t??guzzle them. ??? Caffeine sometimes makes the pain and cramping worse. ??? Don???t take??dairy products if you have vomiting or diarrhea. ??? Don't eat large amounts at a time. Eat several small meals during the day instead of 2 or 3 larger meals. Wait a few minutesbetween bites. ??? Eat a diet low in fiber (called a low-residue diet). Foods allowed include refined breads, white rice, fruit and vegetable juices without pulp, tender meats. These foods will pass more easily through the intestine. ??? Don???t have??whole-grain foods, whole fruits and vegetables,meats, seeds, and nuts, fried or fatty foods, dairy, alcohol and spicy foods until your symptoms goaway. ?? Follow-up care Follow up with your healthcare provider, or as advised, if your pain does not begin to improve in the next 24 hours. ?? Call 911 Call?? 911 if any of these occur: ??? Trouble breathing ??? Confusion ??? Fainting or loss of consciousness ??? Rapid heart rate ??? Seizure ?? When to get medical advice Call your healthcare provider right away if any of these occur: ??? Pain gets worse or moves to theright lower abdomen ??? Vomiting or diarrhea that is new or gets worse ??? Swelling of the abdomen ??? Unable to pass stool for more than??3 days ??? Fever of 100.4??F (38??C) or higher, or as directed by your healthcare provider ??? Blood in vomit or bowel movements (dark red or black color) ??? Ye llow color of eyes and skin (jaundice) ??? Weakness, dizziness ??? Chest, arm, back, neck, or jaw pain ??? Can't keep down medicines, liquids, or water because of too much vomiting ??? If you have a vagina: unexpected vaginal bleeding or missed period ?? Last Reviewed Date: 2024 ?? [id number] [employer]. All rights reserved. This information is not intended as a substitute for professional medical care. Always follow your healthcare professional's instructions. ?? Patient Care team information Care Team Personnel Name: Abdifatah Clifton Position: Reference Physician Member Role: PCP Address: [address] [facility] [address] [place] [address]- Telecom: Name: Cassidy Palma RN Position: [facility] RN Member Role: Primary Care Nurse Name: Karena SNYDER, Olya Méndez Position: [facility] INSTRUCTIONAL SUPPORT SPECIALIST MD Member Role: [employer] INSTRUCTIONAL SUPPORT SPECIALIST Physician Address: [address] [place] [address]'s [facility] Customer [place] [address]- Telecom: Care Team Related Persons Name: RENUKA ALSTON Name: SMITH LARA Name: RAMSES LARA Name: TIFFANI BECKFORD Insurance Providers Guarantor name: SONAL TRIVEDI Health Plan Information #: 1 Payer: [employer] Member Number: [id number] Policy Number: NA Group Number: NA Health Plan Information #: 2 Payer: [employer] Member Number: [id number] Policy Number: NA Group Number: NA
== END 2024-05-15 09:59 | disposition home or self-care (01) ==
PROVIDERS: PCP Physician Assistant; Visit Provider Orthopaedic Surgery
DX: M25.561 Pain in right knee (principal)
CPT/HCPCS: 99213; G2211

== ENCOUNTER 2024-06-01 09:04 | Outpatient (REF) | payer OTHER, SELFPAY ==
--- NOTE | ~2024-06-01 | MR_ITS ---
EXAMINATION: MR KNEE WITHOUT CONTRAST RIGHT CLINICAL INFORMATION: Other tear of medial meniscus, current injury, right knee, subsequent encounter S83.241D. Right lower extremity pain since 3 months. Has gotten worse. Instability, swelling and numbness in right leg. COMPARISON: XR Right knee 05/15/2024. TECHNIQUE: MRI of the knee without contrast was performed using routine sequences on a high-field scanner. FINDINGS: MENISCI: Medial Meniscus: Degenerative intrasubstance signal within the meniscal body with a nondisplaced oblique tibial articular surface tear. Minimal inner margin fraying of the posterior root. Lateral Meniscus: Intact LIGAMENTS: Cruciate: Intact Collateral: Interval edema adjacent to the medial collateral ligament consistent with a grade 1 sprain. Intact fibular collateral ligament. EXTENSOR MECHANISM: Intact quadriceps and patellar tendons. Patella duc with the Insall Salvati ratio measuring 1.7. TT TG distance within normal limits measuring 0.9 cm. Edema within the superolateral aspect of Hoffa's fat pad, which can be seen in the setting of patellar tendon lateral femoral condyle friction syndrome. ARTICULAR CARTILAGE/BONE: Patellofemoral Compartment: Lateral patellar facet articular cartilage signal heterogeneity and fissuring. Tiny marginal osteophytes. Medial Compartment: Intact articular cartilage. Lateral Compartment: Intact articular cartilage. JOINT FLUID AND BURSAE: Small joint effusion. MR/MR knee RT wo con IMPRESSION: 1. Degenerative intrasubstance signal within the medial meniscal body with a nondisplaced oblique tibial articular surface tear. Minimal inner margin fraying of the posterior root. 2. Grade 1 sprain of the medial collateral ligament. 3. Patella duc with edema in the superolateral aspect of Hoffa's fat pad, which can be seen in the setting of patellar tendon lateral femoral condyle friction syndrome. 4. Mild patellofemoral arthrosis. Small joint effusion. Electronically signed by: Dakota Skelton MD 06/03/2024 01:56 PM EST
== END 2024-06-01 09:05 | disposition home or self-care (01) ==
LOC: HO.MRI 09:04
PROVIDERS: PCP Physician Assistant; Visit Provider Physician Assistant
DX: S83.241D Other tear of medial meniscus, current injury, right knee, subsequent encounter (principal)
CPT/HCPCS: 73721

== ENCOUNTER 2024-06-19 13:07 | Outpatient (REF) | payer OTHER, SELFPAY ==
--- NOTE | 2024-06-19 13:13 | EMG_ITS ---
Chief complaint: Whenever she turns in left foot, it stays in that posture for few seconds. Also happens when she stretches. No footdrop. Chronic back pain. Reason for referral: Evaluate for neuropathy Referred by: Abdifatah Whitt Procedure done: Left lower extremity NCS/EMG Precautions and/or limitations: Previous lumbar surgery The limb temperature was monitored continuously and remained between 32-36 degrees C during the performance of the NCS. Nerve Conduction Studies Anti Sensory Summary Table ?Stim Site NR Onset (ms) Norm Onset (ms) Peak (ms) Norm Peak (ms) O-P Amp (?V) Norm O-P Amp Site1 Site2 Delta-0 (ms) Dist (cm) Octavio (m/s) Norm Octavio (m/s) Left Sural Anti Sensory (Lat Mall) Calf ? 1.9 3.0 <4.0 16.0 >5.0 Calf Lat Mall 1.9 14.0 74 Motor Summary Table ?Stim Site NR Onset (ms) Norm Onset (ms) O-P Amp (mV) Norm O-P Amp iAmp (mV) Amp (1st) (%) Site1 Site2 Delta-0 (ms) Dist (cm) Octavio (m/s) Norm Octavio (m/s) Left Peroneal Motor (Ext Dig Brev) Ankle ? 3.6 <4.0 6.0 >2.5 8.0 100.0 Ankle Ext Dig Brev 3.6 0.0 B Fib ? 9.5 5.8 7.7 96.7 B Fib Ankle 5.9 31.0 53 >40 Poplt ? 9.9 6.0 7.9 100.0 Poplt B Fib 0.4 5.0 125 >40 Left Tibial Motor (Abd Wei Brev) Ankle ? 3.0 <5 9.2 >2.5 12.8 100.0 Ankle Abd Wei Brev 3.0 0.0 Knee ? 10.5 14.4 19.9 156.5 Knee Ankle 7.5 30.0 40 >40 EMG ?Side Muscle Nerve Root Ins Act Fibs Psw Amp Dur Poly Recrt Int Pat Comment Left AbdHallucis MedPlantar S1-2 Nml Nml Nml Nml Nml 0 Nml Complete Left AntTibialis Dp Br Peron L4-5 Nml Nml Nml Nml Nml 0 Nml Complete Left PostTibialis Tibial L5, S1 Nml Nml Nml Nml Nml 0 Nml Complete Left MedGastroc Tibial S1-2 Nml Nml Nml Nml Nml 0 Nml Complete Left VastusMed Femoral L2-4 Nml Nml Nml Nml Nml 0 Nml Complete FINDINGS: All motor and sensory nerves tested showed normal latencies, amplitudes and conduction velocities. Concentric needle EMG was performed in selected muscles of the left lower extremity. Study did not reveal signs of electric abnormalities as shown in the table above. IMPRESSION: 1. This is a normal study. 2. There is no electrodiagnostic evidence for peroneal neuropathy, tibial neuropathy, lumbosacral plexopathy, lumbar radiculopathy, or peripheral neuropathy. Thank you for your kind referral. Nela Sanches MD, KEITH Board Certified, [place] Board of [employer] and Rehabilitation (ABPMR) Board Certified, [place] Board of Electrodiagnostic Medicine (ABEM) CODIN 12574 MTDD
--- OUTSIDE RECORDS SUMMARY | 2024-06-19 14:35 | XMS_ITS | Continuity of Care Document ---
Author Organization [facility] ter Address [address] [place] [address]- Care Team Providers Care Patient Transportation Driver Name Role Phone Abdifatah Clifton Primary Care Physician [place] [facility] [place] [id number] Date(s): 06/07/24 - 06/07/[address] [address]- Encounter Diagnosis RSV infection(Final) - 06/07/24 Asthma exacerbation(Final) - 06/07/24 Discharge Disposition: A-D/C Home Attending Physician: Mike Gill MD Admitting Physician: Mike Gill MD Referring Physician: Not on Staff, Referring [...] Quantity: 180.0 Unit: each Repeat number: 1 albuterol 0.083% inhalation solution 3 mL = 2.5 mg, Inhalation, Every 4 hours, # 120 each, 0 Refills, Maintenance, 06/07/24 11:02:00 PM EST, Solution, [id number], Partial fill upon patient request if the prescription is for a schedule II opioid drug., 158, cm, 06/07/24 19:20:00 EST, Height, 113.9, kg, 06/07/24 19:20:00 EST, Dry Weight Start Date: 06/07/24 Status: Ordered Quantity: 120.0 Unit: each Repeat number: 1 Baclofen By [...] Refills, Maintenance, 12/13/23 12:21:00 PM EDT, Tablet, [facility] #[id number], Partial fill upon patient request if [...] 0 Refills, Maintenance, 04/13/24 2:53:00 PM EST, [facility] #[id number], Partial fill upon patient request if [...] Refills, Maintenance, :01:00 AM EDT, REC Powder, [facility] #[id number], Partial fill upon patient request if the prescription is for a schedule II opioid drug., 17 Gm By Mouth Daily,Instr:dissolve in water before taking, 160, cm, 12/11/21 0:15:00 EDT, Height, 117.2, kg, 12/07/21 23:30:00 EDT, Dry Weight Start Date: 12/11/21 Status: Ordered Quantity: 255.0 Unit: g Repeat number: 1 predniSONE 20 mg oral tablet 2 tablet = 40 mg, By Mouth, Daily, for 4 days, # 8 tablet, 0 Refills, Acute 06/11/24 11:01:00 PM EST,06/07/24 11:01:00 PM EST, Tablet, [facility]pharm[facility] #[id number], Partial fill upon patient request if the prescription is for a schedule II opioid drug., 158, cm, 06/07/24 19:20:00 EST, Height, 113.9, kg, 06/07/24 19:20:00 EST, Dry Weight Start Date: 06/07/24 Stop Date: 06/11/24 Status: Ordered Quantity: 8.0 Unit: tablet Repeat number: 1 ProAir HFA 90 mcg/inh [...] Refills, Maintenance, 12/13/23 12:21:00 PM EDT, Tablet, [facility]/pharm[facility] #[id number], Partial fill upon patient request if [...] 6:01:00 AM EDT, Route to Pharmacy Electronically, [facility]/pharmacy #[id number], Partial fill upon patient request if [...] Exam Date Time Procedure Performing Provider Status 06/07/24 9:31 PM Chest Portable Cassidy Watson ; Auth (Verified) Notes: (Chest Portable) Reason For Exam: Shortness of Breath RESULT: Chest Portable Chest Portable Hx of Present Illness: asthma flare, had croup and sinus inf last week,; Reason: Shortness of Breath; Clinical Question(s): CHF COMPARISON: 10/13/2023. FINDINGS: LINES AND TUBES: None. LUNGS AND PLEURA: Low lung volumes. Clear lungs. Normal pulmonary vascularity. No pleural effusion. No pneumothorax. HEART, MEDIASTINUM AND CHIQUITA: Heart is normal in size. Normal mediastinal and hilar contour. BONES AND SOFT TISSUES: No acute abnormality. IMPRESSION: No acute abnormality. WSN: [id number] Ordering Physician: Stephanie Botello Dictated By: Farnaz Granados MD Dictated Date/Time: 06/07/24 9:52 pm Reviewed By: Farnaz Granados MD Signed By: Farnaz Granados MD Signed Date/Time: 06/07/24 9:52 pm Transcribed By: LUIS E Transcribed Date/Time: 06/07/24 9:51 pm Vital Signs Most recent to oldest [Reference Range]: 1 2 3 Height 158 cm (06/07/24 7:20 PM) Weight 113.9 kg (06/07/24 7:20 PM) Oxygen Saturation [94-100 %] 100 % (06/07/24 11:20 PM) 100 % (06/07/24 7:20 PM) 100 % (06/07/24 7:16 PM) Pulse Rate [55-90 bpm] 89 bpm (06/07/24 11:20 PM) 109 bpm *H* (06/07/24 7:20 PM) 116 bpm *H* (06/07/24 7:16 PM) Body Mass Index [18.5-24.99 kg/m2] 45.63 kg/m2 *>HHI* (06/07/24 7:20 PM) Blood Pressure [90-138/55-84 mm Hg] 132/82mm Hg (06/07/24 11:20 PM) 146/92mm Hg *H* (06/07/24 7:20 PM) Respiratory Rate [16-30 br/min] 19 br/min (06/07/24 11:20 PM) 24 br/min (06/07/24 7:20 PM) 26 br/min (06/07/24 7:16 PM) Temperature [96.8-100.4 DegF] 98.6 DegF (06/07/24 7:20 PM) Mode of Delivery (Oxygen) Room air (06/07/24 11:20 PM) Room air (06/07/24 7:20 PM) Blood pressure sites Arm, left (06/07/24 7:20 PM) Temperature Route Oral (06/07/24 7:20 PM) Dry Weight 113.9 kg (06/07/24 7:20 PM) Weight Obtained Via Standing scale (06/07/24 7:20 PM) Dry Weight Obtained Via Standing scale (06/07/24 7:20 PM) Social History Social History Type Response Smoking Status Never (less than 100 in lifetime) entered on: 05/31/21 Sex Sex Representation Female (finding) Patient Care team information Care Team Personnel Name: Abdifatah Clifton Position: Reference Physician Member Role: PCP Address: [address] [place] [address]- Telecom: Name: Cassidy Palma RN Position: S RN Member Role: Primary Care Nurse Name: Olya Thurston MD Position: [facility] HEEL COMPRESSOR MD Member Role: [employer]etime HEEL COMPRESSOR Physician Address: [facility] [facility] [place] [address]- Telecom: Care Team Related Persons Name: RENUKA ALSTON Name: SMITH LARA Name: RAMSES LARA Name: ITFFANI BECKFORD Insurance Providers Guarantor name: [employer]IV[employer] Health Plan Information #: 1 Payer: [employer] Member Number: [id number] Policy Number: NA Group Number: NA Health Plan Information #: 2 Payer: [employer] Member Number: [id number] Policy Number: NA Group Number: NA
== END 2024-06-19 13:08 | disposition home or self-care (01) ==
LOC: HO.NEURO 13:07
PROVIDERS: PCP Physician Assistant; Visit Provider Physician Assistant
DX: M24.572 Contracture, left ankle (principal)
CPT/HCPCS: 95886; 95908

== ENCOUNTER → 2024-06-19 13:13 | Outpatient (BNV) | payer OTHER, SELFPAY | PROVIDERS: PCP Physician Assistant; Visit Provider Physical Medicine & Rehabilitation | DX: M24.572 Contracture, left ankle (principal) | CPT/HCPCS: 95886; 95908 ==

== ENCOUNTER 2024-06-20 09:24 | Outpatient (AMB) | payer OTHER, SELFPAY ==
[2024-06-20 10:02] VITALS: BP 122/80; PULSE 94; O2SAT 98; BMI 43.9
--- NOTE | 2024-06-20 10:02 | AM.OFFWIN_ITS ---
Intake Vital Signs 06/20/24 10:02 Height 5 ft 3 in Weight 248 lb BMI 43.9 BP 122/80 Blood Pressure Location Rt brachial Position Sitting Pulse 94 Pulse Source Pulse Oximeter Pulse Oximetry (%) 98 Oxygen Delivery Method Room Air Intake Visit Reasons: EP back pain due to fall 1 month ago Intake Note: Patient here because she had a fall about 1 month ago and was unable to be checked out because she was sick at the time but is still having bad pain in the lower right back. Patient Tobacco Use Status: Never used Tobacco Allergies dexamethasone [DEXAMETHASONE] Adverse Reaction (Unknown, Verified 06/20/24 10:05) ANXIETY Do you need a note to return to daycare/school/sports/work: No HPI HPI Comments History of Present Illness Details History of Present Illness - The patient is a 33-year-old female pr esenting with right sided low back pain which radiates to her right buttock and leg. - Approximately two weeks ago, the patie nt sustained a fall leading to increased right buttock pain and was followed by a notable knee pain due to an MRI- confirmed torn meniscus. Unclear if meniscus injury was there prior to fall. - The fall exacerbated chronic issues, c ontributing to acute harsh shooting pain trending from her lower back into her buttocks and right leg. - Known back surgery history, initially due to a pinched sciatic nerve, with recurrence of similar pain post-fall. 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 - Relief strategies employed include Sosa ebrex. Physical Exam General: Cooperative, healthy appearing, comfortable, no acute distress and well developed Orientation: Patient oriented x3 Limitations: No limitations Head: Normal to inspection Ears: Hearing grossly normal bilaterally Nose: Normal external nose present Face and sinus: Normal facial exam Eyes: Appearance normal, both eyes and all related structures Neck: Normal visual inspection and Yes full ROM Respiratory: Normal respiratory effort and able to speak in complete sentences. Skin: No rashes or lesions noted Neuro: Patient oriented x3 Extremities: + straight leg right leg PFSH Medical History Right hip pain Pre-op evaluation Bunion of great toe of left foot Asthma PCOS (polycystic ovarian syndrome) Surgical History Hx of cholecystectomy History of tubal ligation History of back surgery History of carpal tunnel surgery (~04/2020) Hx of section Family History Father Unknown family medical history Maternal Uncle Blocked artery Family/Other Colon cancer Maternal Uncle Blocked artery Mother No problems noted. Maternal Grandmother Stroke S/P triple vessel bypass Social History Household Members: Children Housing: House Alcohol intake: former Comment: counts correct Patient Tobacco Use Status: Never used Tobacco e-Cigarette/Vaping Use: Never Used Second Hand Smoke Exposure: No service: No Current occupational status: unemployed Cognitive needs: No Hearing needs: No Vision needs: Yes Review of Systems Const All systems reviewed & are unremarkable except as noted in HPI and below Assessment & Plan Assessment & Plan (1) Sciatica of right side: Code(s): M54.31 - Sciatica, right side Plan: Plan The patient presents with exacerbated sciatica following a fall, with an associated torn meniscus. Considering her history of sacroiliac joint arthritis and previous back surgery for a pinched sciatic nerve, a steroid taper is recommended to reduce inflammation and nerve pain. Ice application to the affected area is advised to assist in reducing inflammation. Observing the patient's response to these interventions will guide the next steps, with potential orthopedic referral if needed. The absence of contraindications related to GI bleeding issues makes the plan viable and tailored to her clinical history and current presentation. Patient was informed and verbally consented to the use of an ambient scribe for clinic note documentation during this visit. Medications: New methylprednisolone PO PER PKG DIR for 6 days 21 ea 0RF Coding Level of Care Code Est Pt Level 3 (90787) Diagnoses Sciatica of right side M54.31
== END 2024-06-20 13:30 | disposition home or self-care (01) ==
PROVIDERS: PCP Physician Assistant; Visit Provider Physician Assistant
DX: M54.31 Sciatica, right side (principal)

== ENCOUNTER → 2024-06-20 09:24 | Outpatient (BNVA) | payer OTHER, SELFPAY | PROVIDERS: PCP Physician Assistant; Visit Provider Physician Assistant | DX: M54.31 Sciatica, right side (principal) | CPT/HCPCS: 99212 ==

== ENCOUNTER 2024-07-01 09:38 | Outpatient (RCR) | payer OTHER, SELFPAY ==
--- NOTE | 2024-04-25 14:51 | MHC.PT.EP ---
[facility] [place] Office [place] Office [place] Office [address] [phone] F: [phone] F: [phone] F: [phone] F: [phone] Physical Therapy Plan of Care Date of Evaluation: 04/25/24 Date of Surgery: 2020 Diagnosis: Sacroiliitis; Post laminectomy syndrome (MD Dx) R SI joint pain with L4-S1 radicular symptoms (PT Dx) RS Assessment: Rufina is a 33 yo female who was referred by Becca Cooney MD of [facility], for Dx of sacroiliitis; Post laminectomy syndrome. PT diagnosis is R SI joint pain with R L4-S1 radicular symptoms. Impairments include decreased lumbar and R hip ROM, diminished L5 dermatome and myotome, painful L5-S1 spring test, POSITIVE SI compression test and POSITIVE REIL test resulting in her inability to squat, lift, or navigate stairs without limitation. These deficits are impacting their ability to participate in lifting her kids at home, community ambulation, or working. Pt will benefit from skilled PT to address impairments and meet their goals. Frequency and Duration: The patient will be seen 1-2x/week for 4 weeks Short Term Goals: 2 weeks Patient will be able to perform HEP to independently manage condition. Patient will be able to demonstrate proper squat form to picker feeder a 5 lb object. Rn Wound Goals: 4 weeks Patient will increase lumbar flexion ROM to 75 degrees to be able to reach and grab something from a lower surface. Patient will increase R quad strength to 4+/5 to be able to navigate stair descension without falling. Treatment Plan: Modalities to reduce pain, spasms and effusion. Manual therapy to restore motion and function. Therapeutic exercise to improve strength and flexibility. Neuromuscular re-education for posture and balance. Therapeutic activities to return to functional activities of daily living. Electronically signed by: Mayco Horton, PT, DPT Please sign and return to therapist. Thank you for your referral.
--- NOTE | 2024-08-15 14:37 | MHC.PT.DC ---
[facility] [place] [facility] [place] [facility] [place] Office [address] [place] [address] [phone] F: [phone] F: [phone] F: [phone] F: [phone] Physical Therapy Discharge Report Diagnosis: Sacroiliitis; Post laminectomy syndrome (MD Dx) R SI joint pain with L4-S1 radicular symptoms (PT Dx) RS Date of Surgery: 2020 Date of Evaluation: 04/25/24 Date of Discharge: 08/15/24 Treatments to Date: 5 Cancellations to Date: 4 No Shows to Date: 2 Discharge Status: Independent with HEP Patient Elected to Stop Discharge Summary: Rufina was last seen in PT on 07/01/24 and the assessment reads, I added more core stabilization exercises for her core in supine at pelvic neutral which was tolerated well, also avoiding any shear forces to SIJ. She did not tolerate seated on SB exercises today as it caused R LE radicular sxs, improved in standing with cues for pelvic neutral and TA contraction. Rufina did not show to appointments after this session and is therefore discharged from PT at this time. She has an independent HEP she showed consistency with during her time in PT. Electronically signed by: Mayco Horton, PT, DPT Please sign and return to therapist. Thank you for your referral.
== END 2024-08-15 14:37 | disposition home or self-care (01) ==
LOC: HO.PT 09:38
PROVIDERS: PCP Physician Assistant; Visit Provider Nurse Practitioner Family
DX: M53.3 Sacrococcygeal disorders, not elsewhere classified (principal); M46.1 Sacroiliitis, not elsewhere classified; M96.1 Postlaminectomy syndrome, not elsewhere classified
CPT/HCPCS: 97110; 97161; 97530; 97535

== ENCOUNTER 2024-07-07 08:34 | Outpatient (AMB) | payer OTHER, SELFPAY ==
--- NOTE | 2024-07-07 08:40 | MHC.PC.OV ---
Vital Signs 07/07/24 08:42 Height 5 ft 3 in Weight 246 lb 4 oz BMI 43.6 BP 110/64 Blood Pressure Location Lt brachial Position Sitting Pulse 84 Pulse Source Pulse Oximeter Temp 97.1 F Temp Source Skin Pulse Oximetry (%) 99 Oxygen Delivery Method Room Air Intake Visit Reasons: Fall on right pain hip/ribs Intake Note: Patient is here to follow up on right hip pain due to fall, radiate up the right side. Energy Conservation Director Required: No Painter Ski Edge: Not Required per policy Accompanied by: Self / Same As Patient Allergies dexamethasone [DEXAMETHASONE] Adverse Reaction (Unknown, Verified 07/07/24 08:42) ANXIETY Tobacco use date assessed: 07/07/24 Dental Screening Dental Screen Date: 07/07/24 Did you have a dental visit in the last 12 months?: Yes Did you have a dental problem in the last 6 months where you did not have access to dental care?: No Was dental information given to patient?: Patient has dentist HPI Fall on right pain hip/ribs HPI Details The patient is a 33-year-old female presenting with persistent hip pain post-fall and chronic pain management. Approximately one month ago, the patient experienced a fall while caring for her daughter, who sustained a fracture. Due to immediate concern for her daughter's injury, the patient did not address her own until severe pain persisted for a month post-incident. She visited a walk-in clinic where inflammation and possible sciatic nerve impingement were identified. A course of methylprednisolone was prescribed, providing slight relief, but back pain and persistent numbness in the leg continued. Ongoing physical therapy was already in place due to known sacroiliac joint dysfunction, and the therapy sessions were aware of the fall. An orthopedic follow-up is scheduled concerning a meniscus tear, identified concomitant with knee swelling and additional potential ligament issues. The patient reports attempting pain management but cites allergies to cortisone, resulting in deferred injection treatments. Confirmed sacroiliac joint arthritis complicates management, previously considered for surgical fusion but not pursued. Additional chronic issues include flexible peroneal tendons, noted during recent podiatric evaluations with associated laxity and separation in the great toe. A recent MRI confirmed benign spinal tumors and aggravation of a herniated disc in the thoracic region, contributing to spinal stenosis. 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 PENDING SALE TO [facility] Medical History Right hip pain Pre-op evaluation Bunion of great toe of left foot Asthma PCOS (polycystic ovarian syndrome) Surgical History Hx of cholecystectomy History of tubal ligation History of back surgery History of carpal tunnel surgery (~04/2020) Hx of section Family History Father Unknown family medical history Maternal Uncle Blocked artery Family/Other Colon cancer Maternal Uncle Blocked artery Mother No problems noted. Maternal Grandmother Stroke S/P triple vessel bypass Social History Household Members: Children Housing: House Alcohol intake: former Comment: counts correct Patient Tobacco Use Status: Never used Tobacco e-Cigarette/Vaping Use: Never Used Second Hand Smoke Exposure: No service: No Current occupational status: unemployed Cognitive needs: No Hearing needs: No Vision needs: Yes Questionnaire PHQ-9 Over the last 2 weeks, how often have you been bothered by any of the following problems? 1. Little interest or pleasure in doing things: not at all 2. Feeling down, depressed, or hopeless: not at all 3. Trouble falling or staying asleep, or sleeping too much: not at all 4. Feeling tired or having little energy: not at all 5. Poor appetite or overeating: not at all 6. Feeling bad about yourself - or that you are a failure or have let yourself or your family down: not at all 7. Trouble concentrating on things, such as reading the newspaper or watching television: not at all 8. Moving or speaking so slowly that other people could have noticed. Or the opposite - being so fidgety or restless that you have been moving around a lot more than usual: not at all 9. Thoughts that you would be better off or of hurting yourself in some way: not at all Total score: 0 Depression Screening Interpretation: Negative Depression Screening Done: Yes 62517 - PHQ-9 Billing: Yes Source: Developed by Drs. Mike Gu, Adry BBret Ho and colleagues, with an educational kana from [email or web address]. Thrive Questionnaire Date Thrive assessed: 07/07/24 I am a: Patient What is your living situation today?: I have a steady place to live Within the past 12 months, did the food you bought not last and you didn't have the money to get more?: Never true Within the past 12 months, did you worry whether your food would run out before you got money to buy more?: Never true Do you have trouble paying for medicines?: No Do you have trouble getting transportation to medical appointments?: No Do you have trouble paying your heating and electricity bill?: No Do you have trouble taking care of your child, family member or friend?: No Do you have trouble with day-to-day activities such as bathing, preparing meals, shopping, managing finances, etc.?: No Are you currently unemployed and looking for a job?: No Are you interested in more education?: No Please select the resources that you would like help with: None Currently or been in a relationship where the following occur: No concerns reported THRIVE Score: 0 AUDIT C Alcohol Use Questionnaire (AUDIT-C) 1. How often do you have a drink containing alcohol?: Never Total Score: 0 LAURA-7 AMB Questionnaire LAURA-7 Date LAURA - 7 assessed: 07/07/24 Feeling nervous, anxious, or on edge: 0 = Not at all Not being able to stop or control worryin = Not at all Worrying too much about different things: 0 = Not at all Trouble relaxin = Not at all Being so restless that it is hard to sit still: 0 = Not at all Becoming easily annoyed or irritable: 0 = Not at all Feeling afraid as if something awful might happen: 0 = Not at all Total LAURA-7 score (0-4 normal; 5-9 mild; 10-14 moderate; 15-21 severe): 0 Source: Developed by Drs. Mike Gu, Bret Escobar and colleagues, with an educational kana from [email or web address]. LAURA-7 Assessment Billing LAURA-7 Assessment Tool: LAURA-7 Assessment 52503 Review of Systems Const Denies headache(s) Eyes Denies loss of vision ENT Denies vertigo, Denies dizziness, Denies headache(s) and Denies sore throat Card Denies chest pain, Denies leg edema and Denies lightheadedness Resp Denies cough, Denies hemoptysis and Denies wheezing GI Denies abdominal pain, Denies melena, Denies constipation, Denies diarrhea and Denies vomiting Denies urinary frequency, Denies dysuria and Denies urinary urgency Musc Details: + SI joint region pain Reports back pain, Reports arthralgias, Denies joint swelling, Reports limited range of motion, Reports numbness and Denies tingling Neuro Denies Abnormal speech present, Denies behavioral changes, Denies vertigo, Denies dizziness, Denies headache(s), Denies loss of vision, Denies memory loss, Reports numbness and Denies tingling Psych Denies anxiety, Denies behavioral changes, Denies depression, Denies memory loss and Denies panic attacks Nick/Lymph Denies easy bleeding and Denies easy bruising Aller/Immun Denies wheezing Physical exam (Primary Care) Vital Signs: Last Vital Signs Temp 97.1 F 07/07/24 08:42 Pulse 84 07/07/24 08:42 BP 110/64 07/07/24 08:42 Pulse Ox 99 07/07/24 08:42 Oxygen Delivery Method Room Air 07/07/24 08:42 BMI result Body Mass Index 43.6 BMI Assessment/Plan discussion: High BMI High, discussed plan: lifestyle, weight reduction, dietary and physical activity Tobacco/Smoking Status: Tobacco use Status Tobacco use date assessed 07/07/24 07/07/24 08:49 Patient Tobacco Use Status Never used Tobacco 07/07/24 08:40 e-Cigarette/Vaping Use Never Used 07/07/24 08:40 PHQ-9: PHQ-9 Score PHQ-9: Total score 0 07/07/24 08:53 Depression Screening Interpretation: Negative Thrive Assessment: Date of Thrive Assessment Date Thrive assessed 07/07/24 07/07/24 08:49 Currently or been in a relationship where the following occur: No concerns reported Const General: healthy appearing, no acute distress, alert and awake Nutritional Appearance: well nourished Orientation/consciousness: oriented to person, oriented to place and oriented to time HENMT Ears: TM's normal bilaterally General nose exam: Normal nasal mucous membranes and turbinates present Eyes Conjunctivae: conjunctivae normal Sclerae: sclerae normal Pupils: Equal, round and reactive pupils present Neck Neck: Yes no lymphadenopathy and Yes no JVD Thyroid: Thyroid normal Carotids: no bruits Resp Effort & Inspection: normal respiratory effort and not tachypneic Auscultation: no crackles, no rales, no rhonchi and no wheezes Cardio Rate: regular rate Rhythm: regular rhythm Heart sounds: no murmurs and normal S1 and S2 GI Palpation (GI): Soft to palpation, nontender, no hepatomegaly and no splenomegaly Auscultation: normal bowel sounds Skin General skin exam: no rashes or lesions noted and dry skin Neuro General: oriented to person, oriented to place and oriented to time Cranial nerves: Yes Equal, round and reactive pupils present Speech: No Abnormal speech present Gait exam (Neuro): Normal gait present Motor exam (neuro): no tremor noted Extrem Right upper extremity: full ROM Left upper extremity: full ROM Right lower extremity: full ROM; no edema Left lower extremity: full ROM; no edema Psych Mental Status: mental status grossly normal Speech and movement: Normal speech and movement present Affect: normal affect Attitude: cooperative Thought process: Normal thought process present Coding Level of Care Code Est Pt Level 4 (07038) Diagnoses Lumbar radiculopathy, acute M54.16 Low serum prolactin R79.89 Class 3 obesity E66.813 Impaired glucose metabolism R73.09 Additional Codes PHQ-9 - 60485 - PHQ-9 Billing: Yes ([id number]) LAURA-7 Assessment Billing - LAURA-7 Assessment Tool: LAURA-7 Assessment 17659 ([id number]) Assessment & Plan Assessment & Plan (1) Lumbar radiculopathy, acute: Code(s): M54.16 - Radiculopathy, lumbar region Category: Medical Plan: Patient reporting acute on chronic right lower back pain and SI joint pain with radiculopathy. She does report gabapentin at helped her with an upper extremity neuropathy in the past. Will start gabapentin. She does use low dose oxycodone on an as needed basis for pain scales 9-10. She was followed by the [place] pain management though has had much follow-up. She continues in physical therapy though feels it is not helpful for her lower back and SI joint pain. She would like a 2nd opinion from pain management at [facility] for discussion on a pain reduction modality. (2) Low serum prolactin: Code(s): R79.89 - Other specified abnormal findings of blood chemistry Category: Medical Plan: We did discuss patient's weight and inability to lose much weight even with diet and exercise. The need for a detailed endocrine report focusing on prolactin and pituitary function was discussed, with acknowledgment of weight management struggles linked to hormonal dysregulation. 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 For the hormonal testing done noting a low prolactin. No further workup done. Will recheck A1c and fasting blood sugar. Will try to get patient set up with endocrinology for further vaginal elevation of her low prolactin levels Orders: Orders Comprehensive [place]. Panel Fast Today R73.09 - Other abnormal glucose Prolactin Today R79.89 - Other specified abnormal findings of blood chemistry Hemoglobin A1c Today R73.09 - Other abnormal glucose Referrals Endocrinology Referral R79.89 - Other specified abnormal findings of blood chemistry Pain Management Referral M54.16 - Radiculopathy, lumbar region Medications: New gabapentin 100 mg PO BID 60 caps 0RF 30 days M54.16 - Radiculopathy, lumbar region Refilled oxycodone Partial Fill upon patient request. 5 mg PO Q8H PRN 15 tabs 0RF pain 5 days M51.362 - Other intervertebral disc degeneration, lumbar region with discogenic back pain and lower extremity pain
[2024-07-07 08:42] VITALS: BP 110/64; PULSE 84; TEMP 36.2; O2SAT 99; BMI 43.6
--- OUTSIDE RECORDS SUMMARY | 2024-07-07 12:45 | XMS_ITS | Continuity of Care Document ---
Author Organization [facility] Faith Avit[facility] [employer] Address [address] [place] [address], [place], [place] [address]- Care Team Providers Care Assistant Public Defender Name Role Phone Abdifatah Clifton Primary Care Physician Encounter [facility] Date(s): 05/21/24 - 06/20/24 [facility] [place] [employer] [address], [address] [place] [id number] Encounter Type: Triage Allergies, Adverse Reactions, [...] Maintenance, 06/07/24 11:02:00 PM EST, Solution, [id number], Partial fill upon patient request if the [...] 12/13/23 12:21:00 PM EDT, Tablet, [id number], Partial fill upon patient request [...] :01:00 AM EDT, REC Powder, [facility]pharm[facility] #[id number], Partial fill upon patient request [...] 12/13/23 12:21:00 PM EDT, Tablet, [facility]/pharmacy #[id number], Partial fill upon patient request [...] EDT, Route to Pharmacy Electronically, [facility]/pharmacy #[id number], Partial fill upon patient request if the [...] Reference Physician Member Role: PCP Address: [address] [place] [address]- Telecom: Name: Cassidy Palma RN Position: [facility] RN Member Role: Primary Care Nurse Name: Olya Thurston MD Position: [facility] CABLE MAKER MD Member Role: Lifetime CABLE MAKER Physician Address: [address] [place] [address]'s [facility] [place] [address]- Telecom: Care Team Related Persons Name: RENUKA ALSTON Name: SMITH LARA Name: RAMSES LARA Name: TIFFANI BECKFORD Insurance Providers Guarantor name: [facility] Health Plan Information #: 1 Payer: [employer] Member Number: NA Policy Number: NA Group Number: [id number]
--- OUTSIDE RECORDS SUMMARY | 2024-07-07 12:45 | XMS_ITS | Clinical Summary ---
Author Organization [address] [place] [address] Address [address] [place] [address] Phone Care Team Providers Care Bean Picker Name Role Phone Abdifatah Whitt Primary Care Provider Allergies Active Allergy Reactions Criticality Noted Date Comments Dexamethasone 07/03/2024 Medications Medication Sig Dispensed Refills Start Date End Date Status albuterol HFA (PROAIR HFA ; PROVENTIL HFA ; VENTOLIN HFA) 90 mcg/actuation inhaler Inhale 2 Puffs into the lungs 4 times daily as needed for Cough, Wheezing or Shortness of Breath. 03/10/2016 Active fluticasone propionate (FLONASE) 50 mcg/actuation nasal spray 2 Sprays by Nasal route daily. 03/10/2016 Active fluticasone HFA (FLOVENT HFA) 44 mcg/actuation inhaler Inhale 1 Puff into the lungs 2 times daily. 03/10/2016 Active Active Problems Problem Noted Date Diagnosed Date Preeclampsia 05/06/2024 Overview (05/06/2024): diagnosed to have preeclampsia, was on meds for a short duration Asthma 05/06/2024 Encounters Date Type Department Care Team Description 07/03/2024 10:15 AM EST Office Visit Orthopedic Surgery - [place] [address] [place] [phone] Isreal Galdamez DPM Left ankle pain (Primary Dx); Peroneal tendinitis of left lower extremity; Disorder of ligament of ankle, left from Last 3 Months Surgical History Surgery Date Site/Laterality Comments SECTION 2011 PROCEDURE: HISTORICAL DELIVERY Medical History Medical History Date Comments Preeclampsia DX:Preeclampsia; COMMENT: diagnosed to have preeclampsia, was on meds for a short duration Asthma DX:Asthma Family History Medical History Relation Name Comments Other: deaf Aunt 1 mom's sister; d ied in her 30s Diabetes Father Other: Other Maternal Grandfather well in 2015 Other cancer Maternal Grandmother ovarian cancer, mi at 65 Allergies Mother Asthma Mother Breast cancer Other 1 maternal great aunt Prostate cancer Other 2 maternal gre at uncle Other: gangrene of colon Other 3 mat ernal first cousin Throat cancer Other 4 maternal side Other: AIDS Paternal Grandfather > age 50 Throat cancer Paternal Grandmother i n her 80s; nonsmoker Other cancer Sister 1 cervical Relation Name Status Comments Aunt 1 Aunt 2 Brother Alive brother has ast hma Father Alive Maternal Grandfather Maternal Grandmother Mother Alive Other 1 Other 2 Other 3 Other 4 Other 5 Paternal Grandfather Paternal Grandmother Sister 1 Sister 2 Alive Social History Tobacco Use Types Packs/Day Years Used Date Smoking Tobacco: Never Alcohol Use Standard Drinks/Week Comments Yes 0 (1 standard drink = 0.6 oz pur e alcohol) Sex and Gender Information Value Date Recorded Sex Assigned at Not on file Gender Identity Not on file Sexual Orientation Not on file Job Start Date Occupation Industry Not on file Not on file Not on file Obstetrics History Last Filed Vital Signs Vital Sign Reading Time Taken Comments Blood Pressure - - Pulse - - Temperature - - Respiratory Rate - - Oxygen Saturation - - Inhaled Oxygen Concentration - - Weight 111 kg (245 lb) 07/03/2024 10:08 AM EST Height 160 cm (5' 3 ) 07/03/2024 10:08 AM EST Body Mass Index 43.4 07/03/2024 10:08 AM EST Plan of Treatment Upcoming Encounters Date Type Department Care Team (Late st Contact Info) Description 08/14/2024 9:30 AM EST Office Visit Orthopedic Surgery - [place] [address] [facility] [address] [place] [phone] Isreal Galdamez DPM [address] [address] Health Maintenance Due Date Last Done Comments Hepatitis A Vaccines (1 of 2 - Risk 2-dose series) 11/03/2010 Cervical Cancer Screening: Pap Smear 11/03/2012 Pneumococcal Vaccine: Pediatrics (0 to 5 Years) and At-Risk Patients (6 to 64 Years) (2 of 2 - PCV) 08/17/2019 08/16/2018, 11/30/2016 Cholesterol Screening (Lipid Panel) 05/14/2022 07/22/2015 Depression Screening 05/14/2022 Social Influencers of Health Screening 05/14/2022 Hypertension/CHF/CAD Annual BMP Blood Test 05/25/2022 05/02/2016 COVID-19 Vaccine ( season) 2024 04/25/2021, 10/17/2020, 09/26/2020 DTaP,Tdap,and Td Vaccines (11 - Td or Tdap) 10/11/2031 10/10/2021, 01/29/2019, 10/12/2016, Additional history exists Hepatitis B Vaccines Completed 05/31/1992, 02/03/1992, 1991 HIB Vaccines Completed 03/10/1993, 02/11, 09/08/1992, Additional history exists IPV Vaccines Completed 01/06/1997, 06/12, 03/10/1993, Additional history exists Meningococcal ACWY Vaccine Completed 08/30/2009 HPV Vaccines Completed 11/22/2011, 08/09, 08/30/2009 HIV Screening Completed 07/22/2015 Hepatitis C Screening Completed 07/22/2015 MMR Vaccines Completed 12/11/2021, 11/10, 03/09/1997, Additional history exists Influenza Vaccine Completed 04/17/2024, , 05/19/2018, Additional history exists RSV Immunization Patients Under 20 months Aged Out No longer eligible based on patient's age to complete this topic Varicella Vaccines Aged Out No longer eligible based on patient's age to complete this topic Procedures Procedure Name Priority Date/Time Associated Diagnosis Comments ANNUAL BMP BLOOD TEST Routine 05/02/2016 HEPATITIS C SCREENING Routine 07/22/2015 HIV SCREENING Routine 07/22/2015 LIPID PANEL Routine 07/22/2015 from Last 3 Months or Most Recently Relevant to Health Maintenance Results * Annual BMP Blood Test (05/02/2016) Annual BMP Blood Test abstracted Historical Provider [facility] E * HIV Screening (07/22/2015) Pathologist [facility] HIV Screening abstracted Historical Provider [facility] E * Hepatitis C Screening (07/22/2015) Pathologist [facility] Hepatitis C Screening abstracted Historical Provider [facility] E * Lipid panel (07/22/2015) Pathologist [facility] LDL/HDL Ratio 3 0 - 4 Triglycerides 89 0 - 150 mg/dL Cholesterol 132 0 - 200 mg/dL HDL 40 40 mg/dL LDL Cholesterol 74 0 - 100 mg/dL Blood Venous blood specimen / Unknown Historical Provider LAB BLOOD ORDERAB LES from Last 3 Months or Most Recently Relevant to Health Maintenance Care Teams Bean Picker Relationship Specialty Start Date End Date Abdifatah Whitt PA [address] [place] [address] PCP - General Physician Printer Technician 04/24/24
--- OUTSIDE RECORDS SUMMARY | 2024-07-07 12:45 | XMS_ITS | Encounter Summary ---
Author Organization [facility] Address [address] [place] [address] Care Team Providers Care Academic Services Professional Name Role Phone Abdifatah Whitt Primary Care Provider [phone] Reason for Visit * Reason Comments Foot Pain * Orthopedic (Routine) - Authorized Specialty Diagnoses / Procedures Referred By Contac t Referred To Contact Podiatry / Orthopaedic Surgery Diagnoses Contracture, left ankle Procedures AMB Referral to Podiatry. Abdifatah Whitt PA [address] [place] [address] [facility] Orthopedic Surgery [address] [address] Referral ID Status Reason Start Date Expiration Date Visits Requested Visits Authorized [id number] Authorized Consult and Treat 04/24/2024 04/24/2025 1 1 Encounter Details Date Type Department Care Team ([facility] st Contact Info) Description 07/03/2024 10:15 AM EST Office Visit Orthopedic Surgery - [place] [address] [address] Isreal Galdamez, ALEXANDRE [address] [address] Left ankle pain (Primary Dx); Peroneal tendinitis of left lower extremity; Disorder of ligament of ankle, left Social History Tobacco Use Types Packs/Day Years [...] file Not on file Not on file documented as of this encounter Last Filed Vital Signs Vital Sign Reading Time Taken Comments Blood Pressure - - Pulse - - Temperature - - Respiratory Rate - - Oxygen Saturation - - Inhaled Oxygen Concentration - - Weight 111 kg (245 lb) 07/03/2024 10:08 AM EST Height 160 cm (5' 3 ) 07/03/2024 10:08 AM EST Body Mass Index 43.4 07/03/2024 10:08 AM EST documented in this encounter Progress Notes * Isreal Galdamez DPM - 07/03/2024 10:15 AM EST Referring MD: Abdifatah Whitt PA Last PCP visit: 06/07/2024 IDENTIFIER: @TITLE@ Michael is a 33 y.o. year old female who presents for consultation. CC: Left ankle pain HPI: 33-year-old female presents office chief complaint of left ankle pain. Patient notes that if she inverts her foot for prolonged period of time it gets stuck in an inverted position and goes down to the lateral aspect of the foot. Patient denies any recent trauma or injury. Patient has not used any bracing or anti- inflammatory medication. Patient is here for evaluation and treatment ROS: GENERAL: Pt denies nausea, fever, vomiting, chills, or shortness of breath. Pt in NAD. CARDIOLOGY: pt denies chest pain, palpitations LUNGS: pt denies shortness of breath MUSCULOSKELETAL: See HPI, otherwise no joint pain or swelling, back pain, or muscle pain. SKIN: see HPI, otherwise no lesions, rash or itching NEURO: No persistent headache, weakness or numbness The remainder of the review of systems is noncontributory PAST MEDICAL HISTORY: Patient Active Problem List Diagnosis Preeclampsia Asthma SOCIAL HISTORY: Social History Tobacco Use Smoking status: Never Smokeless tobacco: Not on file Substance Use Topics Alcohol use: Yes ACTIVE MEDICATIONS: No outpatient medications have been marked as taking for the 07/03/24 encounter (Office Visit) with Isreal Galdamez DPM. ALLERGIES: @ALL@ PHYSICAL EXAM: Height 1.6 m (63 ), weight 111 kg (245 lb). PODIATRIC EXAMINATION: GENERAL: Patient appears well nourished, with NAD. VASCULAR: Dorsalis pedis pulses are 2/4 bilaterally and Posterior tibial pulses are 2/4 bilaterally. Capillary filling time within normal limits the digits. No pallor on elevation or rubor on dependency. Positive hair growth. No varicosities. Denies rest pain or claudication pain. NEUROLOGICAL: Sharp/dull sensation intact, protective sensation intact 10/10 with 5.07 semmes marla bilaterally, vibratory sensation with tuning fork intact to the tibial tuberosity. ORTHOPEDIC: Good muscle strength 5/5 of all flexors and extensors. Dorsi flexion of ankle ,10 degrees, plantar flexion WNL. No muscle atrophy. Increased ligamentous laxity with increased inversion position on passive and active range of motion. No pain on sinus tarsi of the left subtalar joint. No pain on palpation of the peroneal tendon with the foot in a rectus position but increased pain when the foot in plantarflexion inversion. Negative anterior drawer sign to the left foot DERMATOLOGICAL:.No masses or skin lesions noted. Normal skin temperature, normal skin turgor. BIOMECHANICS: STJ ROM wnl, MTJ ROM wnl, 1st MPJ ROM wnl. IMAGING: Radiographs taken and reviewed. No evidence of sharri abnormality noted. No evidence of fracture or dislocation noted. No narrowing of first metatarsal phalangeal joint appreciated. No arthrosis noted to dorsal midfoot, localized to midtarsal joints. No hammered digits noted to interphalangeal joints. Increase in metatarsal angle between 1st and 2nd ray. Accessory ossicles noted. No eviden ce of foreign body. No evidence of gas or soft tissue. No evidence of cortical erosion noted. IMPRESSION: 1. Left ankle pain 2. Peroneal tendinitis of left lower extremity 3. Disorder of ligament of ankle, left PLAN: Pt was seen and examined, history reviewed. Concern for ligamentous laxity causing increased strain on the peroneal tendon with the foot in inversion. Patient was placed in an ASO to reduce pressure type pain to the lateral column of the foot.Patient is sent for x-rays. Patient will use the brace daily for ambulatory activity and return in 6 weeks for recheck to see if this is decreased her overall pain or numbness within the left foot. Jn vences had robotic understanding Isreal Galdamez DPM documented in this encounter Plan of Treatment Upcoming Encounters Date Type Department Care Team (Late st Contact Info) Description 08/14/2024 9:30 AM EST Office Visit Orthopedic Surgery - [place] [address] [phone] Isreal Galdamez DPM [address] [address] Pending Results Name Type Priority Associated Diagnoses Date /Time XR Ankle 3+ Views Left Imaging Routine Left ankle pain 07/03/2024 10:34 AM EST Scheduled Orders Name Type Priority Associated Diagnoses Orde r Schedule XR Ankle 3+ Views Left Imaging Routine Left ankle pain Expected: 07/03/2024, Expires: 07/03/2025 documented as of this encounter Visit Diagnoses Diagnosis Left ankle pain- Primary Pain in joint, ankle and foot Peroneal tendinitis of left lower extremity Disorder of ligament of ankle, left documented in this encounter Care Teams Academic Services Professional Relationship Specialty Start Date End Date Abdifatah Whitt PA [address] [place] [address] PCP - General Physician Stamp Presser 04/24/24 documented as of this encounter
== END 2024-07-07 09:15 | disposition home or self-care (01) ==
PROVIDERS: PCP Physician Assistant; Visit Provider Physician Assistant
DX: M54.16 Radiculopathy, lumbar region (principal); R79.89 Other specified abnormal findings of blood chemistry; E66.813 Obesity, class 3; Z68.41 Body mass index [BMI] 40.0-44.9, adult; R73.09 Other abnormal glucose

== ENCOUNTER → 2024-07-07 08:34 | Outpatient (BNVA) | payer OTHER, SELFPAY | PROVIDERS: PCP Physician Assistant; Visit Provider Physician Assistant | DX: M23.51 Chronic instability of knee, right knee (principal); M25.561 Pain in right knee; M22.2X1 Patellofemoral disorders, right knee; M54.16 Radiculopathy, lumbar region; R79.89 Other specified abnormal findings of blood chemistry; E66.813 Obesity, class 3; R73.09 Other abnormal glucose; Z68.41 Body mass index [BMI] 40.0-44.9, adult; Z91.81 History of falling | CPT/HCPCS: 96127; 99212 ==

== ENCOUNTER 2024-07-07 13:57 | Outpatient (AMB) | payer OTHER, SELFPAY ==
--- NOTE | 2024-07-07 14:00 | A.OFFVIS_ITS ---
Vital Signs 07/07/24 14:02 Height 5 ft 3 in Weight 246 lb BMI 43.6 Intake Visit Reasons: OV- Rt Knee Px & Patella Instability- Per Randy Intake Note: Rufina is a 33 year old female who presents today as she was referred by Dr. Padilla to discuss treatment options for her right knee. Patient reports that she has had progressively worsening right knee pain and instability. Several years ago when she was doing gymnastics her right patella dislocated on 3 separate occasions. IMPRESSION: 1. Degenerative intrasubstance signal within the medial meniscal body with a nondisplaced oblique tibial articular surface tear. Minimal inner margin fraying of the posterior root. 2. Grade 1 sprain of the medial collateral ligament. 3. Patella duc with edema in the superolateral aspect of Hoffa's fat pad, which can be seen in the setting of patellar tendon lateral femoral condyle friction syndrome. 4. Mild patellofemoral arthrosis. Small joint effusion Allergies dexamethasone [DEXAMETHASONE] Adverse Reaction (Unknown, Verified 07/07/24 08:42) ANXIETY HPI HPI OV- Rt Knee Px & Patella Instability- Per Randy: Details: Rufina is a 33 year old female who presents today as she was referred by Dr. Padilla to discuss treatment options for her right knee. Patient reports that she has had progressively worsening right knee pain and instability. Several years ago when she was doing gymnastics her right patella dislocated on 3 separate occasions. Now she describes knee pain that occasionally gives way and hip pain and SI joint pain back pain that causes numbness and tingling. She has not felt that any when he has been able to help her. She is doing physical therapy and does not feel like it is helping either. [facility] Medical History Right hip pain Pre-op evaluation Bunion of great toe of left foot Asthma PCOS (polycystic ovarian syndrome) Surgical History Hx of cholecystectomy History of tubal ligation History of back surgery History of carpal tunnel surgery (~04/2020) Hx of section Family History Father Unknown family medical history Maternal Uncle Blocked artery Family/Other Colon cancer Maternal Uncle Blocked artery Mother No problems noted. Maternal Grandmother Stroke S/P triple vessel bypass Social History Household Members: Children Housing: House Alcohol intake: former Comment: counts correct Patient Tobacco Use Status: Never used Tobacco e-Cigarette/Vaping Use: Never Used Second Hand Smoke Exposure: No service: No Current occupational status: unemployed Cognitive needs: No Hearing needs: No Vision needs: Yes Physical Exam Vital Signs: BMI result Body Mass Index 43.6 Extrem Other: Lateral patellar tilt. Negative Piyush's. Anteromedial tenderness to palpation. Full range of motion right knee. Results Reviewed Results Reviewed: I personally reviewed the MR images. IMPRESSION: 1. Degenerative intrasubstance signal within the medial meniscal body with a nondisplaced oblique tibial articular surface tear. Minimal inner margin fraying of the posterior root. 2. Grade 1 sprain of the medial collateral ligament. 3. Patella duc with edema in the superolateral aspect of Hoffa's fat pad, which can be seen in the setting of patellar tendon lateral femoral condyle friction syndrome. 4. Mild patellofemoral arthrosis. Small joint effusion Assessment & Plan Assessment & Plan (1) Patellofemoral disorders, right knee: Code(s): M22.2X1 - Patellofemoral disorders, right knee Category: Medical Plan: This is a 33-year-old patient with a history of right patellar subluxation over 20 years ago. She has not had any recurrence of her subluxations and does have some mild medial knee pain. I reviewed her MRI. There is a very small medial meniscus tear which is not something I would treat surgically. She has lateral patellar tilt which I think has a problem and would benefit from physical therapy. She feels like she has exhausted physical therapy and does not have the enthusiasm to continue. I recommend a referral to pain management and a trial of nerve stimulators. She states she has an appointment with [facility] pain and will follow up with them. Coding Level of Care Code Est Pt Level 3 (89852) Diagnoses Patellofemoral disorders, right knee M22.2X1
[2024-07-07 14:02] VITALS: BMI 43.6
--- OUTSIDE RECORDS SUMMARY | 2024-07-07 18:29 | XMS_ITS | Clinical Summary ---
Author Organization [address] [place] [address] Address [address] [place] [address] Phone Care Team Providers Care Can Crimper Name Role Phone Abdifatah Whitt Primary Care [...] AM EST Office Visit Orthopedic Surgery - [place] [address] [place] [phone] Isreal Galdamez DPM Left ankle pain [...] AM EST Office Visit Orthopedic Surgery - [place] [address] [facility] [address] [place] [phone] Isreal Galdamez DPM [address] [address] Health Maintenance Due Date Last Done Comments [...] Annual BMP Blood Test abstracted Historical Provider [facility] E * HIV Screening (07/22/2015) Pathologist [facility] HIV Screening abstracted Historical Provider [facility] E * Hepatitis C Screening (07/22/2015) Pathologist [facility] Hepatitis C Screening abstracted Historical Provider [facility] E * Lipid panel (07/22/2015) Pathologist [facility] LDL/HDL Ratio 3 0 - 4 Triglycerides 89 0 - 150 mg/dL Cholesterol 132 0 - 200 mg/dL HDL 40 40 mg/dL LDL Cholesterol 74 0 - 100 mg/dL Blood Venous blood specimen / Unknown Historical Provider LAB BLOOD ORDERAB LES from Last 3 Months or Most Recently Relevant to Health Maintenance Care Teams Can Crimper Relationship Specialty Start Date End Date Abdifatah Whitt PA [address] [place] [address] PCP - General Physician Network Contract Manager 04/24/24
--- OUTSIDE RECORDS SUMMARY | 2024-07-07 18:29 | XMS_ITS | Encounter Summary ---
Author Organization [facility] [address] Address [address] [place] [address] Care Team Providers Care Addiction Therapist Name Role Phone Abdifatah Whitt Primary Care Provider [phone]- [phone] Reason for Visit * Reason Comments Foot Pain * Orthopedic (Routine) - Authorized Specialty Diagnoses / Procedures Referred By Contac t Referred To Contact Podiatry / Orthopaedic Surgery Diagnoses Contracture, left ankle Procedures AMB Referral to Podiatry. Abdifatah Whitt PA [address] [place] [address] [facility] Orthopedic Surgery [address] [address] Referral ID Status Reason Start Date Expiration Date Visits Requested Visits Authorized [id number] Authorized Consult and Treat 04/24/2024 04/24/2025 1 1 Encounter Details Date Type Department Care Team ([facility] st Contact Info) Description 07/03/2024 10:15 AM EST Office Visit Orthopedic Surgery - [place] [address] [phone] Isreal Galdamez, ALEXANDRE [address] [address] Left ankle pain (Primary Dx); [...] AM EST Office Visit Orthopedic Surgery - [place] [address] [address] Isreal Galdamez DPM [address] [address] Pending Results Name Type Priority Associated Diagnoses [...] left documented in this encounter Care Teams Addiction Therapist Relationship Specialty Start Date End Date Abdifatah Whitt PA [address] [place] [address] PCP - General Physician Cena 04/24/24 documented as of this encounter
== END 2024-07-07 14:38 | disposition home or self-care (01) ==
PROVIDERS: PCP Physician Assistant; Visit Provider Orthopaedic Surgery
DX: M22.2X1 Patellofemoral disorders, right knee (principal)
CPT/HCPCS: 99213

== ENCOUNTER 2024-07-16 11:13 | Outpatient (REF) | payer OTHER, SELFPAY ==
--- NOTE | ~2024-07-16 | XR_ITS ---
EXAMINATION: XR CHEST CLINICAL INFORMATION: R07.2 - Precordial pain COMPARISON: 08/20/2018. TECHNIQUE: 2 views of the chest were obtained. FINDINGS: The cardiac, hilar, and mediastinal contours are normal. The lungs are clear bilaterally. There is no pneumothorax or pleural effusion. There is no focal osseous or soft tissue abnormality. XR/XR chest 2V IMPRESSION: Normal chest. Electronically signed by: Sandoval Watters MD 07/16/2024 12:18 PM DIANA
--- NOTE | 2024-07-16 11:17 | ECG_ITS ---
Test Reason : R07.2 - Precordial pain Blood Pressure : */* mmHG Vent. Rate : 80 BPM Atrial Rate : 80 BPM P-R Int : 146 ms QRS Dur : 72 ms QT Int : 390 ms P-R-T Axes : 24 16 26 degrees QTcB Int : 449 ms Normal sinus rhythm Normal ECG When compared with ECG of 14-Dec-2011 22:44, No significant change was found Referred By: Abdifatah Whitt Electronically Signed By: Karthikeyan Manuel
[2024-07-16 11:52] LABS: Hematocrit 39.2 % (37.0-47.0); Hemoglobin 12.2 g/dl (12.0-16.0); Mean Corpuscular HGB Conc 31.1 g/dl (31.0-35.0); Mean Corpuscular Volume 83.4 fL (80.0-98.0); Mean Platelet Volume 11.4 fL (9.4-12.3); Platelet Count 272 X10*3/uL (160-400); Red Cell Distribution Width 15.4 % (11.0-16.0); White Blood Count 6.7 X10*3/uL (4.8-10.8)
[2024-07-16 11:59] LABS: Estimated Average Glucose 114 mg/dL; Hemoglobin A1C 122.1782 umol/L; Hemoglobin A1c % 5.6 % (<6.0)
[2024-07-16 12:18] LABS: Alanine Aminotransferase 67 U/L (0-31); Albumin Level 4.1 g/dL (3.5-5.0); Alkaline Phosphatase 92 U/L (39-117); Anion Gap 11 (12-20); Aspartate Amino Transferase 48 U/L (5-31); Bilirubin Total 0.4 mg/dL (0.0-1.0); Blood Urea Nitrogen 13 mg/dL (9-16); Carbon Dioxide 26 mmol/L (22-29); Chloride 106 mmol/L (96-108); Estimated Glomerular Filt Rate > 60; Glucose Fasting 93 mg/dL (60-99); Potassium 4.2 mmol/L (3.3-5.1); Sodium 139 mmol/L (135-145); Total Protein 8.5 g/dL (6.5-8.0)
[2024-07-18 02:03] LABS: Prolactin 3.1 ng/mL
== END 2024-07-16 11:14 | disposition home or self-care (01) ==
LOC: HO.XRAY 11:13
PROVIDERS: PCP Physician Assistant; Visit Provider Physician Assistant
DX: R73.09 Other abnormal glucose (principal); R79.89 Other specified abnormal findings of blood chemistry; R71.8 Other abnormality of red blood cells; R07.2 Precordial pain
CPT/HCPCS: 36415; 71046; 80053; 83036; 84146; 85027; 93005

== ENCOUNTER → 2024-07-16 11:47 | Outpatient (BNV) | payer OTHER, SELFPAY | PROVIDERS: PCP Physician Assistant; Visit Provider Radiology Diagnostic Radiology | DX: R07.2 Precordial pain (principal) | CPT/HCPCS: 71046 ==

== ENCOUNTER 2024-07-31 10:07 | Outpatient (AMB) | payer OTHER, SELFPAY ==
[2024-07-31 10:13] VITALS: BP 116/84; PULSE 84; TEMP 36.2; O2SAT 97; BMI 43.0
--- NOTE | 2024-07-31 10:13 | MHC.PC.OV ---
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 ? Patient has a past medical history significant for post laminectomy syndrome chronic low back pain, hypertension(gestational), asthma, obesity . Right knee meniscal tear: Has followed up with Orthopedics whom recommends physical therapy. She has been physical therapy for quite some time now though has been no improvement. Her right knee continues to be fairly swollen and as per patient has episodes of right knee giving out. She would like a 2nd opinion from orthopedic surgeon for evaluation of her right knee meniscal tear. .. Elevated liver enzymes/fatty liver disease: Most recent liver enzymes have improved. She has lost a few lb since last office visit. .. Class 3 obesity: Has been very difficult for patients lose weight due to her many pain complaints. She has not been able to be physically active due to her chronic lower back pain and now knee pain. 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 Maternal Grandmother Stroke S/P triple vessel bypass Social History Household Members: Children Housing: House Alcohol intake: former Comment: counts correct Patient Tobacco Use Status: Never used Tobacco e-Cigarette/Vaping Use: Never Used Second Hand Smoke Exposure: No service: No Current occupational status: unemployed Cognitive needs: No Hearing needs: No Vision needs: Yes Questionnaire PHQ-9 Over the last 2 weeks, how often have you been bothered by any of the following problems? 1. Little interest or pleasure in doing things: not at all 2. Feeling down, depressed, or hopeless: not at all 3. Trouble falling or staying asleep, or sleeping too much: several days 4. Feeling tired or having little energy: not at all 5. Poor appetite or overeating: not at all 6. Feeling bad about yourself - or that you are a failure or have let yourself or your family down: not at all 7. Trouble concentrating on things, such as reading the newspaper or watching television: not at all 8. Moving or speaking so slowly that other people could have noticed. Or the opposite - being so fidgety or restless that you have been moving around a lot more than usual: not at all 9. Thoughts that you would be better off or of hurting yourself in some way: not at all Total score: 1 Depression Screening Interpretation: Negative Depression Screening Done: Yes 41077 - PHQ-9 Billing: Yes Source: Developed by Drs. Mike Gu, Adry Bansal, Bret Phipps and colleagues, with an educational kana from [employer]. Thrive Questionnaire Date Thrive assessed: 07/31/24 I am a: Patient What is your living situation today?: I have a steady place to live Within the past 12 months, did the food you bought not last and you didn't have the money to get more?: Never true Within the past 12 months, did you worry whether your food would run out before you got money to buy more?: Never true Do you have trouble paying for medicines?: No Do you have trouble getting transportation to medical appointments?: No Do you have trouble paying your heating and electricity bill?: No Do you have trouble taking care of your child, family member or friend?: No Do you have trouble with day-to-day activities such as bathing, preparing meals, shopping, managing finances, etc.?: No Are you currently unemployed and looking for a job?: No Are you interested in more education?: No Please select the resources that you would like help with: None Currently or been in a relationship where the following occur: No concerns reported THRIVE Score: 0 AUDIT C Alcohol Use Questionnaire (AUDIT-C) 1. How often do you have a drink containing alcohol?: Never 3. How often do you have six or more drinks on one occasion?: Never Total Score: 0 LAURA-7 AMB Questionnaire LAURA-7 Date LAURA - 7 assessed: 07/31/24 Feeling nervous, anxious, or on edge: 0 = Not at all Not being able to stop or control worryin = Not at all Worrying too much about different things: 0 = Not at all Trouble relaxin = Several days Being so restless that it is hard to sit still: 0 = Not at all Becoming easily annoyed or irritable: 0 = Not at all Feeling afraid as if something awful might happen: 0 = Not at all Total LAURA-7 score (0-4 normal; 5-9 mild; 10-14 moderate; 15-21 severe): 1 Source: Developed by Drs. Mike Gu, Adry Bansal, Bret Phipps and colleagues, with an educational kana from [employer]. LAURA-7 Assessment Billing LAURA-7 Assessment Tool: LAURA-7 Assessment 56252 Review of Systems Const Denies body aches, Denies chills, Denies excessive sweating, Denies fatigue, Denies fever(s) and Denies headache(s) Eyes Denies blurry vision ENT Denies dysphagia, Denies vertigo, Denies dizziness, Denies headache(s), Denies hearing loss and Denies tinnitus Card Denies chest pain, Denies chest pain with activity, Denies syncope, Denies irregular heart rhythm and Denies dyspnea Resp Denies chest congestion, Denies cough, Denies hemoptysis, Denies dyspnea and Denies wheezing GI Denies abdominal pain, Denies melena, Denies hematochezia, Denies coffee ground emesis, Denies dysphagia, Denies diarrhea, Denies nausea and Denies vomiting Denies urinary frequency, Denies dysuria, Denies urinary hesitancy and Denies urinary urgency Musc Details: + right knee pain Reports back pain, Reports arthralgias, Denies limited range of motion, Denies muscle cramps and Denies muscle weakness Skin/Breast Denies rash and Denies skin ulcer Neuro Denies Abnormal speech present, Denies confusion, Denies vertigo, Denies dizziness, Denies syncope, Denies headache(s), Denies memory loss and Denies seizure-like activity Psych Denies anxiety, Denies confusion, Denies depression, Denies memory loss, Denies panic attacks and Denies paranoia Endo Denies excessive sweating, Denies fatigue, Denies flushing, Denies polydipsia and Denies polyuria Aller/Immun Denies wheezing Physical exam (Primary Care) Vital Signs: Last Vital Signs Temp 97.1 F 07/31/24 10:13 Pulse 84 07/31/24 10:13 BP 116/84 07/31/24 10:13 Pulse Ox 97 07/31/24 10:13 Oxygen Delivery Method Room Air 07/31/24 10:13 BMI result Body Mass Index 43.0 BMI Assessment/Plan discussion: High BMI High, discussed plan: lifestyle, weight reduction, dietary and physical activity Tobacco/Smoking Status: Tobacco use Status Tobacco use date assessed 07/31/24 07/31/24 10:19 Patient Tobacco Use Status Never used Tobacco 07/31/24 10:19 e-Cigarette/Vaping Use Never Used 07/31/24 10:19 PHQ-9: PHQ-9 Score PHQ-9: Total score 1 07/31/24 10:25 Depression Screening Interpretation: Negative Thrive Assessment: Date of Thrive Assessment Date Thrive assessed 07/31/24 07/31/24 10:19 Currently or been in a relationship where the following occur: No concerns reported Const General: cooperative, comfortable, no acute distress, alert and awake; No confusion Orientation/consciousness: oriented to person, oriented to place, patient oriented x3 and No confusion HENMT Head: Yes normocephalic Ears: external ears normal and TM's normal bilaterally Face and sinus: No sinus tenderness Mouth: Normal oral and palatal mucosa present and tongue normal Teeth and gingiva: dentition normal and gingiva normal Throat: Yes posterior oropharynx normal, Yes tonsils normal and Yes uvula midline Eyes Conjunctivae: conjunctivae normal Sclerae: sclerae normal Pupils: Equal, round and reactive pupils present EOM: EOMs intact bilaterally Direct Ophthalmoscopy: No no photophobia Neck Neck: Yes no lymphadenopathy, No tender and Yes no JVD Thyroid: Thyroid normal Carotids: no bruits Chest Chest palpation & inspection: no tenderness Resp Effort & Inspection: normal respiratory effort, no audible wheezes, not labored and no stridor Auscultation: no crackles, no rales, no rhonchi and no wheezes Cardio Jugular venous distension: no JVD Rate: regular rate, not bradycardic and not tachycardic Rhythm: regular rhythm Bruits: no carotid bruits Peripheral pulses: Peripheral pulses 2+ throughout GI Inspection: Yes normal to inspection, No abdominal wall ecchymosis and No visible herniation Palpation (GI): Soft to palpation, nontender, no guarding, not rigid and No hepatosplenomegaly present Auscultation: normoactive bowel sounds General: Yes no CVA tenderness Back/Spine/Pelvis Back: no CVA tenderness and No back tenderness Cervical Spine: cervical ROM normal Thoracic/Lumbar Spine: thoracic and lumbar spine normal to inspection, straight leg raise negative bilaterally, No thoraco-lumbar ROM limited and No lumbar spinal tenderness Skin Lesions: no lesions Rashes: no rashes Wounds: no wounds Neuro General: oriented to person, oriented to place, patient oriented x3, CN's II-XI intact bilaterally and No confusion Cranial nerves: Yes Equal, round and reactive pupils present and Yes Normal accommodation reflex present Cognition (Neuro): normal cognition Speech: No Abnormal speech present Gait exam (Neuro): Normal gait present Motor exam (neuro): 5/5 motor strength present throughout Extrem Right upper extremity: full ROM; no cyanosis Left upper extremity: full ROM; no cyanosis Right lower extremity: no edema Left lower extremity: no edema Psych Appearance: grossly normal Mental Status: mental status grossly normal Affect: normal affect Attitude: cooperative Thought process: Normal thought process present Coding Level of Care Code Est Pt Prev Care 18-39y(66849) Diagnoses Annual physical exam Z00.00 Patellofemoral disorders, right knee M22.2X1 Internal derangement of right knee involving anterior horn of medial meniscus M23.311 Class 3 obesity E66.813 Lumbar radiculopathy, acute M54.16 Additional Codes LAURA-7 Assessment Billing - LAURA-7 Assessment Tool: LAURA-7 Assessment 61468 ([id number]) PHQ-9 - 24531 - PHQ-9 Billing: Yes ([id number]) Assessment & Plan Assessment & Plan (1) Annual physical exam: Code(s): Z00.00 - Encounter for general adult medical examination without abnormal findings Category: Medical Plan: As per HPI (2) Patellofemoral disorders, right knee: Code(s): M22.2X1 - Patellofemoral disorders, right knee Category: Medical Plan: As per HPI (3) Internal derangement of right knee involving anterior horn of medial meniscus: Code(s): M23.311 - Other meniscus derangements, anterior horn of medial meniscus, right knee Category: Medical Plan: Patient is interested in 2nd opinion from orthopedic surgeon at [place] about her right knee meniscal tear. She continues to have pain, swelling and instability in her right knee. (4) Class 3 obesity: Code(s): E66.813 - Obesity, class 3 Category: Medical Plan: Patient does understand her BMI is over 40 and will work on better eating habits to reduce her weight. She is not able to be to physically active due to her lumbar spine disease in her knee issues. She is interested in seeing weight management program to discuss weight reduction options. (5) Lumbar radiculopathy, acute: Code(s): M54.16 - Radiculopathy, lumbar region Category: Medical Plan: Patient reporting acute on chronic right lower back pain and SI joint pain with radiculopathy. She does report gabapentin at helped her with an upper extremity neuropathy in the past. Has started gabapentin which has been somewhat helpful.. She does use low dose oxycodone on an as needed basis for pain scales 9-10. She has had surgery her lower back in 2020. She continues in physical therapy though feels it is not helpful for her lower back and SI joint pain. She has upcoming appointment with new toy painter to discuss her chronic lower back pain Orders: Referrals Orthopedics Referral M23.311 - Other meniscus derangements, anterior horn of medial meniscus, right knee Medical Weight Management Referral E66.813 - Obesity, class 3 Medications: Refilled oxycodone Partial Fill upon patient request. 5 mg PO Q8H 5 days PRN 15 tabs 0RF pain M51.362 - Other intervertebral disc degeneration, lumbar region with discogenic back pain and lower extremity pain baclofen 10 mg PO BID 30 days 60 tabs 3RF M25.551 - Pain in right hip
--- OUTSIDE RECORDS SUMMARY | 2024-07-31 11:04 | XMS_ITS | Clinical Summary ---
Author Organization [facility] Address [address] [place] [address] Phone Care Team Providers Care Case Liner Name Role Phone Abdifatah Whitt Primary Care Provider Allergies Active Allergy Reactions Criticality Noted Date Comments Dexamethasone 07/03/2024 Medications albuterol HFA (PROAIR HFA ; PROVENTIL HFA ; VENTOLIN HFA) 90 mcg/actuation inhaler Inhale 2 Puffs into the lungs 4 times daily as needed for Cough, Wheezing or Shortness of Breath. 6 Active fluticasone propionate (FLONASE) 50 mcg/actuation nasal spray 2 Sprays by Nasal route daily. 6 Active fluticasone HFA (FLOVENT HFA) 44 mcg/actuation inhaler Inhale 1 Puff into the lungs 2 times daily. 6 Active Active Problems Problem Noted Date Diagnosed Date Preeclampsia 05/06/2024 Overview (05/06/2024): diagnosed to have preeclampsia, was on meds for a short duration Asthma 05/06/2024 Encounters Date Type Department Care Team Description 07/03/2024 10:15 AM EST Office Visit Orthopedic Surgery - [place] [address] [place] [phone] Isreal Galdamez DPM Left ankle pain (Primary Dx); Peroneal tendinitis of left lower extremity; Disorder of ligament of ankle, left from Last 3 Months Surgical History Surgery Date Site/Laterality Comments SECTION 2012 PROCEDURE: HISTORICAL DELIVERY Medical History Medical History [...] drink = 0.6 oz pur e alcohol) Comments Unknown Sex and Gender Information Value Date Recorded Sex Assigned at Not on file Legal Sex Female 9:06 AM EST Gender Identity Not on file Sexual Orientation Not on file Obstetrics History Last Filed [...] AM EST Office Visit Orthopedic Surgery - [place] [address] [phone] Isreal Galdamez DPM 175 [facility] [address] [place] [address] Health Maintenance Due Date Last Done Comments [...] Completed 04/17/2024, , 05/19/2018, Additional history exists Meningococcal B Vacine Aged Out No lo nger eligible based on patient's age to complete this topic RSV Immunization Patients Under 20 months Aged Out No longer eligible based on patient's age to complete this topic Varicella Vaccines Aged Out No longer eligible based on patient's age to complete this topic Procedures Procedure Name Priority Date/Time Associated Diagnosis Comments XR ANKLE 3+ VIEWS LEFT Routine 07/03/2024 10:34 AM EST Left ankle pain HM ANNUAL BMP BLOOD TEST Routine 05/02/2016 HEPATITIS C SCREENING Routine 07/22/2015 HIV SCREENING Routine 07/22/2015 LIPID PANEL Routine 07/22/2015 from Last 3 Months or Most Recently Relevant to Health Maintenance Results * XR Ankle 3+ Views Left (07/03/2024 10:34 AM EST) Anatomical Region Laterality Modality Lower Extremities, Ankle Left Compute d Radiography Narrative 07/16/2024 8:00 PM EST Left ankle 3 views weightbearing: Ankle mortise viewed and shows no signs of arthritis or sclerosis about the joint spaces. ??Tib-fib overlap noted to be within normal limits. ??No talar dome lesions or osteolytic signs through the ankle at the medial or lateral aspect. ??No signs of dislocation or fracture. ??Joint spaces are preserved and calcaneal inclination as well as Hanh's angle are within normal. Isreal Galdamez DPM IMG XR PROCEDURES Final Res ult * Annual BMP Blood Test (05/02/2016) [facility] Annual BMP Blood Test abstracted Result [facility] Provider HEALTH MAINTENANCE Final Result * HIV Screening (07/22/2015) [facility] [address] HIV Screening abstracted Result [facility] Historical Provider HEALTH MAINTENANCE Final Result * Hepatitis C Screening (07/22/2015) [facility] Hepatitis C Screening abstracted Result [facility] Historical Provider HEALTH MAINTENANCE Final Result * Lipid panel (07/22/2015) [facility] [address] LDL/HDL Ratio 3 0 - 4 Triglycerides 89 0 - 150 mg/dL Cholesterol 132 0 - 200 mg/dL HDL 40 >=40 mg/dL LDL Cholesterol 74 0 - 100 mg/dL Blood Venous blood specimen / Unknown Result [facility] Historical Provider LAB BLOOD ORDERABLES Sharron l Result from Last 3 Months or Most Recently Relevant to Health Maintenance Insurance [facility] PLAN Care Teams Case Liner Relationship Specialty Start Date End Date Abdifatah Whitt PA PCP - General Physician Cable Engineer 04/24/24
--- OUTSIDE RECORDS SUMMARY | 2024-07-31 11:04 | XMS_ITS | Encounter Summary ---
Author Organization [facility] Address [address] [place] [address] Care Team Providers Care Yarn Sizer Name Role Phone Abdifatah Whitt Primary Care Provider [phone]- [phone] Reason for Visit * Reason Comments Foot Pain * Orthopedic (Routine) - Closed Specialty Diagnoses / Procedures Referred By Contact Referred To Contact Podiatry / Orthopaedic Surgery Diagnoses Contracture, left ankle Procedures AMB Referral to Podiatry. Abdifatah Whitt PA Phone: tel: fax: Orthopedic Surgery [facility] [address] [address] Phone: tel: fax: Referral ID Status Reason Start Date Expiration Date V isits Requested Visits Authorized [id number] Closed Consult and Treat 04/24/2024 04/24/2025 1 1 Encounter Details Date Type Department Care Team (Late st Contact Info) Description 07/03/2024 10:15 AM EST Office Visit Orthopedic Surgery [facility] [address] [phone] Isreal Galdamez DPM [address] [address] Left ankle pain (Primary Dx); [...] on file Sexual Orientation Not on file documented as of this [...] AM EST Office Visit Orthopedic Surgery - [place] [address] [facility] [address] [place] [phone] Isreal Galdamez DPM [address] [place] [address] [place] [address] documented as of this encounter Results * XR Ankle 3+ Views Left [...] well as Hanh's angle are within normal. us Isreal Galdamez DPM IMG XR PROCEDURES Final Res ult documented in this encounter Visit Diagnoses Diagnosis Left ankle pain- Primary Pain in joint, ankle and foot Peroneal tendinitis of left lower extremity Disorder of ligament of ankle, left documented in this encounter Care Teams Yarn Sizer Relationship Specialty Start Date End Date Abdifatah Whitt PA PCP - General Physician Chocolate Dipper 04/24/24 documented as of this encounter
== END 2024-07-31 13:18 | disposition home or self-care (01) ==
PROVIDERS: PCP Physician Assistant; Visit Provider Physician Assistant
DX: Z00.00 Encounter for general adult medical examination without abnormal findings (principal); M22.2X1 Patellofemoral disorders, right knee; E66.813 Obesity, class 3; Z68.41 Body mass index [BMI] 40.0-44.9, adult; M23.311 Other meniscus derangements, anterior horn of medial meniscus, right knee; M54.16 Radiculopathy, lumbar region

== ENCOUNTER → 2024-07-31 10:07 | Outpatient (BNVA) | payer OTHER, SELFPAY | PROVIDERS: PCP Physician Assistant; Visit Provider Physician Assistant | DX: Z00.00 Encounter for general adult medical examination without abnormal findings (principal); M22.2X1 Patellofemoral disorders, right knee; M23.311 Other meniscus derangements, anterior horn of medial meniscus, right knee; M54.16 Radiculopathy, lumbar region; E66.813 Obesity, class 3; Z68.41 Body mass index [BMI] 40.0-44.9, adult; Z71.3 Dietary counseling and surveillance | CPT/HCPCS: 96127; 99395 ==

== ENCOUNTER 2024-08-04 13:22 | Outpatient (AMB) | payer OTHER, SELFPAY ==
--- NOTE | 2024-08-04 13:23 | A.OFFVIS_ITS ---
Vital Signs 08/04/24 13:27 Height 5 ft 3 in Weight 247 lb 3 oz BMI 43.8 BP 127/80 Blood Pressure Location Lt brachial Position Sitting Pulse 87 Pulse Source Pulse Oximeter Pulse Oximetry (%) 100 Oxygen Delivery Method Room Air Intake Visit Reasons: Radiculopathy, lumbar reg/okay per Danielle Allergies dexamethasone [DEXAMETHASONE] Adverse Reaction (Unknown, Verified 08/04/24 13:28) ANXIETY HPI Comments Details: Elza is back in my office to discuss possibility of further treatment. She reported today that both diagnostic right sacroiliac joint injection and diagnostic right hip joint injection resulted in significant pain improvement. While sacroiliac joint injection resulted only in 70% pain improvement the injection of the local anesthetic into the hip joint resulted in 100% pain improvement for 3 days. However patient reported severe huston after both injections. She also reported to me that she is allergic to steroids. I explained to the patient that I will send her for all radiology consult where she would be tested for allergies steroids. At the same time I spoke with her about neuromodulation. I gave her [facility] brochure. I explained to her that in the order to get into neuromodulation she needs to go for psychological evaluation. [facility] brochure was given to the patient. On the images the patient has almost normal (normal variant) of the right hip joint. She has sacroiliitis demonstrated on the MRI. However on physical exam she has severe pain in the groin on lateral hip rotation, however Duy test performance results in mostly pain in the groin and very minor discomfort in the projection of the sacroiliac joint. Past Procedures: 03/06/23: Diagnostic Right Hip Intra-Articular Injection-100% pain relief for 1.5 days 02/13/23: Diagnostic Right SIJ injection -70% pain relief for 4-5 hours PRIOR: Patient is a pleasant 31-year-old female is a history of herniated disc, spinal stenosis, left L4/L5 partial lumbar decompression and chronic low back pain presents today for initial consultation for back pain with radiation to right lower extremity and right hip pain. Patient reports pain started in 2020, 1 month after delivering her 3rd child through and since then it has been progressively getting worse and being constant. Pain is described as constant throbbing, shooting, stabbing, sharp, pinching, tugging, pulling, hot burning, tingling, sore, tiring, killing, radiating, piercing, and tight. She notes that left lumbar decompression completely alleviated her severe left leg pain in 2020. More recently, she is experiencing a right-sided radiculopathy with significant right leg pain and right hip pain. She has difficulty raising her right leg due to weakness and pain with associated numbness and tingling. Patient also has localized tenderness in the projection of the right sacroiliac joint. Patient reports numbness in her RLE while sitting with her legs crossed. Reports back pain has been refractory to physical therapy in the past and due to significant pain at this time, she is not able to pursue PT walking or prolonged standing increases her pain and back pain will radiate to the lateral right buttock and into right groin. She is unable to take steroids as she has a poor reaction to them, reports significant anxiety and psychosis his dexamethasone. Patient has asthma and has been tolerating Advair Diskus well. Patient is willing to trial therapeutic cortisone injections to relieve her right lower leg pain with pre-medication. Pain has been affecting her daily functioning, activities, sleep, mood, and social interactions. Tylenol and cyclobenzaprine have been minimally effective. Lumbar spine MRI 08/16/22 reviewed and is noted below. Right hip xray is pending. Denies fever, abdominal pain, bladder or bowel incontinence or saddle anesthesia. [facility] Medical History Right hip pain Pre-op evaluation Bunion of great toe of left foot Asthma PCOS (polycystic ovarian syndrome) Surgical History Hx of cholecystectomy History of tubal ligation History of back surgery History of carpal tunnel surgery (~04/2020) Hx of section Family History Father Unknown family medical history Maternal Uncle Blocked artery Family/Other Colon cancer Maternal Uncle Blocked artery Mother No problems noted. Maternal Grandmother Stroke S/P triple vessel bypass Social History Household Members: Children Housing: House Alcohol intake: former Comment: counts correct Patient Tobacco Use Status: Never used Tobacco e-Cigarette/Vaping Use: Never Used Second Hand Smoke Exposure: No service: No Current occupational status: unemployed Cognitive needs: No Hearing needs: No Vision needs: Yes Review of Systems Const All systems reviewed & are unremarkable except as noted in HPI and below ENT Reports Normal hearing present Neuro Reports Normal hearing present, Denies Abnormal speech present, Denies confusion and Denies Sensory deficit (Neuro) Psych Denies confusion Physical Exam Vital Signs: Last Vital Signs Pulse 87 08/04/24 13:27 BP 127/80 08/04/24 13:27 Pulse Ox 100 08/04/24 13:27 Oxygen Delivery Method Room Air 08/04/24 13:27 BMI result Body Mass Index 43.8 Const General: no acute distress; No confusion Nutritional Appearance: obese morbidly obese Orientation/consciousness: patient oriented x3 and No confusion Eyes General: appearance normal, both eyes and all related structures Pupils: Equal, round and reactive pupils present EOM: EOMs intact bilaterally Neck Neck: Yes full ROM Chest Chest palpation & inspection: normal inspection of the chest Resp Effort & Inspection: normal respiratory effort, able to speak in complete sentences, normal respiratory pattern, no audible wheezes and no cough Cardio Jugular venous distension: no JVD GI Inspection: Yes normal to inspection Back/Spine/Pelvis Other: SLR on the right is positive for pain increase, however Lassegue test is negative for for the pain aggravation. Lateral rotation and medial rotation of the right hip result in severe discomfort in the right groin. Neuro General: patient oriented x3, gait normal and No confusion Cranial nerves: Yes CN's II-XII intact bilaterally, Yes Equal, round and reactive pupils present, Yes Normal hearing present and Yes Ability to bilaterally elevate shoulders present Speech: No Abnormal speech present Gait exam (Neuro): Normal gait present Motor exam (neuro): 5/5 motor strength present throughout Sensory Exam: No Sensory deficit (Neuro) Extrem General: No pedal edema Psych Speech and movement: Normal speech and movement present Affect: normal affect Attitude: cooperative Thought process: Normal thought process present Thought content: Normal thought content present Insight: Good insight present (Psych) Judgement: Good judgement present (Psych) Results Reviewed Results Reviewed: MR HIP WITH CONTRAST, RIGHT 01/11/24 CLINICAL INFORMATION: Right hip pain x2 years, constant. Swelling. Numbness. Sprain of the right hip. Evaluate for labral tear. COMPARISON: MRI dated 07/03/2023. FINDINGS: LABRUM/CAPSULE: Again seen is a smoothly marginated, shallow cleft between the acetabular rim and labrum at the chondrolabral junction posterosuperiorly between the 12 o'clock position and posterosuperior 1 o'clock position over a distance of 1 cm. This is unchanged and most consistent with a normal variant sulcus. A focal labral tear is less likely. No new tears are identified. ALPHA ANGLE (at the anterior 3 o'clock position): 49 degrees ACETABULAR DEPTH: Normal. BONES AND ARTICULAR CARTILAGE: Bone marrow signal is normal. No fracture or malalignment at the right hip including the proximal femur and imaged portion of the right innominate bone. 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 MUSCLES AND TENDONS: Muscles are normal in signal intensity aside from the injection-related edema signal. Tendons are intact. No tears or tendinosis. JOINT FLUID AND BURSAE: No bursitis. No apparent loose bodies within the joint. LIGAMENTUM TERES: Intact. INTRAPELVIC SOFT TISSUES: Mild colonic diverticulosis. No acute diverticulitis. Micrometallic susceptibility artifact is evident around the uterus, suggesting prior . IMPRESSION: 1. No appreciable labral tears. A shallow cleft at the chondrolabral junction posterosuperiorly is unchanged and most consistent with a normal variant sulcus. 2. 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 Assessment & Plan Assessment & Plan (1) Allergy to corticosteroids: Code(s): Z88.8 - Allergy status to other drugs, medicaments and biological substances Category: Medical (2) Allergy to local anesthetic: Code(s): Z88.4 - Allergy status to anesthetic agent Category: Medical (3) Lumbar degenerative disc disease: Code(s): M51.36 - Other intervertebral disc degeneration, lumbar region Category: Medical Qualifiers: Disc-related pain type: discogenic back pain and lower extremity pain Qualified Code(s): M51.362 - Other intervertebral disc degeneration, lumbar region with discogenic back pain and lower extremity pain (4) Post laminectomy syndrome: Code(s): M96.1 - Postlaminectomy syndrome, not elsewhere classified Category: Medical (5) Morbid obesity with BMI of 45.0-49.9, adult: Code(s): E66.01 - Morbid (severe) obesity due to excess calories; Z68.42 - Body mass index [BMI] 45.0-49.9, adult Category: Medical (6) Right hip pain: Code(s): M25.551 - Pain in right hip Category: Medical (7) Tendinopathy of right gluteus medius: Code(s): M67.951 - Unspecified disorder of synovium and tendon, right thigh Category: Medical (8) Sacroiliac joint pain: Code(s): M53.3 - Sacrococcygeal disorders, not elsewhere classified Category: Medical (9) Sacroiliitis: Code(s): M46.1 - Sacroiliitis, not elsewhere classified Category: Medical Plan Patient's condition was discussed today. She will be referred to Allergy office to clear out what medication she is allergic and what medication she is not allergic to. Meanwhile the prospect of treating her with steroid injection seem to be not very promising because she is allergic to Decadron. Most likely she will be allergic to other steroids. Therefore I decided to offer her neuromodulation to treat her pain. [facility] brochure was given to the patient. The patient will be going for psychological evaluation. We placed on the list with [facility] psychological evaluation. She will be scheduled for a trial once psychological evaluation will be performed. I am planning to perform right gutter stimulation in L1-L2 areas. Orders: Referrals Allergy & Immunology Referral Z88.4 - Allergy status to anesthetic agent, Z88.8 - Allergy status to other drugs, medicaments and biological substances Patient Instructions: I here by testify that I spent 39 minutes in conversation with this patient as well as planning her care and organizing this note. Coding Level of Care Code Est Pt Level 4 (28380) Diagnoses Allergy to corticosteroids Z88.8 Allergy to local anesthetic Z88.4 Degeneration of intervertebral disc of lumbar region with discogenic back pain and lower extremity pain M51.362 Disc-related pain type: discogenic back pain and lower extremity pain Post laminectomy syndrome M96.1 Morbid obesity with BMI of 45.0-49.9, adult E66.01; Z68.42 Right hip pain M25.551 Tendinopathy of right gluteus medius M67.951 Sacroiliac joint pain M53.3 Sacroiliitis M46.1
[2024-08-04 13:27] VITALS: BP 127/80; PULSE 87; O2SAT 100; BMI 43.8
--- OUTSIDE RECORDS SUMMARY | 2024-08-04 15:18 | XMS_ITS | Clinical Summary ---
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 Name Role Phone Abdifatah Whitt Primary Care [...] AM EST Office Visit Orthopedic Surgery - [place] [address] [place] [id number] Isreal Galdamez DPM Left ankle pain [...] AM EST Office Visit Orthopedic Surgery - [place] [address] [phone] Isreal Galdamez DPM [address] [facility] [address] [place] [address] Health Maintenance Due Date Last Done Comments [...] ult * Annual BMP Blood Test (05/02/2016) [facility] Annual BMP Blood Test abstracted Result [facility] Provider HEALTH MAINTENANCE Final Result * HIV Screening (07/22/2015) [facility] HIV Screening abstracted Result [facility] Historical Provider HEALTH MAINTENANCE Final Result * Hepatitis C Screening (07/22/2015) [facility] Hepatitis C Screening abstracted Result [facility] Historical Provider HEALTH MAINTENANCE Final Result * Lipid panel (07/22/2015) [facility] LDL/HDL Ratio 3 0 - 4 Triglycerides 89 0 - 150 mg/dL Cholesterol 132 0 - 200 mg/dL HDL 40 >=40 mg/dL LDL Cholesterol 74 0 - 100 mg/dL Blood Venous blood specimen / Unknown Result [facility] Historical Provider LAB BLOOD ORDERABLES Sharron l Result from Last 3 Months or Most Recently Relevant to Health Maintenance Insurance [facility] Care Teams Dishing Machine Operator Relationship Specialty Start Date End Date Abdifatah Whitt PA PCP - General Physician Load Test Mechanic 04/24/24
== END 2024-08-04 13:58 | disposition home or self-care (01) ==
PROVIDERS: PCP Physician Assistant; Visit Provider Anesthesiology
DX: M51.362 Other intervertebral disc degeneration, lumbar region with discogenic back pain and lower extremity pain (principal); M96.1 Postlaminectomy syndrome, not elsewhere classified; Z88.4 Allergy status to anesthetic agent; Z88.8 Allergy status to other drugs, medicaments and biological substances; M25.551 Pain in right hip; M67.951 Unspecified disorder of synovium and tendon, right thigh; M53.3 Sacrococcygeal disorders, not elsewhere classified; M46.1 Sacroiliitis, not elsewhere classified
CPT/HCPCS: 99214

== ENCOUNTER → 2024-08-04 13:22 | Outpatient (BNVA) | payer OTHER, SELFPAY | PROVIDERS: PCP Physician Assistant; Visit Provider Anesthesiology | DX: M25.551 Pain in right hip (principal); M46.1 Sacroiliitis, not elsewhere classified; M53.3 Sacrococcygeal disorders, not elsewhere classified; M51.362 Other intervertebral disc degeneration, lumbar region with discogenic back pain and lower extremity pain; M67.951 Unspecified disorder of synovium and tendon, right thigh; M96.1 Postlaminectomy syndrome, not elsewhere classified; E66.813 Obesity, class 3; Z68.23 Body mass index [BMI] 23.0-23.9, adult; Z88.4 Allergy status to anesthetic agent; Z88.8 Allergy status to other drugs, medicaments and biological substances | CPT/HCPCS: 99212 ==

== ENCOUNTER 2024-08-25 09:28 | Outpatient (AMB) | payer OTHER, SELFPAY ==
--- NOTE | 2024-08-25 09:30 | MHC.OFFVIS ---
Vital Signs 08/25/24 09:31 Height 5 ft 3 in Weight 246 lb 11.156 oz BMI 43.7 BP 124/76 Blood Pressure Location Rt brachial Position Sitting Pulse 87 Pulse Source Pulse Oximeter Pulse Oximetry (%) 97 Oxygen Delivery Method Room Air Intake Visit Reasons: Other specified abnormal findings of blood chem Intake Note: New patient present today for Other specified abnormal findings of blood chemistry. Allergies dexamethasone [DEXAMETHASONE] Adverse Reaction (Unknown, Verified 08/25/24 09:33) ANXIETY Medication List - Last Reconciled 08/25/24 by Olivia Miller MD baclofen 10 mg PO BID 30 days cyclobenzaprine 5 mg PO BID 30 days famotidine 40 mg PO DAILY fluticasone propion-salmeterol 500-50 mcg/dose (Advair Diskus) 1 ea inhalation BID gabapentin 100 mg PO BID 30 days oxycodone 5 mg PO Q8H PRN 5 days HPI Comments Details: 33-year-old female here today for initial evaluation of low prolactin levels? and PCOS and obesity Prolactin level September 2023 done at [facility] was low at 3.6 pg/ml , normal estradio. LH, FSH, patient showed me these labs on the phone . Normal prolactin per our range 08/05 No nipple discharge, no vision chnages , no headaches Likely has PCOS with history of polycystic ovaries on US per patient with [facility] and irregular periods Mild acne during ovulation No hirsutism Apparently was elevated LMP: last month , irregular periods but gets them at least every 3 months Was on OCPS some years ago , had bloating could not tolerate Had weight gain on nexplanon Tubal ligation 3 years ago 3 pregnancies, last pregnany gave 3 years ago Preeclampsia with 2 boys Sudden onset of weight gain at menarche Has been waiting for appointment with weight managemet for 1 year Current weight 246 lb, BMI 43.7 kg per m2 Highest weight used to be 260 lb after she was the 1st time Back when she had menarche she gained a lot of weight suddenly, however the lowest weight ever was 150 lb when she was able to bring it down with diet and exercise. Reports easy bruising No proximal muscle weakness Has arthritis in knees Has history of gestational HTN, currently no HTN No history of DM No history of sleep apnea, but has been having poor sleep, waiting to talk to PCP about sleep study No chnage in ring size or shoe size Exercise: none has limitations due to arthritis , severe back pain and knee pain The patient reports limited exercise capability, primarily walking within her home, due to hip, back, and knee issues. She cannot remain on her feet for more than 15-20 minutes at a time due to pain. Diet:The patient follows a low-fat diet due to cholecystectomy. She significantly reduced oil use and eaton foods in an air fryer or oven. She seldom orders takeout. Her highest sugar intake is an occasional coffee. She currently does not consume much bread. Past calorie tracking efforts using mobile applications have not yielded significant weight loss results. Tried to calorie count in college, apparently didnt work Review of systems Constitutional: no fevers, chills or weight loss HEENT: no changes in vision Cardiac: No chest pain, discomfort or palpitations. Pulmonary: No SOB GI:No abdominal pain, no nausea or vomiting, no anorexia, no blood in stool : no burning micturition, dysuria or increase in urinary frequency Physical exam General: sitting comfortably in no acute distress HEENT: normocephalic/atraumatic, , moist oral mucosa Neck: supple, symmetrical, no thyromegaly , has dorsocervical and supraclavicular fat pads Cardiac: normal heart sounds Pulm: normal breath sounds B/L, no added breath sounds Abd: not distended, no tenderness, no purple striae Extremities: no edema, no signs of myxedema Neuro: AAO x3, Speech: normal, no facial droop, moving all 4 extremities Laboratory Tests 06/06/22 12/15/22 07/16/24 09:33 15:47 11:21 Hemoglobin A1c % 5.6 Triglycerides 90 Cholesterol 144 LDL Cholesterol, Calc 86 HDL Cholesterol 40 TSH 2.08 Prolactin 3.1 PFSH Medical History Right hip pain Pre-op evaluation Bunion of great toe of left foot Asthma PCOS (polycystic ovarian syndrome) Surgical History Hx of cholecystectomy History of tubal ligation History of back surgery History of carpal tunnel surgery (~04/2020) Hx of section Family History Father Unknown family medical history Maternal Uncle Blocked artery Family/Other Colon cancer Maternal Uncle Blocked artery Mother No problems noted. Maternal Grandmother Stroke S/P triple vessel bypass Social History Household Members: Children Housing: House Alcohol intake: former Comment: counts correct Patient Tobacco Use Status: Never used Tobacco e-Cigarette/Vaping Use: Never Used Second Hand Smoke Exposure: No service: No Current occupational status: unemployed Cognitive needs: No Hearing needs: No Vision needs: Yes Physical Exam Vital Signs: Last Vital Signs Pulse 87 08/25/24 09:31 BP 124/76 08/25/24 09:31 Pulse Ox 97 08/25/24 09:31 Oxygen Delivery Method Room Air 08/25/24 09:31 BMI result Body Mass Index 43.7 Assessment & Plan Assessment & Plan (1) Class 3 obesity: Code(s): E66.813 - Obesity, class 3 Category: Medical Plan: 33-year-old female coming in today for initial evaluation of class 3 obesity. Current BMI 43.7 kg per m2, current weight 246 lb. The patient has had persistent obesity despite significant dietary and lifestyle modifications restricted by physical structural limitations. Movement is very limited due to degenerative back disease, arthritis in knees. A further endocrinological workup is indicated, investigating possible hormonal contributions. Given BMI-related qualification, surgical intervention may be considered pending evaluation results and follow-up with weight management services. The patient likely has a diagnosis of PCOS, considering presenting symptoms of menstrual irregularities and ovarian cysts. I plan to conduct a thorough hormonal evaluation, including serum cortisol and additional diagnostics, to exclude other hormonal causes. We will do 17 hydroxyprogesterone to evaluate for CAH, though no hirsutism or acne. No acromegalic features. During our discussion, I emphasized the importance of completing a thorough hormonal evaluation to rule out any underlying abnormalities contributing to her obesity and associated issues. I explained the 24-hour urine collection procedure for evaluation of hypercortisolism and the rationale for comprehensive endocrinological testing. We discussed lifestyle and dietary adjustments, with emphasis on a consistent caloric deficit to promote weight loss. The patient was encouraged to remain in contact with the weight management program and consult her primary care for potential sleep studies. I reassured her regarding appropriate hormonal findings that do not currently suggest concerning prolactin levels. I discussed the possibility of future weight management medications, contingent upon documentation of appropriate calorie deficit and lifestyle management practices. I reviewed with patient the importance of weight loss as it relates to decreasing the risk of diabetes, cardiovascular disease, obstructive sleep apnea,PCOS, arthritis. We reviewed the importance of decreasing total calorie consumption, minimizing fats and carbohydrates. She was given the 500 calorie deficit plan using phone apps. In terms of comorbidities: A1c from July 2024 at 5.6%. I told her if her A1c was up by 0.1% she would classifies prediabetes. No recent lipid panel done. No history of hyperlipidemia. Has a history of gestational hypertension/preeclampsia, no current history of hypertension. Has arthritis and likely PCOS. Pending discussion with PCP for evaluation of sleep apnea. Plan: - Complete oil extractor bloodwork and 24-hour urine collection. - Maintain a consistent caloric deficit using an bryanna like [employer]. - Follow up with weight management services and inquire about current waitlist status. - Coordinate with primary care regarding a potential sleep study. - Continue modifications for weight management within physical limitations. - Follow up in four weeks to review test results and discuss further management plans. Plan I spent 60 minutes in reviewing the record, seeing the patient and documenting in the medical record. Orders: Orders Thyroid Stimulating Hormone Today E66.813 - Obesity, class 3 Free T4 (Free Thyroxine) Today E66.813 - Obesity, class 3 Adrenocorticotropic Hormone Today E66.813 - Obesity, class 3 DHEA Sulfate Today E66.813 - Obesity, class 3 17 Hydroxyprogesterone Today E66.813 - Obesity, class 3 Lipid Panel Today E66.813 - Obesity, class 3 Cortisol Random Today E66.813 - Obesity, class 3 Testosterone, Free/Total Today E66.813 - Obesity, class 3 Cortisol, Free 24Hr Urine Today E66.813 - Obesity, class 3 Creatinine, 24 Hr Group Today E66.813 - Obesity, class 3 Referrals [facility] [employer] Referral E66.813 - Obesity, class 3 Bariatric Surgery Referral E66.813 - Obesity, class 3 Patient Instructions: do blood work 8 AM Do 24 hr urine cortisol collection 24 hr urine collection instructions You have been asked to collect your urine for 24 hours to assess for cortisol excretion. You must choose a 24 hour period of time when you will be home. The morning of the first day, DISCARD the FIRST morning void and then note the time. You will collect every single void from then on for 24 hours. For example, if you wake up at 6am and urinate, flush down that void. You will then collect every drop of urine all day and all night through 6am the following day. You will urinate one last time at 6am for the collection. The jug of urine must be kept in the refrigerator until you bring it to the lab. Weight loss counselling ? Limit added sugars to less than 25 grams daily. There are 4.2 grams of sugar per teaspoon of sugar. A teaspoon of honey has 6 grams of sugar! Bread also can have more sugar than you think-check labels ? No soda or juices. Drink water, unsweetened iced tea or seltzer ? Limit eating out/take out or prepared meals to twice weekly at most ? Avoid red meat, hot dogs, cochran and deli meat. Substitute plant protein for animal protein as much as you can. Beans, nuts, tofu, soy milk ? Limit cheese to 1 ounce a few times weekly ? Eat high fiber foods like beans, apples and green veggies, salsa is a great snack with whole grain cracker like Wasa ? Look for the whole grain stamp when choosing bread etc. Aim for 48 grams of whole grains daily. Whole wheat does not equal whole grains! ? Don't keep tempting treats in the house. Go out once in a while for a treat. ? Don't eat anything deep fried or cream based-no sour cream Use LOSE IT or MYFITNESS PAL to calorie count to maintain 500 calorie deficit per day to aim to lose 1 lb per week See special forces medical sergeant Try to incorporate as much movement in your day as possible Bariatric surgery referral placed Coding Level of Care Code New Pt Level 5 (16420) Diagnoses Class 3 obesity E66.813 Time Spent (min) 60
[2024-08-25 09:31] VITALS: BP 124/76; PULSE 87; O2SAT 97; BMI 43.7
--- OUTSIDE RECORDS SUMMARY | 2024-08-25 10:15 | XMS_ITS | Encounter Summary ---
Author Organization [facility] Address [address] [place] [address] Care Team Providers Care Senior Underwriter Name Role Phone Abdifatah Whitt Primary Care Provider [phone]- [phone] Reason for Referral * Consultation (Routine) - Authorized Specialty Diagnoses / Procedures Referred By Emelia rizo Referred To Contact Physical Therapy Diagnoses Peroneal tendinitis of left lower extremity Equinus contracture of left ankle Isreal Galdamez DPM [address] [address] Phone: tel: fax: Referral ID Status Reason Start Date Expiration Date Visits Requested Visits Authorized [id number] Authorized Consult and Treat 08/14/2024 08/14/2025 21 21 Reason for Visit * Reason Comments Foot Pain Fu rt ankle pain Encounter Details Date Type Department Care Team (Late st Contact Info) Description 08/14/2024 9:30 AM EST Office Visit [facility] [place] [address] [address] Isreal Galdamez DPM [address] [address] Peroneal tendinitis of left lower extremity (Primary Dx); Disorder of ligament of ankle, left; Equinus contracture of left ankle Social History Tobacco Use Types Packs/Day Years [...] - - Weight 111 kg (245 lb) 08/14/2024 9:27 AM EST Height 160 cm (5' 2.99 ) 08/14/2024 9:27 AM EST Body Mass Index 43.41 08/14/2024 9:27 AM EST documented in this encounter Progress Notes * Isreal Galdamez DPM - 08/14/2024 9:30 AM EST Referring MD: Jose Eduardo Last PCP visit: 06/07/2024 IDENTIFIER: @TITLE@ Michael is a 33 y.o. year old female who presents for consultation. CC: Left ankle pain HPI: 33-year-old female returns office for chief complaint of left ankle pain. Patient notes that she continues to have some pain to the lateral aspect of the ankle but has been using the ASO daily and has had decreasing incidence of pain. Patient notes she continues to have some numbness within the medial aspect of the foot from time to time. Patient is here for evaluation treatment ROS: GENERAL: Pt denies nausea, fever, [...] have been marked as taking for the 08/14/24 encounter (Office Visit) with Isreal Galdamez DPM. ALLERGIES: @ALL@ PHYSICAL EXAM: Height 1.6 m (62.99 ), weight 111 kg (245 lb). PODIATRIC [...] degrees, plantar flexion WNL. No muscle atrophy. Continued ligamentous laxity with increased inversion position on passive and active range of motion. No pain on sinus tarsi of the left subtalar joint. Continued pain along the peroneal tendon to the retromalleolar area though it is decreased in comparison to previous visit. DERMATOLOGICAL:.No masses or skin lesions noted. Normal skin temperature, normal skin turgor. BIOMECHANICS: STJ ROM wnl, MTJ ROM wnl, 1st MPJ ROM wnl. IMAGING: Previous radiographs taken and reviewed. No evidence of sharri abnormality noted. No evidence of fracture or dislocation noted. No narrowing of first metatarsal phalangeal joint appreciated. No arthrosis noted to dorsal midfoot, localized to midtarsal joints. No hammered digits noted to inte rphalangeal joints. Increase in metatarsal angle between 1st and 2nd ray. Accessory ossicles noted.No evidence of foreign body. No evidence of gas or soft tissue. No evidence of cortical erosion noted. IMPRESSION: 1. Peroneal tendinitis of left lower extremity 2. Disorder of ligament of ankle, left 3. Equinus contracture of left ankle PLAN: Pt was seen and examined, history reviewed. Patient has been using ASO and has had some improvement. Patient continues to suffer with contracture of the posterior compartment which is pulling the foot into plantarflexion inversion and strain in the peroneal tendon. Patient was sent to physical therapy for 6 weeks to lengthen the posterior compartment and allow the foot to get to plantigrade to decrease the strain over the anterolateral aspect of the ankle. Isreal Galdamez DPM documented in this encounter Plan of Treatment Upcoming Encounters Date Type Department Care Team (Late st Contact Info) Description 09/09/2024 11:00 AM EDT Evaluation [facility] [place] [address] [place] [id number] Angela Vegas, SHARRON 10/16/2024 9:30 AM EDT Office Visit [facility] Surgery - [place] [address] [place] [address] Isreal Galdamez DPM [address] [place] [address] Scheduled Referrals Name Type Priority Associated Diagnoses Order Schedule Ambulatory referral to Physical Therapy and Athletic Training Outpatient Referral Routine Peroneal tendinitis of left lower extremity Equinus contracture of left ankle 1 Occurrences starting 08/14/2024 until 08/14/2025 documented as of this encounter Visit Diagnoses Diagnosis Peroneal tendinitis of left lower extremity- Primary Disorder of ligament of ankle, left Equinus contracture of left ankle documented in this encounter Discontinued Medications Medication Sig Discontinue Reason Start Date End Da te fluticasone propionate (FLONASE) 50 mcg/actuation nasal spray 2 Sprays by Nasal route daily. 03/10/2016 08/14/2024 documented as of this encounter Care Teams Senior Underwriter Relationship Specialty Start Date End Date Abdifatah Whitt PA PCP - General Physician Survey Party Chief 04/24/24 documented as of this encounter
--- OUTSIDE RECORDS SUMMARY | 2024-08-25 10:15 | XMS_ITS | Continuity of Care Document ---
Author Organization [facility] Address [address] [place] [address]- Care Team Providers Care Environmental Conflict Manager Name Role Phone Abdifatah Clifton Primary Care Physician [id number] Date(s): 08/17/24 - 08/17/[address] [address]- Encounter Diagnosis Acute on chronic right knee pain(Final) - 08/17/24 Discharge Disposition: A-D/C Home Attending Physician: Duy Whitt MD Admitting Physician: Duy Whitt MD Referring Physician: Not on Staff, Referring [...] Maintenance, 06/07/24 11:02:00 PM EST, Solution, [id number], Partial fill upon patient request if the [...] Refills, Maintenance, 12/13/23 12:21:00 PM EDT, Tablet, [id number], Partial fill upon patient request [...] 0 Refills, Maintenance, 04/13/24 2:53:00 PM EST, [id number], Partial fill upon patient request [...] Refills, Maintenance, :01:00 AM EDT, REC Powder, [facility] #[id number], Partial fill upon patient request if the prescription is for a schedule II opioid drug., 17 Gm By Mouth Daily,Instr:dissolve in water before taking, 160, cm, 12/11/21 0:15:00 EDT, Height, 117.2, kg, 12/07/21 23:30:00 EDT, Dry Weight Start Date: 12/11/21 Status: Ordered Quantity: 255.0 Unit: g Repeat number: 1 oxyCODONE 5 mg oral tablet 5 mg, Tablet, By Mouth, Once, STAT, 08/17/24 8:12:00 PM EDT, Stop date 08/17/24 8:59:45 PM EDT Start Date: 08/17/24 Stop Date: 08/17/24 Status: Completed Repeat number: 1 ProAir HFA 90 mcg/inh [...] Refills, Maintenance, 12/13/23 12:21:00 PM EDT, Tablet, [facility] #[id number], Partial fill upon patient request [...] 6:01:00 AM EDT, Route to Pharmacy Electronically, [facility] #[id number], Partial fill upon patient request [...] Exam Date Time Procedure Performing Provider Status 08/17/24 9:17 PM Knee 1 or 2 Views Right Mallorie Terrell ; Auth (Verified) Notes: (Knee 1 or 2 Views Right) Reason For Exam: Trauma RESULT: Knee 1 or 2 Views Right Knee 1 or 2 Views Right CLINICAL INDICATION: Hx of Present Illness: pt reports previous tear to R knee, re twisted knee andfelt another tear.; Reason: Trauma; Clinical Question(s): Fracture COMPARISONS: None TECHNIQUE: 2 views of the right knee were obtained. FINDINGS: Femoral-tibial joint space and alignment are normal. No fracture or dislocation. No joint effusion. The patella is normally positioned. IMPRESSION: No fracture or dislocation. WSN: [id number] Ordering Physician: Krystian Mills Dictated By: Armaan Nassar MD Dictated Date/Time: 08/17/24 9:26 pm Reviewed By: Armaan Nassar MD Signed By: Armaan Nassar MD Signed Date/Time: 08/17/24 9:26 pm Transcribed By: LUIS E Transcribed Date/Time: 08/17/24 9:25 pm Vital Signs Most recent to oldest [Reference Range]: 1 2 3 Height 160 cm (08/17/24 6:22 PM) Weight 110.5 kg (08/17/24 6:22 PM) Oxygen Saturation [94-100 %] 98 % (08/17/24 10:21 PM) 98 % (08/17/24 8:04 PM) 100 % (08/17/24 6:22 PM) Pulse Rate [55-90 bpm] 72 bpm (08/17/24 10:21 PM) 94 bpm *H* (08/17/24 8:04 PM) 80 bpm (08/17/24 6:22 PM) Body Mass Index [18.5-24.99 kg/m2] 43.16 kg/m2 *>HHI* (08/17/24 6:22 PM) Blood Pressure [90-138/55-84 mm Hg] 138/100mm Hg (08/17/24 10:21 PM) 133/80mm Hg (08/17/24 8:04 PM) 151/101mm Hg *H* (08/17/24 6:22 PM) Respiratory Rate [16-30 br/min] 16 br/min (08/17/24 10:21 PM) 16 br/min (08/17/24 8:59 PM) 16 br/min (08/17/24 8:04 PM) Temperature [96.8-100.4 DegF] 98.1 DegF (08/17/24 6:22 PM) Mode of Delivery (Oxygen) Room air (08/17/24 10:21 PM) Room air (08/17/24 8:04 PM) Room air (08/17/24 6:22 PM) Blood pressure sites Arm, right (08/17/24 10:21 PM) Arm, right (08/17/24 8:04 PM) Arm, left (08/17/24 6:22 PM) Temperature Route Oral (08/17/24 6:22 PM) Dry Weight 110.5 kg (08/17/24 6:22 PM) Weight Obtained Via Patient/family state d (08/17/24 6:22 PM) Dry Weight Obtained Via Patient/family s tated (08/17/24 6:22 PM) Social History Social History Type Response Smoking Status Never (less than 100 in lifetime) entered on: 05/31/21 Sex Sex Representation Female (finding) Patient Care team information Care Team Personnel Name: Abdifatah Clifton Position: Reference Physician Member Role: PCP Address: [address] [place] [address]- Telecom: Name: Cassidy Palma RN Position: S RN Member Role: Primary Care Nurse Name: Olya Thurston MD Position: [facility] MOLD CARRIER MD Member Role: Lifetime MOLD CARRIER Physician Address: [address] [place] [address]'s [facility] [employer]room Food Service [place] [address]- Telecom: Care Team Related Persons Name: RENUKA ALSTON Name: SMITH LARA Name: RAMSES LARA Name: TIFFANI BECKFORD Insurance Providers Guarantor name: [facility] Information #: 1 Payer: [employer] Member Number: [id number] Policy Number: NA Group Number: NA Health Plan Information #: 2 Payer: [employer] Member Number: [id number] Policy Number: NA Group Number: NA
--- OUTSIDE RECORDS SUMMARY | 2024-08-25 10:15 | XMS_ITS | Clinical Summary ---
Author Organization [facility] Address [address] [place] [address] Phone Care Team Providers Care Trimmer Operator Three Knife Name Role Phone Abdifatah Whitt Primary Care Provider Allergies Active Allergy Reactions Criticality Noted Date Comments Dexamethasone 07/03/2024 Medications albuterol HFA (PROAIR HFA ; PROVENTIL HFA ; VENTOLIN HFA) 90 mcg/actuation inhaler Inhale 2 Puffs into the lungs 4 times daily as needed for Cough, Wheezing or Shortness of Breath. 03/10/20 16 Active fluticasone HFA (FLOVENT HFA) 44 mcg/actuation inhaler Inhale 1 Puff into the lungs 2 times daily. 03/10/20 16 Active fluticasone propionate (FLONASE) 50 mcg/actuation nasal spray 2 Sprays by Nasal route daily. 03/10/20 16 025 Discontinued Active Problems Problem Noted Date Diagnosed Date Preeclampsia 05/06/2024 Overview (05/06/2024): diagnosed to have preeclampsia, was on meds for a short duration Asthma 05/06/2024 Encounters Date Type Department Care Team Description 08/14/2024 9:30 AM EST Office Visit Orthopedic Surgery [facility] [address] [phone] Isreal Galdamez, DPGeorgie Peroneal tendinitis of left lower extremity (Primary Dx); Disorder of ligament of ankle, left; Equinus contracture of left ankle 07/03/2024 10:15 AM EST Office Visit Orthopedic Surgery - [place] [address] [place] [address] [place] [phone] Isreal Galdamez DPM Left ankle pain [...] Father Other: Other Maternal Grandfather well in 2014 Other cancer Maternal Grandmother ovarian cancer, mi [...] Mass Index 43.41 08/14/2024 9:27 AM EST Plan of Treatment Upcoming Encounters Date Type Department Care Team (Late st Contact Info) Description 09/09/2024 11:00 AM EDT Evaluation [facility] [place] [facility] [address] [place] [address] Angela Vegas PT 10/16/2024 9:30 AM EDT Office Visit Orthopedic Surgery - [place] [address] [facility] [address] [place] [phone] Isreal Galdamez, DPM 175 [facility] [address] [place] [address] Health Maintenance Due Date Last Done Comments [...] 07/03/2024 10:34 AM EST Left ankle pain ANNUAL BMP BLOOD TEST Routine 05/02/2016 HEPATITIS [...] ult * Annual BMP Blood Test (05/02/2016) Pathologist [facility] Annual BMP Blood Test abstracted Historical Provider HEALTH MAINTENANCE Final Result * HIV Screening (07/22/2015) Pathologist [facility] HIV Screening abstracted Historical Provider HEALTH MAINTENANCE Final Result * Hepatitis C Screening (07/22/2015) Hepatitis C Screening abstracted Historical Provider HEALTH MAINTENANCE Final Result * Lipid panel (07/22/2015) LDL/HDL Ratio 3 0 - 4 Triglycerides 89 0 - 150 mg/dL Cholesterol 132 0 - 200 mg/dL HDL 40 >=40 mg/dL LDL Cholesterol 74 0 - 100 mg/dL Blood Venous blood specimen / Unknown [facility] Provider LAB BLOOD ORDERABLES Sharron l Result from Last 3 Months or Most Recently Relevant to Health Maintenance Insurance [facility] Care Teams Trimmer Operator Three Knife Relationship Specialty Start Date End Date Abdifatah Whitt PA PCP - General Physician Environmental Consultant 04/24/24
== END 2024-08-25 10:40 | disposition home or self-care (01) ==
LOC: HO.ENCR 09:29
PROVIDERS: PCP Physician Assistant; Visit Provider Student in an Organized Health Care Education/Training Program
DX: E66.813 Obesity, class 3 (principal); Z68.41 Body mass index [BMI] 40.0-44.9, adult
CPT/HCPCS: 99205

== ENCOUNTER → 2024-08-25 09:28 | Outpatient (BNVA) | payer OTHER, SELFPAY | PROVIDERS: PCP Physician Assistant; Visit Provider Student in an Organized Health Care Education/Training Program | DX: E66.813 Obesity, class 3 (principal); Z68.41 Body mass index [BMI] 40.0-44.9, adult | CPT/HCPCS: 99202 ==

== ENCOUNTER 2024-08-29 09:04 | Outpatient (AMB) | payer OTHER, SELFPAY ==
[2024-08-29 09:19] VITALS: BP 120/84; PULSE 82; TEMP 37.1; O2SAT 99; BMI 44.1
--- NOTE | 2024-08-29 09:19 | MHC.PC.OV ---
Vital Signs 08/29/24 09:19 Height 5 ft 3 in Weight 249 lb 3.2 oz BMI 44.1 BP 120/84 Blood Pressure Location Lt brachial Position Sitting Pulse 82 Pulse Source Pulse Oximeter Temp 98.8 F Temp Source Oral Pulse Oximetry (%) 99 Oxygen Delivery Method Room Air Intake [place] [facility] [place] Knee pain Supervisor/Port Director Required: No Accompanied by: Self / Same As Patient Allergies dexamethasone [DEXAMETHASONE] Adverse Reaction (Unknown, Verified 08/29/24 09:20) ANXIETY Tobacco use date assessed: 08/29/24 Dental Screening Dental Screen Date: 08/29/24 Did you have a dental visit in the last 12 months?: Yes Did you have a dental problem in the last 6 months where you did not have access to dental care?: No Was dental information given to patient?: Patient has dentist HPI HPI Comments History of Present Illness Details 33 y/o Female patient who presents to the clinic today for HDF. [place] [facility] due to severe Right Knee pain. She [place]oped[place] [facility] [place]. Sand[place] for Grade 1 Sprain Medial Collateral Ligament. MRI showed a very small medial meniscus tear which does not need to be treated surgically. Ortho recommended PT but patient was not willing to continue because not helping. Her PCP referred her to [facility] for second Opinion but they would not accept the referral. The referral contained the name of the doctor who no longer works at [facility]. [facility] Medical History Right hip pain Pre-op evaluation Bunion of great toe of left foot Asthma PCOS (polycystic ovarian syndrome) Surgical History Hx of cholecystectomy History of tubal ligation History of back surgery History of carpal tunnel surgery (~04/2020) Hx of section Family History Father Unknown family medical history Maternal Uncle Blocked artery Family/Other Colon cancer Maternal Uncle Blocked artery Mother No problems noted. Maternal Grandmother Stroke S/P triple vessel bypass Social History Household Members: Children Housing: House Alcohol intake: former Comment: counts correct Patient Tobacco Use Status: Never used Tobacco e-Cigarette/Vaping Use: Never Used Second Hand Smoke Exposure: No service: No Current occupational status: unemployed Cognitive needs: No Hearing needs: No Vision needs: Yes Questionnaire PHQ-9 Over the last 2 weeks, how often have you been bothered by any of the following problems? 1. Little interest or pleasure in doing things: not at all 2. Feeling down, depressed, or hopeless: not at all 3. Trouble falling or staying asleep, or sleeping too much: nearly every day 4. Feeling tired or having little energy: not at all 5. Poor appetite or overeating: not at all 6. Feeling bad about yourself - or that you are a failure or have let yourself or your family down: not at all 7. Trouble concentrating on things, such as reading the newspaper or watching television: not at all 8. Moving or speaking so slowly that other people could have noticed. Or the opposite - being so fidgety or restless that you have been moving around a lot more than usual: not at all 9. Thoughts that you would be better off or of hurting yourself in some way: not at all Total score: 3 Depression Screening Interpretation: Negative Depression Screening Done: Yes 21994 - PHQ-9 Billing: Yes Source: Developed by Drs. Mike Gu, Adry Bansal, Bret Phipps and colleagues, with an educational akna from [employer]. Thrive Questionnaire Date Thrive assessed: 08/29/24 I am a: Patient What is your living situation today?: I have a steady place to live Within the past 12 months, did the food you bought not last and you didn't have the money to get more?: Never true Within the past 12 months, did you worry whether your food would run out before you got money to buy more?: Never true Do you have trouble paying for medicines?: No Do you have trouble getting transportation to medical appointments?: No Do you have trouble paying your heating and electricity bill?: No Do you have trouble taking care of your child, family member or friend?: No Do you have trouble with day-to-day activities such as bathing, preparing meals, shopping, managing finances, etc.?: No Are you currently unemployed and looking for a job?: No Are you interested in more education?: No Please select the resources that you would like help with: None Currently or been in a relationship where the following occur: No concerns reported THRIVE Score: 0 AUDIT C Alcohol Use Questionnaire (AUDIT-C) 1. How often do you have a drink containing alcohol?: Never 3. How often do you have six or more drinks on one occasion?: Never Total Score: 0 LAURA-7 AMB Questionnaire LAURA-7 Date LAURA - 7 assessed: 08/29/24 Feeling nervous, anxious, or on edge: 0 = Not at all Not being able to stop or control worryin = Not at all Worrying too much about different things: 0 = Not at all Trouble relaxin = Not at all Being so restless that it is hard to sit still: 0 = Not at all Becoming easily annoyed or irritable: 0 = Not at all Feeling afraid as if something awful might happen: 0 = Not at all Total LAURA-7 score (0-4 normal; 5-9 mild; 10-14 moderate; 15-21 severe): 0 Source: Developed by Drs. Mike Gu, Adry Bansal, Bret Phipps and colleagues, with an educational kana from [employer]. LAURA-7 Assessment Billing LAURA-7 Assessment Tool: LAURA-7 Assessment 35933 Review of Systems Const All systems reviewed & are unremarkable except as noted in HPI and below Physical exam (Primary Care) Vital Signs: Last Vital Signs Temp 98.8 F 08/29/24 09:19 Pulse 82 08/29/24 09:19 BP 120/84 08/29/24 09:19 Pulse Ox 99 08/29/24 09:19 Oxygen Delivery Method Room Air 08/29/24 09:19 BMI result Body Mass Index 44.1 Tobacco/Smoking Status: Tobacco use Status Tobacco use date assessed 08/29/24 08/29/24 09:28 Patient Tobacco Use Status Never used Tobacco 08/29/24 09:28 e-Cigarette/Vaping Use Never Used 08/29/24 09:28 PHQ-9: PHQ-9 Score PHQ-9: Total score 3 08/29/24 09:30 Depression Screening Interpretation: Negative Thrive Assessment: Date of Thrive Assessment Date Thrive assessed 08/29/24 08/29/24 09:28 Currently or been in a relationship where the following occur: No concerns reported Const General: no acute distress Nutritional Appearance: obese morbidly obese Orientation/consciousness: patient oriented x3 Neuro General: patient oriented x3, gait normal and moves all extremities Extrem Right lower extremity: full ROM and knee Details: no swelling, no crepitus and no deformity Psych Speech and movement: Normal speech and movement present Coding Level of Care Code Est Pt Level 4 (45684) Diagnoses Patellofemoral disorders, right knee M22.2X1 Additional Codes LAURA-7 Assessment Billing - LAURA-7 Assessment Tool: LAURA-7 Assessment 12562 ([id number]) PHQ-9 - 09079 - PHQ-9 Billing: Yes ([id number]) Time Spent (min) 20 Assessment & Plan Assessment & Plan (1) Patellofemoral disorders, right knee: Code(s): M22.2X1 - Patellofemoral disorders, right knee Category: Medical Plan: Placed a new Orthopedics referral and Faxed to [facility] @ [address] [place] [address]. Orders: Referrals Orthopedics Referral M23.311 - Other meniscus derangements, anterior horn of medial meniscus, right knee
== END 2024-08-29 09:40 | disposition home or self-care (01) ==
LOC: HO.HMCH 09:05
PROVIDERS: PCP Physician Assistant; Visit Provider Nurse Practitioner Family
DX: M22.2X1 Patellofemoral disorders, right knee (principal)

== ENCOUNTER → 2024-08-29 09:04 | Outpatient (BNVA) | payer OTHER, SELFPAY | PROVIDERS: PCP Physician Assistant; Visit Provider Nurse Practitioner Family | DX: M22.2X1 Patellofemoral disorders, right knee (principal) | CPT/HCPCS: 96127; 99212 ==

== ENCOUNTER 2024-09-05 08:06 | Outpatient (AMB) | payer OTHER, SELFPAY ==
--- NOTE | 2024-09-05 12:20 | A.OFFVIS_ITS ---
VS Expanded 09/05/24 12:30 Height 5 ft 4 in Weight 247 lb 2 oz BMI 42.4 Body Fat % 44 Body Fat Mass 108.6 Fat Free Mass 138.4 Visceral Fat Rating 12 Body Water % 40.1 Body Water Mass 99.2 Basal Metabolic Rate/Score 1,964 Intake Visit Reasons: [employer] SW[employer] BMI 42.5 Allergies dexamethasone [DEXAMETHASONE] Adverse Reaction (Unknown, Verified 09/05/24 12:21) ANXIETY Medication List - Last Reconciled 09/05/24 by Wilfred Gamino MD baclofen 10 mg PO BID 30 days famotidine 40 mg PO DAILY fluticasone propion-salmeterol 500-50 mcg/dose (Advair Diskus) 1 ea inhalation BID gabapentin 100 mg PO BID 30 days oxycodone 5 mg PO Q8H PRN 5 days HPI 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: Details: Start time: 12.10pm, End time: 12.50pm ?I spent 35 minutes speaking with the patient on the phone plus an additional 5 minutes reviewing and updating records for a total of 40 minutes HPI Comments Details: Previous weight loss efforts: self diets, counting calories Wakes up: 7.45am, Sleeps: 11.30pm Breakfast: skips Lunch: 12pm (soup, fish with rice) Dinner: 5.30pm (salad, pasta with chicken) Snacks: 7-8pm (granola bar, ice cream) Exercise: none Beverages: Coffee 1 cup x2/wk, tea: 1/wk, soda: Gingerale 2/wk, juice: daily, ETOH: none PFSH Medical History (Updated 09/05/24 @ 12:25 by Wilfred Gamino MD) GERD (gastroesophageal reflux disease) Right hip pain Pre-op evaluation Bunion of great toe of left foot Asthma PCOS (polycystic ovarian syndrome) Surgical History Hx of cholecystectomy History of tubal ligation History of back surgery History of carpal tunnel surgery (~04/2020) Hx of section Family History Father Unknown family medical history Maternal Uncle Blocked artery Family/Other Colon cancer Maternal Uncle Blocked artery Mother No problems noted. Maternal Grandmother Stroke S/P triple vessel bypass Social History (Updated 08/29/24 @ 11:47 by Chari Brody CMA) Household Members: Children Housing: House Alcohol intake: current Alcohol intake frequency: holidays/special occasions only Patient Tobacco Use Status: Never used Tobacco e-Cigarette/Vaping Use: Never Used Second Hand Smoke Exposure: No service: No Current occupational status: unemployed Cognitive needs: No Hearing needs: No Vision needs: Yes Physical Exam Vital Signs: BMI result Body Mass Index 42.4 Telehealth Telehealth Telehealth Platform: Telephone Location of provider rendering services: practice address Location of patient: address on file Patient Identification confirmed using: Name, : Yes Telehealth method: voice only Patient verbally consented to treatment: Yes Patient verbally consented to billing insurance company: Yes Patient informed of any privacy concerns related to visit: Yes Minutes spent on Phone/Video with Pt.: 40 Assessment & Plan Assessment & Plan (1) Morbid obesity: Code(s): E66.01 - Morbid (severe) obesity due to excess calories Category: Medical Plan: 1.? Plan for lap sleeve gastrectomy. If diaphragmatic or ventral hernias are present at time of surgery, these will be repaired laparoscopically as well. I emphasized the importance of close follow-up, adherence to instructions and good communication. The surgery does not replace the need to change your lifestlyle which is the cause of the obesity problem. The surgery provides the motivation to try again to change your lifestyle, it reduces the appetite and make the transition to a better lifestyle easier and doubles the amount of weight you would lose compared to doing the lifestyle change without the surgery. You will need to be on a liquid diet with protein shakes for 2 weeks before surgery to maximize weight loss and boost your nutritional status to recover better from surgery and also for the first two weeks after surgery to let the stomach heal before we introduce other foods. After the first 2 weeks we will introduce protein bars and soft foods like scrambled eggs, cottage cheese and yogurt and after the 6th week will introduce meat, fish and cooked vegetables in small amounts. Over time you should be able to eat everything in small amounts. Side effects like nausea, vomiting, heartburn or abdominal pain are not common in the practice unless you are not following in the practice. This operation requires lifetime commitment to following in our practice and communication with me. You will much less weight and experience side effects if you don?t communicate or not following in the practice. Complications are rare and in our practice is about 1/10 of the national average. However, you can develop bleeding that may require transfusion (hasn?t happened for year in the practice), you may from complications (we did not have any deaths in the practice) and infections. Infections are usually a result of breakdown in communication or not understanding or following directions correctly. They are difficult to treat, they can happen during the first 6 weeks, they may require to be in the hospital for weeks or even months, not being able to eat by mouth and you may have drains and surgeries to try and correct the issue. Other risks and complications include possible conversion to an open procedure, leaks, small bowel obstruction, blood clots, cardiac, or pulmonary complications, as chemical research technician complications such as ulcers, insufficient weight loss and vitamin deficiencies. 2. You will receive a link of our software bryanna to generate an individualized nutritional and exercise plan specific for you. Please send me a screenshot of t he plans you will generate Meal to include lean meat (beef, fish, pork, turkey, chicken), or kyrgyz yogurt, or egg whites, or beans with a salad with olive oil and fruits (berries, pears, apples, kiwi). Avoid salt, breads, potatoes, rice, pasta, desserts. ?3. If you choose shakes, each shake would be drunk slowly, like coffee in a period of 2 hours. ?4. If you choose bars, cut each bar in 4 pieces and eat each piece in 30min ?to make each bar last 2 hours. ?5. I emphasized the importance of measuring accurately the food portion and measure it when serving the food in plate ?6. The meal portions include a specific number of forks of meat and salad. You always eat the meat portion but you can replace up to half of salad/vegetables portion with rice, potatoes or pasta, or a fruit ?if you like. The less you do it the better weight loss will be. ?7. One full-size fork is what it can be scooped on the fork without falling aside and not what can be bit with the fork. Use regular forks like those you find in a typical restaurant. ?8.? Please buy the body composition scale we discussed and send me weight measurements as soon as possible and then once a week. Always include your diet and exercise plan. 9. The best choice would be to purchase a stationary bike, elliptical or treadmill at home that can track calories. Let me know if you do so I can give you an exercise plan. 9. The best exercise choice would be to use your treadmill at home that can track calories. You can create and exercise plan with the [employer]mp[employer] bryanna. ?10.?It is important of avoiding and for at least 18 months postoperatively and has been discussed at the infosession. ?11. Goal is to lose at least 1.5-2lbs per week ?12. Goal to lose 10% of your weight before surgery, which is about 25lbs. Ultimate weight goal: 222lbs before surgery 13. Please follow the diet plan exactly without any change. If you don't like something about the plan or you feel hungry you need to communicate with me so I can help you revise the plan. You should not change the plan yourself. 14. To be scheduled for EGD due to the history of GERD. The possibility of biopsies was discussed. Patient needs to avoid use of NSAIDs and aspirin for 1 week prior to EGD. You must be on liquids only the day before your endoscopy. Risks of perforation and bleeding was discussed with the patient. This will be a n outpatient procedure with IV sedation.
[2024-09-05 12:30] VITALS: BMI 42.4
== END 2024-09-05 12:51 | disposition home or self-care (01) ==
LOC: HO.HBS 08:06
PROVIDERS: PCP Physician Assistant; Visit Provider Surgery
DX: E66.813 Obesity, class 3 (principal); Z68.41 Body mass index [BMI] 40.0-44.9, adult
CPT/HCPCS: 99203

== ENCOUNTER 2024-09-20 09:40 | Outpatient (REF) | payer OTHER, SELFPAY ==
[2024-09-20 10:19] LABS: MANUAL DIFF FLAG NO
[2024-09-20 10:45] LABS: Basophils Percent Auto 0.5 % (0-2); Eosinophils Absolute Auto 0.1 X10*3/uL (0.0-0.4); Eosinophils Percent Auto 1.7 % (0-4); Hematocrit 38.4 % (37.0-47.0); Hemoglobin 12.1 g/dl (12.0-16.0); Imm Gran Abs Auto 0.02 X10*3/uL (0.00-0.03); Imm Gran Pct Auto 0.3 % (0.0-0.4); Lymphocytes Absolute Auto 1.5 X10*3/uL (1.2-4.9); Lymphocytes Percent Auto 26.6 % (20-40); Mean Corpuscular HGB Conc 31.5 g/dl (31.0-35.0); Mean Corpuscular Hemoglobin 26.5 pg (27.0-33.0); Mean Platelet Volume 11.9 fL (9.4-12.3); Monocytes Absolute Auto 0.3 X10*3/uL (0.1-1.2); Monocytes Percent Auto 5.2 % (2-11); Neutrophils Absolute Auto 3.8 x10*3/uL (2.0-8.3); Neutrophils Percent Auto 65.7 % (45-73); Platelet Count 233 X10*3/uL (160-400); Red Blood Count 4.57 X10*6/uL (4.20-5.50); Red Cell Distribution Width 15.8 % (11.0-16.0); White Blood Count 5.8 X10*3/uL (4.8-10.8)
[2024-09-20 10:58] LABS: Estimated Average Glucose 111 mg/dL; Hemoglobin A1C 121.0694 umol/L; Hemoglobin A1c % 5.5 % (<6.0); Total Hemoglobin (HGBA1C) 3292.7442 umol/L
[2024-09-20 11:14] LABS: Alanine Aminotransferase 50 U/L (0-31); Albumin Level 4.2 g/dL (3.5-5.0); Alkaline Phosphatase 88 U/L (39-117); Anion Gap 11 (12-20); Aspartate Amino Transferase 47 U/L (5-31); Bilirubin Total 0.3 mg/dL (0.0-1.0); Blood Urea Nitrogen 17 mg/dL (9-16); Calcium 8.6 mg/dL (8.4-10.2); Carbon Dioxide 25 mmol/L (22-29); Chloride 109 mmol/L (96-108); Estimated Glomerular Filt Rate > 60; Glucose Random 103 mg/dL (60-115); Iron 29 mcg/dL (30-160); Percent Iron Saturation 9 % (15-50); Potassium 4.1 mmol/L (3.3-5.1); Sodium 141 mmol/L (135-145); Total Iron Binding Capacity 332 mcg/dL (228-428); Total Protein 7.9 g/dL (6.5-8.0); Unsaturated Iron Binding 303 ug/dL
[2024-09-20 11:15] LABS: Alanine Aminotransferase 50 U/L (0-31); Albumin Level 4.2 g/dL (3.5-5.0); Alkaline Phosphatase 91 U/L (39-117); Anion Gap 12 (12-20); Aspartate Amino Transferase 48 U/L (5-31); Bilirubin Total 0.3 mg/dL (0.0-1.0); Blood Urea Nitrogen 16 mg/dL (9-16); Calcium 8.8 mg/dL (8.4-10.2); Carbon Dioxide 24 mmol/L (22-29); Chloride 109 mmol/L (96-108); Cholesterol 154 mg/dL (<200); Estimated Glomerular Filt Rate > 60; Glucose Fasting 103 mg/dL (60-99); HDL Cholesterol 43 mg/dL (>40); LDL Cholesterol Calculated 96 mg/dL (<100); Potassium 4.1 mmol/L (3.3-5.1); Sodium 141 mmol/L (135-145); Triglycerides 75 mg/dL (<150)
[2024-09-20 11:33] LABS: Thyroid Stimulating Hormone 1.04 uIU/mL (0.32-4.0)
[2024-09-20 11:34] LABS: Free T4 (Free Thyroxine) 1.01 ng/dL (0.71-1.85)
[2024-09-20 11:45] LABS: Folate 10.4 ng/mL (> or = 4.0); Vitamin B12 266 pg/mL (200-900)
[2024-09-20 11:52] LABS: Creatinine, mg/dL 206.77
[2024-09-20 12:16] LABS: Cortisol Random 6.7 ug/dL
[2024-09-20 12:45] LABS: Ferritin 24 ng/mL (10-122); TSH reflex Free T4 1.13 uIU/mL (0.32-4.0); Vitamin D 25-OH Total 17.8 ng/mL (>30)
[2024-09-20 13:32] LABS: Creatinine, 24Hr Urine 1.6 G/Day (1.0-2.0); Total Volume 24 Hour Urine 750 mL
[2024-09-20 13:33] LABS: Insulin 19 uU/mL (2-29)
[2024-09-22 12:19] LABS: DHEA Sulfate 118 mcg/dL (19-237)
[2024-09-24 03:29] LABS: Zinc 62 mcg/dL (60-130)
[2024-09-25 22:14] LABS: Cortisol Free, 24 Hr Urine 12.7 mcg/24 h (4.0-50.0); Creatinine, 24 Hr Urine 1.48 g/24 h (0.50-2.15); Total Volume, 24 Hr Urine 750 mL
[2024-09-26 05:08] LABS: Adrenocorticotropic Hormone 29 pg/mL (6-50)
[2024-09-26 13:17] LABS: Testosterone, Free 5.3 pg/mL (0.1-6.4); Testosterone, Total 26 ng/dL (2-45)
[2024-10-04 10:18] LABS: Vitamin B1 13 nmol/L (8-30)
== END 2024-09-20 09:41 | disposition home or self-care (01) ==
LOC: HO.LAB 09:40
PROVIDERS: Absent Provider Surgery; PCP Physician Assistant; Visit Provider Student in an Organized Health Care Education/Training Program
DX: Z13.1 Encounter for screening for diabetes mellitus (principal); E66.813 Obesity, class 3; E66.01 Morbid (severe) obesity due to excess calories
CPT/HCPCS: 36415; 80053; 80061; 82024; 82306; 82530; 82533; 82570; 82607; 82627; 82728; 82746; 83036; 83498; 83525; 83540; 84402; 84403; 84425; 84439; 84443; 84630; 85025; 86140

== ENCOUNTER 2024-10-06 11:06 | Outpatient (AMB) | payer OTHER, SELFPAY ==
--- NOTE | 2024-10-06 11:14 | MHC.AMNUTRGE ---
VS Expanded 10/06/24 11:16 10/06/24 11:24 Height 5 ft 4 in 5 ft 4 in Weight 242 lb 8.136 oz 242 lb BMI 41.6 41.5 Intake Visit Reasons: Obesity, class 3 Allergies dexamethasone [DEXAMETHASONE] Adverse Reaction (Unknown, Verified 09/05/24 12:21) ANXIETY Nutrition Presentation Details: Pt presents for MNT for morbid obesity Typical meal intake no meal routine lactose intolerant food frequency fruits: 0-1/d veg 1-2 /d prot: 16-21 g/d dairy:-- lactose intolerance - dislike lactose free foods starches > 30/d sweets: sugar added to coffee, ++ constipation: denies diarrhea: denies BS Monitoring Most Recent Diabetes Results: Cholesterol 154 mg/dL (<200) 09/20/24 HDL Cholesterol 43 mg/dL (>40) 09/20/24 Triglycerides 75 mg/dL (<150) 09/20/24 Creatinine 0.91 mg/dL (0.5-1.4) 09/20/24 Blood Urea Nitrogen 16 mg/dL (9-16) 09/20/24 Sodium 141 mmol/L (135-145) 09/20/24 Potassium 4.1 mmol/L (3.3-5.1) 09/20/24 Chloride 109 mmol/L (96-108) H 09/20/24 Carbon Dioxide 24 mmol/L (22-29) 09/20/24 Calcium 8.8 mg/dL (8.4-10.2) 09/20/24 AST 48 U/L (5-31) H 09/20/24 ALT 50 U/L (0-31) H 09/20/24 Total Protein 8.0 g/dL (6.5-8.0) 09/20/24 Albumin 4.2 g/dL (3.5-5.0) 09/20/24 LJS-Itaizfm-Et.Jeor Equation Height: 5 ft 4 in Weight: 242 lb Resting Metabolic Rate: 1794.16 Calculated Activity Level: Sedentary Calories Needed to Maintain Weight: 2152.99 Diagnosis Nutrition problem #1: overweight/obesity As related to (etiology) #1: diagnosis As evidenced by (sign/symptom) #1: knowledge deficit of diet [facility] Medical History (Updated 09/05/24 @ 12:25 by Wilfred Gamino MD) GERD (gastroesophageal reflux disease) Right hip pain Pre-op evaluation Bunion of great toe of left foot Asthma PCOS (polycystic ovarian syndrome) Surgical History Hx of cholecystectomy History of tubal ligation History of back surgery History of carpal tunnel surgery (~04/2020) Hx of section Family History Father Unknown family medical history Maternal Uncle Blocked artery Family/Other Colon cancer Maternal Uncle Blocked artery Mother No problems noted. Maternal Grandmother Stroke S/P triple vessel bypass Social History (Updated 08/29/24 @ 11:47 by Chari Brody [facility]) Household Members: Children Housing: House Alcohol intake: current Alcohol intake frequency: holidays/special occasions only Patient Tobacco Use Status: Never used Tobacco e-Cigarette/Vaping Use: Never Used Second Hand Smoke Exposure: No service: No Current occupational status: unemployed Cognitive needs: No Hearing needs: No Vision needs: Yes Assessment & Plan Assessment & Plan (1) Class 3 obesity: Code(s): E66.813 - Obesity, class 3 Category: Medical Plan: Wt: 110 Kg ( 10/03 ) Est kcal needs as per MSJ: 2200 (40% carb, 30% protein/fat) Est fluid needs as per 25-30 ml/d: 3300 Est prot per day as per 1 g/kg bw: 110 Recommend fiber intake : 8-10 g per day and gradually increase to 25-28 g per day for women and 35-38 g for men or as tolerated Recommend sodium intake per day : less than 2000 mg Educated patient on: ( R = reviewed V = verbalizes understanding N/R = needs review N/A = not applicable Food sources of carbohydrate, adequate serving sizes and its role in various health conditions: R Differences between complex carbohydrates a simple carbohydrates, role of fiber in diet: R V N/R Lean protein sources of foods: R V NR Differences between types of fats and role in diet (mono on saturated fat fatty acids, saturated fatty acids, trans fats): R V N/R Food sources of sodium in salt and healthy modifications for heart health in kidney health: R V R/V Vitamins and minerals: R V N/R Healthy plate method concept: R Physical activity: Benefits a precaution: R V N/R Hypoglycemia protocol (rule of 15): R V N/R Dietary prevention of Hyperglycemia: R V R/V Patient Instructions: Work on having 3 meals/day following healthy plate method see meal plan consisting of less than 60 g carb and 30 g prot reduce sugars (flavored creamers, sugars in liquids) Coding Level of Care Code Nutr Indiv Subseq (64487) Diagnoses Class 3 obesity E66.813 Time Spent (min) 30
[2024-10-06 11:16] VITALS: BMI 41.6
[2024-10-06 11:24] VITALS: BMI 41.5
--- OUTSIDE RECORDS SUMMARY | 2024-10-06 13:22 | XMS_ITS | Clinical Summary ---
Author Organization 175 [facility] Address [address] [place] [address] Phone Care Team Providers Care [employer] Teacher Name Role Phone Abdifatah Whitt Primary Care Provider [phone] Allergies Active Allergy Reactions Criticality Noted Date Comments Dexamethasone High 11/24/2022 Other Reaction(s): FLUSHING, BURNING SENSATION ON SKIN, Headache, Hot Flash, Increase Heart Rate Medications albuterol HFA (PROAIR HFA ; PROVENTIL HFA ; VENTOLIN HFA) 90 mcg/actuation inhaler Inhale 2 Puffs into the lungs 4 times daily as needed for Cough, Wheezing or Shortness of Breath. 6 Active fluticasone HFA (FLOVENT HFA) 44 mcg/actuation inhaler Inhale 1 Puff into the lungs 2 times daily. 6 Active oxyCODONE-acetamin ophen (PERCOCET) 5-325 mg per tablet Take 1 tablet by mouth every 6 (six) hours if needed. for pain Max Daily Amount: 4 tablets 4 Active gabapentin (NEURONTIN) 100 mg capsule take 1 capsule orally 2 times a day for 30 days 5 Active famotidine (PEPCID) 40 mg tablet Take 1 tablet (40 mg total) by mouth 1 (one) time each day. 4 Active baclofen (LIORESAL) 10 mg tablet take 1 tablet orally 2 times a day for 30 days 5 Active celecoxib (CeleBREX) 200 mg capsule take 1 capsule orally 2 times a day as needed for for pain 4 Active ondansetron ODT (ZOFRAN-ODT) 4 mg disintegrating tablet Dissolve 1 tablet (4 mg total) on top of the tongue every 8 (eight) hours if needed for nausea or vomiting for up to 7 days. 20 tablet 5 025 naproxen (NAPROSYN) 500 mg tablet Take 1 tablet (500 mg total) by mouth 2 (two) times a day with meals for 7 days. 14 tablet 5 025 Active Problems Problem Noted Date Diagnosed Date Preeclampsia 05/06/2024 Overview (05/06/2024): diagnosed to have preeclampsia, was on meds for a short duration Asthma 05/06/2024 Encounters Date Type Department Care Team Description 09/28/2024 6:48 PM EDT - 09/28/2024 11:45 PM EDT Emergency [facility] [address] [place] [address] Hemorrhagic cyst of right ovary (Primary Dx) Discharge Disposition: Home or Self Care 09/15/2024 9:30 AM EDT Office Visit [facility] [address] 175 [facility] [address] [place] [phone] Jose D Claros MD Right knee pain, unspecified chronicity (Primary Dx) 08/14/2024 9:30 AM EST Office Visit [facility] 250 175 [facility] [address] [place] [phone] Isreal Galdamez DPM Peroneal tendinitis of left lower extremity (Primary Dx); Disorder of ligament of ankle, left; Equinus contracture of left ankle from Last 3 Months Surgical History Surgery [...] Information Value Date Recorded Sex Assigned at Female 09/28/2024 7:21 PM EDT Legal Sex Female 9:06 AM EST Gender Identity Female 09/28/2024 7:21 PM EDT Sexual Orientation Straight 09/28/2024 7: 21 PM EDT Obstetrics History Last Filed Vital Signs Vital Sign Reading Time Taken Comments Blood Pressure 148/95 09/28/2024 6:23 PM EDT Pulse 85 09/28/2024 6:23 PM EDT Temperature 36.5 ??C (97.7 ??F) 09/28/2024 6:23 PM ED T Respiratory Rate 20 09/28/2024 6:23 PM EDT Oxygen Saturation 99% 09/28/2024 6:23 PM EDT Inhaled Oxygen Concentration - - Weight 111 kg (245 lb) 09/28/2024 6:23 PM EDT Height 160 cm (5' 3 ) 09/28/2024 6:23 PM EDT Body Mass Index 43.4 09/28/2024 6:23 PM EDT Plan of Treatment Upcoming Encounters Date Type Department Care Team (Late st Contact Info) Description 10/16/2024 9:30 AM EDT Office Visit Orthopedic [facility] [place] [id number] [phone] Isreal Galdamez, ALEXANDRE [address] [address] Health Maintenance Due Date Last Done Comments Hepatitis A Vaccines (1 of 2 - Risk 2-dose series) 11/03/2010 Cervical Cancer Screening: Pap Smear 11/03/2012 Pneumococcal Vaccine: Pediatrics (0 to 5 Years) and At-Risk Patients (6 to 64 Years) (2 of 2 - PCV) 08/17/2019 08/16/2018, 11/30/2016 Cholesterol Screening (Lipid Panel) 05/14/2022 07/22/2015 Depression Screening 05/14/2022 Social Influencers of Health Screening 05/14/2022 COVID-19 Vaccine ( season) 2024 04/25/2021, 10/17/2020, 09/26/2020 Hypertension/CHF/CAD Annual BMP Blood Test 09/28/2025 09/28/2024, 05/02/2016 DTaP,Tdap,and Td Vaccines (11 - Td or [...] , 05/19/2018, Additional history exists Meningococcal B Vaccine Aged Out No l onger eligible based on patient's age to complete this topic RSV Immunization Patients Under 20 months Aged Out No longer eligible based on patient's age to complete this topic Varicella Vaccines Aged Out No longer eligible based on patient's age to complete this topic Procedures Procedure Name Priority Date/Time Associated Diagnosis Comments CT ABDOMEN PELVIS W CONTRAST STAT 09/28/2024 10:01 PM EDT US PELVIS NON OB COMPLETE W TRANSVAGINAL STAT 09/28/2024 8:44 PM EDT POC , URINE DIAGNOSTIC STAT 09/28/2024 6:43 PM EDT CORTEZ URINE CULTURE TUBE STAT 09/28/2024 6:32 PM EDT URINALYSIS WITH REFLEX MICROSCOPIC AND CULTURE STAT 09/28/2024 6:32 PM EDT URINALYSIS WITH REFLEX MICROSCOPIC AND CULTURE STAT 09/28/2024 6:32 PM EDT CBC WITH AUTO DIFFERENTIAL STAT 09/28/2024 6:31 PM EDT COMPREHENSIVE METABOLIC PANEL STAT 09/28/2024 6:31 PM EDT CBC AND DIFFERENTIAL STAT 09/28/2024 6:31 PM EDT XR KNEE 3 VIEWS RIGHT Routine 09/15/2024 9:35 AM EDT Right knee pain, unspecified chronicity HEPATITIS C SCREENING Routine 07/22/2015 HIV SCREENING Routine 07/22/2015 LIPID PANEL Routine 07/22/2015 from Last 3 Months or Most Recently Relevant to Health Maintenance Results * CT Abdomen Pelvis w Contrast (09/28/2024 10:01 PM EDT) Anatomical Region Laterality Modality Body Computed Tomogra phy 09/28/2024 10:3 3 PM EDT Impressions 09/28/2024 10:33 PM EDT 1. No acute intraabdominal or pelvic pathology. 2. Normal appendix. This document has been electronically signed by: Basim Velazco MD on 09/28/2024 22:33:29 Narrative 09/28/2024 10:33 PM EDT INDICATION: RLQ pain CT abdomen and pelvis with contrast Comparison: US/IL - US PEL NON OB COMPLETE W TRANSVAGINAL - 09/28/24 19:37 EDT Findings: The lung bases are clear. Gallbladder is absent. No biliary duct dilatation. There is a small accessory splenule. Liver, pancreas, adrenal glands, and kidneys are within normal limits. Subcentimeter exophytic cyst in the right renal upper pole. No bowel obstruction, pneumoperitoneum, or pneumatosis. Normal appendix. Right ovary is slightly larger than the left, this corresponds to a right ovarian hemorrhagic cyst seen on ultrasound. Trace free fluid in the right adnexa. Urinary bladder is underdistended. No acute fracture. Procedure Note Basim Velazco MD - 09/28/2024 INDICATION: RLQ pain CT abdomen and pelvis with contrast Comparison: US/IL - US PEL NON OB COMPLETE W TRANSVAGINAL - 09/28/2518:37 EDT Findings: The lung bases are clear. Gallbladder is absent. No biliary duct dilatation. There is a small accessory splenule. Liver, pancreas, adrenal glands, and kidneys are within normal limits. Subcentimeter exophytic cyst in the right renal upper pole. No bowel obstruction, pneumoperitoneum, or pneumatosis. Normal appendix. Right ovary is slightly larger than the left, this corresponds to aright ovarian hemorrhagic cyst seen on ultrasound. Trace free fluid in the right adnexa. Urinary bladder is underdistended. No acute fracture. IMPRESSION: 1. No acute intraabdominal or pelvic pathology. 2. Normal appendix. This document has been electronically signed by: Basim Velazco MD on 09/28/2024 22:33:[address] PROCEDURES Final R esult * US Pelvis Non OB Complete w Transvaginal (09/28/2024 8:44 PM EDT) Anatomical Region Laterality Modality Body, Pelvis Ultrasound 09/28/2024 9:39 PM EDT Impressions 09/28/2024 9:39 PM EDT Right ovarian hemorrhagic cyst without evidence of torsion. This document has been electronically signed by: Basim Velazco MD on 09/28/2024 21:39:12 Narrative 09/28/2024 9:39 PM EDT INDICATION: r/o RIGHT ovarian torsion US pelvis transabdominal and transvaginal with Doppler Comparison: None Findings: Transabdominal scanning performed for overall anatomy. Transvaginal scanning performed for additional detail. Retroverted uterus is 11.5 cm length. Limited visualization due to position. Visualized myometrium is within normal limits. Endometrium 14 mm thickness. Trace free fluid in the cervix. Right ovary 3.7 x 2.9 x 3.0 cm. Hemorrhagic cyst measuring 2.2 cm. Left ovary 2.1 x 1.3 x 3.2 cm. Within normal limits on transabdominal imaging. Not visualized transvaginally. Normal color Doppler with arterial/venous spectral tracing of the right ovary and arterial tracing of the left ovary. No free fluid. Procedure Note Basim Velazco MD - 09/28/2024 INDICATION: r/o RIGHT ovarian torsion US pelvis transabdominal and transvaginal with Doppler Comparison: None Findings: Transabdominal scanning performed for overall anatomy. Transvaginal scanning performed for additional detail. Retroverted uterus is 11.5 cm length. Limited visualization due to position. Visualized myometrium is within normal limits. Endometrium 14 mm thickness. Trace free fluid in the cervix. Right ovary 3.7 x 2.9 x 3.0 cm. Hemorrhagic cyst measuring 2.2 cm. Left ovary 2.1 x 1.3 x 3.2 cm. Within normal limits on transabdominal imaging. Not visualized transvaginally. Normal color Doppler with arterial/venous spectral tracing of the right ovary and arterial tracing of the left ovary. No free fluid. IMPRESSION: Right ovarian hemorrhagic cyst without evidence of torsion. This document has been electronically signed by: Basim Velazco MD on 09/28/2024 21:39:12 us Mike CHIU IMG US PROCEDURES Final R esult * POC , urine manually resulted (09/28/2024 6:43 PM EDT) HCG, Ur POC Negative Negative POC hCG Int QC Pass? Yes Yes Urine Urine specimen obtained by clean catch procedure / Unknown 09/28/2024 6:43 PM EDT us Zackary Vasquez MD POINT OF CARE TEST ENTER/ EDIT ORDERABLES Final Result * (ABNORMAL) Urinalysis with reflex microscopic and culture (09/28/2024 6:32 PM EDT) Specific [place] Urine 1.027 1.003 - 1.030 LAB URINALYSIS - AUTOMATED METHOD 09/28/2024 6:55 PM [facility] pH, Urine 6.0 5.0 - 8.0 pH LAB URINALYSIS - AUTOMATED METHOD 09/28/2024 6:55 PM [facility] Leukocytes, Urine Negative Negative LAB URINALYSIS - AUTOMATED METHOD 09/28/2024 6:55 PM [facility] Nitrite, Urine Negative Negative LAB URINALYSIS - AUTOMATED METHOD 09/28/2024 6:55 PM [facility] Protein, Urine Trace <=Trace mg/dL LAB URINALYSIS - AUTOMATED METHOD 09/28/2024 6:55 PM [facility] Glucose, Urine Negative Negative mg/dL LAB URINALYSIS - AUTOMATED METHOD 09/28/2024 6:55 PM [facility] Ketones, Urine Trace(A) Negative mg/dL LAB URINALYSIS - AUTOMATED METHOD 09/28/2024 6:55 PM [facility] Urobilinogen, Urine 0.2 0.2 - 1.0 mg/dL LAB URINALYSIS - AUTOMATED METHOD 09/28/2024 6:55 PM [facility] Bilirubin, Urine Negative Negative LAB URINALYSIS - AUTOMATED METHOD 09/28/2024 6:55 PM [facility] Blood, Urine Negative Negative LAB URINALYSIS - AUTOMATED METHOD 09/28/2024 6:55 PM [facility] Urine Urine specimen obtained by clean catch procedure / Unknown Non-blood Collection / Unknown 09/28/2024 6:32 PM EDT 09/28/2024 6:49 PM EDT Zackary Vasquez MD LAB URINE ORDERABLES Sharron l Result Performing Organization Address [facility]/ZIP Co de Phone Number [facility] [address] [place] [address], [place] [phone] * [place] urine culture tube (09/28/2024 6:32 PM EDT) Pathologist [facility] Extra Tube Hold for add-ons. 09/28/2024 8:01 PM EDT [facility] Comment:Auto resulted. Urine Urine specimen obtained by clean catch procedure / Unknown Non-blood Collection / Unknown 09/28/2024 6:32 PM EDT 09/28/2024 6:49 PM EDT Zackary Vasquez MD LAB URINE ORDERABLES Sharron l Result Performing Organization Address [facility]/ZIP Co de Phone Number [facility] [address] [place] [address], [place] [phone] * (ABNORMAL) CBC auto differential (09/28/2024 6:31 PM EDT) [facility] WBC 7.7 4.8 - 10.8 K/mcL LAB HEMETOLOGY METHOD 09/28/2024 6:57 PM EDT [facility] RBC 4.30 3.80 - 4.80 M/mcL LAB HEMETOLOGY METHOD 09/28/2024 6:57 PM EDT [facility] Hemoglobin 11.5 11.5 - 16.0 g/dL LAB HEMETOLOGY METHOD 09/28/2024 6:57 PM EDT [facility] Hematocrit 37.2 35.0 - 47.0 % LAB HEMETOLOGY METHOD 09/28/2024 6:57 PM EDT [facility] MCV 85.9 79.0 - 98.0 FL LAB HEMETOLOGY METHOD 09/28/2024 6:57 PM EDT [facility] MCH 26.6(L) 27.0 - 32.0 pcg LAB HEMETOLOGY METHOD 09/28/2024 6:57 [facility] MCHC 30.9(L) 32.0 - 37.0 g/dL LAB HEMETOLOGY METHOD 09/28/2024 6:57 PM [facility] RDW 16.3(H) 11.0 - 15.0 % LAB HEMETOLOGY METHOD 09/28/2024 6:57 PM [facility] Platelets 252 130 - 400 K/mcL LAB HEMETOLOGY METHOD 09/28/2024 6:57 PM [facility] MPV 11.5(H) 7.0 - 11.0 FL LAB HEMETOLOGY METHOD 09/28/2024 6:57 PM [facility] NRBC 0.0 <1.0 % LAB HEMETOLOGY METHOD 09/28/2024 6:57 PM [facility] NRBC Absolute 0.00 <0.10 K/mcL LAB HEMETOLOGY METHOD 09/28/2024 6:57 PM [facility] Neutrophils Relative 59.9 % LAB HEMETOLOGY METHOD 09/28/2024 6:57 PM [facility] Lymphocytes Relative 29.2 % LAB HEMETOLOGY METHOD 09/28/2024 6:57 PM [facility] Monocytes Relative 7.7 % LAB HEMETOLOGY METHOD 09/28/2024 6:57 PM [facility] Eosinophils Relative 2.3 % LAB HEMETOLOGY METHOD 09/28/2024 6:57 PM [facility] Basophils Relative 0.6 % LAB HEMETOLOGY METHOD 09/28/2024 6:57 PM EDT [facility] Immature Granulocytes Relative 0.3 % LAB HEMETOLOGY METHOD 09/28/2024 6:57 PM EDT [facility] Neutrophils Absolute 4.62 1.50 - 7.00 K/[facility] LAB HEMETOLOGY METHOD 09/28/2024 6:57 PM EDT [facility] Lymphocytes Absolute 2.25 1.00 - 5.00 K/mcL LAB HEMETOLOGY METHOD 09/28/2024 6:57 PM EDT [facility] Monocytes Absolute 0.59 0.20 - 1.00 K/[facility] LAB HEMETOLOGY METHOD 09/28/2024 6:57 PM EDT [facility] Eosinophils Absolute 0.18 0.00 - 0.50 K/mcL LAB HEMETOLOGY METHOD 09/28/2024 6:57 PM EDT [facility] Basophils Absolute 0.05 0.00 - 0.20 K/mcL LAB HEMETOLOGY METHOD 09/28/2024 6:57 PM EDT [facility] Immature Granulocytes Absolute 0.02 0.00 - 0.03 K/mcL LAB HEMETOLOGY METHOD 09/28/2024 6:57 PM EDT [facility] Blood Venous blood specimen / Unknown Venipuncture / Unknown 09/28/2024 6:31 PM EDT 09/28/2024 6:49 PM EDT us Zackary Vasquez MD LAB BLOOD ORDERABLES Sharron l Result [facility] [address] [place] [address], * (ABNORMAL) Comprehensive metabolic panel (09/28/2024 6:31 PM EDT) Sodium 140 133 - 145 mmol/L LAB CHEMISTRY METHOD 09/28/2024 7:15 PM EDT [facility] Potassium 4.2 3.5 - 5.5 mmol/L LAB CHEMISTRY METHOD 09/28/2024 7:15 PM [facility] Chloride 105 96 - 110 mmol/L LAB CHEMISTRY METHOD 09/28/2024 7:15 PM [facility] CO2 30 21 - 32 mmol/L LAB CHEMISTRY METHOD 09/28/2024 7:15 PM [facility] Anion Gap 5 3 - 11 LAB CHEMISTRY METHOD 09/28/2024 7:15 PM [facility] Glucose 91 70 - 100 mg/dL LAB CHEMISTRY METHOD 09/28/2024 7:15 PM [facility] BUN 17 5 - 25 mg/dL LAB CHEMISTRY METHOD 09/28/2024 7:15 PM [facility] Creatinine 0.96 0.50 - 1.10 mg/dL LAB CHEMISTRY METHOD 09/28/2024 7:15 PM [facility] eGFR 81 >=60 mL/min/1. 73m2 LAB CHEMISTRY METHOD 09/28/2024 7:15 PM [facility] Comment:Calculation based on the??Chronic Kidney Disease Epidemiology Collaboration (CKD-EPI) equation refit??without adjustment for race. BUN/Creatinine Ratio 17.7 LAB CHEMISTRY METHOD 09/28/2024 7:15 PM [facility] Calcium 9.4 8.5 - 10.5 mg/dL LAB CHEMISTRY METHOD 09/28/2024 7:15 PM [facility] AST (SGOT) 47(H) 10 - 42 unit/L LAB CHEMISTRY METHOD 09/28/2024 7:15 PM [facility] ALT (SGPT) 70(H) 10 - 60 unit/L LAB CHEMISTRY METHOD 09/28/2024 7:15 PM [facility] Alkaline Phosphatase 115 42 - 121 unit/L LAB CHEMISTRY METHOD 09/28/2024 7:15 PM [facility] Total Protein 8.1(H) 6.0 - 8.0 g/dL LAB CHEMISTRY METHOD 09/28/2024 7:15 PM EDT [facility] Albumin 3.8 3.2 - 5.0 g/dL LAB CHEMISTRY METHOD 09/28/2024 7:15 PM EDT [facility] Total Bilirubin 0.3 0.0 - 1.4 mg/dL LAB CHEMISTRY METHOD 09/28/2024 7:15 PM EDT [facility] Blood Venous blood specimen / Unknown Venipuncture / Unknown 09/28/2024 6:31 PM EDT 09/28/2024 6:49 PM EDT Zackary Vasquez MD LAB BLOOD ORDERABLES Sharron l Result [facility] [address] [place] [address], [place] [phone] * XR Knee 3 Views Right (09/15/2024 9:35 AM EDT) Anatomical Region Laterality Modality Lower Extremities, Knee Right Computed Radiography Narrative 09/15/2024 9:38 AM EDT X-rays September 15, 2024. ??Bilateral PA weightbearing views of the knees. ?? Lateral view of the right knee. ??[place] view of the right knee. ??No acute osseous abnormalities. ??Good preservation of all 3 compartments. 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 ??Patella Araceli with Meryl Deschamp 1.48 us Jose D Claros MD IMG XR PROCEDURES Final Result * HIV Screening (07/22/2015) Pathologist [facility] HIV Screening abstracted Historical Provider HEALTH MAINTENANCE Final Result * Hepatitis C Screening (07/22/2015) Pathologist [facility] Hepatitis C Screening abstracted Historical Provider HEALTH MAINTENANCE Final Result * Lipid panel (07/22/2015) LDL/HDL Ratio 3 0 - 4 Triglycerides 89 0 - 150 mg/dL Cholesterol 132 0 - 200 mg/dL HDL 40 >=40 mg/dL LDL Cholesterol 74 0 - 100 mg/dL Blood Venous blood specimen / Unknown Historical Provider LAB BLOOD ORDERABLES Sharron l Result from Last 3 Months or Most Recently Relevant to Health Maintenance Insurance HEALTH PLAN Care Teams [employer] Teacher Relationship Specialty Start Date End Date Abdifatah Whitt PA [address] [place] [address] PCP - General Physician Medicine Tech 04/24/24
== END 2024-10-06 11:44 | disposition home or self-care (01) ==
LOC: HO.ENCR 11:07
PROVIDERS: PCP Physician Assistant; Visit Provider Dietitian, Registered
DX: E66.813 Obesity, class 3 (principal)

== ENCOUNTER → 2024-10-06 11:06 | Outpatient (BNVA) | payer OTHER, SELFPAY | PROVIDERS: PCP Physician Assistant; Visit Provider Dietitian, Registered | DX: E66.813 Obesity, class 3 (principal); Z68.41 Body mass index [BMI] 40.0-44.9, adult | CPT/HCPCS: 97803 ==

== ENCOUNTER 2024-10-10 11:16 | Outpatient (REF) | payer OTHER, SELFPAY ==
--- NOTE | ~2024-10-10 | US_ITS ---
EXAMINATION: US COMPLETE ABDOMEN WITH LIVER ELASTOGRAPHY CLINICAL INFORMATION: Moderate/severe obesity due to excess calories COMPARISON: None available. TECHNIQUE: Real-time imaging of the abdominal viscera. Noninvasive ultrasound liver fibrosis assessment is performed using Loren ElastPQ point quantification shear wave elastography (pSWE) with a C5-2 MHz transducer. Multiple elastography samples are obtained. FINDINGS: PANCREAS: The visualized pancreatic head and body are slightly echogenic in appearance. No focal lesion seen. The peripancreatic fat borders are preserved.. The remainder of the pancreas is obscured from visualization by the overlying bowel gas. ABDOMINAL AORTA: No aortic aneurysm is seen. INFERIOR VENA CAVA: Visualized portions are normal. LIVER: The liver demonstrates normal size, contour and echogenicity. No focal lesion or intrahepatic biliary duct dilatation. The right lobe measures 13.5 cm in length. The left lobe measures 2.0 cm in length. Portal flow is hepatopedal Shear wave liver elastography median stiffness is 1.83 m/s (reference: normal median stiffness is 1.3 m/s or less). IQR/median stiffness to assess sampling precision is 0.10 (reference: good quality data set is IQR/median stiffness of 0.15 or less). GALLBLADDER: The gallbladder has been surgically removed. COMMON BILE DUCT: Normal in caliber measuring 0.4 cm in diameter. RIGHT KIDNEY: No hydronephrosis. No renal calculi or focal parenchymal lesions. The kidney measures 9.5 cm in maximum dimension. LEFT KIDNEY: No hydronephrosis. No renal calculi or focal parenchymal lesions. The kidney measures 10.7 cm in maximum dimension. SPLEEN: There are 2 splenules visualized measuring 2.8 x 2.2 x 2.7 cm and 1.8 x 1.7 x 1.7 cm. The spleen measures 12.9 cm in maximum dimension. FREE FLUID: None seen. US/US abdomen comp w elastography IMPRESSION: 1. Slightly echogenic pancreas is unremarkable. Unremarkable liver kidneys and spleen. The pancreas is out. 2. Liver elastography: Mean liver stiffness measures 1.83 m/s. Findings are suggestive of cACLD REFERENCE: Society of Radiologists in Ultrasound Liver Stiffness Thresholds (2019): LIVER STIFFNESS THRESHOLDS: *Liver Stiffness equal or less than 1.3 m/s: High probability of being normal. *Liver Stiffness less than 1.7 m/s: In the absence of other known clinical signs, rules out compensated advanced chronic liver disease. *Liver Stiffness 1.7-2.1 m/s: Suggestive of compensated advanced chronic liver disease but need further test for confirmation. *Liver Stiffness over 2.1 m/s: Rules in compensated advanced chronic liver disease. *Liver Stiffness over 2.4 m/s: Suggestive of clinically significant portal hypertension. QUALITY OF DATA SET: *IQR/Median value equal or less than 0.15 implies a quality data set. *IQR/Median value over 0.15 implies a poor quality data set. SIGNIFICANT CHANGE FROM PRIOR EXAM: Significant change if liver stiffness measurement is 10% or greater from prior exam. OTHER CONSIDERATIONS: The stage of liver fibrosis may be overestimated in the setting of acute hepatitis, liver inflammation, elevated liver function tests, hepatic vascular congestion, obstructive cholestasis, non-fasting state, and infiltrative diseases such as amyloidosis and lymphoma. In some patients with NAFLD, the liver stiffness thresholds for compensated advanced chronic liver disease may be lower. In causes other than viral hepatitis and NAFLD, liver stiffness thresholds are not well established. Electronically signed by: Nick Vigil MD 10/10/2024 12:47 PM EDT
--- OUTSIDE RECORDS SUMMARY | 2024-10-10 12:16 | XMS_ITS | Clinical Summary ---
Author Organization 175 [facility] Address [address] [place] [address] Phone Care Team Providers Care Supervisor Bit And Shank Department Name Role Phone Abdifatah Whitt Primary Care [...] EDT - 09/28/2024 11:45 PM EDT Emergency [facility] Emergency [address] [place] [address] Hemorrhagic cyst of right ovary (Primary Dx) Discharge Disposition: Home or Self Care 09/15/2024 9:30 AM EDT Office Visit Orthopedic [facility] 160 175 [facility] [address] [place] [phone] Jose D Claros MD Right knee pain, unspecified chronicity (Primary Dx) 08/14/2024 9:30 AM EST Office Visit Orthopedic [facility] 250 175 [facility] [address] [place] [phone] Isreal Galdamez DPM Peroneal tendinitis of left [...] AM EDT Office Visit Orthopedic Surgery - [place] [id number] [phone] Isreal Galdamez, ALEXANDRE [address] [address] Health Maintenance Due Date Last Done Comments [...] CT abdomen and pelvis with contrast Comparison: US/MO - US PEL NON OB COMPLETE W [...] CT abdomen and pelvis with contrast Comparison: US/MO - US PEL NON OB COMPLETE W [...] Velazco MD on 09/28/2024 22:33:29 us Mike [facility] IMG CT PROCEDURES Final R esult * [...] and culture (09/28/2024 6:32 PM EDT) Specific [place] Urine 1.027 1.003 - 1.030 LAB URINALYSIS - AUTOMATED METHOD 09/28/2024 6:55 PM [facility] pH, Urine 6.0 5.0 - 8.0 pH LAB URINALYSIS - AUTOMATED METHOD 09/28/2024 6:55 PM [facility] Leukocytes, Urine Negative Negative LAB URINALYSIS - AUTOMATED METHOD 09/28/2024 6:55 PM [facility] Nitrite, Urine Negative Negative LAB URINALYSIS - AUTOMATED METHOD 09/28/2024 6:55 PM [facility] Protein, Urine Trace <=Trace mg/dL LAB URINALYSIS - AUTOMATED METHOD 09/28/2024 6:55 PM [facility] Glucose, Urine Negative Negative mg/dL LAB URINALYSIS - AUTOMATED METHOD 09/28/2024 6:55 PM [facility] Ketones, Urine Trace(A) Negative mg/dL LAB URINALYSIS - AUTOMATED METHOD 09/28/2024 6:55 PM [facility] Urobilinogen, Urine 0.2 0.2 - 1.0 mg/dL LAB URINALYSIS - AUTOMATED METHOD 09/28/2024 6:55 PM [facility] Bilirubin, Urine Negative Negative LAB URINALYSIS - AUTOMATED METHOD 09/28/2024 6:55 PM [facility] Blood, Urine Negative Negative LAB URINALYSIS - AUTOMATED METHOD 09/28/2024 6:55 PM [facility] Urine Urine specimen obtained by clean catch procedure / Unknown Non-blood Collection / Unknown 09/28/2024 6:32 PM EDT 09/28/2024 6:49 PM EDT Zackary Vasquez MD LAB URINE ORDERABLES Sharron l Result Performing Organization Address [facility]/ZIP Co de Phone Number [facility] [address] [place] [address], [place] [phone] * [place] urine culture tube (09/28/2024 6:32 PM EDT) Pathologist [facility] Extra Tube Hold for add-ons. 09/28/2024 8:01 PM EDT [facility] Comment:Auto resulted. Urine Urine specimen obtained by clean catch procedure / Unknown Non-blood Collection / Unknown 09/28/2024 6:32 PM EDT 09/28/2024 6:49 PM EDT Zackary Vasquez MD LAB URINE ORDERABLES Sharron l Result Performing Organization Address [facility]/ZIP Co de Phone Number [facility] [address] [place] [address], [place] [phone] * (ABNORMAL) CBC auto differential (09/28/2024 6:31 PM EDT) [facility] WBC 7.7 4.8 - 10.8 K/mcL LAB HEMETOLOGY METHOD 09/28/2024 6:57 PM EDT [facility] RBC 4.30 3.80 - 4.80 M/mcL LAB HEMETOLOGY METHOD 09/28/2024 6:57 PM EDT [facility] Hemoglobin 11.5 11.5 - 16.0 g/dL LAB HEMETOLOGY METHOD 09/28/2024 6:57 PM EDT [facility] Hematocrit 37.2 35.0 - 47.0 % LAB HEMETOLOGY METHOD 09/28/2024 6:57 PM EDT [facility] MCV 85.9 79.0 - 98.0 FL LAB HEMETOLOGY METHOD 09/28/2024 6:57 PM EDT [facility] MCH 26.6(L) 27.0 - 32.0 pcg LAB HEMETOLOGY METHOD [facility] MCHC 30.9(L) 32.0 - 37.0 g/dL LAB HEMETOLOGY METHOD 09/28[facility]2024 6[facility]57 [facility] RDW 16.3(H) 11.0 - 15.0 % LAB HEMETOLOGY METHOD 09/28[facility]2024 6[facility] Platelets 252 130 - 400 K/mcL LAB HEMETOLOGY METHOD 09/28/2024 6:57 PM [facility] MPV 11.5(H) 7.0 - 11.0 FL LAB HEMETOLOGY METHOD 09/28/2024 6:57 PM [facility] NRBC 0.0 <1.0 % LAB HEMETOLOGY METHOD 09/28/2024 6:57 PM [facility] NRBC Absolute 0.00 <0.10 K/mcL LAB HEMETOLOGY METHOD 09/28/2024 6:57 PM [facility] Neutrophils Relative 59.9 % LAB HEMETOLOGY METHOD 09/28/2024 6:57 PM [facility] Lymphocytes Relative 29.2 % LAB HEMETOLOGY METHOD 09/28/2024 6:57 PM [facility] Monocytes Relative 7.7 % LAB HEMETOLOGY METHOD 09/28/2024 6:57 PM [facility] Eosinophils Relative 2.3 % LAB HEMETOLOGY METHOD 09/28/2024 6:57 PM [facility] Basophils Relative 0.6 % LAB HEMETOLOGY METHOD 09/28/2024 6:57 PM EDT [facility] Immature Granulocytes Relative 0.3 % LAB HEMETOLOGY METHOD 09/28/2024 6:57 PM EDT [facility] Neutrophils Absolute 4.62 1.50 - 7.00 K/[facility] LAB HEMETOLOGY METHOD 09/28/2024 6:57 PM EDT [facility] Lymphocytes Absolute 2.25 1.00 - 5.00 K/mcL LAB HEMETOLOGY METHOD 09/28/2024 6:57 PM EDT [facility] Monocytes Absolute 0.59 0.20 - 1.00 K/[facility] LAB HEMETOLOGY METHOD 09/28/2024 6:57 PM EDT [facility] Eosinophils Absolute 0.18 0.00 - 0.50 K/mcL LAB HEMETOLOGY METHOD 09/28/2024 6:57 PM EDT [facility] Basophils Absolute 0.05 0.00 - 0.20 K/mcL LAB HEMETOLOGY METHOD 09/28/2024 6:57 PM EDT [facility] Immature Granulocytes Absolute 0.02 0.00 - 0.03 K/mcL LAB HEMETOLOGY METHOD 09/28/2024 6:57 PM EDT [facility] Blood Venous blood specimen / Unknown Venipuncture / Unknown 09/28/2024 6:31 PM EDT 09/28/2024 6:49 PM EDT us Zackary Vasquez MD LAB BLOOD ORDERABLES Sharron l Result [facility] [address] [place] [address], * (ABNORMAL) Comprehensive metabolic panel (09/28/2024 6:31 PM EDT) Sodium 140 133 - 145 mmol/L LAB CHEMISTRY METHOD 09/28/2024 7:15 PM EDT [facility] Potassium 4.2 3.5 - 5.5 mmol/L LAB CHEMISTRY METHOD 09/28/2024 7:15 PM [facility] Chloride 105 96 - 110 mmol/L LAB CHEMISTRY METHOD 09/28/2024 7:15 PM [facility] CO2 30 21 - 32 mmol/L LAB CHEMISTRY METHOD 09/28/2024 7:15 PM [facility] Anion Gap 5 3 - 11 LAB CHEMISTRY METHOD 09/28/2024 7:15 PM [facility] Glucose 91 70 - 100 mg/dL LAB CHEMISTRY METHOD 09/28/2024 7:15 PM [facility] BUN 17 5 - 25 mg/dL LAB CHEMISTRY METHOD 09/28/2024 7:15 PM [facility] Creatinine 0.96 0.50 - 1.10 mg/dL LAB CHEMISTRY METHOD 09/28/2024 7:15 PM [facility] eGFR 81 >=60 mL/min/1. 73m2 LAB CHEMISTRY METHOD 09/28/2024 7:15 PM [facility] Comment:Calculation based on the??Chronic Kidney Disease Epidemiology Collaboration (CKD-EPI) equation refit??without adjustment for race. BUN/Creatinine Ratio 17.7 LAB CHEMISTRY METHOD 09/28/2024 7:15 PM [facility] Calcium 9.4 8.5 - 10.5 mg/dL LAB CHEMISTRY METHOD 09/28/2024 7:15 PM [facility] AST (SGOT) 47(H) 10 - 42 unit/L LAB CHEMISTRY METHOD 09/28/2024 7:15 PM [facility] ALT (SGPT) 70(H) 10 - 60 unit/L LAB CHEMISTRY METHOD 09/28/2024 7:15 PM [facility] Alkaline Phosphatase 115 42 - 121 unit/L LAB CHEMISTRY METHOD 09/28/2024 7:15 PM [facility] Total Protein 8.1(H) 6.0 - 8.0 g/dL LAB CHEMISTRY METHOD 09/28/2024 7:15 PM EDT [facility] Albumin 3.8 3.2 - 5.0 g/dL LAB CHEMISTRY METHOD 09/28/2024 7:15 PM EDT [facility] Total Bilirubin 0.3 0.0 - 1.4 mg/dL LAB CHEMISTRY METHOD 09/28/2024 7:15 PM EDT [facility] Blood Venous blood specimen / Unknown Venipuncture / Unknown 09/28/2024 6:31 PM EDT 09/28/2024 6:49 PM EDT Zackary Vasquez MD LAB BLOOD ORDERABLES Sharron l Result [facility] [address] [place] [address], [place] [phone] * XR Knee 3 Views Right (09/15/2024 9:35 AM EDT) Anatomical Region Laterality Modality Lower Extremities, Knee Right Computed Radiography Narrative 09/15/2024 9:38 AM EDT X-rays September 15, 2024. ??Bilateral PA weightbearing views of the knees. ?? Lateral view of the right knee. ??Denio view of the right knee. ??No acute osseous abnormalities. ??Good preservation of all 3 compartments. 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 ??Patella [place] with Meryl Deschamp 1.48 us Jose D Claros MD IMG XR PROCEDURES Final Result * HIV Screening (07/22/2015) Pathologist [facility] HIV Screening abstracted Historical Provider HEALTH MAINTENANCE Final Result * Hepatitis C Screening (07/22/2015) Pathologist [facility] Hepatitis C Screening abstracted Historical Provider HEALTH [...] Health Maintenance Insurance HEALTH PLAN Care Teams Supervisor Bit And Shank Department Relationship Specialty Start Date End Date Abdifatah hWitt PA [address] [place] [phone] PCP - General Physician Integrity Engineer 04/24/24
== END 2024-10-10 11:17 | disposition home or self-care (01) ==
LOC: HO.US 11:16
PROVIDERS: PCP Physician Assistant; Visit Provider Surgery
DX: E66.01 Morbid (severe) obesity due to excess calories (principal)
CPT/HCPCS: 76700; 76981

== ENCOUNTER → 2024-10-10 11:18 | Outpatient (BNV) | payer OTHER, SELFPAY | PROVIDERS: PCP Physician Assistant; Visit Provider Radiology Diagnostic Radiology | DX: K76.0 Fatty (change of) liver, not elsewhere classified (principal) | CPT/HCPCS: 76700; 76981 ==

== ENCOUNTER 2024-10-14 09:12 | Outpatient (AMB) | payer OTHER, SELFPAY ==
--- NOTE | 2024-10-14 09:48 | MHC.OFFWIV ---
Intake Vital Signs 10/14/24 09:50 Weight 242 lb BP 130/90 H Blood Pressure Location Lt brachial Position Sitting Pulse 84 Pulse Source Pulse Oximeter Temp 98.4 F Temp Source Oral Pulse Oximetry (%) 97 Oxygen Delivery Method Room Air Intake Visit Reasons: EP ? strep throat, croup Intake Note: Patient here for sore throat that has been present for a couple of days. Patient Tobacco Use Status: Never used Tobacco Allergies dexamethasone [DEXAMETHASONE] Adverse Reaction (Unknown, Verified 10/14/24 09:51) ANXIETY Do you need a note to return to daycare/school/sports/work: No HPI HPI Comments History of Present Illness Details This is a 33-year-old female with a past medical history of asthma and arthritis presenting for evaluation of flu-like symptoms she has had since Sunday. Patient was seen in the emergency department at [facility] on Sunday and had a negative workup per her report including a viral panel and strep test. Patient reports having fatigue, sore throat, body aches but denies having any fevers, otalgia, headaches, cough or shortness for breath. 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 [facility] Medical History (Updated 10/14/24 @ 10:24 by Naila Brar PA-C) Pharyngitis GERD (gastroesophageal reflux disease) Right hip pain Pre-op evaluation Bunion of great toe of left foot Asthma PCOS (polycystic ovarian syndrome) Surgical History Hx of cholecystectomy History of tubal ligation History of back surgery History of carpal tunnel surgery (~04/2020) Hx of section Family History Father Unknown family medical history Maternal Uncle Blocked artery Family/Other Colon cancer Maternal Uncle Blocked artery Mother No problems noted. Maternal Grandmother Stroke S/P triple vessel bypass Social History (Updated 08/29/24 @ 11:47 by Chari Brody CMA) Household Members: Children Housing: House Alcohol intake: current Alcohol intake frequency: holidays/special occasions only Patient Tobacco Use Status: Never used Tobacco e-Cigarette/Vaping Use: Never Used Second Hand Smoke Exposure: No service: No Current occupational status: unemployed Cognitive needs: No Hearing needs: No Vision needs: Yes Review of Systems Const All systems reviewed & are unremarkable except as noted in HPI and below Reports body aches, Denies chills, Reports fatigue and Denies fever(s) Eyes Reports no additional complaints ENT Denies otalgia, Denies neck pain, Reports odynophagia, Denies disequilibrium, Denies sinus pain, Reports sinus pressure and Reports sore throat Card Reports no additional complaints Resp Reports no additional complaints GI Reports no additional complaints and Reports odynophagia Reports no additional complaints Musc Reports no additional complaints and Denies neck pain Skin/Breast Reports system reviewed and no additional complaints, except as documented Neuro Reports no additional complaints and Denies disequilibrium Psych Reports no additional complaints Endo Reports no additional complaints and Reports fatigue Nick/Lymph Reports no additional complaints Aller/Immun Reports no additional complaints Physical Exam Vital Signs: Last Vital Signs Temp 98.4 F 10/14/24 09:50 Pulse 84 10/14/24 09:50 BP 130/90 H 10/14/24 09:50 Pulse Ox 97 10/14/24 09:50 Oxygen Delivery Method Room Air 10/14/24 09:50 Const General: cooperative, healthy appearing, comfortable, no acute distress, well developed, alert, awake and Physically active; No acute distress Nutritional Appearance: overweight Orientation/consciousness: patient oriented x3 Limitations: no limitations HEENT Head: Yes normal to inspection and Yes normocephalic Ears: hearing grossly normal bilaterally, external ears normal, TM's normal bilaterally and EAC's normal General nose exam: Normal external nose present Face and sinus: Yes normal facial exam Mouth: Normal oral and palatal mucosa present, oropharynx normal, no drooling and no muffled voice Teeth and gingiva: dentition normal Throat: Yes posterior oropharynx normal and No postnasal drainage Eyes General: appearance normal, both eyes and all related structures Visual Orellana: normal visual orellana by confrontation Alignment and Position: alignment normal Periorbital: periorbital findings normal Eyelids: Yes eyelids normal Conjunctivae: conjunctivae normal Sclerae: sclerae normal Corneas: corneas normal Pupils: Equal, round and reactive pupils present EOM: EOMs intact bilaterally Direct Ophthalmoscopy: no photophobia Neck Lymphatic: no lymphadenopathy noted Resp Effort & Inspection: normal respiratory effort, no nasal flaring and not tachypneic Auscultation: clear to auscultation bilaterally Cardio Rate: regular rate Rhythm: regular rhythm Skin General skin exam: no rashes or lesions noted Lesions: no lesions Neuro General: patient oriented x3 Cranial nerves: Yes Equal, round and reactive pupils present Psych Appearance: grossly normal Mental Status: mental status grossly normal Insight: Good insight present (Psych) Judgement: Good judgement present (Psych) Results AMB Rapid Strep AMB Rapid Strep Negative Last Edit by KAROL Garvey on 10/14/24 10:23 Results Reviewed Results Reviewed: Rapid strep is negative. Assessment & Plan Assessment & Plan (1) Pharyngitis: Code(s): J02.9 - Acute pharyngitis, unspecified Qualifiers: Pharyngitis/tonsillitis etiology: unspecified etiology Qualified Code(s): J02.9 - Acute pharyngitis, unspecified Plan Given that the patient had a negative viral workup in the emergency department, no further testing is warranted at this time. Lungs are clear to auscultation bilaterally, she is afebrile and is not hypoxic. Suspect viral illness versus allergic rhinitis. Patient Instructions: Patient will start taking loratadine once daily and Benadryl at bedtime as tolerated. Increase clear fluids daily; Tylenol or ibuprofen as needed for pharyngitis. Coding Level of Care Code Est Pt Level 3 (71234) Diagnoses Pharyngitis, unspecified etiology J02.9 Pharyngitis/tonsillitis etiology: unspecified etiology Time Spent (min) 20
[2024-10-14 09:50] VITALS: BP 130/90; PULSE 84; TEMP 36.9; O2SAT 97
--- OUTSIDE RECORDS SUMMARY | 2024-10-14 10:01 | XMS_ITS | Clinical Summary ---
Author Organization 175 [facility] Address [address] [place] [address] Phone Care Team Providers Care Component Assembler Name Role Phone Abdifatah Whitt Primary Care Provider [phone] Allergies Active Allergy Reactions Criticality Noted Date [...] Encounters Date Type Department Care Team Description 10/10/2024 6:11 PM EDT - 10/10/2024 8:59 PM EDT Emergency [facility] Emergency [address] [place] [phone] Viral syndrome (Primary Dx) Discharge Disposition: Home or Self Care 09/28/2024 6:48 PM EDT - 09/28/2024 11:[address] [facility] Emergency [address] [place] [phone] Hemorrhagic cyst of right ovary (Primary Dx) Discharge Disposition: Home or Self Care 09/15/2024 9:30 AM EDT Office Visit Orthopedic [facility] [address] [facility] [place] [address] [place] [phone] Jose D Claros MD Right knee pain, unspecified chronicity (Primary Dx) 08/14/2024 9:30 AM EST Office Visit [facility] [address] [facility] [place] [address] [place] [phone] Isreal Galdamez DPM Peroneal tendinitis of left [...] Sign Reading Time Taken Comments Blood Pressure 114/81 10/10/2024 8:57 PM EDT Pulse 95 10/10/2024 8:57 PM EDT Temperature 37.5 ??C (99.5 ??F) 10/10/2024 8:57 PM ED T Respiratory Rate 16 10/10/2024 8:57 PM EDT Oxygen Saturation 97% 10/10/2024 8:57 PM EDT Inhaled Oxygen Concentration - - Weight 111 kg (245 lb) 10/10/2024 4:06 PM EDT Height 160 cm (5' 3 ) 10/10/2024 4:06 PM EDT Body Mass Index 43.4 10/10/2024 4:06 PM EDT Plan of Treatment Upcoming Encounters Date Type Department Care Team (Late st Contact Info) Description 10/16/2024 9:30 AM EDT Office Visit Orthopedic Surgery [facility] [address] [facility] [place] [address] [place] [phone] Isreal Galdamez, DPM [address] [address] Health Maintenance Due Date Last Done Comments [...] Procedure Name Priority Date/Time Associated Diagnosis Comments POC , URINE DIAGNOSTIC STAT 10/10/2024 7:43 PM EDT CULTURE THROAT STAT 10/10/2024 4:10 PM EDT [id number], RSV, FLU A AND B QUALITATIVE RT-PCR, INTERNAL LAB STAT 10/10/2024 4:10 PM EDT RAPID STREP A SCREEN STAT 10/10/2024 4:[address] ABDOMEN PELVIS W CONTRAST STAT 09/28/2024 [...] AM EDT Right knee pain, unspecified chronicity HM HEPATITIS C SCREENING Routine 07/22/2015 HIV SCREENING Routine 07/22/2015 LIPID PANEL Routine 07/22/2015 from Last 3 Months or Most Recently Relevant to Health Maintenance Results * POC , urine manually resulted (10/10/2024 7:43 PM EDT) Only the most recent of2 resultswithin the time period is included. HCG, Ur POC Negative Negative POC hCG Int QC Pass? Yes Yes Urine Urine specimen obtained by clean catch procedure / Unknown 10/10/2024 7:43 PM EDT Lisa CHIU POINT OF CARE TEST ENTER/E DIT ORDERABLES Final Result * [id number], RSV, Influenza A and B qualitative RT-PCR (10/10/2024 4:10 PM EDT) Pathologist [facility] Influenza A PCR Not Detected Not Detected LAB MICROBIOLOGY METHOD 10/10/2024 5:20 PM EDT [facility] Influenza B PCR Not Detected Not Detected LAB MICROBIOLOGY METHOD 10/10/2024 5:20 PM EDT [facility] RSV PCR Not Detected Not Detected LAB MICROBIOLOGY METHOD 10/10/2024 5:20 PM EDT [facility] SARS COV-2 Not Detected Not Detected LAB MICROBIOLOGY METHOD 10/10/2024 5:20 PM EDT [facility] Swab Structure of right anterior naris / Unknown Non-blood Collection / Unknown 10/10/2024 4:10 PM EDT 10/10/2024 4:40 PM EDT Narrative [facility] - 10/10/2024 5:20 PM EDT Disclaimer: ??Testing was performed using the [employer] GeneXpert Xpress SARS-CoV-2 _Flu_RSV PLUS PCR assay. ??The manner in which this information is used to guide patient care is the responsibility of the healthcare provider. ??Results should be correlated with the clinical history, epidemiological data, and other data available to the clinician evaluating the patient. ??Negative results do not preclude infection. ??This test has been authorized by the FDA under an Emergency Use Authorization (EUA). ??This test is only authorized for the duration of time the declaration that circumstances exist justifying the authorization of the emergency use of in vitro diagnostic tests for detection of SARS-CoV-2 virus and/or diagnosis of COVID-19 infection under section 564 (b) (1) of the Act, 21 U.S.C 360bbb-3 (b) (1), unless the authorization is terminated or revoked sooner. ?? Reference Range: Not Detected Fact sheet for Healthcare providers can be found at https://www.fda.gov/media/870288/download. ?? Fact sheet for Healthcare patients can be found at https://www.fda.gov/media/236655/download. us Jose D Verdin MD LAB MICROBIOLOGY - GENERAL JASMINE PEREZ Final Result Performing Organization Address City/[facility]/ZIP Co de Phone Number [facility] [address] [place] [address], [place] [phone] * Rapid strep A screen (10/10/2024 4:10 PM EDT) [facility] Strep A Ag Negative Negative, Invalid 10/10/2024 4:57 PM EDT [facility] Comment:Refer to Throat Cult ure. Swab Structure of anterior portion of neck / Unknown Non-blood Collection / Unknown 10/10/2024 4:10 PM EDT 10/10/2024 4:39 PM EDT us Jose D Verdin MD LAB MICROBIOLOGY - GENERAL JASMINE PEREZ Final Result Performing Organization Address [facility]/ZIP Co de Phone Number [facility] [address] [place] [address], [place] [phone] * Culture throat (10/10/2024 4:10 PM EDT) [facility] Culture, Throat No pathogens isolated. 10/12/2024 11:16 AM EDT [facility] Swab Structure of anterior portion of neck / Unknown Non-blood Collection / Unknown 10/10/2024 4:10 PM EDT 10/10/2024 4:39 PM EDT us Jose D Verdin MD LAB MICROBIOLOGY - GENERAL JASMINE PEREZ Final Result [facility] ([facility] [address] [place] [address], [place] [phone] * CT Abdomen Pelvis w Contrast (09/28/2024 [...] CT abdomen and pelvis with contrast Comparison: [place] - [place] PEL NON OB COMPLETE W [...] CT abdomen and pelvis with contrast Comparison: [place] - [place] PEL NON OB COMPLETE W [...] IMG US PROCEDURES Final R esult * (ABNORMAL) Urinalysis with reflex microscopic and culture (09/28/2024 6:32 PM EDT) Specific [place] Urine 1.027 1.003 - 1.030 LAB URINALYSIS - AUTOMATED METHOD 09/28/2024 6:55 PM [facility] pH, Urine 6.0 5.0 - 8.0 pH LAB URINALYSIS - AUTOMATED METHOD 09/28/2024 6:55 PM [facility] Leukocytes, Urine Negative Negative LAB URINALYSIS - AUTOMATED METHOD 09/28/2024 6:55 PM [facility] Nitrite, Urine Negative Negative LAB URINALYSIS - AUTOMATED METHOD 09/28/2024 6:55 PM [facility] Protein, Urine Trace <=Trace mg/dL LAB URINALYSIS - AUTOMATED METHOD 09/28/2024 6:55 PM [facility] Glucose, Urine Negative Negative mg/dL LAB URINALYSIS - AUTOMATED METHOD 09/28/2024 6:55 PM [facility] Ketones, Urine Trace(A) Negative mg/dL LAB URINALYSIS - AUTOMATED METHOD 09/28/2024 6:55 PM EDT [facility] Urobilinogen, Urine 0.2 0.2 - 1.0 mg/dL LAB URINALYSIS - AUTOMATED METHOD 09/28/2024 6:55 PM EDT [facility] Bilirubin, Urine Negative Negative LAB URINALYSIS - AUTOMATED METHOD 09/28/2024 6:55 PM EDT [facility] Blood, Urine Negative Negative LAB URINALYSIS - AUTOMATED METHOD 09/28/2024 6:55 PM EDT [facility] Urine Urine specimen obtained by clean catch procedure / Unknown Non-blood Collection / Unknown 09/28/2024 6:32 PM EDT 09/28/2024 6:49 PM EDT Zackary Vasquez MD LAB URINE ORDERABLES Sharron l Result Performing Organization Address City/[facility]/ZIP Co de Phone Number [facility] [address] [place] [address], [place] [phone] * [place]ez urine culture tube (09/28/2024 6:32 PM EDT) Pathologist [facility] Extra Tube Hold for add-ons. 09/28/2024 8:01 PM EDT [facility] Comment:Auto resulted. Urine Urine specimen obtained by clean catch procedure / Unknown Non-blood Collection / Unknown 09/28/2024 6:32 PM EDT 09/28/2024 6:49 PM EDT Zackary Vasquez MD LAB URINE ORDERABLES Sharron l Result [facility] [address] [place] [address], [place] [phone] * (ABNORMAL) CBC auto differential (09/28/2024 6:31 PM EDT) WBC 7.7 4.8 - 10.8 K/mcL LAB HEMETOLOGY METHOD 09/28/2024 6:57 PM EDT [facility] RBC 4.30 3.80 - 4.80 M/mcL LAB HEMETOLOGY METHOD 09/28/2024 6:57 PM EDT [facility] Hemoglobin 11.5 11.5 - 16.0 g/dL LAB HEMETOLOGY METHOD 09/28/2024 6:57 PM EDT [facility] Hematocrit 37.2 35.0 - 47.0 % LAB HEMETOLOGY METHOD 09/28[facility]2024 6[facility] MCV 85.9 79.0 - 98.0 FL LAB HEMETOLOGY METHOD 09/28/2024 6:57 PM [facility] MCH 26.6(L) 27.0 - 32.0 pcg LAB HEMETOLOGY METHOD 09/28/2024 6:57 PM [facility] MCHC 30.9(L) 32.0 - 37.0 g/dL LAB HEMETOLOGY METHOD 09/28/2024 6:57 PM [facility] RDW 16.3(H) 11.0 - 15.0 % LAB HEMETOLOGY METHOD 09/28/2024 6:57 PM [facility] Platelets 252 130 - 400 K/mcL LAB HEMETOLOGY METHOD 09/28/2024 6:57 [facility] MPV 11.5(H) 7.0 - 11.0 FL LAB HEMETOLOGY METHOD 09/28/2024 6:57 [facility] NRBC 0.0 <1.0 % LAB HEMETOLOGY METHOD 09/28/2024 6:57 PM [facility] NRBC Absolute 0.00 <0.10 K/mcL LAB HEMETOLOGY METHOD 09/28/2024 6:57 PM [facility] Neutrophils Relative 59.9 % LAB HEMETOLOGY METHOD 09/28/2024 6:57 PM EDT [facility] Lymphocytes Relative 29.2 % LAB HEMETOLOGY METHOD 09/28/2024 6:57 PM [facility] Monocytes Relative 7.7 % LAB HEMETOLOGY METHOD 09/28/2024 6:57 PM [facility] Eosinophils Relative 2.3 % LAB HEMETOLOGY METHOD 09/28/2024 6:57 PM [facility] Basophils Relative 0.6 % LAB HEMETOLOGY METHOD 09/28/2024 6:57 PM [facility] Immature Granulocytes Relative 0.3 % LAB HEMETOLOGY METHOD 09/28/2024 6:57 PM [facility] Neutrophils Absolute 4.62 1.50 - 7.00 K/mcL LAB HEMETOLOGY METHOD 09/28/2024 6:57 PM [facility] Lymphocytes Absolute 2.25 1.00 - 5.00 K/mcL LAB HEMETOLOGY METHOD 09/28/2024 6:57 PM [facility] Monocytes Absolute 0.59 0.20 - 1.00 K/mcL LAB HEMETOLOGY METHOD 09/28/2024 6:57 PM [facility] Eosinophils Absolute 0.18 0.00 - 0.50 K/mcL LAB HEMETOLOGY METHOD 09/28/2024 6:57 PM [facility] Basophils Absolute 0.05 0.00 - 0.20 K/mcL LAB HEMETOLOGY METHOD 09/28/2024 6:57 PM [facility] Immature Granulocytes Absolute 0.02 0.00 - 0.03 K/mcL LAB HEMETOLOGY METHOD 09/28/2024 6:57 PM [facility] Blood Venous blood specimen / Unknown Venipuncture / Unknown 09/28/2024 6:31 PM EDT 09/28/2024 6:49 PM EDT us Zackary Vasquez MD LAB BLOOD ORDERABLES Sharron petey Result [facility] [address] [place] [address], [place] [phone] * (ABNORMAL) Comprehensive metabolic panel (09/28/2024 6:31 PM EDT) Sodium 140 133 - 145 mmol/L LAB CHEMISTRY METHOD [facility]/28[facility]2024 7[facility] Potassium 4.2 3.5 - 5.5 mmol/L LAB CHEMISTRY METHOD 09/28/2024 7:15 PM [facility] Chloride 105 96 - 110 mmol/L LAB CHEMISTRY METHOD 09/28/2024 7:15 PM [facility] CO2 30 21 - 32 mmol/L LAB CHEMISTRY METHOD 09/28/2024 7:15 PM [facility] Anion Gap 5 3 - 11 LAB CHEMISTRY METHOD 09/28/2024 7:15 PM [facility] Glucose 91 70 - 100 mg/dL LAB CHEMISTRY METHOD 09/28/2024 7:15 PM [facility] BUN 17 5 - 25 mg/dL LAB CHEMISTRY METHOD 09/28/2024 7:15 PM [facility] Creatinine 0.96 0.50 - 1.10 mg/dL LAB CHEMISTRY METHOD 09/28/2024 7:15 PM [facility] eGFR 81 >=60 mL/min/1. 73m2 LAB CHEMISTRY METHOD 09/28/2024 7:15 PM [facility] Comment:Calculation based on the??Chronic Kidney Disease Epidemiology Collaboration (CKD-EPI) equation refit??without adjustment for race. BUN/Creatinine Ratio 17.7 LAB CHEMISTRY METHOD 09/28/2024 7:15 PM EDT [facility] Calcium 9.4 8.5 - 10.5 mg/dL LAB CHEMISTRY METHOD 09/28/2024 7:15 PM T [facility] AST (SGOT) 47(H) 10 - 42 unit/L LAB CHEMISTRY METHOD 09/28/2024 7:15 PM [facility] ALT (SGPT) 70(H) 10 - 60 unit/L LAB CHEMISTRY METHOD 09/28/2024 7:15 PM EDT [facility] Alkaline Phosphatase 115 42 - 121 unit/L LAB CHEMISTRY METHOD 09/28/2024 7:15 PM T [facility] Total Protein 8.1(H) 6.0 - 8.0 g/dL LAB CHEMISTRY METHOD 09/28/2024 7:15 PM [facility] Albumin 3.8 3.2 - 5.0 g/dL LAB CHEMISTRY METHOD 09/28/2024 7:15 PM T [facility] Total Bilirubin 0.3 0.0 - 1.4 mg/dL LAB CHEMISTRY METHOD 09/28/2024 7:15 PM EDT [facility] Blood Venous blood specimen / Unknown Venipuncture / Unknown 09/28/2024 6:31 PM EDT 09/28/2024 6:49 PM EDT us Zackary Vasquez MD LAB BLOOD ORDERABLES Sharron l Result [facility] [address] [place] [address], * XR Knee 3 Views Right (09/15/2024 9:35 AM EDT) Anatomical Region Laterality Modality Lower Extremities, Knee Right Computed Radiography Narrative 09/15/2024 9:38 AM EDT X-rays September 15, 2024. ??Bilateral PA weightbearing views of the knees. ?? Lateral view of the right knee. ??[place] view of the right knee. ??No acute osseous abnormalities. ??Good preservation of all 3 compartments. 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 ??Patella Benkelman with Meryl Deschamp 1.48 Jose D Claros MD IMG XR PROCEDURES Final Result * HIV Screening (07/22/2015) HIV Screening abstracted Historical Provider HEALTH MAINTENANCE Final Result * Hepatitis C Screening (07/22/2015) Hepatitis C Screening abstracted Result [facility] Historical Provider HEALTH MAINTENANCE Final Result * Lipid panel (07/22/2015) LDL/HDL Ratio 3 0 - 4 Triglycerides 89 0 - 150 mg/dL Cholesterol 132 0 - 200 mg/dL HDL 40 >=40 mg/dL LDL Cholesterol 74 0 - 100 mg/dL Blood Venous blood specimen / Unknown Result [facility] Historical Provider LAB BLOOD ORDERABLES Sharron l Result from Last 3 Months or Most Recently Relevant to Health Maintenance Insurance [employer] Care Teams Component Assembler Relationship Specialty Start Date End Date Abdifatah Whitt PA [address] [place] [phone] PCP - General Physician [employer] Mechanic 04/24/24
--- OUTSIDE RECORDS SUMMARY | 2024-10-14 10:01 | XMS_ITS | Encounter Summary ---
Author Organization Address [address] [place] [address] Care Team Providers Care Agricultural Mechanic Name Role Phone Abdifatah Whitt Primary Care Provider [phone] Reason for Visit * Reason Comments Generalized Body Aches Earache Encounter Details Date Type Department Care Team (Late st Contact Info) Description 10/10/2024 6:11 PM EDT - 10/10/2024 8:59 PM EDT Emergency [facility] Emergency [address] [place] [address] Viral syndrome (Primary Dx) Discharge Disposition: Home or Self Care Social History Tobacco Use Types Packs/Day Years [...] Orientation Straight 09/28/2024 7: 21 PM EDT documented as of this encounter Last Filed [...] Mass Index 43.4 10/10/2024 4:06 PM EDT documented in this encounter Discharge Instructions * Discharge Instructions* Lisa ARAM Bullock - 10/10/2024 8:43 PM EDT You were seen in the ER today for flulike symptoms. We did a test which did not show any evidence of COVID, flu, or RSV. This does not mean that you do not have another virus causing her symptoms. I believe it is likely that you do have a virus that is the cause of your symptoms. Please be sure to get plenty of rest and stay hydrated with fluids. If you develop a fever you may take Tylenol or ibuprofen. You may take Tylenol and ibuprofen in general for your aches and pains. You may also take [id number] cold medications. Please be aware that many of them do contain Tylenol (acetaminophen) so please be sure to read the ingredients that you are not taking too much Tylenol. Please return to the ER if you experience any high fevers, sensation of throat closure or swelling in throat, shortness of breath, chest pain, or any other reason you see fit. It was a pleasure caring for you today in the emergency department. Please return to the emergency department if you begin to experience any new onset chest pain, shortness of breath, uncontrolled fevers, severe abdominal pain, loss of consciousness, uncontrolled vomiting, uncontrolled diarrhea, or for any other reason you feel is necessary. Please follow-up with your PCP about this visit. Examination and treatment you received in the emergency department has been rendered on an EMERGENCY basis only. It is not intended to be a substitute for or an effort to provide complete medical care. You should follow-up with your primary care provider. Please report to your physician any new or remaining problems, because it is impossible to recognize and treat all elements of injury or illness in a single emergency department visit. If you do not have a primary care provider or require a referral, a follow-up doctor installation coordinator for the emergency department will be provided in your discharge packet. In the event that you're unable to obtain a followup appointment in a timely fashion, OR you are not getting any better, OR you are getting worse, OR you develop any symptoms of concern, please return here immediately for further evaluation. The emergency department is open 24 hours a day, 7 days aweek. Your discharge report is based on information that was available when you were in the emergency department If you do not have a primary care provider, please contact one of the following to make arrangements to follow up. Lily Lawson Lily Chowdhury Lily Stanton Lilyjolie Higgins * Attachments The following attachments cannot be sent through Care Everywhere. * Viral Infections (Sudanese) documented in this encounter Medications at Time of Discharge albuterol HFA (PROAIR HFA ; PROVENTIL HFA ; VENTOLIN HFA) 90 mcg/actuation inhaler Inhale 2 Puffs into the lungs 4 times daily as needed for Cough, Wheezing or Shortness of Breath. 03/10/2016 baclofen (LIORESAL) 10 mg tablet take 1 tablet orally 2 times a day for 30 days 07/31/2024 celecoxib (CeleBREX) 200 mg capsule take 1 capsule orally 2 times a day as needed for for pain 02/07/2024 famotidine (PEPCID) 40 mg tablet Take 1 tablet (40 mg total) by mouth 1 (one) time each day. 03/05/2024 fluticasone HFA (FLOVENT HFA) 44 mcg/actuation inhaler Inhale 1 Puff into the lungs 2 times daily. 03/10/2016 gabapentin (NEURONTIN) 100 mg capsule take 1 capsule orally 2 times a day for 30 days 07/07/2024 oxyCODONE-acetam inophen (PERCOCET) 5-325 mg per tablet Take 1 tablet by mouth every 6 (six) hours if needed. for pain Max Daily Amount: 4 tablets 10/01/2023 documented as of this encounter Discharge Disposition Disposition Code Departure Means Destination Comment s Home or Self Care documented in this encounter Progress Notes * Evette Reese RN - 10/10/2024 4:05 PM EDT Pt sts woke up this morning gen bodyaches subjective fevers headache , sts had vomiting this morning , but that subsided. + sore throat, bilat ear pain . Denies cough congestion * ARAM Montoya - 10/10/2024 3:59 PM EDT Emergency Medicine Note Patient Name: Rufina Rodriguez Initial Evaluation: 10/10/2024 : 1990 Patient's PCP: ARAM Asher Emergency Physician: ARAM Montoya History of Present Illness Chief Complaint: Chief Complaint Patient presents with Generalized Body Aches Earache HPI: 33-year-old female patient history of tubal ligation presenting to the ER today reporting likesymptoms that started this morning. Patient reports she woke up this morning with a sore throat, earache left greater than right, headache, pressure in her face, vomiting. Patient reports her last menstrual period was approximately 6 weeks ago and she did notice that in the last few weeks my boobshave doubled in size . Patient reports that she is not about anything of it though because she did have her tubes tied . Does report subjective fevers and chills. Denies any sensation of throat closure, inability handle secretions, or chest pain shortness of breath. ROS: I have performed a ROS with the pertinent positives and negatives documented in the history ofpresent illness. Previous History Past Medical History: Diagnosis Date Asthma DX:Asthma Preeclampsia DX:Preeclampsia; COMMENT: diagnosed to have preeclampsia, was on meds for a short duration Past Surgical History: Procedure Laterality Date SECTION 2012 PROCEDURE: HISTORICAL DELIVERY Social History Tobacco Use Smoking status: Never Substance Use Topics Alcohol use: Yes Drug use: No Family History Problem Relation Name Age of Onset Other cancer Maternal Grandmother 35.00 ovarian cancer, mi at 65 Other (Other: deaf ) Aunt mom's sister; in her 30s Asthma Mother Allergies Mother Other cancer Sister 27.00 cervical Breast cancer Other 40.00 maternal great aunt Other (Other: Other ) Maternal Grandfather well in 2014 Diabetes Father 38.00 Other (Other: AIDS ) Paternal Grandfather > age 50 Throat cancer Paternal Grandmother in her 80s; nonsmoker Prostate cancer Other 65.00 maternal great uncle Other (Other: gangrene of colon ) Other maternal first cousin Throat cancer Other maternal side is allergic to dexamethasone. No current facility-administered medications on file prior to encounter. Current Outpatient Medications on File Prior to Encounter Medication Sig Dispense Refill albuterol HFA (PROAIR HFA ; PROVENTIL HFA ; VENTOLIN HFA) 90 mcg/actuation inhaler Inhale 2 Puffs into the lungs 4 times daily as needed for Cough, Wheezing or Shortness of Breath. baclofen (LIORESAL) 10 mg tablet take 1 tablet orally 2 times a day for 30 days celecoxib (CeleBREX) 200 mg capsule take 1 capsule orally 2 times a day as needed for for pain famotidine (PEPCID) 40 mg tablet Take 1 tablet (40 mg total) by mouth 1 (one) time each day. fluticasone HFA (FLOVENT HFA) 44 mcg/actuation inhaler Inhale 1 Puff into the lungs 2 times daily. gabapentin (NEURONTIN) 100 mg capsule take 1 capsule orally 2 times a day for 30 days [] naproxen (NAPROSYN) 500 mg tablet Take 1 tablet (500 mg total) by mouth 2 (two) times a day with meals for 7 days. 14 tablet 0 [] ondansetron ODT (ZOFRAN-ODT) 4 mg disintegrating tablet Dissolve 1 tablet (4 mg total) ontop of the tongue every 8 (eight) hours if needed for nausea or vomiting for up to 7 days. 20 tablet 0 oxyCODONE-acetaminophen (PERCOCET) 5-325 mg per tablet Take 1 tablet by mouth every 6 (six) hours if needed. for pain Max Daily Amount: 4 tablets Physical Exam Physical Exam Constitutional: General: She is not in acute distress. Appearance: She is normal weight. She is not ill-appearing, toxic-appearing or diaphoretic. Comments: Congested noted, dry audible cough noted HENT: Head: Normocephalic and atraumatic. Right Ear: Tympanic membrane normal. Left Ear: Tympanic membrane normal. Nose: Congestion and rhinorrhea present. Mouth/Throat: Mouth: Mucous membranes are moist. Pharynx: Oropharynx is clear. Posterior oropharyngeal erythema present. No oropharyngeal exudate. Comments: No evidence of peritonsillar abscess. Eyes: Extraocular Movements: Extraocular movements intact. Conjunctiva/sclera: Conjunctivae normal. Pupils: Pupils are equal, round, and reactive to light. Cardiovascular: Rate and Rhythm: Normal rate and regular rhythm. Pulmonary: Effort: Pulmonary effort is normal. No respiratory distress. Breath sounds: Normal breath sounds. No wheezing, rhonchi or rales. Abdominal: General: Abdomen is flat. Palpations: Abdomen is soft. Tenderness: There is no abdominal tenderness. There is no guarding. Musculoskeletal: General: No swelling. Normal range of motion. Cervical back: No tenderness. Lymphadenopathy: Cervical: No cervical adenopathy. Skin: General: Skin is warm and dry. Coloration: Skin is not pale. Neurological: General: No focal deficit present. Mental Status: She is alert. Mental status is at baseline. Motor: No weakness. Gait: Gait normal. Psychiatric: Mood and Affect: Mood normal. Behavior: Behavior normal. Thought Content: Thought content normal. Judgment: Judgment normal. ED Triage Vitals [10/10/24 1606] Temp Heart Rate Resp BP 38 ??C (100.4 ??F) 100 16 116/84 SpO2 Temp Source Heart Rate Source Patient Position 97 % Temporal -- -- BP Location FiO2 (%) -- -- Results Labs Reviewed RAPID STREP A SCREEN - Normal Result Value Strep A Ag Negative [id number], RSV, FLU A AND B QUALITATIVE RT-PCR, INTERNAL LAB - Normal Influenza A PCR Not Detected Influenza B PCR Not Detected RSV PCR Not Detected SARS COV-2 Not Detected Narrative: Disclaimer: Testing was performed using the [employer] GeneXpert Xpress SARS-CoV-2 _Flu_RSV PLUS PCR assay. The manner in which this information is used to guide patient care is the responsibility of the healthcare provider. Results should be correlated with the clinical history, epidemiological data,and other data available to the clinician evaluating the patient. Negative results do not preclude infection. This test has been authorized by the FDA under an Emergency Use Authorization (EUA). Thistest is only authorized for the duration of time the declaration that circumstances exist justifying the authorization of the emergency use of in vitro diagnostic tests for detection of SARS-CoV-2 virus and/or diagnosis of COVID-19 infection under section 564 (b) (1) of the Act, 21 U.S.C 360bbb-3 (b) (1), unless the authorization is terminated or revoked sooner. Reference Range: Not Detected Fact sheet for Healthcare providers can be found at https://www.fda.gov/media/358563/download. Fact sheet for Healthcare patients can be found at https://www.fda.gov/media/991991/download. POC , URINE DIAGNOSTIC - Normal HCG, Ur POC Negative POC hCG Int QC Pass? Yes CULTURE THROAT Abnormal Labs Reviewed - No abnormal labs to display No orders to display I have discussed the incidental/abnormal imaging and/or lab abnormalities with the patient and haveinstructed them the need for further evaluation and workup with their primary care doctor. I have provided the patient with a paper copy of the abnormality. The laboratory results, imaging results and other diagnostic exam results were reviewed in the EMR. EKG Interpretation Critical Care Time None ? Medical Decision Making Medications acetaminophen (TYLENOL) tablet 650 mg (0 mg oral Override Pull 10/10/241814) sodium chloride 0.9 % bolus 1,000 mL (1,000 mL intravenous New Bag 10/10/241953) ondansetron (PF) (ZOFRAN) injection 4 mg (4 mg intravenous Given 10/10/241952) ketorolac (TORADOL) injection 15 mg (15 mg intravenous Given 10/10/241952) Medical Decision Making Differential diagnosis include but not limited to: Influenza COVID-19 RSV Pneumonia Bronchitis Enterovirus/rhinovirus Lyme disease Pharyngitis Other viral illness In short 33-year-old female patient presenting with flulike symptoms. On arrival vitals are stable patient, febrile at 100.4. Patient sitting comfortably in chair, nontoxic and in no acute distress, hemodynamically stable. COVID flu RSV and strep are all negative. So with this likely a viral illness. Will treat symptomatically with IV fluids, Zofran. Will get test, if negative will give Toradol. ED Course as of 10/10/242042October 10, 20241943 Negative for . Will add on Toradol. [ES] 2041 Patient feeling better after IV fluids, and supportive care measures. Believe patient likely has a virus as a cause of her symptoms. Will discharge home with follow-up PCP and strict return precautions. Agrees with plan. [ES] ED Course User Index [ES] ARAM Montoya Clinical Impressions as of 10/10/242042 Viral syndrome Procedures Procedures Diagnosis 1. Viral syndrome Disposition Discharge ED Prescriptions None Physician Attestation ARAM Montoya 10/10/241939 ARAM Montoya 10/10/242042 Cosigned by Emily Romero DO at 10/11/2024 10:54 PM EDT documented in this encounter Plan of Treatment Upcoming Encounters Date Type Department Care Team (Late st Contact Info) Description 10/16/2024 9:30 AM EDT Office Visit Orthopedic Surgery - [place] [id number] [address] Isreal Galdamez DPM [address] [address] documented as of this encounter Procedures Procedure Name Priority Date/Time Associated Diagnosis Comments POC , URINE DIAGNOSTIC STAT 10/10/2024 7:43 PM EDT [id number], RSV, FLU A AND B QUALITATIVE RT-PCR, INTERNAL LAB STAT 10/10/2024 4:10 PM EDT RAPID STREP A SCREEN STAT 10/10/2024 4:10 PM EDT CULTURE THROAT STAT 10/10/2024 4:10 PM EDT documented in this encounter Results * POC , urine manually resulted (10/10/2024 7:43 PM EDT) HCG, Ur POC Negative Negative POC hCG Int QC Pass? Yes Yes Urine Urine specimen obtained by clean catch procedure / Unknown 10/10/2024 7:43 PM EDT us Lisa CHIU POINT OF CARE TEST ENTER/E DIT ORDERABLES Final Result * Culture throat (10/10/2024 4:10 PM EDT) [facility] Culture, Throat No pathogens isolated. 10/12/2024 11:16 AM EDT [facility] Swab Structure of anterior portion of neck / Unknown Non-blood Collection / Unknown 10/10/2024 4:10 PM EDT 10/10/2024 4:39 PM EDT us Jose D Verdin MD LAB MICROBIOLOGY - GENERAL JASMINE PEREZ Final Result [facility] [address] [place] [address], [place] [phone] * [id number], RSV, Influenza A and B qualitative RT-PCR (10/10/2024 4:10 PM EDT) [facility] Influenza A PCR Not Detected Not Detected LAB MICROBIOLOGY METHOD 10/10/2024 5:20 PM EDT [facility] Influenza B PCR Not Detected Not Detected LAB MICROBIOLOGY METHOD 10/10/2024 5:20 PM EDT [facility] RSV PCR Not Detected Not Detected LAB MICROBIOLOGY METHOD 10/10/2024 5:20 PM EDT [facility] SARS COV-2 Not Detected Not Detected LAB MICROBIOLOGY METHOD 10/10/2024 5:20 PM EDT [facility] Swab Structure of right anterior naris / Unknown Non-blood Collection / Unknown 10/10/2024 4:10 PM EDT 10/10/2024 4:40 PM EDT Narrative [facility] - 10/10/2024 5:20 PM EDT Disclaimer: ??Testing was performed using the [employer] GeneXpert Xpress SARS-CoV-2 _Flu_RSV PLUS PCR assay. [...] for Healthcare providers can be found at https://www.fda.gov/media/400061/download. ?? Fact sheet for Healthcare patients can be found at https://www.fda.gov/media/548223/download. us Jose D Verdin MD LAB MICROBIOLOGY - GENERAL JASMINE PEREZ Final Result Performing Organization Address [facility] Co de Phone Number [facility] [address] [place] [address], [place] [phone] * Rapid strep A screen (10/10/2024 4:10 PM EDT) [facility] Signature Strep A Ag Negative Negative, Invalid 10/10/2024 4:57 PM EDT [facility] Comment:Refer to Throat Cult ure. Swab Structure of anterior portion of neck / Unknown Non-blood Collection / Unknown 10/10/2024 4:10 PM EDT 10/10/2024 4:39 PM EDT us Jose D Verdin MD LAB MICROBIOLOGY - GENERAL ORDJason PEREZ Final Result Performing Organization Address [facility]/ZIP Co de Phone Number [facility] [address] [place] [address], [place] [phone] documented in this encounter Visit Diagnoses Diagnosis Viral syndrome- Primary Unspecified viral infection, in conditions classified elsewhere and of unspecified site documented in this encounter Administered Medications Inactive Administered Medications - up to 3 most recent administrations Medication Order MAR Action Action Date Dose Rate Site acetaminophen (TYLENOL) tablet 650 mg 650 mg, oral, Once, On Sun10/10/24 at 1612, For 1 dose Given 10/10/2024 4:14 PM EDT 650 mg ketorolac (TORADOL) injection 15 mg 15 mg, intravenous, Once, On Sun10/10/24 at 1944, For 1 dose Given 10/10/2024 7:53 PM EDT 15 mg ondansetron (PF) (ZOFRAN) injection 4 mg 4 mg, intravenous, Once, On Sun10/10/24 at 193, For 1 dose Given 10/10/2024 7:53 PM EDT 4 mg sodium chloride 0.9 % bolus 1,000 mL 1,000 mL, intravenous, at 2,000 mL/hr, Administer over 30 Minutes, Once, On Sun10/10/24 at 193, For 1 dose New Bag 10/10/2024 7:54 PM EDT 1,000 mL 2000 mL/hr documented in this encounter Active and Recently Administered Medications Times are shown in EDT. Scheduled Medication Order 10/08/2024 10/09/2024 10/10/2024 acetaminophen (TYLENOL) tablet 650 mg (COMPLETED) 650 mg, oral, Once, On Sun10/10/24 at 1612, For 1 dose 161 (Given - Provid er: Evette Reese RN)1814 (Override Pull - Provider: Lupe Allen RN - Comment: this was linked to an override pull) ketorolac (TORADOL) injection 15 mg (COMPLETED) 15 mg, intravenous, Once, On Sun10/10/24 at 1944, For 1 dose 1952 (Given - Provid er: Kiki Moon RN) ondansetron (PF) (ZOFRAN) injection 4 mg (COMPLETED) 4 mg, intravenous, Once, On Sun10/10/24 at 1937, For 1 dose 1952 (Given - Provid er: Kiki Moon RN) sodium chloride 0.9 % bolus 1,000 mL (COMPLETED) 1,000 mL, intravenous, at 2,000 mL/hr, Administer over 30 Minutes, Once, On Sun10/10/24 at 1937, For 1 dose 1953 (New Bag - Prov ider: Kiki Moon, ALESSIA)2047 (Stopped - Provider: Kiki Moon RN) documented in this encounter Care Teams Agricultural Mechanic Relationship Specialty Start Date End Date Abdifatah Whitt PA [address] [place] [address] PCP - General Physician Phlebotomy Support Tech 04/24/24 documented as of this encounter
== END 2024-10-14 10:55 | disposition home or self-care (01) ==
PROVIDERS: PCP Physician Assistant; Visit Provider Physician Assistant
DX: Z13.9 Encounter for screening, unspecified (principal); J02.9 Acute pharyngitis, unspecified

== ENCOUNTER → 2024-10-14 09:12 | Outpatient (BNVA) | payer OTHER, SELFPAY | PROVIDERS: PCP Physician Assistant; Visit Provider Physician Assistant | DX: J02.9 Acute pharyngitis, unspecified (principal) | CPT/HCPCS: 87880; 99212 ==

== ENCOUNTER 2024-11-05 11:04 | Outpatient (AMB) | payer OTHER, SELFPAY ==
--- NOTE | 2024-11-05 11:08 | A.OFFVIS_ITS ---
Vital Signs 11/05/24 11:23 Height 5 ft 4 in Weight 240 lb BMI 41.2 BP 118/75 Blood Pressure Location Lt brachial Position Sitting Pulse 80 Pulse Oximetry (%) 98 Intake Visit Reasons: Follow up Transaminitis Intake Note: Patient follow up for Transaminitis, ko was 03/08/2023 Patient cc: upper abdominal pain with bloating, acid reflux, and soft stool. Denies any other GI issues. [employer] Required: No Accompanied by: Self / Same As Patient Allergies dexamethasone [DEXAMETHASONE] Adverse Reaction (Unknown, Verified 11/05/24 11:08) ANXIETY HPI HPI Follow up Transaminitis: Details: Assessment & Plan (1) WATTS (nonalcoholic steatohepatitis): Comment: BASELINE LABS Estimated GFR > 60 Total Bilirubin 0.4 GGT 86 H AST 51 H ALT 91 H Alkaline Phosphatase 134 H Ferritin 23 Ceruloplasmin 28 Alpha Fetoprotein 3.3 TSH 2.08 MARSHAL Screen NEGATIVE Anti-Mitochondrial Ab NEGATIVE Anti-Smooth Muscle Ab <20 Hepatitis A IgM Ab Nonreactive Hep Bs Antigen Negative Hep Bs Antibody NONREACTIVE Hep B Core Total Ab Nonreactive Hepatitis C Ab (EIA) Nonreactive HIV 1&2 Ab/P24 Ag 4thGn Nonreactive CURRENT LABS CT ABD AND PELVIS 01/18/23 LIVER, GALLBLADDER, AND BILIARY TREE: Liver is of low attenuation due to hepatic steatosis and enlarged. There is no intrahepatic masses or ductal dilatation seen. Gallbladder is surgically absent. PANCREAS: Unremarkable SPLEEN: Enlarged, measured 14.3 cm. There is 2.8 cm splenules are present CT/CT abdomen wo/w IV con IMPRESSION: Hepatosplenomegaly. Hepatic steatosis Code(s): K75.81 - Nonalcoholic steatohepatitis (WATTS) Plan: We review the results and discuss the tx for WATTS. She says I am waiting to get my pain controlled before I try to get into wt mgmt. She was seen at [facility] for right flank pain. They said it was a pulled muscle. The pain persists at a lower level now, worse with laying on the right side and throbbing. She is worried about renal stones. No r/t eating or moving her bowels. She agrees with me that this does not sound like a GI problem but I will do an initial workup out a courtesy because she says she has difficulty getting appointments with her primary care provider. I will get a repeat UA since there were some red blood cells in the urine and a renal ultrasound other than that if the pain persists she will need to follow-up with her primary care provider. I will call her if there are any abnormalities in these 2 tests. ROV 6 mos. (2) Morbid obesity: Code(s): E66.01 - Morbid (severe) obesity due to excess calories (3) Right flank pain: Code(s): R10.9 - Unspecified abdominal pain Orders: Orders UA CC w/rflx Micro + Cult Today R10.9 - Unspecified abdominal pain US renal BI Today R10.9 - Unspecified abdominal pain LABS: Laboratory Tests 09/20/24 10:14 WBC 5.8 Hgb 12.1 Hct 38.4 Plt Count 233 Estimated GFR > 60 Total Bilirubin 0.3 AST 47 H ALT 50 H Alkaline Phosphatase 88 C-Reactive Protein 0.70 H ULTRASOUND OF THE RENAL SYSTEM 03/21/23 FINDINGS: RIGHT KIDNEY: 9.4 x 4.6 x 5.5 cm (SAG x AP x TRV). No hydronephrosis. No renal calculi. Renal cortical thickness is normal. Limited visualization. LEFT KIDNEY: 10.8 x 4.7 x 5.2 cm (SAG x AP x TRV). No hydronephrosis. No renal calculi. Renal cortical thickness is normal. Limited visualization. INCIDENTAL FINDING: Incidental note on limited views of the liver of diffuse increase in hepatic echogenicity which is characteristic of primary hepatocellular disease, possibly due to hepatic steatosis. Incidental note of rounded soft tissue masses adjacent to the spleen measuring 2.3 x 2.2 x 2.5 cm and 1.5 x 1.5 x 1.6 cm, characteristic of splenules. US/US renal BI IMPRESSION: 1. No hydronephrosis. No renal calculi. 2. Soft tissue masses adjacent to the spleen are characteristic of splenules as noted on prior exams. 3. Incidental note on limited views of the liver of diffuse increase in echogenicity of the liver, characteristic of primary hepatocellular disease, possibly due to hepatic steatosis. TODAY'S VISIT PATIENT HAS BEEN LOST TO FOLLOW-UP SINCE 02/2023 She has now developed post cholecystectomy diarrhea - her mother has same and is on a pill that works wonders. Likely carafate, will rx and titrate. With this she does experience bloating and some upper abdominal pain. She in now in wt management and lost 10 lbs! this has shown in her liver function tests. Apparently she also developed musculoskeletal problems with knee pain I back pain and this also prompted the need to lose weight before she can have surgery to correct a kneecap pathology. ROV 4 weeks. [facility] Medical History (Updated 11/05/24 @ 13:37 by MIRELLA Raman) Morbid obesity Chronic idiopathic constipation Right upper quadrant abdominal pain Bilateral leg numbness Early stage of Right shoulder pain Gestational HTN HTN (hypertension) Right wrist pain Obese Muscle spasm of back Transaminitis Epigastric pain Left ankle pain Right hip pain Right hip pain Right flank pain Ganglion of flexor tendon sheath of right index finger Right groin pain Morbid obesity with BMI of 40.0-44.9, adult Patellofemoral disorders, right knee Pharyngitis Lumbar radiculopathy, acute Sciatica of right side Right knee pain Right knee meniscal tear Morbid obesity with BMI of 45.0-49.9, adult Sacroiliac joint pain Flu Body aches Otitis media Pre-op evaluation Low back pain Potential exposure to STD Encounter for annual routine gynecological examination Lower abdominal pain Screening for hypothyroidism Screening for hypercholesterolemia Screening for diabetes mellitus (DM) Pharyngitis Dermatitis fungal Annual physical exam GERD (gastroesophageal reflux disease) Bunion of great toe of left foot Asthma PCOS (polycystic ovarian syndrome) Surgical History Hx of cholecystectomy History of tubal ligation History of back surgery History of carpal tunnel surgery (~04/2020) Hx of section Family History Father Unknown family medical history Maternal Uncle Blocked artery Family/Other Colon cancer Maternal Uncle Blocked artery Mother No problems noted. Maternal Grandmother Stroke S/P triple vessel bypass Social History Household Members: Children Housing: House Alcohol intake: current Alcohol intake frequency: holidays/special occasions only Patient Tobacco Use Status: Never used Tobacco e-Cigarette/Vaping Use: Never Used Second Hand Smoke Exposure: No service: No Current occupational status: unemployed Cognitive needs: No Hearing needs: No Vision needs: Yes Review of Systems Const Denies fatigue, Denies fever(s), Denies night sweats, Denies poor appetite and Reports weight loss (10 lbs intentional dieting) Eyes Details: glasses Reports requires corrective lenses ENT Reports Normal hearing present, Denies dental pain, Denies dysphagia, Denies hearing loss, Denies mouth pain, Denies odynophagia, Denies throat swelling, Denies tongue swelling and Reports other (Dentition adequate) Card Reports no additional complaints Resp Reports no additional complaints GI Details: Denies abdominal pain, Denies melena, Denies bloating, Denies hematochezia, Denies constipation, Denies GI cramping, Denies dysphagia, Denies excessive flatus, Denies early satiety, Denies heartburn, Denies diarrhea, Denies nausea, Denies odynophagia, Denies vomiting and Denies hematemesis Skin/Breast Denies pruritus, Denies lesions, Denies rash and Denies jaundice Neuro Reports Normal hearing present and Denies Abnormal speech present Endo Denies fatigue Aller/Immun Denies throat swelling and Denies tongue swelling Physical Exam Vital Signs: Last Vital Signs Pulse 80 11/05/24 11:23 BP 118/75 11/05/24 11:23 Pulse Ox 98 11/05/24 11:23 BMI result Body Mass Index 41.2 Const General: cooperative, no acute distress, well developed and well groomed Nutritional Appearance: well nourished and obese Orientation/consciousness: oriented to person, oriented to place and oriented to time Limitations: No language barrier HEENT Head: Yes normocephalic and Yes atraumatic Eyes General: appearance normal, both eyes and all related structures Pupils: Equal, round and reactive pupils present Neck Neck: Yes normal visual inspection and Yes no lymphadenopathy Thyroid: Thyroid normal Resp Effort & Inspection: normal respiratory effort and able to speak in complete se ntences Auscultation: clear to auscultation bilaterally Cardio Rate: regular rate Rhythm: regular rhythm Heart sounds: Normal, physiologic split S2 sound present Peripheral pulses: radial pulses present and posterior tibial pulses present GI Inspection: No distended, Yes Abdominal panniculus present and Yes obesity Palpation (GI): Soft to palpation, nontender, no guarding, not rigid and No hepatosplenomegaly present Percussion: Yes normal to percussion Auscultation: normal bowel sounds Rectal Exam - Female: deferred Skin General skin exam: no rashes or lesions noted, turgor normal, skin not dry, no jaundice, No spider nevi and no striae Rashes: no rashes Nails: normal Neuro General: oriented to person, oriented to place and oriented to time Cranial nerves: Yes Equal, round and reactive pupils present and Yes Normal hearing present Speech: No Abnormal speech present Extrem General: Yes normal to inspection, No clubbing, No cyanosis and No edema Psych Appearance: grossly normal and well kempt Mental Status: mental status grossly normal Speech and movement: Normal speech and movement present Affect: normal affect Attitude: cooperative Thought process: Normal thought process present and not confabulating Thought content: Normal thought content present Insight: Fair insight present (Psych) Judgement: Fair judgement present (Psych) Assessment & Plan Assessment & Plan (1) Post-cholecystectomy syndrome: Code(s): K91.5 - Postcholecystectomy syndrome Category: Medical (2) GERD (gastroesophageal reflux disease): Code(s): K21.9 - Gastro-esophageal reflux disease without esophagitis Category: Medical (3) WATTS (nonalcoholic steatohepatitis): Comment: BASELINE LABS Estimated GFR > 60 Total Bilirubin 0.4 GGT 86 H AST 51 H ALT 91 H Alkaline Phosphatase 134 H Ferritin 23 Ceruloplasmin 28 Alpha Fetoprotein 3.3 TSH 2.08 MARSHAL Screen NEGATIVE Anti-Mitochondrial Ab NEGATIVE Anti-Smooth Muscle Ab <20 Hepatitis A IgM Ab Nonreactive Hep Bs Antigen Negative Hep Bs Antibody NONREACTIVE Hep B Core Total Ab Nonreactive Hepatitis C Ab (EIA) Nonreactive HIV 1&2 Ab/P24 Ag 4thGn Nonreactive Ultrasound of the abdomen with elastography (F0-F1) 10/10/2024 CURRENT LABS 09/20/24 Total Bilirubin 0.3 AST 47 H ALT 50 H Alkaline Phosphatase 88 C-Reactive Protein 0.70 H Ultrasound of the abdomen with elastography (F0-F1) 10/10/2024 IMPRESSION: 1. Slightly echogenic pancreas is unremarkable. Unremarkable liver kidneys and spleen. The pancreas is out. 2. Liver elastography: Mean liver stiffness measures 1.83 m/s. 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 Likely carafate, will rx and titrate. With this she does experience bloating and some upper abdominal pain. She in now in wt management and lost 10 lbs! this has shown in her liver function tests. Apparently she also developed musculoskeletal problems with knee pain I back pain and this also prompted the need to lose weight before she can have surgery to correct a kneecap pathology. ROV 4 weeks. Medications: New sucralfate (Carafate) 2 grams (2 x 1 gram) PO QNOON 60 tabs 6RF K91.5 - Postcholecystectomy syndrome Coding Level of Care Code Est Pt Level 3 (54469) Diagnoses Post-cholecystectomy syndrome K91.5 GERD (gastroesophageal reflux disease) K21.9 WATTS (nonalcoholic steatohepatitis) K75.81
[2024-11-05 11:23] VITALS: BP 118/75; PULSE 80; O2SAT 98; BMI 41.2
--- OUTSIDE RECORDS SUMMARY | 2024-11-05 12:07 | XMS_ITS | Clinical Summary ---
Author Organization 175 [facility] Address [address] [place] [address] Phone Care Team Providers Care Retail Agent Name Role Phone Abdifatah Whitt Primary Care [...] the lungs 2 times daily. 6 Active oxyCODONE-aceta minophen (PERCOCET) 5-325 mg per tablet Take 1 tablet by mouth every 6 (six) hours if needed. for pain 4 Active gabapentin (NEURONTIN) 100 mg capsule [...] as needed for for pain 4 Active Active Problems Problem Noted Date Diagnosed Date Preeclampsia 05/06/2024 Overview (05/06/2024): diagnosed to have preeclampsia, was on meds for a short duration Asthma 05/06/2024 Encounters Date Type Department Care Team Description 10/24/2024 3:47 PM EDT - 10/24/2024 8:15 PM EDT Emergency [facility] Emergency [address] [place] [phone] Breast pain, right (Primary Dx) Discharge Disposition: Home or Self Care 10/22/2024 Telephone Orthopedic Surgery [facility] [address] [phone] Heidi Willett [place] 10/16/2024 9:30 AM EDT Office Visit Orthopedic [facility] [address] [phone] Isreal Galdamez DPM Disorder of ligament of ankle, left (Primary Dx); Peroneal tendinitis of left lower extremity; Equinus contracture of left ankle; Chronic pain of left ankle; Lumbosacral radiculopathy 10/10/2024 6:11 PM EDT - 10/10/2024 8:59 PM EDT [facility] Emergency [address] [place] [phone] Viral syndrome (Primary Dx) Discharge Disposition: Home or Self Care 09/28/2024 6:48 PM EDT - 09/28/2024 11:45 PM EDT Emergency [facility] Emergency [address] [place] [phone] Hemorrhagic cyst of right ovary (Primary Dx) Discharge Disposition: Home or Self Care 09/15/2024 9:30 AM EDT Office Visit Orthopedic [facility] [address] [phone] Jose D Claros MD Right knee pain, unspecified chronicity (Primary Dx) 08/14/2024 9:30 AM EST Office Visit Orthopedic [facility] [address] [phone] Isreal Galdamez, DPM Peroneal tendinitis of left lower extremity [...] Sign Reading Time Taken Comments Blood Pressure 138/76 10/24/2024 6:05 PM EDT Pulse 80 10/24/2024 6:05 PM EDT Temperature 37.1 ??C (98.7 ??F) 10/24/2024 6:05 PM ED T Respiratory Rate 18 10/24/2024 6:05 PM EDT Oxygen Saturation 98% 10/24/2024 6:05 PM EDT Inhaled Oxygen Concentration - - Weight 109 kg (240 lb) 10/24/2024 3:42 PM EDT Height 160 cm (5' 3 ) 10/24/2024 3:42 PM EDT Body Mass Index 42.51 10/24/2024 3:42 PM EDT Plan of Treatment Upcoming Encounters Date Type Department Care Team (Late st Contact Info) Description 11/11/2024 9:15 AM EDT Office Visit Orthopedic Surgery - [place] [phone] [facility] 250 [place] [phone] Isreal Galdamez DPM 175 [facility] 250 [place] [address] 02/26/2025 11:30 AM EDT Consult Bariatric Surgery - [place] 175 [facility] [address] [place] [phone] Mariah Pike MD [address] [phone] Health Maintenance Due Date Last Done Comments [...] 10/17/2020, 09/26/2020 Hypertension/CHF/CAD Annual BMP Blood Test 10/24/2025 10/24/2024, 09/28/2024, 05/02/2016 DTaP,Tdap,and Td Vaccines (11 - [...] Procedure Name Priority Date/Time Associated Diagnosis Comments US BREAST LIMITED RIGHT STAT 10/24/2024 6:42 PM EDT XR CHEST 2 VIEWS STAT 10/24/2024 4:01 PM EDT CBC WITH AUTO DIFFERENTIAL STAT 10/24/2024 3:49 PM EDT CBC AND DIFFERENTIAL STAT 10/24/2024 3:49 PM EDT COMPREHENSIVE METABOLIC PANEL STAT 10/24/2024 3:49 PM EDT POC , URINE DIAGNOSTIC STAT 10/10/2024 7:43 PM EDT CULTURE THROAT STAT 10/10/2024 4:10 PM EDT [id number], RSV, FLU A AND B QUALITATIVE RT-PCR, [...] Recently Relevant to Health Maintenance Results * US Breast Limited Right (10/24/2024 6:42 PM EDT) Anatomical Region Laterality Modality Breast Right Ultrasound 10/24/2024 7:09 PM EDT Impressions 10/24/2024 7:09 PM EDT Impression: No sonographic abnormality This document has been electronically signed by: Willard Sanders MD on 10/24/2024 19:09:09 Narrative 10/24/2024 7:09 PM EDT INDICATION: Right breast pain and swelling, r/o abscess Ultrasound right breast limited Comparison: None Findings: No sonographic abnormality. Procedure Note Willard Sanders MD - 10/24/2024 INDICATION: Right breast pain and swelling, r/o abscess Ultrasound right breast limited Comparison: None Findings: No sonographic abnormality. IMPRESSION: Impression: No sonographic abnormality This document has been electronically signed by: Willard Sanders MD on 10/24/2024 19:09:09 us Brittny Farooq CHIU IMG US PROCEDURES Final Result * XR Chest 2 Views (10/24/2024 4:01 PM EDT) Anatomical Region Laterality Modality Body Radiographic Chayo ging 10/24/2024 4:01 PM EDT Impressions 10/24/2024 4:04 PM EDT FINDINGS/IMPRESSION: Normal heart size and pulmonary vascularity. ??Lungs are clear and costophrenic angles are sharp. ??No acute osseous abnormality. -------- FINAL REPORT -------- Dictated By: Aydee Fulton Dictated Date: 10/24/2024 16:01 ET Assigned Physician: Aydee Fulton Reviewed and Electronically Signed By: Aydee Fulton Signed Date: 10/24/2024 16:04 ET Workstation ID: [id number] Transcribed By: Self Edit Transcribed Date: 10/24/2024 16:01 ET Narrative 10/24/2024 4:04 PM EDT XR CHEST 2 VIEWS INDICATION: pain TECHNIQUE: XR CHEST 2 VIEWS COMPARISON: No priors available. Procedure Note Aydee Fulton MD - 10/24/2024 XR CHEST 2 VIEWS INDICATION: pain TECHNIQUE: XR CHEST 2 VIEWS COMPARISON: No priors available. IMPRESSION: FINDINGS/IMPRESSION: Normal heart size and pulmonary vascularity. Lungsare clear and costophrenic angles are sharp. No acute osseousabnormality. -------- FINAL REPORT -------- Dictated By: Aydee Fulton Dictated Date: 10/24/2024 16:01 ET Assigned Physician: Aydee Fulton Reviewed and Electronically Signed By: Aydee Fulton Signed Date: 10/24/2024 16:04 ET Workstation ID: [id number] Transcribed By: Self Edit Transcribed Date: 10/24/2024 16:01 ET Reji Gonzalez MD IMG XR PROCEDURES Final Result * (ABNORMAL) CBC auto differential (10/24/2024 3:49 PM EDT) Only the most recent of2 resultswithin the time period is included. WBC 8.3 4.8 - 10.8 K/mcL LAB HEMETOLOGY METHOD [facility] RBC 4.70 3.80 - 4.80 M/mcL LAB HEMETOLOGY METHOD 10/24/2024 4:03 PM [facility] Hemoglobin 12.3 11.5 - 16.0 g/dL LAB HEMETOLOGY METHOD 10/24/2024 4:03 PM [facility] Hematocrit 40.2 35.0 - 47.0 % LAB HEMETOLOGY METHOD 10/24/2024 4:03 [facility] MCV 85.4 79.0 - 98.0 FL LAB HEMETOLOGY METHOD 10/24/2024 4:03 PM [facility] MCH 26.1(L) 27.0 - 32.0 pcg LAB HEMETOLOGY METHOD 10/24/2024 4:03 PM [facility] MCHC 30.6(L) 32.0 - 37.0 g/dL LAB HEMETOLOGY METHOD 10/24/2024 4:03 PM [facility] RDW 15.5(H) 11.0 - 15.0 % LAB HEMETOLOGY METHOD 10/24/2024 4:03 PM [facility] Platelets 276 130 - 400 K/mcL LAB HEMETOLOGY METHOD 10/24/2024 4:03 PM [facility] MPV 11.4(H) 7.0 - 11.0 FL LAB HEMETOLOGY METHOD 10/24/2024 4:03 PM [facility] NRBC 0.0 <1.0 % LAB HEMETOLOGY METHOD 10/24/2024 4:03 PM [facility] NRBC Absolute 0.00 <0.10 K/mcL LAB HEMETOLOGY METHOD 10/24/2024 4:03 PM [facility] Neutrophils Relative 65.5 % LAB HEMETOLOGY METHOD 10/24/2024 4:03 PM [facility] Lymphocytes Relative 26.7 % LAB HEMETOLOGY METHOD 10/24/2024 4:03 PM [facility] Monocytes Relative 4.9 % LAB HEMETOLOGY METHOD 10/24/2024 4:03 PM [facility] Eosinophils Relative 1.9 % LAB HEMETOLOGY METHOD 10/24/2024 4:03 PM [facility] Basophils Relative 0.6 % LAB HEMETOLOGY METHOD 10/24/2024 4:03 PM [facility] Immature Granulocytes Relative 0.4 % LAB HEMETOLOGY METHOD 10/24/2024 4:03 PM [facility] Neutrophils Absolute 5.44 1.50 - 7.00 K/mcL LAB HEMETOLOGY METHOD 10/24/2024 4:03 PM [facility] Lymphocytes Absolute 2.22 1.00 - 5.00 K/mcL LAB HEMETOLOGY METHOD 10/24/2024 4:03 PM [facility] Monocytes Absolute 0.41 0.20 - 1.00 K/mcL LAB HEMETOLOGY METHOD 10/24/2024 4:03 PM [facility] Eosinophils Absolute 0.16 0.00 - 0.50 K/mcL LAB HEMETOLOGY METHOD 10/24/2024 4:03 PM [facility] Basophils Absolute 0.05 0.00 - 0.20 K/[facility] LAB HEMETOLOGY METHOD 10/24/2024 4:03 PM EDT [facility] Immature Granulocytes Absolute 0.03 0.00 - 0.03 K/[facility] LAB HEMETOLOGY METHOD 10/24/2024 4:03 PM EDT [facility] Blood Venous blood specimen / Unknown Venipuncture / Unknown 10/24/2024 3:49 PM EDT 10/24/2024 3:56 PM EDT us Reji B Carlos SNYDER LAB BLOOD ORDERABLES Final Resu lt [facility] [address] [place] [address], [place] [phone] * (ABNORMAL) Comprehensive metabolic panel (10/24/2024 3:49 PM EDT) Only the most recent of2 resultswithin the time period is included. Sodium 138 133 - 145 mmol/L LAB CHEMISTRY METHOD 10/24/2024 4:41 PM [facility] Potassium 4.3 3.5 - 5.5 mmol/L LAB CHEMISTRY METHOD 10/24/2024 4:41 PM [facility] Chloride 102 96 - 110 mmol/L LAB CHEMISTRY METHOD 10/24/2024 4:41 PM [facility] CO2 28 21 - 32 mmol/L LAB CHEMISTRY METHOD 10/24/2024 4:41 PM [facility] Anion Gap 8 3 - 11 LAB CHEMISTRY METHOD 10/24/2024 4:41 PM [facility] Glucose 126(H) 70 - 100 mg/dL LAB CHEMISTRY METHOD 10/24/2024 4:41 PM [facility] BUN 14 5 - 25 mg/dL LAB CHEMISTRY METHOD 10/24/2024 4:41 PM [facility] Creatinine 1.03 0.50 - 1.10 mg/dL LAB CHEMISTRY METHOD 10/24/2024 4:41 PM T [facility] eGFR 74 >=60 mL/min/1. 73m2 LAB CHEMISTRY METHOD 10/24/2024 4:41 PM [facility] Comment:Calculation based on the Chronic Kidney Disease Epidemiology Collaboration (CKD-EPI) equation refit without adjustment for race. BUN/Creatinine Ratio 13.6 LAB CHEMISTRY METHOD 10/24/2024 4:41 PM T [facility] Calcium 8.7 8.5 - 10.5 mg/dL LAB CHEMISTRY METHOD 10/24/2024 4:41 PM [facility] AST (SGOT) 34 10 - 42 unit/L LAB CHEMISTRY METHOD 10/24/2024 4:41 PM [facility] ALT (SGPT) 51 10 - 60 unit/L LAB CHEMISTRY METHOD 10/24/2024 4:41 PM [facility] Alkaline Phosphatase 109 42 - 121 unit/L LAB CHEMISTRY METHOD 10/24/2024 4:41 PM [facility] Total Protein 8.3(H) 6.0 - 8.0 g/dL LAB CHEMISTRY METHOD 10/24/2024 4:41 PM [facility] Albumin 3.7 3.2 - 5.0 g/dL LAB CHEMISTRY METHOD 10/24/2024 4:41 PM [facility] Total Bilirubin 0.3 0.0 - 1.4 mg/dL LAB CHEMISTRY METHOD 10/24/2024 4:41 PM [facility] Blood Venous blood specimen / Unknown Venipuncture / Unknown 10/24/2024 3:49 PM EDT 10/24/2024 3:56 PM EDT us Reji B Carlos SNYDER LAB BLOOD ORDERABLES Final Resu lt [facility] [address] [place] [address], * POC , urine manually resulted (10/10/2024 7:43 PM EDT) Only the most recent of2 resultswithin the time period is included. HCG, Ur POC Negative Negative POC hCG Int QC Pass? Yes Yes Urine Urine specimen obtained by clean catch procedure / Unknown 10/10/2024 7:43 PM EDT Lisa CHIU POINT OF CARE TEST ENTER/E DIT ORDERABLES Final Result * [id number], RSV, Influenza A and B qualitative RT-PCR (10/10/2024 4:10 PM EDT) Pathologist [facility] Influenza A PCR Not Detected Not Detected LAB MICROBIOLOGY METHOD 10/10/2024 5:20 PM EDT [facility] Influenza B PCR Not Detected Not Detected LAB MICROBIOLOGY METHOD 10/10/2024 5:20 PM EDT [facility] RSV PCR Not Detected Not Detected LAB MICROBIOLOGY METHOD 10/10/2024 5:20 PM EDT [facility] SARS COV-2 Not Detected Not Detected LAB MICROBIOLOGY METHOD 10/10/2024 5:20 PM EDT [facility] Swab Structure of right anterior naris / Unknown Non-blood Collection / Unknown 10/10/2024 4:10 PM EDT 10/10/2024 4:40 PM EDT Narrative [facility] - 10/10/2024 5:20 PM EDT Disclaimer: ??Testing was performed using the [employer] GeneXpert Xpress SARS-CoV-2 _Flu_RSV PLUS PCR assay. [...] for Healthcare providers can be found at https://www.fda.gov/media/478351/download. ?? Fact sheet for Healthcare patients can be found at https://www.fda.gov/media/085743/download. Jose D Verdin MD LAB MICROBIOLOGY - GENERAL ORDJason PEREZ Final Result Performing Organization Address [facility]/ZIP Co de Phone Number [facility] [address] [place] [address], * Rapid strep A screen (10/10/2024 4:10 PM EDT) Strep A Ag Negative Negative, Invalid 10/10/2024 4:57 PM EDT [facility] Comment:Refer to Throat Cult ure. Swab Structure of anterior portion of neck / Unknown Non-blood Collection / Unknown 10/10/2024 4:10 PM EDT 10/10/2024 4:39 PM EDT Jose D Verdin MD LAB MICROBIOLOGY - GENERAL ORDE CHRIS Final Result Performing Organization Address [facility]/ZIP Co de Phone Number [facility] [address] [place] [address], * Culture throat (10/10/2024 4:10 PM EDT) Culture, Throat No pathogens isolated. 10/12/2024 11:16 AM EDT [facility] Swab Structure of anterior portion of neck / Unknown Non-blood Collection / Unknown 10/10/2024 4:10 PM EDT 10/10/2024 4:39 PM EDT us Jose D Verdin MD LAB MICROBIOLOGY - GENERAL ORDJason PEREZ Final Result [facility] [address] [place] [address], [place] [phone] * CT Abdomen Pelvis w Contrast (09/28/2024 [...] and culture (09/28/2024 6:32 PM EDT) Specific [place] Urine 1.027 1.003 - 1.030 LAB URINALYSIS - AUTOMATED METHOD 09/28/2024 6:55 PM [facility] pH, Urine 6.0 5.0 - 8.0 pH LAB URINALYSIS - AUTOMATED METHOD 09/28/2024 6:55 PM [facility] Leukocytes, Urine Negative Negative LAB URINALYSIS - AUTOMATED METHOD 09/28/2024 6:55 PM [facility] Nitrite, Urine Negative Negative LAB URINALYSIS - AUTOMATED METHOD 09/28/2024 6:55 PM [facility] Protein, Urine Trace <=Trace mg/dL LAB URINALYSIS - AUTOMATED METHOD 09/28/2024 6:55 PM [facility] Glucose, Urine Negative Negative mg/dL LAB URINALYSIS - AUTOMATED METHOD 09/28/2024 6:55 PM [facility] Ketones, Urine Trace(A) Negative mg/dL LAB URINALYSIS - AUTOMATED METHOD 09/28/2024 6:55 PM [facility] Urobilinogen, Urine 0.2 0.2 - 1.0 mg/dL LAB URINALYSIS - AUTOMATED METHOD 09/28/2024 6:55 PM EDT [facility] Bilirubin, Urine Negative Negative LAB URINALYSIS - AUTOMATED METHOD 09/28/2024 6:55 PM EDT [facility] Blood, Urine Negative Negative LAB URINALYSIS - AUTOMATED METHOD 09/28/2024 6:55 PM EDT [facility] Urine Urine specimen obtained by clean catch procedure / Unknown Non-blood Collection / Unknown 09/28/2024 6:32 PM EDT 09/28/2024 6:49 PM EDT Zackary Vasquez MD LAB URINE ORDERABLES Sharron l Result Performing Organization Address [facility]/ZIP Co de Phone Number [facility] [address] [place] [address], [place] [phone] * [place] urine culture tube (09/28/2024 6:32 PM EDT) Extra Tube Hold for add-ons. 09/28/2024 8:01 PM EDT [facility] Comment:Auto resulted. Urine Urine specimen obtained by clean catch procedure / Unknown Non-blood Collection / Unknown 09/28/2024 6:32 PM EDT 09/28/2024 6:49 PM EDT Zackary Vasquez MD LAB URINE ORDERABLES Sharron l Result Performing Organization Address [facility]/ZIP Co de Phone Number [facility] [address] [place] [address], [place] [phone] * XR Knee 3 Views Right (09/15/2024 9:35 AM EDT) Anatomical Region Laterality Modality Lower Extremities, Knee Right Computed Radiography Narrative 09/15/2024 9:38 AM EDT X-rays September 15, 2024. ??Bilateral PA weightbearing views of the knees. ?? Lateral view of the right knee. ??[place] view of the right knee. ??No acute osseous abnormalities. ??Good preservation of all 3 compartments. 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 ??Patella Araceli with Meryl Deschamp 1.48 Jose D Claros MD IMG XR PROCEDURES Final Result * HIV Screening (07/22/2015) Pathologist [facility] HIV Screening abstracted Historical Provider HEALTH MAINTENANCE Final Result * Hepatitis C Screening (07/22/2015) Pathologist [facility] Hepatitis C Screening abstracted Result [facility] Historical Provider HEALTH MAINTENANCE Final Result * Lipid panel (07/22/2015) Pathologist [facility] LDL/HDL Ratio 3 0 - 4 Triglycerides 89 0 - 150 mg/dL Cholesterol 132 0 - 200 mg/dL HDL 40 >=40 mg/dL LDL Cholesterol 74 0 - 100 mg/dL Blood Venous blood specimen / Unknown Result [facility] Historical Provider LAB BLOOD ORDERABLES Sharron l Result from Last 3 Months or Most Recently Relevant to Health Maintenance Insurance [facility] [employer] Care Teams Retail Agent Relationship Specialty Start Date End Date Abdifatah Whitt PA [address] [place] [phone] PCP - General Physician Co Founder 04/24/24
== END 2024-11-05 12:02 | disposition home or self-care (01) ==
LOC: HO.HGI 11:05
PROVIDERS: PCP Physician Assistant; Visit Provider Nurse Practitioner
DX: K91.5 Postcholecystectomy syndrome (principal); K21.9 Gastro-esophageal reflux disease without esophagitis; K75.81 Nonalcoholic steatohepatitis (NASH)
CPT/HCPCS: 99213

== ENCOUNTER → 2024-11-05 11:04 | Outpatient (BNVA) | payer OTHER, SELFPAY | PROVIDERS: PCP Physician Assistant; Visit Provider Nurse Practitioner | DX: K75.81 Nonalcoholic steatohepatitis (NASH) (principal); K91.5 Postcholecystectomy syndrome; K21.9 Gastro-esophageal reflux disease without esophagitis; E66.01 Morbid (severe) obesity due to excess calories; Z68.41 Body mass index [BMI] 40.0-44.9, adult | CPT/HCPCS: 99212 ==

== ENCOUNTER 2025-01-28 09:54 | Outpatient (REF) | payer OTHER, SELFPAY ==
[2025-01-29 09:16] LABS: Chlamydia pneumoniae PCR Not Detected (Not Detect.); Coronavirus 229E PCR Not Detected (Not Detect.); Coronavirus HKU1 PCR Not Detected (Not Detect.); Coronavirus NL63 PCR Not Detected (Not Detect.); Coronavirus OC43 PCR Not Detected (Not Detect.); Rhino/Enterovirus PCR Not Detected (Not Detect.)
[2025-01-29 09:17] LABS: RSV PCR Not Detected (Not Detect.)
[2025-01-29 09:39] LABS: Influenza A H1 PCR Not Detected (Not Detect.); Influenza A H1-2009 PCR Not Detected (Not Detect.); Influenza A H3 PCR Not Detected (Not Detect.); SARS-CoV-2 PCR Not Detected (Not Detect.)
== END 2025-01-28 09:55 | disposition home or self-care (01) ==
LOC: HO.LNP 09:54
PROVIDERS: PCP Physician Assistant; Visit Provider Physician Assistant Medical
DX: J02.9 Acute pharyngitis, unspecified (principal); Z13.89 Encounter for screening for other disorder
CPT/HCPCS: 87633; 87880; 99212

== ENCOUNTER 2025-01-28 09:54 | Outpatient (AMB) | payer OTHER, SELFPAY ==
--- NOTE | 2025-01-28 10:04 | AM.OFFWIN_ITS ---
Intake Vital Signs 01/28/25 10:05 Height 5 ft 4 in Weight 240 lb BMI 41.2 BP 114/76 Blood Pressure Location Rt brachial Position Sitting Pulse 89 Pulse Source Pulse Oximeter Temp 98.9 F Temp Source Oral Pulse Oximetry (%) 97 Oxygen Delivery Method Room Air Intake Visit Reasons: EP Sore throat, mucus, cough, fever, ear Intake Note: presents with sore throat, pain with swallowing, productive cough, fever, ear Patient Tobacco Use Status: Never used Tobacco Allergies dexamethasone (DEXAMETHASONE) Adverse Reaction (Unknown, Verified 01/28/25 10:10) ANXIETY Do you need a note to return to daycare/school/sports/work: No HPI HPI Comments History of Present Illness Details History - The patient is a 34-year-old female pr esenting with a sore throat, body aches, and ear pain. - The sore throat began four days ago, i nitially accompanied by a high fever that resolved the following day. - The patient reports severe throat pain , difficulty swallowing, and a sensation of burning in the throat. - Ear pain is noted, particularly in the right ear, with associated pressure. - The patient experienced body aches and initially suspected influenza or COVID- 19 due to recent exposure to family members with similar symptoms. - The patient reports no nasal congestio n or sinus pain. - The patient has a known allergy to dex amethasone but can tolerate prednisone. - Her son was sick and her daughter was also. - She denies fever, chills, CP, SOB, abd pain, n/v/d. Physical Exam General: Cooperative, healthy appearing, comfortable and no acute distress Orientation/consciousness: Patient oriented x3 Limitations: No limitations Head: Normal to inspection Ears: Hearing grossly normal bilaterally, external ears normal. Right ear is erythematous with an effusion. Nose: Normal external nose present, normal nares present, and no nasal discharge present. Face and sinus: Sinuses nontender to palpation. Mouth: Normal oral and palatal mucosa present and moist mucous membranes noted. Throat: Tonsils normal. Uvula is midline. Posterior oropharynx with erythema, really red throat, no white patches, and no exudates. Eyes: Appearance normal, both eyes and all related structures Neck: Normal visual inspection, full ROM. No lymphadenopathy noted. Respiratory: Clear to auscultation bilaterally. Normal respiratory effort, able to speak in complete sentences. No respiratory distress, not tachypneic, no tripod positioning and no use of accessory muscles. Cardiovascular: Regular rate and rhythm. Normal S1 and S2 Skin: No rashes or lesions noted Patient was informed and verbally consented to the use of an ambient scribe for clinic note documentation during this visit [facility] Medical History (Updated 11/05/24 @ 13:37 by MIRELLA Raman) Morbid obesity Chronic idiopathic constipation Right upper quadrant abdominal pain Bilateral leg numbness Early stage of Right shoulder pain Gestational HTN HTN (hypertension) Right wrist pain Obese Muscle spasm of back Transaminitis Epigastric pain Left ankle pain Right hip pain Right hip pain Right flank pain Ganglion of flexor tendon sheath of right index finger Right groin pain Morbid obesity with BMI of 40.0-44.9, adult Patellofemoral disorders, right knee Pharyngitis Lumbar radiculopathy, acute Sciatica of right side Right knee pain Right knee meniscal tear Morbid obesity with BMI of 45.0-49.9, adult Sacroiliac joint pain Flu Body aches Otitis media Pre-op evaluation Low back pain Potential exposure to STD Encounter for annual routine gynecological examination Lower abdominal pain Screening for hypothyroidism Screening for hypercholesterolemia Screening for diabetes mellitus (DM) Pharyngitis Dermatitis fungal Annual physical exam GERD (gastroesophageal reflux disease) Bunion of great toe of left foot Asthma PCOS (polycystic ovarian syndrome) Surgical History Hx of cholecystectomy History of tubal ligation History of back surgery History of carpal tunnel surgery (~04/2020) Hx of section Family History Father Unknown family medical history Maternal Uncle Blocked artery Family/Other Colon cancer Maternal Uncle Blocked artery Mother No problems noted. Maternal Grandmother Stroke S/P triple vessel bypass Social History Household Members: Children Housing: House Alcohol intake: current Alcohol intake frequency: holidays/special occasions only Patient Tobacco Use Status: Never used Tobacco e-Cigarette/Vaping Use: Never Used Second Hand Smoke Exposure: No service: No Current occupational status: unemployed Cognitive needs: No Hearing needs: No Vision needs: Yes Review of Systems Const All systems reviewed & are unremarkable except as noted in HPI and below Physical Exam Vital Signs: Last Vital Signs Temp 98.9 F 01/28/25 10:05 Pulse 89 01/28/25 10:05 BP 114/76 01/28/25 10:05 Pulse Ox 97 01/28/25 10:05 Oxygen Delivery Method Room Air 01/28/25 10:05 BMI result Body Mass Index 41.2 Assessment & Plan Assessment & Plan (1) Sore throat: Code(s): J02.9 - Acute pharyngitis, unspecified Plan Most likely viral illness vs strep vs OM vs sinusitis vs covid vs flu Rapid strep is negative Plan - Initiate treatment with Augmentin due to the presence of erythema in the throat and fluid in the right ear, suggestive of possible bacterial infection. - Prescribe prednisone to reduce inflammation and alleviate throat pain. - Conduct an extended panel swab test to rule out COVID-19, influenza, and other viral infections. - Advise the patient to discontinue Augmentin if the swab test returns positive for a viral infection. - VSS, pt well appearing - Tylenol or motrin as needed for pain - diet as tolerated - follow up with PCP Orders: Orders AMB Rapid Strep Screen Today Z13.9 - Encounter for screening, unspecified Resp Pathogen Panel - [facility] [place] J06.9 - Acute upper respiratory infection, unspecified Medications: New prednisone 40 mg (2 x 20 mg) PO DAILY 10 tabs 0RF amoxicillin-pot clavulanate 875-125 mg 1 tab PO Q12H 14 tabs 0RF Coding Level of Care Code Est Pt Level 3 (70045) Diagnoses Sore throat J02.9
[2025-01-28 10:05] VITALS: BP 114/76; PULSE 89; TEMP 37.2; O2SAT 97; BMI 41.2
--- OUTSIDE RECORDS SUMMARY | 2025-01-28 10:46 | XMS_ITS | Clinical Summary ---
Author Organization 175 [facility] Address [address] [place] [address] Phone Care Team Providers Care Instructional Systems Specialist Name Role Phone Abdifatah Whitt Primary Care [...] a day as needed for for pain Active Active Problems Problem Noted Date Diagnosed Date Preeclampsia 05/06/2024 Overview (05/06/2024): diagnosed to have preeclampsia, was on meds for a short duration Asthma 05/06/2024 Surgical History Surgery Date Site/Laterality Comments SECTION [...] 80 10/24/2024 6:05 PM EDT Temperature 37.1 C (98.7 F) 10/24/2024 6:05 PM EDT Respiratory Rate 18 10/24/2024 6:05 PM EDT Oxygen Saturation 98% 10/24/2024 6:05 PM EDT Inhaled Oxygen Concentration - - Weight 109 kg (240 lb) 10/24/2024 3:42 PM EDT Height 160 cm (5' 3 ) 10/24/2024 3:42 PM EDT Body Mass Index 42.51 10/24/2024 3:42 PM EDT Plan of Treatment Upcoming Encounters Date Type Department Care Team (Late st Contact Info) Description 02/26/2025 11:30 AM EDT Consult Bariatric Surgery - [place] [address] [place] [id number] Mariah Pike MD [address] [place] [address] Health Maintenance Due Date Last Done Comments Hepatitis A Vaccines (1 of 2 - Risk 2-dose series) 11/03/2010 Cervical Cancer Screening: Pap Smear 11/03/2012 Pneumococcal Vaccine: Pediatrics (0 to 5 Years) and At-Risk Patients (6 to 49 Years) (2 of 2 - PCV) 08/17/2019 08/16/2018, 11/30/2016 Cholesterol Screening (Lipid Panel) 05/14/2022 07/22/2015 Social Influencers of Health Screening 05/14/2022 COVID-19 Vaccine ( season) 2024 04/25/2021, 10/17/2020, 09/26/2020 Depression Screening 06/11/2024 Influenza Vaccine (#1) 2025 , 07/24/2022, 05/19/2018, Additional history exists Hypertension/CHF/CAD Annual BMP Blood Test 10/24/2025 10/24/2024, [...] Completed 12/11/2021, 11/10, 03/09/1997, Additional history exists Meningococcal B Vaccine Aged Out No l onger eligible based on patient's age to complete this topic RSV Immunization Patients Under 20 months Aged Out No longer eligible based on patient's age to complete this topic Varicella Vaccines Aged Out No longer eligible based on patient's age to complete this topic Procedures Procedure Name Priority Date/Time Associated Diagnosis Comments COMPREHENSIVE METABOLIC PANEL STAT 10/24/2024 3:49 PM EDT HEPATITIS C SCREENING Routine 07/22/2015 HIV SCREENING Routine 07/22/2015 LIPID PANEL Routine 07/22/2015 from Last 3 Months or Most Recently Relevant to Health Maintenance Results * (ABNORMAL) Comprehensive metabolic panel (10/24/2024 3:49 PM EDT) Sodium 138 133 - 145 mmol/L LAB CHEMISTRY METHOD 10/24/2024 4:41 PM [facility] Potassium 4.3 3.5 - 5.5 mmol/L LAB CHEMISTRY METHOD 10/24/2024 4:41 PM [facility] Chloride 102 96 - 110 mmol/L LAB CHEMISTRY METHOD 10/24/2024 4:41 PM [facility] CO2 28 21 - 32 mmol/L LAB CHEMISTRY METHOD 10/24/2024 4:41 PM [facility] Anion Gap 8 3 - 11 LAB CHEMISTRY METHOD 10/24/2024 4:41 PM [facility] Glucose 126(H) 70 - 100 mg/dL LAB CHEMISTRY METHOD 10/24/2024 4:41 PM [facility] BUN 14 5 - 25 mg/dL LAB CHEMISTRY METHOD 10/24/2024 4:41 PM [facility] Creatinine 1.03 0.50 - 1.10 mg/dL LAB CHEMISTRY METHOD 10/24/2024 4:41 PM [facility] eGFR 74 >=60 mL/min/1. 73m2 LAB CHEMISTRY METHOD 10/24/2024 4:41 PM [facility] Comment:Calculation based on the Chronic Kidney Disease Epidemiology Collaboration (CKD-EPI) equation refit without adjustment for race. BUN/Creatinine Ratio 13.6 LAB CHEMISTRY METHOD 10/24/2024 4:41 PM [facility] Calcium 8.7 8.5 - 10.5 mg/dL LAB CHEMISTRY METHOD 10/24/2024 4:41 PM [facility] AST (SGOT) 34 10 - 42 unit/L LAB CHEMISTRY METHOD 10/24/2024 4:41 PM [facility] ALT (SGPT) 51 10 - 60 unit/L LAB CHEMISTRY METHOD 10/24/2024 4:41 PM [facility] Alkaline Phosphatase 109 42 - 121 unit/L LAB CHEMISTRY METHOD 10/24/2024 4:41 PM [facility] Total Protein 8.3(H) 6.0 - 8.0 g/dL LAB CHEMISTRY METHOD 10/24/2024 4:41 PM [facility] Albumin 3.7 3.2 - 5.0 g/dL LAB CHEMISTRY METHOD 10/24/2024 4:41 PM [facility] Total Bilirubin 0.3 0.0 - 1.4 mg/dL LAB CHEMISTRY METHOD 10/24/2024 4:41 PM [facility] Blood Venous blood specimen / Unknown Venipuncture / Unknown 10/24/2024 3:49 PM EDT 10/24/2024 3:56 PM EDT us Reji B Gonzalez MD LAB BLOOD ORDERABLES Final Resu lt [facility] [address] [place] [address], * HIV Screening (07/22/2015) HIV Screening abstracted [...] Most Recently Relevant to Health Maintenance Insurance [facility] [employer] Care Teams Instructional Systems Specialist Relationship Specialty Start Date End Date Abdifatah Whitt PA PCP - General Physician Commodity Loan Clerk 04/24/24
== END 2025-01-28 10:33 | disposition home or self-care (01) ==
PROVIDERS: PCP Physician Assistant; Visit Provider Physician Assistant Medical
DX: Z13.9 Encounter for screening, unspecified (principal); J02.9 Acute pharyngitis, unspecified

== ENCOUNTER 2025-02-27 09:22 | Outpatient (AMB) | payer OTHER, SELFPAY ==
[2025-02-27 09:24] VITALS: BP 128/80; PULSE 59; TEMP 36.6; O2SAT 98; BMI 41.9
--- NOTE | 2025-02-27 09:24 | AM.OFFWIN_ITS ---
Intake Vital Signs 02/27/25 09:24 Height 5 ft 4 in Weight 244 lb BMI 41.9 BP 128/80 Blood Pressure Location Rt brachial Position Sitting Pulse 59 Pulse Source Pulse Oximeter Temp 97.9 F Temp Source Oral Pulse Oximetry (%) 98 Oxygen Delivery Method Room Air Intake Visit Reasons: ep ear infectiion, white/green patch on tonsil Intake Note: pt presents with mild sore throat with swallowing, bilateral ear aching LT > RT Patient Tobacco Use Status: Never used Tobacco Allergies dexamethasone (DEXAMETHASONE) Adverse Reaction (Unknown, Verified 02/27/25 09:32) ANXIETY Do you need a note to return to daycare/school/sports/work: No HPI HPI Comments History of Present Illness Details This is a 34-year-old female with a past medical history of asthma, seasonal allergies and arthritis presenting for evaluation of a sore throat that she has had for the past 1 day coupled with left ear pain. Patient denies having any fevers, chills, cough or shortness of breath. Patient takes ibuprofen and Tylenol daily for management of her arthritis. She has not taken any additional medications for management of these symptoms. [facility] Medical History (Updated 02/27/25 @ 09:51 by Naila Mcfarland PA-C) Morbid obesity Chronic idiopathic constipation Right upper quadrant abdominal pain Bilateral leg numbness Early stage of Right shoulder pain Gestational HTN HTN (hypertension) Right wrist pain Obese Muscle spasm of back Transaminitis Epigastric pain Left ankle pain Right hip pain Right hip pain Right flank pain Ganglion of flexor tendon sheath of right index finger Right groin pain Morbid obesity with BMI of 40.0-44.9, adult Patellofemoral disorders, right knee Pharyngitis Lumbar radiculopathy, acute Sciatica of right side Right knee pain Right knee meniscal tear Morbid obesity with BMI of 45.0-49.9, adult Sacroiliac joint pain Flu Body aches Otitis media Pre-op evaluation Low back pain Potential exposure to STD Encounter for annual routine gynecological examination Lower abdominal pain Screening for hypothyroidism Screening for hypercholesterolemia Screening for diabetes mellitus (DM) Pharyngitis Dermatitis fungal Annual physical exam GERD (gastroesophageal reflux disease) Bunion of great toe of left foot Asthma PCOS (polycystic ovarian syndrome) Surgical History Hx of cholecystectomy History of tubal ligation History of back surgery History of carpal tunnel surgery (~04/2020) Hx of section Family History Father Unknown family medical history Maternal Uncle Blocked artery Family/Other Colon cancer Maternal Uncle Blocked artery Mother No problems noted. Maternal Grandmother Stroke S/P triple vessel bypass Social History Household Members: Children Housing: House Alcohol intake: current Alcohol intake frequency: holidays/special occasions only Patient Tobacco Use Status: Never used Tobacco e-Cigarette/Vaping Use: Never Used Second Hand Smoke Exposure: No service: No Current occupational status: unemployed Cognitive needs: No Hearing needs: No Vision needs: Yes Review of Systems Const All systems reviewed & are unremarkable except as noted in HPI and below Reports no additional complaints, Denies body aches, Denies chills, Denies fatigue, Denies fever(s) and Denies headache(s) Eyes Reports no additional complaints ENT Denies dysphagia, Reports otalgia (left > right), Denies headache(s), Denies mouth lesions, Denies odynophagia, Reports sinus pressure and Reports sore throat Card Reports no additional complaints and Denies chest pain Resp Reports no additional complaints, Denies chest congestion, Denies cough and Denies hemoptysis GI Reports no additional complaints, Denies dysphagia and Denies odynophagia Musc Reports no additional complaints Skin/Breast Reports system reviewed and no additional complaints, except as documented Neuro Reports no additional complaints and Denies headache(s) Psych Reports no additional complaints Endo Reports no additional complaints and Denies fatigue Nick/Lymph Reports no additional complaints Physical Exam Const General: cooperative, healthy appearing, comfortable, no acute distress, well developed, alert, awake and Physically active; No ill appearing Nutritional Appearance: well nourished and overweight Orientation/consciousness: patient oriented x3 Limitations: no limitations HEENT Head: Yes normal to inspection and Yes normocephalic Ears: hearing grossly normal bilaterally, external ears normal, TM normal on the right (bulging TM, minimal fluid level, no erythema, canal is clear), TM normal on the left and EAC's normal General nose exam: Normal external nose present Face and sinus: Yes normal facial exam and Yes sinuses nontender Mouth: Normal oral and palatal mucosa present and moist mucous membranes Throat: Yes posterior oropharynx normal and No postnasal drainage Eyes General: appearance normal, both eyes and all related structures Neck Lymphatic: no lymphadenopathy noted Resp [place] & Inspection: normal respiratory effort and able to speak in complete sentences Auscultation: clear to auscultation bilaterally Cardio Rate: regular rate Rhythm: regular rhythm Skin General skin exam: no rashes or lesions noted Neuro General: patient oriented x3 Psych Appearance: grossly normal Mental Status: mental status grossly normal Insight: Good insight present (Psych) Judgement: Good judgement present (Psych) Results Reviewed Results Reviewed: Rapid strep test is negative. Assessment & Plan Assessment & Plan (1) Allergic sinusitis: Comment: Patient's rapid strep test is negative. There is no evidence of a bacterial sinusitis or otitis media. Patient does not take any antihistamine medication for management of her seasonal allergies. Code(s): J30.9 - Allergic rhinitis, unspecified Plan: Loratadine 10 mg once daily; patient is requesting refills of her ibuprofen and Tylenol which are prescribed by her primary care physician. Medications: New ibuprofen 600 mg PO Q8H PRN 30 tabs 0RF pain loratadine (Allergy Relief (loratadine)) 10 mg PO DAILY 30 caps 0RF acetaminophen 650 mg (2 x 325 mg) PO Q6H PRN 30 caps 0RF pain/fever Coding Level of Care Code Est Pt Level 3 (01492) Diagnoses Allergic sinusitis J30.9 Time Spent (min) 20
--- OUTSIDE RECORDS SUMMARY | 2025-02-27 09:54 | XMS_ITS | Clinical Summary ---
Author Organization 175 [facility] Address [address] [place] [address] Phone Care Team Providers Care Straight Knife Cutter Machine Name Role Phone Abdifatah Whitt Primary Care [...] 10/24/2024 3:42 PM EDT Plan of Treatment Health Maintenance Due Date Last Done Comments Hepatitis A Vaccines (1 of 2 - Risk 2-dose series) 11/03/2010 Cervical Cancer Screening: Pap Smear 11/03/2012 Pneumococcal Vaccine: Pediatrics (0 to 5 Years) and At-Risk Patients (6 to 49 Years) (2 of 2 - PCV) 08/17/2019 08/16/2018, 11/30/2016 Cholesterol Screening (Lipid Panel) 05/14/2022 07/22/2015 Social Influencers of Health Screening 05/14/2022 Depression Screening 06/11/2024 COVID-19 Vaccine ( season) 2025 04/25/2021, 10/17/2020, 09/26/2020 Influenza Vaccine (#1) 2025 , 07/24/2022, 05/19/2018, Additional history exists Hypertension/CHF/CAD Annual BMP Blood Test 10/24/2025 10/24/2024, 09/28/2024, 05/02/2016 DTaP,Tdap,and Td Vaccines (11 - Td or Tdap) 10/11/2031 10/10/2021, 01/29/2019, 10/12/2016, Additional history exists RSV Immunization Adult Patients (1 - 1-dose 75+ series) 11/03/2066 Hepatitis B Vaccines Completed 05/31/1992, 02/03/1992, 1991 [...] mmol/L LAB CHEMISTRY METHOD 10/24/2024 4:41 PM [facility] Potassium 4.3 3.5 - 5.5 mmol/L LAB CHEMISTRY METHOD 10/24/2024 4:41 PM [facility] Chloride 102 96 - 110 mmol/L LAB CHEMISTRY METHOD 10/24/2024 4:41 PM [facility] CO2 28 21 - 32 mmol/L LAB CHEMISTRY METHOD 10/24/2024 4:41 PM [facility] Anion Gap 8 3 - 11 LAB CHEMISTRY METHOD 10/24/2024 4:41 PM [facility] Glucose 126(H) 70 - 100 mg/dL LAB CHEMISTRY METHOD 10/24/2024 4:41 PM [facility] BUN 14 5 - 25 mg/dL LAB CHEMISTRY METHOD 10/24/2024 4:41 PM [facility] Creatinine 1.03 0.50 - 1.10 mg/dL LAB CHEMISTRY METHOD 10/24/2024 4:41 PM [facility] eGFR 74 >=60 mL/min/1. 73m2 LAB CHEMISTRY METHOD 10/24/2024 4:41 PM [facility] Comment:Calculation based on the Chronic Kidney Disease Epidemiology Collaboration (CKD-EPI) equation refit without adjustment for race. BUN/Creatinine Ratio 13.6 LAB CHEMISTRY METHOD 10/24/2024 4:41 PM [facility] Calcium 8.7 8.5 - 10.5 mg/dL LAB CHEMISTRY METHOD 10/24/2024 4:41 PM [facility] AST (SGOT) 34 10 - 42 unit/L LAB CHEMISTRY METHOD 10/24/2024 4:41 PM [facility] ALT (SGPT) 51 10 - 60 unit/L LAB CHEMISTRY METHOD 10/24/2024 4:41 PM [facility] Alkaline Phosphatase 109 42 - 121 unit/L LAB CHEMISTRY METHOD 10/24/2024 4:41 PM [facility] Total Protein 8.3(H) 6.0 - 8.0 g/dL LAB CHEMISTRY METHOD 10/24/2024 4:41 PM [facility] Albumin 3.7 3.2 - 5.0 g/dL LAB CHEMISTRY METHOD 10/24/2024 4:41 PM [facility] Total Bilirubin 0.3 0.0 - 1.4 mg/dL LAB CHEMISTRY METHOD 10/24/2024 4:41 PM [facility] Blood Venous blood specimen / Unknown Venipuncture / Unknown 10/24/2024 3:49 PM EDT 10/24/2024 3:56 PM EDT us Reji Gonzalez MD LAB BLOOD ORDERABLES Final Resu lt [facility] [address] [place] [address], * HIV Screening (07/22/2015) HIV Screening abstracted [...] Most Recently Relevant to Health Maintenance Insurance [facility] [employer] Care Teams Straight Knife Cutter Machine Relationship Specialty Start Date End Date Abdifatah Whitt PA [address] [place] [phone] PCP - General Physician Geophysical Data Technician 02/25/25
== END 2025-02-27 09:49 | disposition home or self-care (01) ==
PROVIDERS: PCP Physician Assistant; Visit Provider Physician Assistant
DX: J30.9 Allergic rhinitis, unspecified (principal)

== ENCOUNTER → 2025-02-27 09:22 | Outpatient (BNVA) | payer OTHER, SELFPAY | PROVIDERS: PCP Physician Assistant; Visit Provider Physician Assistant | DX: I10 Essential (primary) hypertension (principal); J30.9 Allergic rhinitis, unspecified | CPT/HCPCS: 99212 ==

== ENCOUNTER 2025-03-11 09:51 | Outpatient (AMB) | payer OTHER, SELFPAY ==
[2025-03-11 09:59] VITALS: BP 130/84; PULSE 80; TEMP 36.2; O2SAT 98; BMI 41.4
--- NOTE | 2025-03-11 09:59 | A.OFFPC_ITS ---
Vital Signs 03/11/25 09:59 Height 5 ft 4 in Weight 241 lb 8 oz BMI 41.4 BP 130/84 Blood Pressure Location Lt brachial Position Sitting Pulse 80 Pulse Source Pulse Oximeter Temp 97.1 F Temp Source Temporal Artery Scan Pulse Oximetry (%) 98 Oxygen Delivery Method Room Air Intake Visit Reasons: f/u Weight, pain managment Allergies dexamethasone (DEXAMETHASONE) Adverse Reaction (Unknown, Verified 03/11/25 10:05) ANXIETY Medication List - Last Reconciled 03/11/25 by Abdifatah Whitt PA-C acetaminophen 650 mg (2 x 325 mg) PO Q6H PRN baclofen 20 mg PO DAILY 30 days celecoxib (Celebrex) 200 mg PO DAILY 30 days famotidine 40 mg PO DAILY fluticasone propion-salmeterol 500-50 mcg/dose (Advair Diskus) 1 ea inhalation BID gabapentin 100 mg PO BID 30 days ibuprofen 600 mg PO Q8H PRN loratadine (Allergy Relief (loratadine)) 10 mg PO DAILY oxycodone 5 mg PO Q8H PRN 5 days sucralfate (Carafate) 2 grams (2 x 1 gram) PO QNOON Tobacco use date assessed: 03/11/25 Dental Screening Dental Screen Date: 03/11/25 Did you have a dental visit in the last 12 months?: Yes Did you have a dental problem in the last 6 months where you did not have access to dental care?: No Was dental information given to patient?: Patient has dentist HPI f/u Weight, pain managment HPI Details The patient is a 34-year-old female presenting with knee pain and back pain. The patient reports severe knee pain, which has been progressively worsening and is associated with a torn meniscus, osteoarthritis, and patellar malalignment. She experiences significant difficulty with ambulation, requiring assistance to climb stairs, and reports frequent episodes of the knee giving out, leading to falls. An MRI conducted in May revealed a torn meniscus and additional tendon damage. The patient is also experiencing back pain, with symptoms of cervical and lumbar radiculopathy, including numbness and tingling in the arms and legs. She has a history of sacroiliitis and reports worsening symptoms despite previous physical therapy interventions. The patient has undergone multiple MRIs, which have shown progressive degeneration of spinal structures. The patient is managing obesity, with a current BMI of 40, and is attempting weight loss through dietary changes and weight management programs. She has been advised to reduce her BMI to 32 to qualify for knee surgery, which would involve extensive repair of the knee structures. Additionally, the patient reports the development of a keloid following a piercing injury, which has not been treated with corticosteroid injections due to contraindications. [facility] Medical History Morbid obesity Chronic idiopathic constipation Right upper quadrant abdominal pain Bilateral leg numbness Early stage of Right shoulder pain Gestational HTN HTN (hypertension) Right wrist pain Obese Muscle spasm of back Transaminitis Epigastric pain Left ankle pain Right hip pain Right hip pain Right flank pain Ganglion of flexor tendon sheath of right index finger Right groin pain Morbid obesity with BMI of 40.0-44.9, adult Patellofemoral disorders, right knee Pharyngitis Lumbar radiculopathy, acute Sciatica of right side Right knee pain Right knee meniscal tear Morbid obesity with BMI of 45.0-49.9, adult Sacroiliac joint pain Flu Body aches Otitis media Pre-op evaluation Low back pain Potential exposure to STD Encounter for annual routine gynecological examination Lower abdominal pain Screening for hypothyroidism Screening for hypercholesterolemia Screening for diabetes mellitus (DM) Pharyngitis Dermatitis fungal Annual physical exam GERD (gastroesophageal reflux disease) Bunion of great toe of left foot Asthma PCOS (polycystic ovarian syndrome) Surgical History Hx of cholecystectomy History of tubal ligation History of back surgery History of carpal tunnel surgery (~04/2020) Hx of section Family History Father Unknown family medical history Maternal Uncle Blocked artery Family/Other Colon cancer Maternal Uncle Blocked artery Mother No problems noted. Maternal Grandmother Stroke S/P triple vessel bypass Social History Household Members: Children Housing: House Alcohol intake: current Alcohol intake frequency: holidays/special occasions only Patient Tobacco Use Status: Never used Tobacco e-Cigarette/Vaping Use: Never Used Second Hand Smoke Exposure: No service: No Current occupational status: unemployed Cognitive needs: No Hearing needs: No Vision needs: Yes Questionnaire PHQ-9 Over the last 2 weeks, how often have you been bothered by any of the following problems? 1. Little interest or pleasure in doing things: not at all 2. Feeling down, depressed, or hopeless: not at all 3. Trouble falling or staying asleep, or sleeping too much: nearly every day 4. Feeling tired or having little energy: not at all 5. Poor appetite or overeating: not at all 6. Feeling bad about yourself - or that you are a failure or have let yourself or your family down: not at all 7. Trouble concentrating on things, such as reading the newspaper or watching television: not at all 8. Moving or speaking so slowly that other people could have noticed. Or the opposite - being so fidgety or restless that you have been moving around a lot more than usual: not at all 9. Thoughts that you would be better off or of hurting yourself in some way: not at all Total score: 3 Depression Screening Interpretation: Negative Depression Screening Done: Yes Source: Developed by Drs. Mike Gu, Adry Bansal, Bret Phipps and colleagues, with an educational kana from [employer]. Thrive Questionnaire Date Thrive assessed: 07/31/24 I am a: Patient What is your living situation today?: I have a steady place to live Within the past 12 months, did the food you bought not last and you didn't have the money to get more?: Never true Within the past 12 months, did you worry whether your food would run out before you got money to buy more?: Never true Do you have trouble paying for medicines?: No Do you have trouble getting transportation to medical appointments?: No Do you have trouble paying your heating and electricity bill?: No Do you have trouble taking care of your child, family member or friend?: No Do you have trouble with day-to-day activities such as bathing, preparing meals, shopping, managing finances, etc.?: No Are you currently unemployed and looking for a job?: No Are you interested in more education?: No Please select the resources that you would like help with: None Currently or been in a relationship where the following occur: No concerns reported THRIVE Score: 0 AUDIT C Alcohol Use Questionnaire (AUDIT-C) 1. How often do you have a drink containing alcohol?: Never 3. How often do you have six or more drinks on one occasion?: Never Total Score: 0 LAURA-7 AMB Questionnaire LAURA-7 Date LAURA - 7 assessed: 08/29/24 Feeling nervous, anxious, or on edge: 0 = Not at all Not being able to stop or control worryin = Not at all Worrying too much about different things: 0 = Not at all Trouble relaxin = Not at all Being so restless that it is hard to sit still: 0 = Not at all Becoming easily annoyed or irritable: 0 = Not at all Feeling afraid as if something awful might happen: 0 = Not at all Total LAURA-7 score (0-4 normal; 5-9 mild; 10-14 moderate; 15-21 severe): 0 Source: Developed by Drs. Mike Gu, Adry Bansal, Bret Phipps and colleagues, with an educational kana from [employer]. Review of Systems Const Denies headache(s) Eyes Denies loss of vision ENT Denies vertigo, Denies dizziness, Denies headache(s) and Denies sore throat Card Denies chest pain, Denies leg edema and Denies lightheadedness Resp Denies cough, Denies hemoptysis and Denies wheezing GI Denies abdominal pain, Denies melena, Denies constipation, Denies diarrhea and Denies vomiting Denies urinary frequency, Denies dysuria and Denies urinary urgency Musc Details: + right knee pain + right hip pain Reports back pain, Reports arthralgias, Denies joint swelling, Denies numbness and Denies tingling Neuro Denies Abnormal speech present, Denies behavioral changes, Denies vertigo, Denies dizziness, Denies headache(s), Denies loss of vision, Denies memory loss, Denies numbness and Denies tingling Psych Denies anxiety, Denies behavioral changes, Denies depression, Denies memory loss and Denies panic attacks Nick/Lymph Denies easy bleeding and Denies easy bruising Aller/Immun Denies wheezing Physical exam (Primary Care) Vital Signs: Last Vital Signs Temp 97.1 F 03/11/25 09:59 Pulse 80 03/11/25 09:59 BP 130/84 03/11/25 09:59 Pulse Ox 98 03/11/25 09:59 Oxygen Delivery Method Room Air 03/11/25 09:59 BMI result Body Mass Index 41.4 BMI Assessment/Plan discussion: High BMI High, discussed plan: lifestyle, weight reduction, dietary and physical activity Tobacco/Smoking Status: Tobacco use Status Tobacco use date assessed 03/11/25 03/11/25 10:02 Patient Tobacco Use Status Never used Tobacco 03/11/25 10:02 e-Cigarette/Vaping Use Never Used 03/11/25 10:02 PHQ-9: PHQ-9 Score PHQ-9: Total score 3 03/11/25 10:07 Depression Screening Interpretation: Negative Thrive Assessment: Date of Thrive Assessment Date Thrive assessed 07/31/24 03/11/25 10:02 Currently or been in a relationship where the following occur: No concerns reported Const General: healthy appearing, no acute distress, alert and awake Nutritional Appearance: well nourished Orientation/consciousness: oriented to person, oriented to place and oriented to time HENMT Ears: TM's normal bilaterally General nose exam: Normal nasal mucous membranes and turbinates present Eyes Conjunctivae: conjunctivae normal Sclerae: sclerae normal Pupils: Equal, round and reactive pupils present Neck Neck: Yes no lymphadenopathy and Yes no JVD Thyroid: Thyroid normal Carotids: no bruits Resp Effort & Inspection: normal respiratory effort and not tachypneic Auscultation: no crackles, no rales, no rhonchi and no wheezes Cardio Rate: regular rate Rhythm: regular rhythm Heart sounds: no murmurs and normal S1 and S2 GI Palpation (GI): Soft to palpation, nontender, no hepatomegaly and no splenomegaly Auscultation: normal bowel sounds Skin General skin exam: no rashes or lesions noted and dry skin Neuro General: oriented to person, oriented to place and oriented to time Cranial nerves: Yes Equal, round and reactive pupils present Speech: No Abnormal speech present Gait exam (Neuro): Normal gait present Motor exam (neuro): no tremor noted Extrem Right upper extremity: full ROM Left upper extremity: full ROM Right lower extremity: full ROM; no edema Left lower extremity: full ROM; no edema Psych Mental Status: mental status grossly normal Speech and movement: Normal speech and movement present Affect: normal affect Attitude: cooperative Thought process: Normal thought process present Coding Level of Care Code Est Pt Level 4 (68428) Diagnoses Internal derangement of right knee involving anterior horn of medial meniscus M23.311 Class 3 obesity E66.813 Primary osteoarthritis of right knee M17.11 Laterality: right Osteoarthritis type: primary Herniated nucleus pulposus, L5-S1 M51.27 Cervical radiculopathy at C5 M54.12 Assessment & Plan Assessment & Plan (1) Internal derangement of right knee involving anterior horn of medial meniscus: Code(s): M23.311 - Other meniscus derangements, anterior horn of medial meniscus, right knee Category: Medical Plan: As per HPI patient followed by an orthopedic in [place] whom does indicate a problem with the right knee structurally. She will need to reduce her weight to a BMI below 32 to call fiber surgery. She is interested in trying a GLP 1 to help her reduce her weight. She does have a BMI of 41 with an obesity related comorbidity of osteoarthritis. (2) Class 3 obesity: Code(s): E66.813 - Obesity, class 3 Category: Medical Plan: Patient does understand her BMI is above 40 and will continue working on adapting to better eating habits to reduce her weight. She has found it difficult to be more physically active due to her lower back, neck and knee pains She is interested in starting a GLP 1 to help her reduce her weight so that she can be a candidate for knee surgery. (3) Knee osteoarthritis: Code(s): M17.9 - Osteoarthritis of knee, unspecified Category: Medical Qualifiers: Laterality: right Osteoarthritis type: primary Qualified Code(s): M17.11 - Unilateral primary osteoarthritis, right knee Plan: As above Patient noted to have a knee osteoarthritis at a young age likely related to her obesity. (4) Herniated nucleus pulposus, L5-S1: Code(s): M51.27 - Other intervertebral disc displacement, lumbosacral region Category: Medical Plan: A referral to [facility] will be made for a second opinion on pain management strategies, including potential nerve stimulation therapy. The patient will be provided with a letter for aquatic therapy at the [facility] to aid in managing osteoarthritis symptoms. The patient will continue current pain management medications, with a refill provided for pain relief as needed. An MRI of the lumbar and cervical spine will be ordered to assess for any worsening of disc degeneration or other pathologies. * For now her pain management includes acetaminophen, baclofen, gabapentin and p.r.n. use of oxycodone 5 mg for pain scales of 9-10 (5) Cervical radiculopathy at C5: Code(s): M54.12 - Radiculopathy, cervical region Category: Medical Plan: As above Orders: Orders MR cervical spine wo con 03/11/25 M54.12 - Radiculopathy, cervical region MR lumbar spine wo con 03/11/25 M96.1 - Postlaminectomy syndrome, not elsewhere classified PT Evaluation and Treatment 03/11/25 M54.12 - Radiculopathy, cervical region Referrals Pain Management Referral M54.12 - Radiculopathy, cervical region Medications: New semaglutide (weight loss) (Romaine) administer weeks 1 through 4 of therapy 0.25 mg (0.5 mL) subcut QWEEK 2 mL 0RF 4 weeks E66.813 - Obesity, class 3, M17.9 - Osteoarthritis of knee, unspecified triamcinolone acetonide 0.1% 1 appl topical DAILY 30 grams 0RF 30 days L91.0 - Hypertrophic scar Refilled oxycodone Partial Fill upon patient request. Covering for neck Big Arm 5 mg PO Q8H PRN 15 tabs 0RF pain 5 days M51.362 - Other intervertebral disc degeneration, lumba r region with discogenic back pain and lower extremity pain
--- OUTSIDE RECORDS SUMMARY | 2025-03-11 10:50 | XMS_ITS | Clinical Summary ---
Author Organization 175 [facility] Address [address] [place] [address] Phone Care Team Providers Care Java Sdet Name Role Phone Abdifatah Whitt Primary Care [...] Care Team (Late st Contact Info) Description 03/30/2025 9:30 AM EDT Office Visit Orthopedic Surgery - [place] [address] [facility] [address] [place] [phone] Jose D Claros MD [address] [place] [phone] 04/02/2025 11:00 AM EDT Evaluation [facility] Outpatient Rehabilitation - [place] [address] [facility] [address] [place] [phone] Naila Kwan, PT Health Maintenance Due Date Last Done Comments [...] mmol/L LAB CHEMISTRY METHOD 10/24/2024 4:41 PM EDT [facility] Potassium 4.3 3.5 - 5.5 mmol/L LAB CHEMISTRY METHOD 10/24/2024 4:41 PM EDT [facility] Chloride 102 96 - 110 mmol/L LAB CHEMISTRY METHOD 10/24/2024 4:41 PM EDT [facility] CO2 28 21 - 32 mmol/L LAB CHEMISTRY METHOD 10/24/2024 4:41 PM EDT [facility] Anion Gap 8 3 - 11 LAB CHEMISTRY METHOD 10/24/2024 4:[address] [facility] Glucose 126(H) 70 - 100 mg/dL LAB CHEMISTRY METHOD 10/24/2024 4:[address] [facility] BUN 14 5 - 25 mg/dL LAB CHEMISTRY METHOD 10/24/2024 4:[address] [facility] Creatinine 1.03 0.50 - 1.10 mg/dL LAB CHEMISTRY METHOD 10/24/2024 4:[address] [facility] eGFR 74 >=60 mL/min/1. 73m2 LAB CHEMISTRY METHOD 10/24/2024 4:[address] [facility] Comment:Calculation based on the Chronic Kidney Disease Epidemiology Collaboration (CKD-EPI) equation refit without adjustment for race. BUN/Creatinine Ratio 13.6 LAB CHEMISTRY METHOD 10/24/2024 4:[address] [facility] Calcium 8.7 8.5 - 10.5 mg/dL LAB CHEMISTRY METHOD 10/24/2024 4:[address] [facility] AST (SGOT) 34 10 - 42 unit/L LAB CHEMISTRY METHOD 10/24/2024 4:[address] [facility] ALT (SGPT) 51 10 - 60 unit/L LAB CHEMISTRY METHOD 10/24/2024 4:[address] [facility] Alkaline Phosphatase 109 42 - 121 unit/L LAB CHEMISTRY METHOD 10/24/2024 4:[address] [facility] Total Protein 8.3(H) 6.0 - 8.0 g/dL LAB CHEMISTRY METHOD 10/24/2024 4:[address] [facility] Albumin 3.7 3.2 - 5.0 g/dL LAB CHEMISTRY METHOD 10/24/2024 4:[address] [facility] Total Bilirubin 0.3 0.0 - 1.4 mg/dL LAB CHEMISTRY METHOD 10/24/2024 4:41 PM EDT [facility] Blood Venous blood specimen / Unknown Venipuncture / Unknown 10/24/2024 3:49 PM EDT 10/24/2024 3:56 PM EDT Reji Gonzalez MD LAB BLOOD ORDERABLES Final Resu lt [facility] [address] [place] [address], [place] [phone] * HIV Screening (07/22/2015) HIV Screening abstracted [...] Most Recently Relevant to Health Maintenance Insurance [facility] [employer] Care Teams Java Sdet Relationship Specialty Start Date End Date Abdifatah Whitt PA [address] [place] [phone] PCP - General Physician Puttying And Calking Supervisor 02/25/25
== END 2025-03-11 10:40 | disposition home or self-care (01) ==
LOC: HO.HMCH 09:51
PROVIDERS: PCP Physician Assistant; Visit Provider Physician Assistant
DX: M17.11 Unilateral primary osteoarthritis, right knee (principal); M23.311 Other meniscus derangements, anterior horn of medial meniscus, right knee; E66.813 Obesity, class 3; Z68.41 Body mass index [BMI] 40.0-44.9, adult; M51.27 Other intervertebral disc displacement, lumbosacral region; M54.12 Radiculopathy, cervical region

== ENCOUNTER → 2025-03-11 09:51 | Outpatient (BNVA) | payer OTHER, SELFPAY | PROVIDERS: PCP Physician Assistant; Visit Provider Physician Assistant | DX: M54.16 Radiculopathy, lumbar region (principal); M54.12 Radiculopathy, cervical region; M23.311 Other meniscus derangements, anterior horn of medial meniscus, right knee; E66.813 Obesity, class 3; M17.11 Unilateral primary osteoarthritis, right knee; M51.27 Other intervertebral disc displacement, lumbosacral region; M96.1 Postlaminectomy syndrome, not elsewhere classified; L91.0 Hypertrophic scar; Z68.41 Body mass index [BMI] 40.0-44.9, adult | CPT/HCPCS: 99212 ==

== ENCOUNTER → 2025-04-09 10:33 | Outpatient (BNV) | payer OTHER, SELFPAY | PROVIDERS: PCP Physician Assistant; Visit Provider Radiology Diagnostic Radiology | DX: M51.27 Other intervertebral disc displacement, lumbosacral region (principal); M47.816 Spondylosis without myelopathy or radiculopathy, lumbar region; D17.79 Benign lipomatous neoplasm of other sites | CPT/HCPCS: 72158 ==

== ENCOUNTER 2025-04-09 10:39 | Outpatient (REF) | payer OTHER, SELFPAY ==
--- NOTE | ~2025-04-09 | MR_ITS ---
EXAMINATION: MR LUMBAR SPINE WITHOUT AND WITH CONTRAST CLINICAL INFORMATION: M96.1. Post laminectomy syndrome. COMPARISON: August 16, 2022. TECHNIQUE: MRI of the lumbar spine was obtained using routine sequences with and without contrast. Intravenous contrast: Gadolinium based (Gadavist) 10 mL without reported immediate complications. FINDINGS: Last rib-bearing vertebra labeled T12 No abnormal enhancement within the neural elements of the thecal sac or the prevertebral compartment. No bone marrow STIR signal abnormality. Decreased intervertebral disc height and signal at L4-5 and L5-S1. Focal hyperintense T2 signal in the posterior intervertebral disc L5-S1 likely annular fissure. Conus medullaris ends at intervertebral disc T12-L1 with normal signal. The neural elements of the thecal sac, filum terminalis demonstrated no grouping or clumping. There is no empty thecal sign. Status post laminectomy, L4-5. T12-L1: Normal. L1-2: Mild broad-based disc bulging. No herniated disc. No central spinal canal or neuroforamina stenosis. L2-3: Broad-based disc bulging. No central spinal canal or neuroforamina stenosis. L3-4: Broad-based disc bulging. Facet joint hypertrophy. Mild decreased AP diameter of the thecal sac and bilateral neuroforamina narrowing. L4-5: Broad-based disc bulging. Facet joint hypertrophy. Bilateral neuroforamina narrowing. L5-S1: Central broad-based herniated disc abutting the S1 nerve roots. Bilateral facet joint hypertrophy resulting in bilateral neuroforamina narrowing. Mild prominent epidural fat. No prevertebral compartment hematoma, mass or fluid collection. MR/MR lumbar spine wo/w con IMPRESSION: Central broad-based herniated disc at L5-S1 abutting the S1 nerve roots. Mild epidural lipomatosis, L5-S1. Mild spondylosis L4-5. No abnormal enhancement. Electronically signed by: Tomi Herzog MD 04/09/2025 11:44 AM EDT
--- OUTSIDE RECORDS SUMMARY | 2025-04-09 13:07 | XMS_ITS | Clinical Summary ---
Author Organization 175 [facility] Address [address] [place] [address] Phone Care Team Providers Care Motor Man Name Role Phone Abdifatah Whitt Primary Care [...] Encounters Date Type Department Care Team Description 04/02/2025 11:00 AM EDT Evaluation [facility] Outpatient Rehabilitation - [place] 175 [facility] [address] [place] [phone] Naila Kawn PT Peroneal tendinitis of left lower extremity (Primary Dx); Equinus contracture of left ankle 03/30/2025 9:30 AM EDT Office Visit Orthopedic Surgery - [place] [address] [facility] [address] [place] [phone] Jose D Claros MD Right knee pain, unspecified chronicity (Primary Dx); Patellofemoral pain syndrome of right knee; Old tear of medial meniscus of right knee, unspecified tear type from Last 3 Months Surgical History Surgery [...] Care Team (Late st Contact Info) Description 04/21/2025 1:00 PM EST Treatment [address] [phone] Bret Mcdonnell, HEATING OPERATORS ENGINEER 04/28/2025 1:30 PM EST Treatment [address] [phone] Bret Mcdonnell, HEATING OPERATORS ENGINEER 05/05/2025 1:30 PM EST Treatment [address] [phone] Bret Mcdonnell, HEATING OPERATORS ENGINEER 05/12/2025 1:30 PM EST Treatment [address] [phone] Naila Kwan, PT 05/26/2025 1:30 PM EST Treatment [address] [phone] Bret Mcdonnell, HEATING OPERATORS ENGINEER 06/02/2025 1:30 PM EST Treatment [facility] [address] [phone] Naila Kwan, PT Health Maintenance Due Date [...] mmol/L LAB CHEMISTRY METHOD 10/24/2024 4:41 PM [facility] Potassium 4.3 3.5 - 5.5 mmol/L LAB CHEMISTRY METHOD 10/24/2024 4:41 PM [facility] Chloride 102 96 - 110 mmol/L LAB CHEMISTRY METHOD 10/24/2024 4:41 PM [facility] CO2 28 21 - 32 mmol/L LAB CHEMISTRY METHOD 10/24/2024 4:41 PM [facility] Anion Gap 8 3 - 11 LAB CHEMISTRY METHOD 10/24/2024 4:41 PM [facility] Glucose 126(H) 70 - 100 mg/dL LAB CHEMISTRY METHOD 10/24/2024 4:41 PM [facility] BUN 14 5 - 25 mg/dL LAB CHEMISTRY METHOD 10/24/2024 4:41 PM [facility] Creatinine 1.03 0.50 - 1.10 mg/dL LAB CHEMISTRY METHOD 10/24/2024 4:41 PM [facility] eGFR 74 >=60 mL/min/1. 73m2 LAB CHEMISTRY METHOD 10/24/2024 4:41 PM [facility] Comment:Calculation based on the Chronic Kidney Disease Epidemiology Collaboration (CKD-EPI) equation refit without adjustment for race. BUN/Creatinine Ratio 13.6 LAB CHEMISTRY METHOD 10/24/2024 4:41 PM [facility] Calcium 8.7 8.5 - 10.5 mg/dL LAB CHEMISTRY METHOD 10/24/2024 4:41 PM [facility] AST (SGOT) 34 10 - 42 unit/L LAB CHEMISTRY METHOD 10/24/2024 4:41 PM [facility] ALT (SGPT) 51 10 - 60 unit/L LAB CHEMISTRY METHOD 10/24/2024 4:41 PM [facility] Alkaline Phosphatase 109 42 - 121 unit/L LAB CHEMISTRY METHOD 10/24/2024 4:41 PM [facility] Total Protein 8.3(H) 6.0 - 8.0 g/dL LAB CHEMISTRY METHOD 10/24/2024 4:41 PM [facility] Albumin 3.7 3.2 - 5.0 g/dL LAB CHEMISTRY METHOD 10/24/2024 4:41 PM [facility] Total Bilirubin 0.3 0.0 - 1.4 mg/dL LAB CHEMISTRY METHOD 10/24/2024 4:41 PM [facility] Blood Venous blood specimen / Unknown Venipuncture / Unknown 10/24/2024 3:49 PM EDT 10/24/2024 3:56 PM EDT Reji Gonzalez MD LAB BLOOD ORDERABLES Final Resu lt [facility] [address] [place] [address], * HIV Screening (07/22/2015) Pathologist [facility] [...] Most Recently Relevant to Health Maintenance Insurance [facility] [employer] Care Teams Motor Man Relationship Specialty Start Date End Date Abdifatah Whitt PA [address] [place] [phone] PCP - General Physician Craft Manager 02/25/25
== END 2025-04-09 10:40 | disposition home or self-care (01) ==
LOC: HO.MRI 10:39
PROVIDERS: PCP Physician Assistant; Visit Provider Physician Assistant
DX: M96.1 Postlaminectomy syndrome, not elsewhere classified (principal)
CPT/HCPCS: 72158; A9585

== ENCOUNTER 2025-05-12 09:09 | Outpatient (REF) | payer OTHER, SELFPAY ==
--- NOTE | ~2025-05-12 | XR_ITS ---
EXAMINATION: XR FOOT, LEFT CLINICAL INFORMATION: M79.672 - Pain in left foot COMPARISON: January 09, 2021 TECHNIQUE: AP, lateral, and oblique views of the left foot. FINDINGS: No acute fracture or dislocation. No lytic or blastic lesions. Asymmetric narrowing of the joint spaces in the proximal and distal interphalangeal joints of the third, fourth and to a lesser extent second toes. Exostosis at the Achilles tendon insertion. XR/XR foot LT min 3V IMPRESSION: Mild osteoarthritis/osteoarthrosis, third and to a lesser extent second and fourth toes. Enthesopathy, Achilles tendon. Electronically signed by: Tomi Herzog MD 05/12/2025 09:52 AM EST
== END 2025-05-12 09:10 | disposition home or self-care (01) ==
LOC: HO.HMGCX 09:09
PROVIDERS: PCP Physician Assistant; Visit Provider Internal Medicine
DX: M79.672 Pain in left foot (principal)
CPT/HCPCS: 73630; 99212

== ENCOUNTER 2025-05-12 09:09 | Outpatient (AMB) | payer OTHER, SELFPAY ==
[2025-05-12 09:23] VITALS: BP 110/90; PULSE 96; TEMP 36.8; O2SAT 98; BMI 41.9
--- NOTE | 2025-05-12 09:23 | MHC.OFFWIV ---
Intake Vital Signs 05/12/25 09:23 Height 5 ft 4 in Weight 244 lb BMI 41.9 BP 110/90 H Blood Pressure Location Rt brachial Position Sitting Pulse 96 Pulse Source Pulse Oximeter Temp 98.3 F Temp Source Oral Pulse Oximetry (%) 98 Oxygen Delivery Method Room Air Intake Visit Reasons: EP-lt foot pain & swollen Intake Note: pt presents with pain to bottom of left foot near toes for 3 days- denies injury Patient Tobacco Use Status: Never used Tobacco Allergies dexamethasone (DEXAMETHASONE) Adverse Reaction (Unknown, Verified 03/11/25 10:05) ANXIETY Medication List - Last Reconciled 05/12/25 by Howard Yoon MD acetaminophen 650 mg (2 x 325 mg) PO Q6H PRN baclofen 20 mg PO DAILY 30 days celecoxib (Celebrex) 200 mg PO DAILY 30 days famotidine 40 mg PO DAILY fluticasone propion-salmeterol 500-50 mcg/dose (Advair Diskus) 1 ea inhalation BID loratadine (Allergy Relief (loratadine)) 10 mg PO DAILY sucralfate (Carafate) 2 grams (2 x 1 gram) PO QNOON HPI EP-lt foot pain & swollen HPI Details History of Present Illness The patient is a 34 year old individual presenting with left foot pain and swelling. Left foot pain: - The patient reports the onset of left foot swelling and pain since Sunday, initially attributing it to being on the patient's feet frequently. - The symptoms have progressively worsened despite resting all day on Sunday, applying ice and heat, and taking Tylenol. - The pain is severe and located at the ball of the foot, specifically from the second to the fourth toe. - This is the first time the patient has experienced this issue. Arthritis: - The patient has a known history of arthritis in the knee, sacroiliac joint, and back. Medications: - Tylenol for current foot pain. Social History: - Employment: The patient is unemployed and stays home. - Functional Status: Activity is limited by arthritis. Problem List - Left foot pain - Arthritis Plan - An X-ray of the left foot will be obtained to evaluate the cause of pain and swelling. - An unspecified medication will be prescribed for pain management, with instructions to take it with food. - The patient was advised to discontinue other medications and take only the newly prescribed one. diclofenic 75 mg bid - A follow-up call will be made to discuss the X-ray results - Further management will be determined based on the X-ray findings. Review of Systems - General: No fever no chills - Neurological: No headaches no dizziness - Ear nose throat: No sore throat no hearing difficulty no ear pain - Cardiovascular: No syncope, no chest pain, no palpitations - Gastrointestinal: No nausea vomiting or diarrhea Physical Exam General: No acute distress HEENT: No acute findings Neck: Supple Respiratory system: Able to talk in full sentences, no audible wheeze Gastrointestinal: No pain Extremities: pain in the left foot ball area from the second toe to the fourth toe, no discoloration observed, sensory intact SHIP BOSS: Alert awake oriented x3 motor intact Skin: Normal turgor [facility] Medical History Morbid obesity Chronic idiopathic constipation Right upper quadrant abdominal pain Bilateral leg numbness Early stage of Right shoulder pain Gestational HTN HTN (hypertension) Right wrist pain Obese Muscle spasm of back Transaminitis Epigastric pain Left ankle pain Right hip pain Right hip pain Right flank pain Ganglion of flexor tendon sheath of right index finger Right groin pain Morbid obesity with BMI of 40.0-44.9, adult Patellofemoral disorders, right knee Pharyngitis Lumbar radiculopathy, acute Sciatica of right side Right knee pain Right knee meniscal tear Morbid obesity with BMI of 45.0-49.9, adult Sacroiliac joint pain Flu Body aches Otitis media Pre-op evaluation Low back pain Potential exposure to STD Encounter for annual routine gynecological examination Lower abdominal pain Screening for hypothyroidism Screening for hypercholesterolemia Screening for diabetes mellitus (DM) Pharyngitis Dermatitis fungal Annual physical exam GERD (gastroesophageal reflux disease) Bunion of great toe of left foot Asthma PCOS (polycystic ovarian syndrome) Surgical History Hx of cholecystectomy History of tubal ligation History of back surgery History of carpal tunnel surgery (~04/2020) Hx of section Family History Father Unknown family medical history Maternal Uncle Blocked artery Family/Other Colon cancer Maternal Uncle Blocked artery Mother No problems noted. Maternal Grandmother Stroke S/P triple vessel bypass Social History Household Members: Children Housing: House Alcohol intake: current Alcohol intake frequency: holidays/special occasions only Patient Tobacco Use Status: Never used Tobacco e-Cigarette/Vaping Use: Never Used Second Hand Smoke Exposure: No service: No Current occupational status: unemployed Cognitive needs: No Hearing needs: No Vision needs: Yes Physical Exam Vital Signs: Last Vital Signs Temp 98.3 F 05/12/25 09:23 Pulse 96 05/12/25 09:23 BP 110/90 H 05/12/25 09:23 Pulse Ox 98 05/12/25 09:23 Oxygen Delivery Method Room Air 05/12/25 09:23 BMI result Body Mass Index 41.9 Assessment & Plan Assessment & Plan (1) Foot pain, left: Code(s): M79.672 - Pain in left foot Plan History of Present Illness The patient is a 34 year old individual presenting with left foot pain and swelling. Left foot pain: - The patient reports the onset of left foot swelling and pain since Sunday, initially attributing it to being on the patient's feet frequently. - The symptoms have progressively worsened despite resting all day on Sunday, applying ice and heat, and taking Tylenol. - The pain is severe and located at the ball of the foot, specifically from the second to the fourth toe. - This is the first time the patient has experienced this issue. Arthritis: - The patient has a known history of arthritis in the knee, sacroiliac joint, and back. Medications: - Tylenol for current foot pain. Social History: - Employment: The patient is unemployed and stays home. - Functional Status: Activity is limited by arthritis. Problem List - Left foot pain - Arthritis Plan - An X-ray of the left foot will be obtained to evaluate the cause of pain and swelling. - An unspecified medication will be prescribed for pain management, with instructions to take it with food. - The patient was advised to discontinue other medications and take only the newly prescribed one. diclofenic 75 mg bid - A follow-up call will be made to discuss the X-ray results - Further management will be determined based on the X-ray findings. Medications: New diclofenac sodium take it with food 75 mg PO BID 20 tabs 0RF pain 10 days Coding Level of Care Code Est Pt Level 3 (40145) Diagnoses Foot pain, left M79.166
--- OUTSIDE RECORDS SUMMARY | 2025-05-12 09:36 | XMS_ITS | Clinical Summary ---
Author Organization 175 [facility] Address [address] [place] [address] Phone Care Team Providers Care Textile Conservator Name Role Phone Abdifatah Whitt Primary Care [...] as needed for for pain 4 Active acetaminophen (TYLENOL) 325 mg tablet TAKE 2 TABLETS BY MOUTH EVERY 6 HOURS NEEDED FOR PAIN/FEVER Active cephalexin (KEFLEX) 500 mg capsule 5 Active diazePAM (VALIUM) 5 mg tablet PLEASE SEE ATTACHED FOR DETAILED DIRECTIONS 5 Active loratadine (CLARITIN) 10 mg tablet Take 1 tablet (10 mg total) by mouth 1 (one) time each day. 5 Active oxyCODONE (OXY-IR) 5 mg immediate release capsule 5 Active oxyCODONE (ROXICODONE) 5 mg immediate release tablet TAKE 1 TABLET ORALLY EVERY 8 HOURS NEEDED FOR PAIN FOR 5 DAYS 5 Active predniSONE (DELTASONE) 20 mg tablet Take 2 tablets (40 mg total) by mouth 1 (one) time each day. Active sucralfate (CARAFATE) 1 gram tablet TAKE 2 TABLETS BY MOUTH DAILY AT NOON 5 Active Active Problems Problem Noted Date Diagnosed Date Chronic right-sided low back pain with right-althea ed sciatica 04/29/2025 Assessment & Plan (04/29/2025 5:49 PM EST): Ms. Elizabeth describes right sided low back pain with radiation to the buttock, anterolateral thigh crossing at the knee into the kelley. She also notes right calf and groin pain. She has had a couple of episodes of incontinence but denies perineal numbness. She says that this has been going on since her prior surgery at [facility] 3 years ago where she underwent an L4-5 laminectomy. She is neurologically intact. An MRI of the lumbar spine was performed at [facility] on April 09, 2025. I had the report but unfortunately was not able to review those films today. The report does demonstrate diffuse degenerative changes with broad-based disc bulging throughout. There was decreased disc height at L4-5 and L5-S1. There was no abnormal enhancement. At L5-S1 a central disc did abut the bilateral S1 nerves as they were descending and along with bilateral facet joint hypertrophy did result in bilateral neural foraminal narrowing at that level. I told the patient I would call her after reviewing her films and let her know if there was anything we had to offer. Preeclampsia 05/06/2024 Overview (05/06/2024): diagnosed to have preeclampsia, was on meds for a short duration Asthma 05/06/2024 Encounters Date Type Department Care Team Description 05/08/2025 Telephone [facility] [address] [phone] Omar Whittington PA 05/05/[address] [phone] Abby Guerrero MA 04/30/2025 4:58 PM EST - 04/30/2025 11:59 PM EST Hospital Encounter [facility] MRI [address] [place] [phone] Right knee pain, unspecified chronicity; Patellofemoral pain syndrome of right knee; Old tear of medial meniscus of right knee, unspecified tear type Discharge Disposition: Home or Self Care 04/29/2025 10:30 AM EST Consult [facility] 175 [facility] [address] [place] [phone] Omar Whittington PA Chronic right-sided low back pain with right-sided sciatica (Primary Dx) 04/02/2025 11:00 AM EDT Evaluation [facility] [address] [place] [phone] Naila Kwan PT Peroneal tendinitis of left lower extremity (Primary Dx); Equinus contracture of left ankle 03/30/2025 9:30 AM EDT Office Visit Orthopedic Surgery [facility] 160 [address] [facility] [address] [place] [phone] Jose D Claros MD Right knee pain, [...] - - Weight 109 kg (240 lb) 04/29/2025 10:22 AM EST Height 160 cm (5' 3 ) 04/29/2025 10:22 AM EST Body Mass Index 42.51 04/29/2025 10:22 AM EST Plan of Treatment Upcoming Encounters Date Type Department Care Team (Late st Contact Info) Description 05/12/2025 1:30 PM EST Treatment [address] [phone] Naila Kwan, PT 05/26/2025 1:30 PM EST Treatment [facility] [address] [phone] Bret Mcdonnell, FRUIT P[employer]ER [employer] FILL 06/02/2025 1:30 PM EST Treatment [facility] [address] [phone] Naila Kwan, PT Health Maintenance Due Date [...] Procedure Name Priority Date/Time Associated Diagnosis Comments MR KNEE WO CONTRAST RIGHT Routine 04/30/2025 6:03 PM EST Right knee pain, unspecified chronicity Patellofemoral pain syndrome of right knee Old tear of medial meniscus of right knee, unspecified tear type COMPREHENSIVE METABOLIC PANEL STAT 10/24/2024 3:49 PM EDT HEPATITIS C SCREENING Routine 07/22/2015 HIV SCREENING Routine 07/22/2015 LIPID PANEL Routine 07/22/2015 from Last 3 Months or Most Recently Relevant to Health Maintenance Results * MR Knee wo Contrast Right (04/30/2025 6:03 PM EST) Anatomical Region Laterality Modality Lower Extremities, Knee Right Magnetic Resonance 05/08/2025 1:41 PM EST Impressions 05/08/2025 1:51 PM EST No meniscal or ligamentous injury. Patella duc with lateral patellar subluxation. Edema within the superolateral aspect of Hoffa's fat. Partial-thickness cartilage loss along the lateral patellar facet. Findings suggest fat pad impingement in the setting of chronic patellar maltracking. -------- FINAL REPORT -------- Dictated By: LAN MILLS Dictated Date: 05/08/2025 13:41 ET Assigned Physician: LAN MILLS Reviewed and Electronically Signed By: LAN MILLS Signed Date: 05/08/2025 13:51 ET Workstation ID: [id number] Transcribed By: Self Edit Transcribed Date: 05/08/2025 13:41 ET Narrative 05/08/2025 1:51 PM EST PROCEDURE: Right knee MRI INDICATION: Meniscal tear, pain TECHNIQUE: Multiplanar, multisequence MRI of the right knee Without contrast. COMPARISON: 06/01/2024. FINDINGS: The lateral meniscus is intact. No focal cartilage defects in the lateral compartment. The medial meniscus is intact. No focal cartilage defects in the medial compartment. Patella duc with lateral patellar subluxation relative to the trochlear groove. Edema within the superolateral aspect of Hoffa's fat. Partial-thickness cartilage loss seen along the lateral patellar facet. TT-TG distance measures 20 mm. Patellar retinacular structures are intact. Anterior cruciate ligament and posterior cruciate ligament are intact. Collateral ligaments are intact. No fracture or suspicious marrow replacing lesion. Quadriceps and patellar tendons are intact. Popliteal tendon, biceps femoris tendon, and iliotibial band are intact. Medial tendons are intact. No joint effusion or Spears's cyst. Muscle bulk is maintained. No focal muscle atrophy or soft tissue mass. Procedure Note Lan Mills MD - 05/08/2025 PROCEDURE: Right knee MRI INDICATION: Meniscal tear, pain TECHNIQUE: Multiplanar, multisequence MRI of the right knee Withoutcontrast. COMPARISON: 06/01/2024. FINDINGS: The lateral meniscus is intact. No focal cartilage defects in the lateralcompartment. The medial meniscus is intact. No focal cartilage defects in the medialcompartment. Patella duc with lateral patellar subluxation relative to the trochleargroove. Edema within the superolateral aspect of Hoffa's fat.Partial-thickness cartilage loss seen along the lateral patellar facet.TT-TG distance measures 20 mm. Patellar retinacular structures areintact. Anterior cruciate ligament and posterior cruciate ligament are intact. Collateral ligaments are intact. No fracture or suspicious marrow replacing lesion. Quadriceps and patellar tendons are intact. Popliteal tendon, biceps femoris tendon, and iliotibial band are intact. Medial tendons are intact. No joint effusion or Spears's cyst. Muscle bulk is maintained. No focal muscle atrophy or soft tissue mass. IMPRESSION: No meniscal or ligamentous injury. Patella duc with lateral patellar subluxation. Edema within thesuperolateral aspect of Hoffa's fat. Partial-thickness cartilage lossalong the lateral patellar facet. Findings suggest fat pad impingement inthe setting of chronic patellar maltracking. -------- FINAL REPORT -------- Dictated By: LAN MILLS Dictated Date: 05/08/2025 13:41 ET Assigned Physician: LAN MILLS Reviewed and Electronically Signed By: LAN MILLS Signed Date: 05/08/2025 13:51 ET Workstation ID: [id number] Transcribed By: Self Edit Transcribed Date: 05/08/2025 13:41 ET Jose D Claros MD IMG MRI PROCEDURES Final Resul t * (ABNORMAL) Comprehensive metabolic panel (10/24/2024 3:49 PM EDT) Sodium 138 133 - 145 mmol/L LAB CHEMISTRY METHOD 10/24/2024 4:41 PM [facility] Potassium 4.3 3.5 - 5.5 mmol/L LAB CHEMISTRY METHOD 10/24/2024 4:41 PM [facility] Chloride 102 96 - 110 mmol/L LAB CHEMISTRY METHOD 10/24/2024 4:41 PM [facility] CO2 28 21 - 32 mmol/L LAB CHEMISTRY METHOD 10/24/2024 4:41 PM [facility] Anion Gap 8 3 - 11 LAB CHEMISTRY METHOD 10/24/2024 4:41 PM [facility] Glucose 126(H) 70 - 100 mg/dL LAB CHEMISTRY METHOD 10/24/2024 4:41 PM [facility] BUN 14 5 - 25 mg/dL LAB CHEMISTRY METHOD 10/24/2024 4:41 PM [facility] Creatinine 1.03 0.50 - 1.10 mg/dL LAB CHEMISTRY METHOD 10/24/2024 4:41 PM [facility] eGFR 74 >=60 mL/min/1. 73m2 LAB CHEMISTRY METHOD 10/24/2024 4:41 PM [facility] Comment:Calculation based on the Chronic Kidney Disease Epidemiology Collaboration (CKD-EPI) equation refit without adjustment for race. BUN/Creatinine Ratio 13.6 LAB CHEMISTRY METHOD 10/24/2024 4:41 PM [facility] Calcium 8.7 8.5 - 10.5 mg/dL LAB CHEMISTRY METHOD 10/24/2024 4:41 PM [facility] AST (SGOT) 34 10 - 42 unit/L LAB CHEMISTRY METHOD 10/24/2024 4:41 PM [facility] ALT (SGPT) 51 10 - 60 unit/L LAB CHEMISTRY METHOD 10/24/2024 4:41 PM [facility] Alkaline Phosphatase 109 42 - 121 unit/L LAB CHEMISTRY METHOD 10/24/2024 4:41 PM [facility] Total Protein 8.3(H) 6.0 - 8.0 g/dL LAB CHEMISTRY METHOD 10/24/2024 4:41 PM [facility] Albumin 3.7 3.2 - 5.0 g/dL LAB CHEMISTRY METHOD 10/24/2024 4:41 PM [facility] Total Bilirubin 0.3 0.0 - 1.4 mg/dL LAB CHEMISTRY METHOD 10/24/2024 4:41 PM [facility] Blood Venous blood specimen / Unknown Venipuncture / Unknown 10/24/2024 3:49 PM EDT 10/24/2024 3:56 PM EDT us Reji Gonzalez MD LAB BLOOD ORDERABLES Final Resu lt [facility] [address] [place] [address], * HIV Screening (07/22/2015) [facility] HIV Screening abstracted Historical Provider HEALTH MAINTENANCE Final Result * Hepatitis C Screening (07/22/2015) Hepatitis C Screening abstracted us Historical Provider HEALTH MAINTENANCE Final Result * Lipid panel (07/22/2015) LDL/HDL Ratio 3 0 - 4 Triglycerides 89 0 - 150 mg/dL Cholesterol 132 0 - 200 mg/dL HDL 40 >=40 mg/dL LDL Cholesterol 74 0 - 100 mg/dL Blood Venous blood specimen / Unknown us Historical Provider LAB BLOOD ORDERABLES Sharron l Result from Last 3 Months or Most Recently Relevant to Health Maintenance Insurance [facility] Care Teams Textile Conservator Relationship Specialty Start Date End Date Abdifatah Whitt PA [address] [place] [phone] PCP - General Physician Associate Chemist 02/25/25
--- OUTSIDE RECORDS SUMMARY | 2025-05-12 09:36 | XMS_ITS | Encounter Summary ---
Author Organization [facility] Address [address] [place] [address] Care Team Providers Care Training Professional Name Role Phone Abdifatah Whitt Primary Care Provider [phone] Encounter Details Date Type Department Care Team ([facility] st Contact Info) Description 05/08/2025 Telephone Neurosurgery [facility] [address] [phone] Omar Whittington PA [address] [phone] Social History Tobacco Use Types Packs/Day Years [...] PM EDT documented as of this encounter Progress Notes * ARAM Cool - 05/08/2025 4:40 PM EST The patient and let her know that there were degenerative changes including a diffuse disc bulge atL5-S1 but nothing worrisome that I thought Dr. Escalera would offer surgery for. About reasonable conservative modalities including physical therapy, acupuncture, chiropractic treatment, yoga, and anti-inflammatory medications. She is currently in physical therapy for her ankle but will call if she needs a prescription for physical therapy for her back. documented in this encounter Plan of Treatment Upcoming Encounters Date Type Department Care Team (Late st Contact Info) Description 05/12/2025 1:30 PM EST Treatment [facility] [address] [phone] Naila Kwan, PT 05/26/2025 1:30 PM EST Treatment [facility] [address] [phone] Bret Mcdonnell, EMPLOYEE RELATIONS MANAGER 06/02/2025 1:30 PM EST Treatment [address] [phone] Naila Kwan, PT documented as of this encounter Visit Diagnoses Not on filedocumented in this encounter Care Teams Training Professional Relationship Specialty Start Date End Date Abdifatah Whitt PA [address] [place] [phone] PCP - General Physician Peer Support Specialist 02/25/25 documented as of this encounter
== END 2025-05-12 10:23 | disposition home or self-care (01) ==
PROVIDERS: PCP Physician Assistant; Visit Provider Internal Medicine
DX: M79.672 Pain in left foot (principal)

== ENCOUNTER → 2025-05-12 09:39 | Outpatient (BNV) | payer OTHER, SELFPAY | PROVIDERS: PCP Physician Assistant; Visit Provider Radiology Diagnostic Radiology | DX: M19.072 Primary osteoarthritis, left ankle and foot (principal); M77.52 Other enthesopathy of left foot and ankle | CPT/HCPCS: 73630 ==